=== PATIENT | male | born 1960 | race African-American/Black ===

== ENCOUNTER 2017-04-09 10:19 | Inpatient (IN) | payer OTHER ==
[2017-04-09 12:06] LABS: BASOPHIL 0.7 % (0-2.0); EOSINOPHIL 0.2 % (0-4.5); MCH 36.5 pg (25.7-33.7); MCHC 33.4 g/dl (32.0-35.9); MEAN CELL VOLUME 109.5 fl (80-96); MEAN PLT VOLUME 10.6 fl (7.5-11.1); NEUTROPHILS 68.2 % (42.8-82.8); RDW 15.7 % (11.9-15.9); WHITE BLOOD COUNT 2.8 K/mm3 (4.0-10.0)
[2017-04-09 12:08] LABS: PLATELET COUNT 28 K/MM3 (134-434)
--- NOTE | 2017-04-09 12:27 | PDOC ---
History of Present Illness - General History Source: Patient Exam Limitations: No Limitations - History of Present Illness Initial Comments: 04/09/17 12:30 The patient is a 56 year old male with a significant PMH of HTN, Hepatitis C, HIV, and cirrhosis of liver who presents to the emergency department with abdominal distension and swelling below the waist beginning approximately 4 days ago. 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 He reports swelling bilaterally in lower extremities (left worse than right), and in the scrotum and penis, giving him difficulty urinating. He also reports difficulty eating due to his distended abdomen. Patient was prescribed medication by his ID doctor about 6 months ago but has reported noncompliance from then until now. The patient denies chest pain, shortness of breath, headache and dizziness. Denies fever, chills, nausea, vomit, diarrhea and constipation. Denies dysuria, urgency and hematuria. Allergies: NKA Past surgical history: Appendectomy. Social history: Moderate alcohol use. No reported cigarette or drug use. <Charles Hartley - Last Filed: 04/09/17 15:47> - General History Source: Patient Exam Limitations: No Limitations <Shelley Calderon - Last Filed: 04/09/17 16:05> - General Chief Complaint: Edema Stated Complaint: BITE/ SWOLLEN LT FOOT Time Seen by Provider: 04/09/17 10:40 Past History <Charles Hartley - Last Filed: 04/09/17 15:47> - Past Medical History HTN: Yes Other medical history: HEP C - Surgical History Appendectomy: Yes - Suicide/Smoking/Psychosocial Hx Smoking History: Never smoked Hx Alcohol Use: No Drug/Substance Use Hx: No <Shelley Calderon - Last Filed: 04/09/17 16:05> - Past Medical History Allergies/Adverse Reactions: Allergies Allergy/AdvReac Type Severity Reaction Status Date / Time No Known Allergies Allergy Verified 04/09/17 10:27 Review of Systems - Review of Systems Able to Perform ROS?: Yes Comments:: 04/09/17 12:31 GENERAL/CONSTITUTIONAL: No fever or chills. No weakness. HEAD, EYES, EARS, NOSE AND THROAT: No change in vision. No ear pain or discharge. No sore throat. CARDIOVASCULAR: No chest pain or shortness of breath. RESPIRATORY: No cough, wheezing, or hemoptysis. GASTROINTESTINAL: (+) Abdominal swelling. No nausea, vomiting, diarrhea or constipation. GENITOURINARY: (+) Difficulty urinating. No dysuria, frequency. MUSCULOSKELETAL: (+) Bilateral LE swelling. (+) Scrotum & penis swelling. No joint pain. No neck or back pain. SKIN: No rash NEUROLOGIC: No headache, vertigo, loss of consciousness, or change in strength/ sensation. ENDOCRINE: No increased thirst. No abnormal weight change. HEMATOLOGIC/LYMPHATIC: No anemia, easy bleeding, or history of blood clots. ALLERGIC/IMMUNOLOGIC: No hives or skin allergy. <Charles Hartley - Last Filed: 04/09/17 15:47> *Physical Exam - Vital Signs Last Vital Signs Temp Pulse Resp BP Pulse Ox 98.3 F 110 H 20 134/80 100 04/09/17 10:24 04/09/17 10:24 04/09/17 10:24 04/09/17 10:24 04/09/17 10:24 - Physical Exam Comments: 04/09/17 12:32 GENERAL: Awake, alert, and fully oriented, in no acute distress HEAD: No signs of trauma EYES: PERRLA, EOMI, sclera anicteric, conjunctiva clear ENT: Auricles normal inspection, hearing grossly normal, nares patent, oropharynx clear without exudates. Moist mucosa NECK: Normal ROM, supple, no lymphadenopathy, JVD, or masses LUNGS: Breath sounds equal, clear to auscultation bilaterally. No wheezes, and no crackles HEART: Regular rate and rhythm, normal S1 and S2, no murmurs, rubs or gallops ABDOMEN: (+) Distended diffusely. (+) Ascites. Soft, normoactive bowel sounds. No guarding, no rebound. No masses EXTREMITIES:(+) Bilateral LE edema (left worse than right). Normal range of motion. No clubbing or cyanosis. No cords, erythema, or tenderness. DP/PT pulses 2+ and symmetric. NEUROLOGICAL: Cranial nerves II through XII grossly intact. Normal speech. SKIN: Warm, Dry, normal turgor, no rashes or lesions noted. <Charles Hartley - Last Filed: 04/09/17 15:47> - Vital Signs Last Vital Signs Temp Pulse Resp BP Pulse Ox 98.3 F 110 H 20 134/80 100 04/09/17 10:24 04/09/17 10:24 04/09/17 10:24 04/09/17 10:24 04/09/17 10:24 <Shelley Calderon - Last Filed: 04/09/17 16:05> Procedures - Bedside Ultrasound Bedside Ultrasound: Focused Assessment w/Sonography for Trauma Other: LARGE ASCITES SEE MDM <Shelley Calderon - Last Filed: 04/09/17 16:05> Heart Score/ECG Review #1 General ECG Interpretation: Sinus Rhythm, Normal Rate (81), Normal Intervals, No acute ischemic changes (TWI I, AVL, V4 - V5) Compared to previous ECG there are: Previous ECG unavail <Shelley Calderon - Last Filed: 04/09/17 16:05> ED Treatment Course - LABORATORY CBC & Chemistry Diagram: 04/09/17 11:55 04/09/17 12:02 - ADDITIONAL ORDERS Additional order review: 04/09/17 11:55 RBC 2.81 L MCV 109.5 H MCHC 33.4 RDW 15.7 MPV 10.6 Neutrophils % 68.2 Lymphocytes % 21.0 Monocytes % 9.9 Eosinophils % 0.2 Basophils % 0.7 <Charles Hartley - Last Filed: 04/09/17 15:47> - LABORATORY CBC & Chemistry Diagram: 04/09/17 11:55 04/09/17 12:02 - ADDITIONAL ORDERS Additional order review: 04/09/17 11:55 RBC 2.81 L MCV 109.5 H MCHC 33.4 RDW 15.7 MPV 10.6 Neutrophils % 68.2 Lymphocytes % 21.0 Monocytes % 9.9 Eosinophils % 0.2 Basophils % 0.7 - RADIOLOGY Radiology Studies Ordered: Category Date Time Status CHEST PA & LAT [RAD] Stat Radiology 04/09/17 11:16 Ordered <Shelley Calderon - Last Filed: 04/09/17 16:05> Medical Decision Making - Medical Decision Making 04/09/17 12:20 56 yo male h/o hiv (no currently on meds sine > 6 mo) here with c/o abd and leg swelling, edema x 4 days. believes attributed to ant bites. h/o cirrhosis. htn , . no sob no cp. plan differential: edema from worsening cirrhosis, anemia liver failure, ascities, no current signs of cellulitis, renal failure, plan labs cmp cbc ua cxr bnp ekg. reasses. 04/09/17 15:08 focused ed ultrasound FAST all four quadrants scanned, including right upper, left upper , subxiphoid and pelvic views large free fluid noted in perihepatic space, perisplenic space, and pelvix. focued ED TTE noted for left atrial enlargement, overall good contractility. no pericardial effusion. no pleural effusio noted. impression: positive FAST for ascites, TTE good contractility, no pericardial effusion. PT WITH PANCYTOPENIA, PLATELET 26 NO ACTIVE BLEEDING. ENCOURAGE PT TO STAY IN HOSPITAL FOR EVALUATION LIVER FAILURE, UNTREATED HIV AND DIFFUSE ANASARCA. PT REFUSING. GIVEN NUMBER FOR [facility] [phone]. aware of risk and benefit including worsening edema. lower platelets, spontaneous bleeding. 04/09/17 15:13 04/09/17 15:14 <Shelley Calderon - Last Filed: 04/09/17 16:05> *DC/Admit/Observation/Transfer - Attestations Scribe Attestion: 04/09/17 12:32 Documentation prepared by Charles Hartley, acting as center medical director for Shelley Calderon MD. <Charles Hartley - Last Filed: 04/09/17 15:47> - Discharge Dispostion Admit: Yes <Shelley Calderon - Last Filed: 04/09/17 16:05> Diagnosis at time of Disposition: Pancytopenia, Thrombocytopenia, Ascites, Edema - Discharge Dispostion Disposition: AGAINST MEDICAL ADVICE Condition at time of disposition: Fair - Patient Instructions Printed Discharge Instructions: Cirrhosis, Ascites, Platelet Count Additional Instructions: your platelet count is very low at 26. you should return for any spontaneous bleeding, or any concerns. you need to follow up wtih the [facility], HIV clinic. call to schedule to be seen in the next week. [phone]. you also need to follow up wtih a manager radio, you can see Dr. Faulkner see referral information. understand you are leaving Against medical advice, i encourage you to return should you change your mind.
[2017-04-09 12:33] LABS: ALBUMIN 1.4 g/dl (3.4-5.0); ANION GAP 7 (8-16); BILIRUBIN,TOTAL 1.4 mg/dL (0.2-1.0); CO2 24 mmol/L (21-32); CREATININE 0.7 mg/dL (0.7-1.3); GLUCOSE,RANDOM 82 mg/dL (74-106); SGOT/AST 146 U/L (15-37); SGPT/ALT 63 U/L (12-78); TOT PROT 7.4 g/dl (6.4-8.2)
[2017-04-09 12:47] LABS: ALK PHOS 84 U/L (45-117)
--- NOTE | 2017-04-09 12:53 | EKG ---
Test Reason : Blood Pressure : / mmHG Vent. Rate : 081 BPM Atrial Rate : 081 BPM P-R Int : 138 ms QRS Dur : 086 ms QT Int : 402 ms P-R-T Axes : 012 038 121 degrees QTc Int : 466 ms SINUS RHYTHM WITH PREMATURE ATRIAL COMPLEXES POOR R WAVE PROGRESSION ABNORMAL ECG NO PREVIOUS ECGS AVAILABLE CLINICAL CORRELATION IS RECOMMENDED Confirmed by OMID ROUSSEAU MD ([id number]) on 04/09/2017 12:53:34 PM Referred By: Confirmed By:OMID ROUSSEAU MD
--- NOTE | 2017-04-09 17:51 | HP ---
CHIEF COMPLAINT: abdominal distension and swelling of legs PCP: Nasra Ward HISTORY OF PRESENT ILLNESS: 56 yo M with a PMHx of HTN, HEP C, HIV (1989), Cirrhosis, arthritis of the hips and shoulders, presented to the ED with complaints of b/l leg swelling and epigastric abdominal pain and distension that started after getting bit by ants at work 4 days ago. He describes the abdominal pain as pressure-like, 10/10 when it hurts, and gets worse when standing or moving. 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 Eating aggravates the pain. He also has noticed that food has been getting stuck in his throat around the same time the abdominal pain and swelling started. His legs also swell more when walking and standing. He took a dose of aleve for the pain but it did not help. Patient has lost 140 pounds in the past 6 months. He denies headache, diarrhea, blood in stool, nausea, rash, SOB, urinary symptoms, and chest pain. ER course was notable for: (1)focused ed ultrasound FAST- large free fluid noted in perihepatic space, perisplenic space. (2) Platelet count 26 Recent Travel: n/a PAST MEDICAL HISTORY: HIV (stopped taking medications 6 months ago), PAST SURGICAL HISTORY: appendectomy Social History: Smoking: denies Alcohol: 1 bottle this week. used to be heavy drinker. stopped in june Drugs: marijuana He has 3 cats which he says are vaccinated. Family History: Allergies No Known Allergies Allergy (Verified 04/09/17 10:27) HOME MEDICATIONS: atenolol 50mg REVIEW OF SYSTEMS as per HPI PHYSICAL EXAMINATION GENERAL: NC/AT A/O x3 EYES: anicteric, deformed pupils EARS, THROAT: scattered oral thrush NECK:supple LUNGS: diffuse b/l crackles HEART: RRR, 2/6 Murmur LUSB ABDOMEN: soft, tender to palpation in all quadrants. no rebound or guarding. Unable to palpate liver, but percussed 3-4cm bbelow coastal margin. + shifting dullness. MUSCULOSKELETAL: Normal range of motion at all joints UPPER EXTREMITIES: 2+ pulses, warm, No cyanosis. No peripheral edema. LOWER EXTREMITIES: 2+ pulses, + calf tenderness. 2+ pitting edema b/L. dry, scaly, right foot NEUROLOGICAL: Normal speech. Normal facial sensation. strength 5/5 throughout b/L, normal sensation to light touch throughout. 2+ knee jerk PSYCHIATRIC: Cooperative. Good eye contact. Appropriate mood and affect. SKIN: Warm, dry, normal turgor, no rashes or lesions noted, normal capillary refill. Nl facial sensation . ASSESSMENT/PLAN: 56 yo M with a PMHx of HTN, HEP C, HIV (1989), Cirrhosis, arthritis of the hips and shoulders, presented to the ED with complaints of b/l leg swelling and epigastric abdominal pain and distension. #LE ascites and edema - likely from advanced liver disease vs CHF vs hypoalbuninemia vs Nephrotic syndome -abnormal LFTs, history of Hep C, possible ascites -Elevated BNP 1863 -albumin 1.4 -history of 2 liver biopsies. patient has no results -start lasix 40 BID -Start spironolactone 25mg PO daily -FU INR -FU Liver US -Dr. Sylvester (GI) consulted -if no improvements of breathing from Lasix, possible therapeutic paracentesis for SOB -FU hepatitis panel -FU DOMINIC, AMA, anti-smooth muscle -FU UA, spot protein to creatinine -FU PT/INR -FU echo #Dysphagia -oral thrush -start oral Fluconazole 100mg Daily #Hx of HIV -noncompliant, last use 6 months ago -follow up outpatient #Thrombocytopenia -likely due to advanced liver disease -not actively bleeding -68101 platelet count -will monitor -avoid heparin #Pancytopenia - likely due to liver disease -FU iron studies -FU b12, folate #Hyperkalemia -3.2 -repleted -will follow up with AM labs #ETOH abuse -monitor for withdrawal symptoms. -Thiamine daily -Folate daily # Left Tineea pedis -nystatin ointment #FEN -not on any fluids -Potassium repleted - Sodium controlled diet #PPX -No dvt ppx PT Visit type - Emergency Visit Emergency Visit: Yes ED Registration Date: 04/09/17 Care time: The patient presented to the Emergency Department on the above date and was hospitalized for further evaluation of their emergent condition. - New Patient This patient is new to me today: Yes Date on this admission: 04/09/17 - Critical Care Critical Care patient: No
--- NOTE | 2017-04-09 17:52 | HP ---
CHIEF COMPLAINT: LE rash with swelling and abdominal distention PCP: none, used to follow at [facility] for HIV and primary care stopped going 6 months ago, has moved to [place] and is looking for new PCP. HISTORY OF PRESENT ILLNESS: 56 yr old man with Hx of HIV off HAART for 6months, HTN and Hep C (possible cirrhosis), presents with b/l worsening rash and edema of legs and progressively worsening abdominal distention. 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 a/w diffuse nonradiating abdominal pain worse with food. has been having difficulty swallowing for the past few days. denies fevers, chest pain, sob. 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 HEAD: Normal with no signs of trauma. EYES: Pupils equal, round and reactive to light, extraocular movements intact, sclera anicteric, conjunctiva clear. No lid lag. EARS, NOSE, THROAT: +thrush in upper palate and in oropharynx with surrounding erythema. poor dentition NECK: +JVD on right LUNGS: basilar crackles, Left>Right HEART: Regular rate and rhythm, normal S1 and S2 without murmur, rub or gallop. ABDOMEN: Soft, + distended, +diffuse tenderness, engorged abdominal veins, + shifting dullness MUSCULOSKELETAL: Normal range of motion at all joints. No bony deformities or tenderness. No CVA tenderness. NEUROLOGICAL: Cranial nerves II-XII intact. Normal speech. facial symmetry PSYCHIATRIC: Cooperative. Good eye contact. Appropriate mood and affect. SKIN: wide lace like erythema with punctate flat erythematous nonblanching diffuse lesions extending from ankles to thighs and posterior scrotum. no lesions on penis on buttocks or around anus. does not extend to upper body, feet or palms. nontender. b/l feet with hyperpigmented skin upto ankles. ASSESSMENT/PLAN: 56 yr old man with medication noncompliance for HAART and HTN presents with worsening abdominal distention. #Abdominal distention w/shifting dullness, ascitis noted in FAST u/s in ED - concern for multiple etiologies including hepatic cause from infection/ autoimmune, hypoalbumenia from poor hepatic fxn/poor nutrition. , CHF - u/s for liver evaluation and ascitis measurement - Hepatitis panel A,b,c, AMA, DOMINIC, Anti-sm, INR, repeat labs in the AM - consider tap due to abdominal tenderness to r/o malignancy, eval fluid composition - duiresis with spironolactone 25mg po daily and lasix 40mg po daily #Thrush - fluconazole 200mg po once for loading and 100mg po for 2wks #Pancytopenia in setting of noncompliance with HAART therapy/hepatic dysfunction - [facility] and Dr. Moyer for PCP #hypokalemia - replete Po tablets DVT: scd's due to thrombocytopenia Visit type - Emergency Visit Emergency Visit: Yes ED Registration Date: 04/09/17 Care time: The patient presented to the Emergency Department on the above date and was hospitalized for further evaluation of their emergent condition. - New Patient This patient is new to me today: Yes Date on this admission: 04/09/17 - Critical Care Critical Care patient: No
--- NOTE | 2017-04-09 18:39 | PN ---
Teaching Attending Note Name of Resident: Brenda Kennedy ATTENDING PHYSICIAN STATEMENT I saw and evaluated the patient. I reviewed the resident's note and discussed the case with the resident. I agree with the resident's findings and plan as documented. SUBJECTIVE: CC: LE edema HPI: 56 y/o man with h/o HTN, HIV, Hep C, alcohol use, and drug use who presented with LE edema x 3 days . He reports being bitten by ants in his hands and feet 2 days later his feet started swelling. HE also reports abd distention but no abd pain x 4 days. He reports no fever or chills. Has no diarrhea or dysuria ,. Denies any GI bleed. HE was diagnosed with Hep C in the . He denies any diagnosis of cirrhosis in past, and he does not see a GI doctor . 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 Unfortunately, he continues to drink alcohol ( 1- beers intermittently ). he smokes marijuana . LAst drink yesterday ( 1/2 beer) OBJECTIVE: NAD, AAOx3, cachectic. HEENT: NO LAP in neck , minimal JVD in on R . thrush on palate and tongue CV: RRR, NO MRG Lungs: R lung crackles half way down , and L base crackles Abd: soft, TTP in all quadrants, no rebound tenderness or guarding, Liver is not palpated but percussed 3 cm below costal margin to the right of the mid clavicular line. shifting dullness +. NO splenomegaly . EXT: 2+ edema and hyperpigmented skin tinea pedis on L Neuro : no facial droop, EOMI, deformed L pupil, sixed R pupil. tongue and uvula at mid line . Nl facial sensation . strength 55/ in upper and lower extremities, proximally and distally. sensation to light touch NL. reflexes 2+ knee jerk and biceps b/l ASSESSMENT AND PLAN: 56 y/o man with h/o HTN, HIV, Hep C, alcohol use, and drug use who presented with LE edema x 3 days. 1- LE edema and ascitis , likely form advanced liver disease ( h/o HEp c, hypoalbuminemia, LFTS abn, ascitis ) , Vs CHF ( elevated BNP, JVD) he was not previously diagnosed with Cirrhosis , had 2 LIver Bx in past but no available results - start lasix 40 BID orally - start spironolactone 25 daily - Echo - check INR - Liver US . - GI consult . - will require a therapeutic paracentesis due to difficulty breathing, if diuresis is not adequate - check Hep B , C serology as well as Hep A - DOMINIC , AMA , anti smooth muscles 2- H/o HIV: has not been on HIV meds for long time. follow up as out pt 3- thrombocytopenia :likely due to advanced liver disease. NO bleeding . - No indication of transfusion unless , [id number] - avoid heparin products . 4- replete hypokalemia SCDs Inp
[2017-04-09 18:49] VITALS: BMI 24.1
[2017-04-09] MEDS ORDERED: FLUCONAZOLE 100 MG TABLET (UD) PO ONE (19:37)
[2017-04-09] MEDS ORDERED: SPIRONOLACTONE 25 MG TABLET (FP) PO ONE (19:43)
[2017-04-09] MEDS ORDERED: POTASSIUM CHLORIDE TABS 20 MEQ TABLET.ER (FP) PO ONE (19:44)
[2017-04-09] MEDS: ATENOLOL 50 MG TABLET (FP) PO SCH (20:08)
[2017-04-10] MEDS: FUROSEMIDE 40 MG TABLET (FP) PO SCH ×2 (05:41→13:41)
[2017-04-10 08:45] LABS: MCH 37.1 pg (25.7-33.7); MCHC 33.8 g/dl (32.0-35.9); MEAN CELL VOLUME 109.7 fl (80-96); MEAN PLT VOLUME 10.7 fl (7.5-11.1); WHITE BLOOD COUNT 3.3 K/mm3 (4.0-10.0)
[2017-04-10 08:46] LABS: URINE APPEARANCE CLEAR; URINE BLOOD 1+ (NEGATIVE); URINE COLOR AMBER; URINE GLUCOSE (UA) NEGATIVE (NEGATIVE); URINE KETONE NEGATIVE (NEGATIVE); URINE NITRITE POSITIVE (NEGATIVE); URINE PROTEIN NEGATIVE (NEGATIVE); URINE UROBILINOGEN 4.0 E.U/dl mg/dL (0.2-1.0)
[2017-04-10 08:53] LABS: PLATELET COUNT 30 K/MM3 (134-434)
[2017-04-10 09:19] LABS: ANION GAP 8 (8-16); CALCIUM 7.1 mg/dL (8.5-10.1); CO2 23 mmol/L (21-32); CREATININE 0.6 mg/dL (0.7-1.3); GLUCOSE,RANDOM 118 mg/dL (74-106); MAGNESIUM 1.6 mg/dL (1.8-2.4); PHOSPHOROUS 2.7 mg/dL (2.5-4.9)
[2017-04-10 09:21] LABS: INR 1.68 (0.82-1.09)
[2017-04-10 09:46] LABS: URINE BACTERIA FEW /hpf (NONE SEEN); URINE MUCUS RARE; URINE RBC 10 /hpf (0-3); URINE WBC 6 /hpf (3-5)
[2017-04-10] MEDS ORDERED: SPIRONOLACTONE 25 MG TABLET (FP) PO SCH (10:00)
[2017-04-10 10:17] LABS: FERRITIN 409.262 ng/ml (16.4-293.9)
[2017-04-10] MEDS: THIAMINE HCL 100 MG TABLET (FP) PO SCH (10:17)
[2017-04-10] MEDS: ATENOLOL 50 MG TABLET (FP) PO SCH (10:17)
[2017-04-10] MEDS: FLUCONAZOLE 100 MG TABLET (UD) PO SCH (10:18)
[2017-04-10] MEDS: FOLIC ACID 1 MG TABLET (FP) PO SCH (10:18)
--- NOTE | 2017-04-10 13:10 | PN ---
Progress Note (short form) - Note Progress Note: Subjective: No fever or chills, has no abd pain. no N/V . Objective: Vital Signs: Last Vital Signs Temp Pulse Resp BP Pulse Ox 981 F H 84 20 142/85 99 04/10/17 10:00 04/10/17 10:00 04/10/17 10:00 04/10/17 10:00 04/09/17 21:00 Laboratory Results - last 24 hr 04/09/17 04/10/17 04/10/17 16:28 06:05 06:05 WBC RBC Hgb Hct MCV MCH MCHC RDW Plt Count MPV PT with INR INR PTT (Actin FS) Sodium Potassium Chloride Carbon Dioxide Anion Gap BUN Creatinine Random Glucose Calcium Phosphorus Magnesium Ferritin Vitamin B12 Serum Folate Urine Color Paige Urine Appearance Clear Urine pH 6.0 Urine Protein Negative Urine Glucose (UA) Negative Urine Ketones Negative Urine Blood 1+ H Urine Nitrite Positive Urine Bilirubin 2.0 Urine Urobilinogen 4.0 e.u/dl Urine RBC 10 Urine WBC 6 Ur Epithelial Cells Rare Urine Bacteria Few Urine Mucus Rare U Random Total Protein 37 H Urine Creatinine 259.0 Protein/Creatinin Ratio 0.142 Blood Type O POSITIVE Antibody Screen Negative 04/10/17 04/10/17 04/10/17 08:35 08:35 08:35 WBC 3.3 L RBC 2.77 L Hgb 10.3 L Hct 30.3 L MCV 109.7 H MCH 37.1 H MCHC 33.8 RDW 16.0 H Plt Count 30 L* MPV 10.7 PT with INR INR PTT (Actin FS) 34.6 H Sodium 142 Potassium 3.8 Chloride 111 H Carbon Dioxide 23 Anion Gap 8 BUN 11 D Creatinine 0.6 L Random Glucose 118 H D Calcium 7.1 L Phosphorus 2.7 Magnesium 1.6 L Ferritin Vitamin B12 Serum Folate 16 Urine Color Urine Appearance Urine pH Urine Protein Urine Glucose (UA) Urine Ketones Urine Blood Urine Nitrite Urine Bilirubin Urine Urobilinogen Urine RBC Urine WBC Ur Epithelial Cells Urine Bacteria Urine Mucus U Random Total Protein Urine Creatinine Protein/Creatinin Ratio Blood Type Antibody Screen 04/10/17 04/10/17 08:35 08:39 WBC RBC Hgb Hct MCV MCH MCHC RDW Plt Count MPV PT with INR 19.00 H INR 1.68 H PTT (Actin FS) Sodium Potassium Chloride Carbon Dioxide Anion Gap BUN Creatinine Random Glucose Calcium Phosphorus Magnesium Ferritin 409.262 H Vitamin B12 1414 H Serum Folate Urine Color Urine Appearance Urine pH Urine Protein Urine Glucose (UA) Urine Ketones Urine Blood Urine Nitrite Urine Bilirubin Urine Urobilinogen Urine RBC Urine WBC Ur Epithelial Cells Urine Bacteria Urine Mucus U Random Total Protein Urine Creatinine Protein/Creatinin Ratio Blood Type Antibody Screen Physical Exam: NAD, AAOx3, cachectic. HEENT: thrush on palate and R lower edge of tongue CV: RRR, NO MRG Lungs: bibasilar crackles Abd: soft, TTP in all quadrants, no rebound tenderness or guarding, Liver is not palpated but percussed 3 cm below costal margin to the right of the mid clavicular line. shifting dullness +. NO splenomegaly . EXT: 2+ edema and hyperpigmented skin tinea pedis on L ASSESSMENT AND PLAN: 56 y/o man with h/o HTN, HIV, Hep C, alcohol use, and drug use who presented with LE edema x 3 days. 1- LE edema and ascitis, likely form advanced liver disease . Other causes like CHF and nephrotic syndrome should be considered He was not previously diagnosed with Cirrhosis - lasix 40 BID orally, and spironolactone 25 daily. - will need to arrange for therapeutic diagnostic paracentesis - Possible need for EGD - Echo pending - protein to Cr ration noted . - GI consult . - Hep serology pending - DOMINIC , AMA , anti smooth muscles pending 2- H/o HIV: has not been on HIV meds for long time. follow up as out pt . 3- Oral thrush, likely has esophageal thrush as well given his immunocompromised state. - cont fluconazole . EGD will confirm 4- pancytopenia : likely due to BM suppression from alcohol use, HIV and liver disease - iron studies pensing . B12 elevated and folate NL. - no need for plt transfusion , as he has no bleeding 5- ALcohol dependence . No signs of withdrawal . - can use ativan for withdrawal if needed - folate and thiamine daily . 6- Tinea Pedis : nystatin topically SCDs Visit type - Emergency Visit Emergency Visit: Yes ED Registration Date: 04/09/17 Care time: The patient presented to the Emergency Department on the above date and was hospitalized for further evaluation of their emergent condition. - New Patient This patient is new to me today: No - Critical Care Critical Care patient: No
[2017-04-10] MEDS ORDERED: MAGNESIUM SULF 50% (8.12 MEQ/2 ML-1 GM VIAL) IVPB ONE (13:45)
--- NOTE | 2017-04-10 14:31 | CON.GI ---
Consult Consult Specialty:: GI Referred by:: service Reason for Consultation:: acute oncet abdominal distension - History of Present Illness History of Present Illness: Chart, ED records, H&P reviewed. A 56 yom admitted via ED with c/o acute onset abdominal distension, early satiety. Deneis SOB. Has Dx of Liver cirrhosis, ? untreated HCV, and stopped medications for HIV 6 month ago. Continues to drink alcohol. Denies fever, chills, hematemesis, melena, hematochezia. Deneis changes in diet, medications, lifestyle. Reports significant weight loss in the last 2-3 months. - History Source History Provided By: Patient, Medical Record Limitations to Obtaining History: No Limitations - Past Medical History Cardio/Vascular: Yes: HTN Hepatobiliary: Yes: Cirrhosis, Hepatitis C Infectious Disease: Yes: HIV Musculoskeletal: Yes: Osteoarthritis - Alcohol/Substance Use Hx Alcohol Use: Yes - Smoking History Smoking history: Current some day smoker Have you smoked in the past 12 months: Yes Aproximately how many cigarettes per day: 3 Home Medications - Allergies Allergies/Adverse Reactions: Allergies Allergy/AdvReac Type Severity Reaction Status Date / Time No Known Allergies Allergy Verified 04/09/17 10:27 - Home Medications Home Medications: Ambulatory Orders NK [No Known Home Medication] 04/10/17 Family Disease History - Family Disease History Family History: Unremarkable Review of Systems - Review of Systems Constitutional: reports: Unintentional Wgt. Loss Neck: reports: No Symptoms Cardiovascular: reports: No Symptoms Respiratory: reports: No Symptoms Gastrointestinal: reports: Abdominal Pain, Bloating, Dysphagia. denies: Melena , Nausea, Rectal Bleeding, Vomiting Neurological: reports: No Symptoms Endocrine: reports: No Symptoms Hematology/Lymphatic: denies: Easily Bruised, Excessive Bleeding Physical Exam-GI Vital Signs: Vital Signs Temperature 98.0 F 04/10/17 14:00 Pulse Rate 79 04/10/17 14:00 Respiratory Rate 21 04/10/17 14:00 Blood Pressure 149/90 04/10/17 14:00 O2 Sat by Pulse Oximetry (%) 98 04/10/17 09:00 Constitutional: Yes: Cachectic Eyes: Yes: Conjunctiva Clear HENT: Yes: Atraumatic Neck: Yes: Supple Cardiovascular: Yes: Regular Rate and Rhythm Respiratory: Yes: Regular Gastrointestinal Inspection: Yes: Ascites, Distention ...Auscultate: Yes: Normoactive Bowel Sounds ...Palpate: No: Guarding, Mass, Pulsatile Mass, Tenderness ...Percussion: Yes: Fluid Wave Edema: Yes Edema: LLE: 1+, RLE: 1+ Integumentary: No: Jaundice Neurological: Yes: Alert, Oriented Labs: CBC, BMP 04/10/17 08:35 04/10/17 08:35 INR, PTT INR 1.68 (0.82-1.09) H 04/10/17 08:39 Laboratory Tests 04/09/17 04/09/17 04/09/17 11:55 12:02 16:28 WBC 2.8 L RBC 2.81 L Hgb 10.3 L Hct 30.8 L MCV 109.5 H MCH 36.5 H MCHC 33.4 RDW 15.7 Plt Count 28 L* MPV 10.6 Neutrophils % 68.2 Lymphocytes % 21.0 Monocytes % 9.9 Eosinophils % 0.2 Basophils % 0.7 PT with INR INR PTT (Actin FS) Sodium 141 Potassium 3.2 L Chloride 110 H Carbon Dioxide 24 Anion Gap 7 L BUN 9 Creatinine 0.7 Creat Clearance w eGFR > 60 Random Glucose 82 Calcium 7.0 L Phosphorus Magnesium Ferritin Total Bilirubin 1.4 H AST 146 H ALT 63 Alkaline Phosphatase 84 B-Natriuretic Peptide 1863.12 H Total Protein 7.4 Albumin 1.4 L Vitamin B12 Serum Folate Urine Color Urine Appearance Urine pH Urine Protein Urine Glucose (UA) Urine Ketones Urine Blood Urine Nitrite Urine Bilirubin Urine Urobilinogen Urine RBC Urine WBC Ur Epithelial Cells Urine Bacteria Urine Mucus U Random Total Protein Urine Creatinine Protein/Creatinin Ratio Blood Type O POSITIVE Antibody Screen Negative 04/10/17 04/10/17 04/10/17 06:05 06:05 08:35 WBC 3.3 L RBC 2.77 L Hgb 10.3 L Hct 30.3 L MCV 109.7 H MCH 37.1 H MCHC 33.8 RDW 16.0 H Plt Count 30 L* MPV 10.7 Neutrophils % Lymphocytes % Monocytes % Eosinophils % Basophils % PT with INR INR PTT (Actin FS) Sodium Potassium Chloride Carbon Dioxide Anion Gap BUN Creatinine Creat Clearance w eGFR Random Glucose Calcium Phosphorus Magnesium Ferritin Total Bilirubin AST ALT Alkaline Phosphatase B-Natriuretic Peptide Total Protein Albumin Vitamin B12 Serum Folate Urine Color Paige Urine Appearance Clear Urine pH 6.0 Urine Protein Negative Urine Glucose (UA) Negative Urine Ketones Negative Urine Blood 1+ H Urine Nitrite Positive Urine Bilirubin 2.0 Urine Urobilinogen 4.0 e.u/dl Urine RBC 10 Urine WBC 6 Ur Epithelial Cells Rare Urine Bacteria Few Urine Mucus Rare U Random Total Protein 37 H Urine Creatinine 259.0 Protein/Creatinin Ratio 0.142 Blood Type Antibody Screen 04/10/17 04/10/17 04/10/17 08:35 08:35 08:35 WBC RBC Hgb Hct MCV MCH MCHC RDW Plt Count MPV Neutrophils % Lymphocytes % Monocytes % Eosinophils % Basophils % PT with INR INR PTT (Actin FS) 34.6 H Sodium 142 Potassium 3.8 Chloride 111 H Carbon Dioxide 23 Anion Gap 8 BUN 11 D Creatinine 0.6 L Creat Clearance w eGFR Random Glucose 118 H D Calcium 7.1 L Phosphorus 2.7 Magnesium 1.6 L Ferritin 409.262 H Total Bilirubin AST ALT Alkaline Phosphatase B-Natriuretic Peptide Total Protein Albumin Vitamin B12 1414 H Serum Folate 16 Urine Color Urine Appearance Urine pH Urine Protein Urine Glucose (UA) Urine Ketones Urine Blood Urine Nitrite Urine Bilirubin Urine Urobilinogen Urine RBC Urine WBC Ur Epithelial Cells Urine Bacteria Urine Mucus U Random Total Protein Urine Creatinine Protein/Creatinin Ratio Blood Type Antibody Screen 04/10/17 08:39 WBC RBC Hgb Hct MCV MCH MCHC RDW Plt Count MPV Neutrophils % Lymphocytes % Monocytes % Eosinophils % Basophils % PT with INR 19.00 H INR 1.68 H PTT (Actin FS) Sodium Potassium Chloride Carbon Dioxide Anion Gap BUN Creatinine Creat Clearance w eGFR Random Glucose Calcium Phosphorus Magnesium Ferritin Total Bilirubin AST ALT Alkaline Phosphatase B-Natriuretic Peptide Total Protein Albumin Vitamin B12 Serum Folate Urine Color Urine Appearance Urine pH Urine Protein Urine Glucose (UA) Urine Ketones Urine Blood Urine Nitrite Urine Bilirubin Urine Urobilinogen Urine RBC Urine WBC Ur Epithelial Cells Urine Bacteria Urine Mucus U Random Total Protein Urine Creatinine Protein/Creatinin Ratio Blood Type Antibody Screen Imaging - Results Ultrasound: Report Reviewed (Ascites) Problem List - Problems (1) Ascites Code(s): R18.8 - OTHER ASCITES Qualifiers: Ascites type: due to alcoholic cirrhosis Qualified Code(s): K70.31 - Alcoholic cirrhosis of liver with ascites; K70.31 - Alcoholic cirrhosis of liver with ascites; K70.31 - Alcoholic cirrhosis of liver with ascites (2) Decompensated HCV cirrhosis Code(s): B19.20 - UNSPECIFIED VIRAL HEPATITIS C WITHOUT HEPATIC COMA K74.69 - OTHER CIRRHOSIS OF LIVER (3) Weight loss, abnormal Code(s): R63.4 - ABNORMAL WEIGHT LOSS Assessment/Plan Acute, symptomatic/tense ascites in a HCV/ETOH cirrhosis, HIV patient. No melena , hematochezia, hematemessis. r/o hepatic lesion, thrombosis. MRI liver w/w/o 2gm salt diet Spirolactone 50 mg po BID Lasix 20 mg po bid Therapeutic paracentesis, please send for cell count/differential, total protein and albumin. Obtain serum albumin at the same time to calculate SAAG Plan EGD for varieseal surveillance Discussed with the patient and covering hospitalist Active Orders - 24 Hr 04/09/17 14:51 PLATELETS- SINGLE DONOR IRR Stat 04/09/17 16:05 Decision to Admit to Hospital Routine 04/09/17 18:39 Admission Certification Once Admit for Inpatient Services ONCE Activity, OOB As tolerated Vital Signs BID VTE Risk Level/Orders Routine 04/09/17 18:40 Early ambulation QS 04/09/17 19:37 ECHO W/DOPPLER,M MODE & COLOR* [CARD] Routine Physician Consultation Physician 1 04/09/17 19:45 Atenolol [Tenormin -] 50 mg PO DAILY 04/09/17 19:47 Physical Therapy Request Routine 04/09/17 23:00 Strict Intake/Output QSHIFT 04/09/17 Dinner Low Na [Sodium Controlled Diet] [DT] 04/10/17 06:00 Furosemide [Lasix -] 40 mg PO BID@0600,1400 04/10/17 08:35 AFP,TUMOR MARKER Routine DOMIINC [ANTINUCLEAR AB W/RFX] Routine ANTIMICROSOMAL ANTIBODY Routine ANTIMYOCARDIAL ANTIBODIES,QN Routine Anti-Smooth Muscle Antibody [SMOOTH MUSCLE AB] Routine FE & TIBC Routine HCV ANTBDY Routine HEPATITIS A & B PANEL Routine TRANSFERRIN Routine 04/10/17 10:00 Fluconazole [Diflucan -] 100 mg PO DAILY Folic Acid - 1 mg PO DAILY Spironolactone [Aldactone -] 25 mg PO DAILY Thiamine HCl [Vitamin B1 -] 100 mg PO DAILY 04/10/17 13:17 PARACENTESIS ABD W/GUIDE [RADS] Routine 04/11/17 06:00 BASIC METABOLIC PANEL Routine CBC WITH DIFFERENTIAL Routine Liver Profile [HEPATIC FUNCTION PANEL] Routine MAGNESIUM Routine PHOSPHOROUS Routine
[2017-04-10 14:38] LABS: URINE LEUK ESTERASE Negative (NEGATIVE)
[2017-04-10] MEDS: SPIRONOLACTONE 25 MG TABLET (FP) PO SCH (21:07)
[2017-04-11] MEDS: FUROSEMIDE 20 MG TABLET (FP) PO SCH ×2 (05:55→13:38)
[2017-04-11 06:06] LABS: SERUM IRON 75 ug/dL (38-169); TOTAL IRON BINDING CAPACITY 150 ug/dL (250-450); UIBC 75 ug/dL (111-343)
[2017-04-11 08:15] LABS: BASOPHIL 0.3 % (0-2.0); EOSINOPHIL 0.3 % (0-4.5); MCH 37.2 pg (25.7-33.7); MCHC 33.9 g/dl (32.0-35.9); MEAN CELL VOLUME 109.7 fl (80-96); MEAN PLT VOLUME 10.8 fl (7.5-11.1); NEUTROPHILS 57.5 % (42.8-82.8); RDW 15.9 % (11.9-15.9)
[2017-04-11 08:19] LABS: PLATELET COUNT 28 K/MM3 (134-434)
[2017-04-11 08:44] LABS: ALBUMIN 1.2 g/dl (3.4-5.0); ALK PHOS 78 U/L (45-117); ANION GAP 6 (8-16); BILIRUBIN,DIRECT 0.7 mg/dL (0.0-0.2); BILIRUBIN,TOTAL 1.2 mg/dL (0.2-1.0); CO2 25 mmol/L (21-32); CREATININE 0.6 mg/dL (0.7-1.3); GLUCOSE,RANDOM 90 mg/dL (74-106); MAGNESIUM 1.7 mg/dL (1.8-2.4); PHOSPHOROUS 2.9 mg/dL (2.5-4.9); SGOT/AST 121 U/L (15-37); SGPT/ALT 54 U/L (12-78); TOT PROT 6.4 g/dl (6.4-8.2)
[2017-04-11] MEDS: THIAMINE HCL 100 MG TABLET (FP) PO SCH (10:28)
[2017-04-11] MEDS: SPIRONOLACTONE 25 MG TABLET (FP) PO SCH ×2 (10:28→22:19)
[2017-04-11] MEDS: ATENOLOL 50 MG TABLET (FP) PO SCH (10:28)
[2017-04-11] MEDS: FLUCONAZOLE 100 MG TABLET (UD) PO SCH (10:28)
[2017-04-11] MEDS: FOLIC ACID 1 MG TABLET (FP) PO SCH (10:28)
[2017-04-11 10:35] LABS: INR 1.81 (0.82-1.09); PROTHROMBIN TIME (PATIENT) 20.4 SEC (9.98-11.88)
--- NOTE | 2017-04-11 11:31 | PN ---
Progress Note, Physician History of Present Illness: No events. Grade III hemorrhoids, refused sitz bath. No bleeding. C/o abdominal distension - Current Medication List Current Medications: Active Medications Atenolol (Tenormin -) 50 mg PO DAILY [facility] Last Admin: 04/11/17 10:28 Dose: 50 mg Fluconazole (Diflucan -) 100 mg PO DAILY [facility] Last Admin: 04/11/17 10:28 Dose: 100 mg Folic Acid (Folic Acid -) 1 mg PO DAILY [facility] Last Admin: 04/11/17 10:28 Dose: 1 mg Furosemide (Lasix -) 20 mg PO BID@0600,1400 [facility] Last Admin: 04/11/17 05:55 Dose: 20 mg Spironolactone (Aldactone -) 50 mg PO BID [facility] Last Admin: 04/11/17 10:28 Dose: 50 mg Thiamine HCl (Vitamin B1 -) 100 mg PO DAILY [facility] Last Admin: 04/11/17 10:28 Dose: 100 mg - Objective Vital Signs: Vital Signs Temperature 98.4 F 04/11/17 08:00 Pulse Rate 82 04/11/17 08:00 Respiratory Rate 18 04/11/17 08:00 Blood Pressure 134/83 04/11/17 08:00 O2 Sat by Pulse Oximetry (%) 98 04/10/17 20:42 Constitutional: Yes: No Distress, Calm Eyes: Yes: Conjunctiva Clear HENT: Yes: Atraumatic Neck: Yes: Supple Cardiovascular: Yes: Regular Rate and Rhythm Respiratory: Yes: Regular Gastrointestinal: Yes: Normal Bowel Sounds, Ascites, Distention. No: Melena, Palpable Mass, Pulsatile Mass, Rectal Bleeding, Tenderness, Vomiting ...Rectal Exam: Yes: Other (prolapsed, grade III internal hemorrhoids) Edema: Yes Edema: LLE: 2+, RLE: 2+ Integumentary: No: Jaundice Neurological: Yes: Alert, Oriented Labs: CBC, BMP 04/11/17 07:55 04/11/17 07:55 INR, PTT INR 1.81 (0.82-1.09) H 04/11/17 09:30 CBCD WBC 3.0 K/mm3 (4.0-10.0) L 04/11/17 07:55 RBC 2.45 M/mm3 (4.00-5.60) L 04/11/17 07:55 Hgb 9.1 GM/dL (11.7-16.9) L D 04/11/17 07:55 Hct 26.8 % (35.4-49) L 04/11/17 07:55 MCV 109.7 fl (80-96) H 04/11/17 07:55 MCHC 33.9 g/dl (32.0-35.9) 04/11/17 07:55 RDW 15.9 % (11.9-15.9) 04/11/17 07:55 Plt Count 28 K/MM3 (134-434) L* 04/11/17 07:55 MPV 10.8 fl (7.5-11.1) 04/11/17 07:55 CMP Sodium 140 mmol/L (136-145) 04/11/17 07:55 Potassium 3.6 mmol/L (3.5-5.1) 04/11/17 07:55 Chloride 109 mmol/L (98-107) H 04/11/17 07:55 Carbon Dioxide 25 mmol/L (21-32) 04/11/17 07:55 Anion Gap 6 (8-16) L 04/11/17 07:55 BUN 11 mg/dL (7-18) 04/11/17 07:55 Creatinine 0.6 mg/dL (0.7-1.3) L 04/11/17 07:55 Creat Clearance w eGFR > 60 (>60) 04/09/17 12:02 Calcium 7.0 mg/dL (8.5-10.1) L 04/11/17 07:55 Total Bilirubin 1.2 mg/dL (0.2-1.0) H 04/11/17 07:55 AST 121 U/L (15-37) H 04/11/17 07:55 ALT 54 U/L (12-78) 04/11/17 07:55 Alkaline Phosphatase 78 U/L (45-117) 04/11/17 07:55 Total Protein 6.4 g/dl (6.4-8.2) 04/11/17 07:55 Albumin 1.2 g/dl (3.4-5.0) L 04/11/17 07:55 - ....Imaging Ultrasound: Report Reviewed MRI: Pending Problem List - Problems (1) Ascites Code(s): R18.8 - OTHER ASCITES Qualifiers: Ascites type: due to alcoholic cirrhosis Qualified Code(s): K70.31 - Alcoholic cirrhosis of liver with ascites; K70.31 - Alcoholic cirrhosis of liver with ascites; K70.31 - Alcoholic cirrhosis of liver with ascites (2) Decompensated HCV cirrhosis Code(s): B19.20 - UNSPECIFIED VIRAL HEPATITIS C WITHOUT HEPATIC COMA K74.69 - OTHER CIRRHOSIS OF LIVER (3) Weight loss, abnormal Code(s): R63.4 - ABNORMAL WEIGHT LOSS Assessment/Plan Acute, symptomatic/tense ascites in a HCV/ETOH cirrhosis, HIV patient. No melena , hematochezia, hematemessis. r/o hepatic lesion, thrombosis. MRI liver w/w/o pending 2gm salt diet Spirolactone 50 mg po BID Lasix 20 mg po bid Therapeutic paracentesis, please send for cell count/differential, total protein and albumin. Obtain serum albumin at the same time to calculate SAAG Plan EGD for varieseal surveillance after FFP, Platelets Discussed with the patient and covering hospitalist Active Orders - 24 Hr
[2017-04-11] MEDS ORDERED: PHYTONADIONE 5 MG TABLET PO ONE ×2 (12:30→18:06)
[2017-04-11 14:13] LABS: TRANSFERRIN 117 mg/dL (200-370)
[2017-04-11 16:25] LABS: ANTIMICROSOMAL ANTIBODY 21 IU/mL (0-34)
[2017-04-11] MEDS ORDERED: MAGNESIUM SULF 50% (8.12 MEQ/2 ML-1 GM VIAL) IVPB ONE ×2 (17:58→22:15)
--- NOTE | 2017-04-11 18:23 | PN ---
Progress Note (short form) - Note Progress Note: Subjective: No fever or chills, has no abd pain. no N/V. Objective: Vital Signs: Last Vital Signs Temp Pulse Resp BP Pulse Ox 98.7 F 86 18 125/79 98 04/11/17 14:11 04/11/17 14:11 04/11/17 14:11 04/11/17 14:11 04/11/17 09:00 Intake & Output 04/08/17 04/09/17 04/10/17 04/11/17 23:59 23:59 23:59 23:59 Intake Total 400 1600 Balance 400 1600 Weight 154 lb 6.4 oz Laboratory Results - last 24 hr 04/10/17 04/10/17 04/11/17 08:35 08:35 07:55 WBC 3.0 L RBC 2.45 L Hgb 9.1 L D Hct 26.8 L MCV 109.7 H MCH 37.2 H MCHC 33.9 RDW 15.9 Plt Count 28 L* MPV 10.8 Neutrophils % 57.5 Lymphocytes % 31.7 D Monocytes % 10.2 Eosinophils % 0.3 Basophils % 0.3 PT with INR INR Sodium Potassium Chloride Carbon Dioxide Anion Gap BUN Creatinine Random Glucose Calcium Phosphorus Magnesium Iron 75 TIBC 150 L Iron Saturation 50 Transferrin 117 L Total Bilirubin Direct Bilirubin AST ALT Alkaline Phosphatase Total Protein Albumin Hepatitis C Antibody 9.9 H 04/11/17 04/11/17 07:55 09:30 WBC RBC Hgb Hct MCV MCH MCHC RDW Plt Count MPV Neutrophils % Lymphocytes % Monocytes % Eosinophils % Basophils % PT with INR 20.40 H INR 1.81 H Sodium 140 Potassium 3.6 Chloride 109 H Carbon Dioxide 25 Anion Gap 6 L BUN 11 Creatinine 0.6 L Random Glucose 90 D Calcium 7.0 L Phosphorus 2.9 Magnesium 1.7 L Iron TIBC Iron Saturation Transferrin Total Bilirubin 1.2 H Direct Bilirubin 0.7 H AST 121 H ALT 54 Alkaline Phosphatase 78 Total Protein 6.4 Albumin 1.2 L Hepatitis C Antibody Physical Exam: NAD, AAOx3, cachectic. HEENT: thrush on palate and R lower edge of tongue CV: RRR, NO MRG Lungs: bibasilar crackles Abd: soft, no TTP , Liver is not palpated but percussed 3 cm below costal margin to the right of the mid clavicular line. shifting dullness +. NO splenomegaly . EXT: 2+ edema and hyperpigmented skin tinea pedis on L ASSESSMENT AND PLAN: 56 y/o man with h/o HTN, HIV, Hep C, alcohol use, and drug use who presented with LE edema x 3 days. 1- LE edema and ascitis, likely form advanced liver disease. Might have contributing CHF echo with regional wall motion abn, and mildly reduced EF. - appreciate Dr. Witt help. lasix 20 BID and spironolactone 50 BID - d/w Dr. Read. paracentesis tomorrow . - give plt tomorrow at 5 am, then CBC at 6. - will give Vit K today and then FFP in am at 8 am if INR > 1.5 - EGD on . plt on am, possibly FFP - DOMINIC , AMA , anti smooth muscles pending - liver Bx is risky with coagulopathy 2- H/o HIV: has not been on HIV meds for long time. follow up as out pt . 3- Oral thrush, likely has esophageal thrush as well given his immunocompromised state. - cont fluconazole . EGD will confirm 4- Pancytopenia : likely due to BM suppression from alcohol use, HIV and liver disease - iron studies show anemia of chronic dz. B12 elevated and folate NL. 5- ALcohol dependence. No signs of withdrawal . - Can use ativan for withdrawal if needed - folate and thiamine daily 6- Tinea Pedis : nystatin topically SCDs Visit type - Emergency Visit Emergency Visit: Yes ED Registration Date: 04/09/17 Care time: The patient presented to the Emergency Department on the above date and was hospitalized for further evaluation of their emergent condition. - New Patient This patient is new to me today: No - Critical Care Critical Care patient: No
[2017-04-11] MEDS ORDERED: MAGNESIUM SULF 50% (8.12 MEQ/2 ML-1 GM VIAL) ONE (22:24)
[2017-04-12 00:09] LABS: SMOOTH MUSCLE AB 49 Units (0-19)
[2017-04-12] MEDS: FUROSEMIDE 20 MG TABLET (FP) PO SCH ×2 (06:16→14:41)
[2017-04-12 06:42] LABS: BASOPHIL 0.2 % (0-2.0); EOSINOPHIL 0.9 % (0-4.5); MCH 36.7 pg (25.7-33.7); MEAN CELL VOLUME 108.1 fl (80-96); NEUTROPHILS 60.3 % (42.8-82.8); PLATELET COUNT 58 K/MM3 (134-434); RDW 15.7 % (11.9-15.9)
[2017-04-12 07:06] LABS: INR 1.63 (0.82-1.09); PROTHROMBIN TIME (PATIENT) 18.4 SEC (9.98-11.88)
[2017-04-12 07:07] LABS: ALBUMIN 1.3 g/dl (3.4-5.0); ANION GAP 9 (8-16); CO2 23 mmol/L (21-32); GLUCOSE,RANDOM 90 mg/dL (74-106)
[2017-04-12 07:10] LABS: ALK PHOS 78 U/L (45-117); BILIRUBIN,TOTAL 1.2 mg/dL (0.2-1.0); CREATININE 0.6 mg/dL (0.7-1.3); SGOT/AST 117 U/L (15-37); SGPT/ALT 52 U/L (12-78); TOT PROT 6.6 g/dl (6.4-8.2)
[2017-04-12 07:56] LABS: CALCIUM 6.9 mg/dL (8.5-10.1)
[2017-04-12 09:00] LABS: MACROCYTOSIS 2+
[2017-04-12 09:01] LABS: TARGET CELLS 1+
[2017-04-12] MEDS: SPIRONOLACTONE 25 MG TABLET (FP) PO SCH ×2 (09:17→22:08)
[2017-04-12] MEDS: ATENOLOL 50 MG TABLET (FP) PO SCH (09:18)
--- NOTE | 2017-04-12 09:34 | PN ---
Progress Note, Physician History of Present Illness: No events. No bleeding. C/o abdominal distension - Current Medication List Current Medications: Active Medications Atenolol (Tenormin -) 50 mg PO DAILY [facility] Last Admin: 04/12/17 09:18 Dose: 50 mg Fluconazole (Diflucan -) 100 mg PO DAILY [facility] Last Admin: 04/11/17 10:28 Dose: 100 mg Folic Acid (Folic Acid -) 1 mg PO DAILY [facility] Last Admin: 04/11/17 10:28 Dose: 1 mg Furosemide (Lasix -) 20 mg PO BID@0600,1400 [facility] Last Admin: 04/12/17 06:16 Dose: 20 mg Spironolactone (Aldactone -) 50 mg PO BID [facility] Last Admin: 04/12/17 09:17 Dose: 50 mg Thiamine HCl (Vitamin B1 -) 100 mg PO DAILY [facility] Last Admin: 04/11/17 10:28 Dose: 100 mg - Objective Vital Signs: Vital Signs Temperature 98.6 F 04/12/17 06:00 Pulse Rate 87 04/12/17 06:00 Respiratory Rate 18 04/12/17 06:00 Blood Pressure 127/77 04/12/17 06:00 O2 Sat by Pulse Oximetry (%) 98 04/11/17 21:00 Constitutional: Yes: No Distress, Calm Eyes: Yes: Conjunctiva Clear Respiratory: Yes: Regular Gastrointestinal: Yes: Normal Bowel Sounds, Soft, Ascites, Distention. No: Tenderness Neurological: Yes: Alert, Oriented Labs: CBC, BMP 04/12/17 06:25 04/12/17 06:25 INR, PTT INR 1.63 (0.82-1.09) H 04/12/17 06:25 CBCD WBC 3.0 K/mm3 (4.0-10.0) L 04/12/17 06:25 RBC 2.38 M/mm3 (4.00-5.60) L 04/12/17 06:25 Hgb 8.8 GM/dL (11.7-16.9) L 04/12/17 06:25 Hct 25.8 % (35.4-49) L 04/12/17 06:25 MCV 108.1 fl (80-96) H 04/12/17 06:25 MCHC 34.0 g/dl (32.0-35.9) 04/12/17 06:25 RDW 15.7 % (11.9-15.9) 04/12/17 06:25 Plt Count 58 K/MM3 (134-434) L D 04/12/17 06:25 MPV 10.0 fl (7.5-11.1) 04/12/17 06:25 CMP Sodium 141 mmol/L (136-145) 04/12/17 06:25 Potassium 3.8 mmol/L (3.5-5.1) 04/12/17 06:25 Chloride 109 mmol/L (98-107) H 04/12/17 06:25 Carbon Dioxide 23 mmol/L (21-32) 04/12/17 06:25 Anion Gap 9 (8-16) 04/12/17 06:25 BUN 11 mg/dL (7-18) 04/12/17 06:25 Creatinine 0.6 mg/dL (0.7-1.3) L 04/12/17 06:25 Creat Clearance w eGFR > 60 (>60) 04/12/17 06:25 Calcium 6.9 mg/dL (8.5-10.1) L* 04/12/17 06:25 Total Bilirubin 1.2 mg/dL (0.2-1.0) H 04/12/17 06:25 AST 117 U/L (15-37) H 04/12/17 06:25 ALT 52 U/L (12-78) 04/12/17 06:25 Alkaline Phosphatase 78 U/L (45-117) 04/12/17 06:25 Total Protein 6.6 g/dl (6.4-8.2) 04/12/17 06:25 Albumin 1.3 g/dl (3.4-5.0) L 04/12/17 06:25 Problem List - Problems (1) Ascites Code(s): R18.8 - OTHER ASCITES Qualifiers: Ascites type: due to alcoholic cirrhosis Qualified Code(s): K70.31 - Alcoholic cirrhosis of liver with ascites; K70.31 - Alcoholic cirrhosis of liver with ascites; K70.31 - Alcoholic cirrhosis of liver with ascites (2) Decompensated HCV cirrhosis Code(s): B19.20 - UNSPECIFIED VIRAL HEPATITIS C WITHOUT HEPATIC COMA K74.69 - OTHER CIRRHOSIS OF LIVER (3) Weight loss, abnormal Code(s): R63.4 - ABNORMAL WEIGHT LOSS Assessment/Plan Acute, symptomatic/tense ascites in a HCV/ETOH cirrhosis, HIV patient. No melena , hematochezia, hematemessis. r/o hepatic lesion, thrombosis. MRI liver w/w/o report pending 2gm salt diet Spirolactone 50 mg po BID Lasix 20 mg po bid Therapeutic paracentesis, please send for cell count/differential, total protein and albumin. Obtain serum albumin at the same time to calculate SAAG Plan EGD for varieseal surveillance after FFP, Platelets Discussed with the patient and covering hospitalist Active Orders - 24 Hr
[2017-04-12] MEDS: FLUCONAZOLE 100 MG TABLET (UD) PO SCH (11:42)
[2017-04-12] MEDS: FOLIC ACID 1 MG TABLET (FP) PO SCH (11:43)
[2017-04-12] MEDS: THIAMINE HCL 100 MG TABLET (FP) PO SCH (11:43)
[2017-04-12] MEDS ORDERED: ALBUMIN HUMAN 5% 250 ML IV SOLUTION IVPB ONE ×2 (15:00→21:16)
[2017-04-12 15:37] LABS: PERITONEAL FLUID LYMPHOCYTE 12 %; PERITONEAL FLUID MACROPHAGE 88 %
--- NOTE | 2017-04-12 18:51 | PN ---
Teaching Attending Note Name of Resident: Emily Hoang ATTENDING PHYSICIAN STATEMENT I saw and evaluated the patient. I reviewed the resident's note and discussed the case with the resident. I agree with the resident's findings and plan as documented. SUBJECTIVE: no abd pain, no fever or chills. has no RUBIO OBJECTIVE: NAD, AAOx3, cachectic. HEENT: thrush CV: RRR, NO MRG Lungs: bibasilar crackles Abd: soft, no TTP , Liver is palpated and percussed 3 cm below costal margin . Abd is less distended after paracentesis , but still shifting dullness +. NO splenomegaly . EXT: 2+ edema and hyperpigmented skin Tinea pedis on L ASSESSMENT AND PLAN: 56 y/o man with h/o HTN, HIV, Hep C, alcohol use, and drug use who presented with LE edema x 3 days. 1- LE edema and ascitis, likely form advanced liver disease. Might have contributing chronic systolic CHF echo with regional wall motion abn, and mildly reduced EF. - cont lasix and spironolactone -s/p paracentesis . 5.6 L of ascitic fluid removed - give 40 g of albumin - EGD on . plt transfusion on am ( goal > 50 ) . possibly FFP if INR > 1.5 ( received Vit K x 2 ) - DOMINIC , AMA , anti smooth muscles pending - liver Bx is risky with coagulopathy 2- H/o HIV: has not been on HIV meds for long time. follow up as out pt . 3- Oral thrush, likely has esophageal thrush as well given his immunocompromised state. - cont fluconazole . EGD will confirm 4- Pancytopenia : likely due to BM suppression from alcohol use, HIV and liver disease - iron studies show anemia of chronic dz. B12 elevated and folate NL. 5- ALcohol dependence. No signs of withdrawal . - Can use ativan for withdrawal if needed - folate and thiamine daily 6- Tinea Pedis : nystatin topically SCDs Probably dc after EGD
--- NOTE | 2017-04-12 19:54 | PN ---
Physical Exam: SUBJECTIVE: Patient seen and examined. Pt's ascites causing him discomfort, he is looking forward to paracentesis today. Pt has no complaints. No events overnight. OBJECTIVE: Vital Signs - 24 hr 04/11/17 04/11/17 04/12/17 21:00 22:00 06:00 Temperature 99.0 F 98.6 F Pulse Rate 86 87 Respiratory 19 18 Rate Blood Pressure 127/84 127/77 O2 Sat by Pulse 98 Oximetry (%) 04/12/17 04/12/17 04/12/17 08:00 09:00 15:33 Temperature 98.8 F 98.7 F Pulse Rate 89 82 Respiratory 18 18 Rate Blood Pressure 128/77 137/90 O2 Sat by Pulse 97 Oximetry (%) GENERAL: The patient is awake, alert, and fully oriented, in no acute distress. HEAD: Normal with no signs of trauma. EYES: Extraocular movements intact, sclera anicteric, conjunctiva clear. No ptosis. ENT: Moist mucous membranes. Thrush noted to Right lateral tongue. NECK: Trachea midline, supple. LUNGS: Bibasilar crackles appreciated. No accessory muscle use. HEART: Regular rate and rhythm, S1, S2 without murmur, rub or gallop. ABDOMEN: distended, nontender to palpation. EXTREMITIES: 2+ pitting edema sasha. Warm, well-perfused. PSYCH: Normal mood, normal affect. SKIN: Warm, dry, normal turgor, no rashes or lesions noted Laboratory Last Values WBC 3.0 K/mm3 (4.0-10.0) L 04/12/17 06:25 RBC 2.38 M/mm3 (4.00-5.60) L 04/12/17 06:25 Hgb 8.8 GM/dL (11.7-16.9) L 04/12/17 06:25 Hct 25.8 % (35.4-49) L 04/12/17 06:25 MCV 108.1 fl (80-96) H 04/12/17 06:25 MCH 36.7 pg (25.7-33.7) H 04/12/17 06:25 MCHC 34.0 g/dl (32.0-35.9) 04/12/17 06:25 RDW 15.7 % (11.9-15.9) 04/12/17 06:25 Plt Count 58 K/MM3 (134-434) L D 04/12/17 06:25 MPV 10.0 fl (7.5-11.1) 04/12/17 06:25 Neutrophils % 60.3 % (42.8-82.8) 04/12/17 06:25 Lymphocytes % 28.2 % (8-40) 04/12/17 06:25 Monocytes % 10.4 % (3.8-10.2) H 04/12/17 06:25 Eosinophils % 0.9 % (0-4.5) D 04/12/17 06:25 Basophils % 0.2 % (0-2.0) 04/12/17 06:25 Macrocytosis 2+ 04/12/17 06:25 Target Cells 1+ 04/12/17 06:25 PT with INR 18.40 SEC (9.98-11.88) H 04/12/17 06:25 INR 1.63 (0.82-1.09) H 04/12/17 06:25 PTT (Actin FS) 34.6 SECONDS (26.9-34.4) H 04/10/17 08:35 Sodium 141 mmol/L (136-145) 04/12/17 06:25 Potassium 3.8 mmol/L (3.5-5.1) 04/12/17 06:25 Chloride 109 mmol/L (98-107) H 04/12/17 06:25 Carbon Dioxide 23 mmol/L (21-32) 04/12/17 06:25 Anion Gap 9 (8-16) 04/12/17 06:25 BUN 11 mg/dL (7-18) 04/12/17 06:25 Creatinine 0.6 mg/dL (0.7-1.3) L 04/12/17 06:25 Creat Clearance w eGFR > 60 (>60) 04/12/17 06:25 Random Glucose 90 mg/dL (74-106) 04/12/17 06:25 Calcium 6.9 mg/dL (8.5-10.1) L* 04/12/17 06:25 Phosphorus 2.9 mg/dL (2.5-4.9) 04/11/17 07:55 Magnesium 1.7 mg/dL (1.8-2.4) L 04/11/17 07:55 Iron 75 ug/dL (38-169) 04/10/17 08:35 TIBC 150 ug/dL (250-450) L 04/10/17 08:35 Iron Saturation 50 % (15-55) 04/10/17 08:35 Transferrin 117 mg/dL (200-370) L 04/10/17 08:35 Ferritin 409.262 ng/ml (16.4-293.9) H 04/10/17 08:35 Total Bilirubin 1.2 mg/dL (0.2-1.0) H 04/12/17 06:25 Direct Bilirubin 0.7 mg/dL (0.0-0.2) H 04/11/17 07:55 AST 117 U/L (15-37) H 04/12/17 06:25 ALT 52 U/L (12-78) 04/12/17 06:25 Alkaline Phosphatase 78 U/L (45-117) 04/12/17 06:25 B-Natriuretic Peptide 1863.12 pg/ml (5-125) H 04/09/17 12:02 Total Protein 6.6 g/dl (6.4-8.2) 04/12/17 06:25 Albumin 1.3 g/dl (3.4-5.0) L 04/12/17 06:25 Tumor Marker AFP 10.4 ng/ml (0.0-8.3) H 04/10/17 08:35 Vitamin B12 1414 pg/ml (180-914) H 04/10/17 08:35 Serum Folate 16 ng/ml (3.1-17.5) 04/10/17 08:35 Urine Color Paige 04/10/17 06:05 Urine Appearance Clear 04/10/17 06:05 Urine pH 6.0 (5.0-8.0) 04/10/17 06:05 Ur Specific [place] 1.020 (1.005-1.025) 04/10/17 06:05 Urine Protein Negative (NEGATIVE) 04/10/17 06:05 Urine Glucose (UA) Negative (NEGATIVE) 04/10/17 06:05 Urine Ketones Negative (NEGATIVE) 04/10/17 06:05 Urine Blood 1+ (NEGATIVE) H 04/10/17 06:05 Urine Nitrite Positive (NEGATIVE) 04/10/17 06:05 Urine Bilirubin 2.0 (NEGATIVE) 04/10/17 06:05 Urine Urobilinogen 4.0 e.u/dl mg/dL (0.2-1.0) 04/10/17 06:05 Ur Leukocyte Esterase Negative (NEGATIVE) 04/10/17 06:05 Urine RBC 10 /hpf (0-3) 04/10/17 06:05 Urine WBC 6 /hpf (3-5) 04/10/17 06:05 Ur Epithelial Cells Rare /hpf (FEW) 04/10/17 06:05 Urine Bacteria Few /hpf (NONE SEEN) 04/10/17 06:05 Urine Mucus Rare 04/10/17 06:05 U Random Total Protein 37 mg/dl (5-11.9) H 04/10/17 06:05 Urine Creatinine 259.0 mg/dL (20-370) 04/10/17 06:05 Protein/Creatinin Ratio 0.142 MG/DL 04/10/17 06:05 Peritoneal WBC 176 /mm3 04/12/17 10:15 Peritoneal RBC 484 /mm3 04/12/17 10:15 Periton Neutrophils Y 04/12/17 10:15 Periton Lymphocytes 12 % 04/12/17 10:15 Periton Macrophages 88 % 04/12/17 10:15 Peritoneal Tot Protein 1 gm/dL 04/12/17 10:15 Peritoneal Albumin 0 g/dL 04/12/17 10:15 Peritoneal LDH 61 IU/L 04/12/17 10:15 Peritoneal Glucose 97 mg/dL 04/12/17 10:15 Peritoneal Amylase 42 U/L 04/12/17 10:15 Peritoneal Cholesterol < 50 mg/dL 04/12/17 10:15 DOMINIC Screen Negative (.) 04/10/17 08:35 Smooth Musc [employer] Intrp 49 Units (0-19) H 04/10/17 08:35 Hepatitis C Antibody 9.9 s/co ratio (0.0-0.9) H 04/10/17 08:35 Blood Type O POSITIVE 04/12/17 07:46 Antibody Screen Negative 04/12/17 07:46 Active Medications Generic Name Dose Route Start Last Admin Trade Name Freq PRN Reason Stop Dose Admin Atenolol 50 mg 04/09/17 19:45 04/12/17 09:18 Tenormin - PO 50 mg DAILY RAMYA Administration Fluconazole 100 mg 04/10/17 10:00 04/12/17 11:42 Diflucan - PO 100 mg DAILY RAMYA Administration Folic Acid 1 mg 04/10/17 10:00 04/12/17 11:43 Folic Acid - PO 1 mg DAILY RAMYA Administration Furosemide 20 mg 04/11/17 06:00 04/12/17 14:41 Lasix - PO 20 mg BID@0600,1400 RAMYA Administration Spironolactone 50 mg 04/10/17 22:00 04/12/17 09:17 Aldactone - PO 50 mg BID RAMYA Administration Thiamine HCl 100 mg 04/10/17 10:00 04/12/17 11:43 Vitamin B1 - PO 100 mg DAILY RAMYA Administration IMAGIN04/11/17 MRI Ab w&w/o contrast -> Cirrhotic liver features with no enhancing hepatic masses. Apparent narrowing of intrahepatic portion of IVC, (but no other imaging features suggestive of Budd Chiari), could be 2/2 increased intra- abdominal pressure from massive ascites. No evidence of portovenous thrombosis (per d/w between Dr. Ceballos and Dr. Read). Small Right pleural effusion wtih significant bilateral lower lobe atelactatic changes. 04/11/17 Echo -> moderate to severe tricuspid regurgitation, EF 54%. ASSESSMENT/PLAN: 56yo M with PMH of HIV (stopped taking meds 6mo ago), hep C, htn, etoh/drug use , presented with sasha LE edema x 3 days. 1) sasha LE edema and ascites - likely 2/2 advanced liver disease vs heart failure - s/p paracentesis today -> 5.6 L of fluid and 40g albumin given - Smooth Muscle [employer] elevated suggestive of autoimmune hepatitis - DOMINIC (-) - continue Lasix and Sprinololactone - EGD scheduled for (check for varices?) 2) HIV - has not been taking meds for 6mo - f/u as outpatient 3) oral thrush - continue Fluconazole - EGD scheduled for (assess extent of thrush) 4) pancytopenia - likely 2/2 bone marrow suppression from etoh use, liver disease and HIV - platelets improved to 58 5) htn - continue Atenolol 6) etoh - no s/s of withdrawal - continue folate and thiamine daily 7) tinea pedis - continue nystatin topically 8) hypomagnesemia - repleted yesterday - recheck with am labs 9) FEN - Fluids: encourage po - Electrolytes: wnl, continue to monitor - Nutrition: low sodium diet 10) DVT prophylaxis - sasha SCDs and encourage early ambulation Visit type - Emergency Visit Emergency Visit: Yes ED Registration Date: 04/09/17 Care time: The patient presented to the Emergency Department on the above date and was hospitalized for further evaluation of their emergent condition. - New Patient This patient is new to me today: Yes Date on this admission: 04/12/17 - Critical Care Critical Care patient: No
[2017-04-12] MEDS: ALBUMIN HUMAN 5% 250 ML IV SOLUTION IVPB SCH ×2 (20:45→21:45)
[2017-04-13] MEDS: FUROSEMIDE 20 MG TABLET (FP) PO SCH ×2 (06:41→15:13)
[2017-04-13 08:05] LABS: BASOPHIL 1.3 % (0-2.0); EOSINOPHIL 0.7 % (0-4.5); MCH 37.2 pg (25.7-33.7); MCHC 33.5 g/dl (32.0-35.9); MEAN PLT VOLUME 11.2 fl (7.5-11.1); NEUTROPHILS 67.6 % (42.8-82.8); PLATELET COUNT 46 K/MM3 (134-434); RDW 16.3 % (11.9-15.9); WHITE BLOOD COUNT 3.1 K/mm3 (4.0-10.0)
[2017-04-13 08:14] LABS: ALBUMIN 1.8 g/dl (3.4-5.0); ANION GAP 5 (8-16); CO2 24 mmol/L (21-32); GLUCOSE,RANDOM 93 mg/dL (74-106); MAGNESIUM 1.7 mg/dL (1.8-2.4); PHOSPHOROUS 2.8 mg/dL (2.5-4.9); SGOT/AST 102 U/L (15-37); SGPT/ALT 47 U/L (12-78)
[2017-04-13 08:17] LABS: ALK PHOS 74 U/L (45-117); BILIRUBIN,TOTAL 1.1 mg/dL (0.2-1.0); CREATININE 0.6 mg/dL (0.7-1.3); TOT PROT 6.4 g/dl (6.4-8.2)
[2017-04-13 08:24] LABS: INR 1.73 (0.82-1.09); PROTHROMBIN TIME (PATIENT) 19.6 SEC (9.98-11.88)
[2017-04-13 09:28] LABS: CALCIUM 6.9 mg/dL (8.5-10.1)
--- NOTE | 2017-04-13 10:01 | PN ---
Progress Note, Physician History of Present Illness: s/p 5.7L therapeutic/diagnostic paracentesis. No events. No bleeding. - Current Medication List Current Medications: Active Medications Atenolol (Tenormin -) 50 mg PO DAILY [facility] Last Admin: 04/12/17 09:18 Dose: 50 mg Fluconazole (Diflucan -) 100 mg PO DAILY [facility] Last Admin: 04/12/17 11:42 Dose: 100 mg Folic Acid (Folic Acid -) 1 mg PO DAILY [facility] Last Admin: 04/12/17 11:43 Dose: 1 mg Furosemide (Lasix -) 20 mg PO BID@0600,1400 [facility] Last Admin: 04/13/17 06:41 Dose: 20 mg Spironolactone (Aldactone -) 50 mg PO BID [facility] Last Admin: 04/12/17 22:08 Dose: 50 mg Thiamine HCl (Vitamin B1 -) 100 mg PO DAILY [facility] Last Admin: 04/12/17 11:43 Dose: 100 mg - Objective Vital Signs: Vital Signs Temperature 98.7 F 04/13/17 06:00 Pulse Rate 86 04/13/17 06:00 Respiratory Rate 18 04/13/17 06:00 Blood Pressure 118/69 04/13/17 06:00 O2 Sat by Pulse Oximetry (%) 97 04/12/17 21:00 Constitutional: Yes: No Distress, Calm Eyes: Yes: Conjunctiva Clear HENT: Yes: Other (temporal wasting) Cardiovascular: Yes: Regular Rate and Rhythm Respiratory: Yes: Regular Gastrointestinal: Yes: Normal Bowel Sounds, Soft, Ascites, Distention Labs: CBC, BMP 04/13/17 07:05 04/13/17 07:05 INR, PTT INR 1.73 (0.82-1.09) H 04/13/17 07:05 SAA.3 - PHTN TP: 1 CBCD WBC 3.1 K/mm3 (4.0-10.0) L 04/13/17 07:05 RBC 2.55 M/mm3 (4.00-5.60) L 04/13/17 07:05 Hgb 9.5 GM/dL (11.7-16.9) L 04/13/17 07:05 Hct 28.4 % (35.4-49) L 04/13/17 07:05 MCV 111.0 fl (80-96) H 04/13/17 07:05 MCHC 33.5 g/dl (32.0-35.9) 04/13/17 07:05 RDW 16.3 % (11.9-15.9) H 04/13/17 07:05 Plt Count 46 K/MM3 (134-434) L D 04/13/17 07:05 MPV 11.2 fl (7.5-11.1) H D 04/13/17 07:05 CMP Sodium 141 mmol/L (136-145) 04/13/17 07:05 Potassium 3.7 mmol/L (3.5-5.1) 04/13/17 07:05 Chloride 112 mmol/L (98-107) H 04/13/17 07:05 Carbon Dioxide 24 mmol/L (21-32) 04/13/17 07:05 Anion Gap 5 (8-16) L 04/13/17 07:05 BUN 10 mg/dL (7-18) 04/13/17 07:05 Creatinine 0.6 mg/dL (0.7-1.3) L 04/13/17 07:05 Creat Clearance w eGFR > 60 (>60) 04/13/17 07:05 Calcium 6.9 mg/dL (8.5-10.1) L* 04/13/17 07:05 Total Bilirubin 1.1 mg/dL (0.2-1.0) H 04/13/17 07:05 AST 102 U/L (15-37) H 04/13/17 07:05 ALT 47 U/L (12-78) 04/13/17 07:05 Alkaline Phosphatase 74 U/L (45-117) 04/13/17 07:05 Total Protein 6.4 g/dl (6.4-8.2) 04/13/17 07:05 Albumin 1.8 g/dl (3.4-5.0) L D 04/13/17 07:05 - ....Imaging MRI: Report Reviewed Problem List - Problems (1) Ascites Code(s): R18.8 - OTHER ASCITES Qualifiers: Ascites type: due to alcoholic cirrhosis Qualified Code(s): K70.31 - Alcoholic cirrhosis of liver with ascites; K70.31 - Alcoholic cirrhosis of liver with ascites; K70.31 - Alcoholic cirrhosis of liver with ascites (2) Decompensated HCV cirrhosis Code(s): B19.20 - UNSPECIFIED VIRAL HEPATITIS C WITHOUT HEPATIC COMA K74.69 - OTHER CIRRHOSIS OF LIVER (3) Weight loss, abnormal Code(s): R63.4 - ABNORMAL WEIGHT LOSS Assessment/Plan Feels better after paracentesis. No melena, hematochezia, hematemessis. NPO after midnight Ascitic fluid for cytology 2gm salt diet Spirolactone 50 mg po BID Lasix 20 mg po bid Plan EGD for varices surveillance after FFP, Platelets Discussed with the patient and covering hospitalist Active Orders - 24 Hr
[2017-04-13] MEDS ORDERED: MAGNESIUM SULF 50% (8.12 MEQ/2 ML-1 GM VIAL) IVPB ONE (11:09)
[2017-04-13] MEDS: THIAMINE HCL 100 MG TABLET (FP) PO SCH (11:40)
[2017-04-13] MEDS: ATENOLOL 50 MG TABLET (FP) PO SCH (11:41)
[2017-04-13] MEDS: FOLIC ACID 1 MG TABLET (FP) PO SCH (11:41)
[2017-04-13] MEDS: SPIRONOLACTONE 25 MG TABLET (FP) PO SCH ×2 (11:41→21:22)
[2017-04-13] MEDS: FLUCONAZOLE 100 MG TABLET (UD) PO SCH (11:41)
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
[2017-04-13 14:16] LABS: ANTI-INTERMYOFIBRILLAR Negative (Neg:<1:20); ANTI-SARCOLEMMA Negative (Neg:<1:20)
--- NOTE | 2017-04-13 21:47 | PN ---
Physical Exam: SUBJECTIVE: Patient seen and examined. Pt reports diarrhea x 1 day which pt attributes to IVPB medications (albumin and Mg sulfate). Pt reports his abdominal discomfort is improved after paracentesis yesterday. Pt reports being compliant with his HIV medication since 1989, up until 1 yr ago. Pt denies chest pain, palpitations, sob, abdominal pain. No events overnight. OBJECTIVE: Vital Signs - 24 hr 04/13/17 04/13/17 04/13/17 02:00 06:00 09:00 Temperature 98.3 F 98.7 F Pulse Rate 76 86 Respiratory 18 18 Rate Blood Pressure 122/69 118/69 O2 Sat by Pulse 98 Oximetry (%) 04/13/17 04/13/17 10:00 15:59 Temperature 97.7 F 98.2 F Pulse Rate 77 88 Respiratory 18 18 Rate Blood Pressure 121/81 113/75 O2 Sat by Pulse Oximetry (%) GENERAL: The patient is awake, alert, and fully oriented, in no acute distress. Cachectic as evidenced by sasha temporal wasting, loss of fat from cheek bones, and prominent clavicles. HEAD: Normal with no signs of trauma. EYES: Extraocular movements intact, sclera anicteric, conjunctiva clear. No ptosis. ENT: Thrush on tongue and soft palate again observed. Moist mucous membranes. NECK: Trachea midline, supple. LUNGS: Breath sounds equal, clear to auscultation bilaterally, no wheezes, no crackles, no accessory muscle use. HEART: Regular rate and rhythm, S1, S2 without murmur, rub or gallop. ABDOMEN: Soft, nontender, no guarding, no rebound. EXTREMITIES: Warm, well-perfused. PSYCH: Normal mood, normal affect. SKIN: Warm, dry, normal turgor, no rashes or lesions noted CBCD WBC 3.1 K/mm3 (4.0-10.0) L 04/13/17 07:05 RBC 2.55 M/mm3 (4.00-5.60) L 04/13/17 07:05 Hgb 9.5 GM/dL (11.7-16.9) L 04/13/17 07:05 Hct 28.4 % (35.4-49) L 04/13/17 07:05 MCV 111.0 fl (80-96) H 04/13/17 07:05 MCHC 33.5 g/dl (32.0-35.9) 04/13/17 07:05 RDW 16.3 % (11.9-15.9) H 04/13/17 07:05 Plt Count 46 K/MM3 (134-434) L D 04/13/17 07:05 MPV 11.2 fl (7.5-11.1) H D 04/13/17 07:05 CMP Sodium 141 mmol/L (136-145) 04/13/17 07:05 Potassium 3.7 mmol/L (3.5-5.1) 04/13/17 07:05 Chloride 112 mmol/L (98-107) H 04/13/17 07:05 Carbon Dioxide 24 mmol/L (21-32) 04/13/17 07:05 Anion Gap 5 (8-16) L 04/13/17 07:05 BUN 10 mg/dL (7-18) 04/13/17 07:05 Creatinine 0.6 mg/dL (0.7-1.3) L 04/13/17 07:05 Creat Clearance w eGFR > 60 (>60) 04/13/17 07:05 Calcium 6.9 mg/dL (8.5-10.1) L* 04/13/17 07:05 Total Bilirubin 1.1 mg/dL (0.2-1.0) H 04/13/17 07:05 AST 102 U/L (15-37) H 04/13/17 07:05 ALT 47 U/L (12-78) 04/13/17 07:05 Alkaline Phosphatase 74 U/L (45-117) 04/13/17 07:05 Total Protein 6.4 g/dl (6.4-8.2) 04/13/17 07:05 Albumin 1.8 g/dl (3.4-5.0) L D 04/13/17 07:05 Active Medications Generic Name Dose Route Start Last Admin Trade Name Freq PRN Reason Stop Dose Admin Atenolol 50 mg 04/09/17 19:45 04/13/17 11:41 Tenormin - PO 50 mg DAILY RAMYA Administration Fluconazole 100 mg 04/10/17 10:00 04/13/17 11:41 Diflucan - PO 100 mg DAILY RAMYA Administration Folic Acid 1 mg 04/10/17 10:00 04/13/17 11:41 Folic Acid - PO 1 mg DAILY RAMYA Administration Furosemide 20 mg 04/11/17 06:00 04/13/17 15:13 Lasix - PO 20 mg BID@0600,1400 RAMYA Administration Multivitamins/Minerals/Vitamin C 1 tab 04/14/17 10:00 Tab-A-Vit - PO DAILY RAMYA Spironolactone 50 mg 04/10/17 22:00 04/13/17 11:41 Aldactone - PO 50 mg BID RAMYA Administration Thiamine HCl 100 mg 04/10/17 10:00 04/13/17 11:40 Vitamin B1 - PO 100 mg DAILY RAMYA Administration ASSESSMENT/PLAN: 56yo M with PMH of HIV (stopped taking meds 6mo ago), hep C, htn, etoh/drug use , presented with sasha LE edema x 3 days. 1) new onset ascites - likely 2/2 cirrhosis, possibly 2/2 hep C - continue Lasix and Sprinololactone - EGD scheduled for tomorrow - npo after midnight - FFP to be given at 6am tomorrow and platelets single dose to be given at 8am tomorrow 2) severe protein malnutrition - as evidenced by cachexia/body habitus - Ensure 2 cans TID added 3) diarrhea - likely 2/2 cdiff vs medication induced (Fluconazole) vs HIV vs infectious - f/u cdiff sample - continue to monitor, upon reassessment this evening pt reports no more diarrhea since this am. 4) oral thrush - ontinue Fluconazole - EGD scheduled for (assess extent of thrush) 5) pancytopenia - likely 2/2 liver disease - iron studies suggestive of anemia of chronic disease - H/H stable - platelets stable, s/p 1U platelets. Will need an additional unit of platelets prior to EGD. 6) htn - continue Atenolol 7) etoh - no s/s of withdrawal - continue folate, thiamine, and mvi daily 8) hypomagnesemia - repleted today - recheck with am labs 9) HIV - has not been taking meds for 1yr - f/u as outpatient 10) FEN - Fluids: encourage po - Electrolytes: wnl, continue to monitor - Nutrition: low sodium diet 11) Prophylaxis - DVT ppx - sasha SCDs and encourage early ambulation - deconditioning ppx - encourage participation in PT Visit type - Emergency Visit Emergency Visit: Yes ED Registration Date: 04/09/17 Care time: The patient presented to the Emergency Department on the above date and was hospitalized for further evaluation of their emergent condition. - New Patient This patient is new to me today: No - Critical Care Critical Care patient: No
[2017-04-14] MEDS: FUROSEMIDE 20 MG TABLET (FP) PO SCH ×3 (06:52→21:31)
[2017-04-14 07:55] LABS: BASOPHIL 0.7 % (0-2.0); EOSINOPHIL 0.7 % (0-4.5); MCH 38.6 pg (25.7-33.7); MCHC 34.2 g/dl (32.0-35.9); MEAN CELL VOLUME 112.8 fl (80-96); MEAN PLT VOLUME 10.6 fl (7.5-11.1); NEUTROPHILS 67.8 % (42.8-82.8); RDW 15.6 % (11.9-15.9); WHITE BLOOD COUNT 2.9 K/mm3 (4.0-10.0)
[2017-04-14 08:10] LABS: PLATELET COUNT 33 K/MM3 (134-434)
[2017-04-14 08:38] LABS: ANION GAP 10 (8-16); CO2 21 mmol/L (21-32); GLUCOSE,RANDOM 84 mg/dL (74-106); MAGNESIUM 1.7 mg/dL (1.8-2.4); PHOSPHOROUS 2.9 mg/dL (2.5-4.9); SGOT/AST 106 U/L (15-37)
[2017-04-14 08:43] LABS: ALK PHOS 73 U/L (45-117); CALCIUM 7.2 mg/dL (8.5-10.1); CREATININE 0.5 mg/dL (0.7-1.3); INR 1.44 (0.82-1.09); PROTHROMBIN TIME (PATIENT) 16.3 SEC (9.98-11.88); SGPT/ALT 51 U/L (12-78); TOT PROT 6.6 g/dl (6.4-8.2)
--- NOTE | 2017-04-14 10:10 | PATH ---
Cytology Non-Gynecological Report Patient Name: JOSE ELIAS EVANS [facility]. Rec. #: [id number] /Age/Gender: 1960 (Age: 56) / M Account: [id number] Location: [address] [place] [address] Taken: 04/12/2017 Received: 04/12/2017 Reported: 04/14/2017 Physicians: Julio Rubalcava M.D. Specimen(s) Received A: PERITONEAL FLUID RECEIVED IN 50% ALCOHOL B: PERITONEAL FLUID RECEIVED FRESH Clinical History Hypertension, HIV, hepatitis C, decompensated cirrhosis Final Diagnosis A. ABDOMINAL FLUID, PARACENTESIS: SATISFACTORY FOR EVALUATION NO MALIGNANT CELLS IDENTIFIED. MESOTHELIAL CELLS AND FEW LYMPHOCYTES PRESENT. B. ABDOMINAL FLUID, PARACENTESIS: SATISFACTORY FOR EVALUATION NO MALIGNANT CELLS IDENTIFIED. MESOTHELIAL CELLS AND FEW LYMPHOCYTES PRESENT. Electronically Signed Bruna Mcarthur M.D. Gross Description A. Approximately 50 cc of yellow fluid received fixed in 50% alcohol. Two cytofunnels and one cellblock prepared. B. Approximately 1200 cc of yellow fluid received fresh. Two cytofunnels and one cellblock prepared.
[2017-04-14] MEDS ORDERED: MAGNESIUM SULF 50% (8.12 MEQ/2 ML-1 GM VIAL) IVPB ONE (10:30)
[2017-04-14] MEDS: ATENOLOL 50 MG TABLET (FP) PO SCH (10:44)
[2017-04-14] MEDS: SPIRONOLACTONE 25 MG TABLET (FP) PO SCH ×2 (10:45→21:31)
[2017-04-14] MEDS ORDERED: PROPOFOL 20 ML ONE (14:29)
--- NOTE | 2017-04-14 15:15 | PROC ---
Endoscopy Procedure Endoscopy procedure completed. Please see scanned procedure report.
--- NOTE | 2017-04-14 15:23 | PN ---
Progress Note (short form) - Note Progress Note: increase aldactone, lasix. Labs in AM and and daily Problem List - Problems (1) Ascites Code(s): R18.8 - OTHER ASCITES Qualifiers: Ascites type: due to alcoholic cirrhosis Qualified Code(s): K70.31 - Alcoholic cirrhosis of liver with ascites; K70.31 - Alcoholic cirrhosis of liver with ascites; K70.31 - Alcoholic cirrhosis of liver with ascites (2) Decompensated HCV cirrhosis Code(s): B19.20 - UNSPECIFIED VIRAL HEPATITIS C WITHOUT HEPATIC COMA K74.69 - OTHER CIRRHOSIS OF LIVER (3) Weight loss, abnormal Code(s): R63.4 - ABNORMAL WEIGHT LOSS
[2017-04-14] MEDS: FLUCONAZOLE 100 MG TABLET (UD) PO SCH (17:14)
[2017-04-14] MEDS: FOLIC ACID 1 MG TABLET (FP) PO SCH (17:14)
[2017-04-14] MEDS: THIAMINE HCL 100 MG TABLET (FP) PO SCH (17:14)
[2017-04-14] MEDS: MULTIVITAMINS (DAILY MVI) TABLET (FP) PO SCH (17:14)
--- NOTE | 2017-04-14 19:18 | PN ---
Teaching Attending Note Name of Resident: Emily Hoang ATTENDING PHYSICIAN STATEMENT I saw and evaluated the patient. I reviewed the resident's note and discussed the case with the resident. I agree with the resident's findings and plan as documented. SUBJECTIVE: s/p egd this am OBJECTIVE: Last Vital Signs Temp Pulse Resp BP Pulse Ox 98 F 78 18 133/70 99 04/14/17 15:04 04/14/17 15:35 04/14/17 15:35 04/14/17 15:35 04/14/17 15:35 General NAD, B/L temporal wasting, loss of fat from cheekbones, prominent clavicles CV S1 S1 RRR no murmur/rub/gallop Lungs CTA B/L no wheezing/rlaes/rhonch Abdomen +distended non tender, no masses appreciated Extremities no pedal edema ASSESSMENT AND PLAN: 56 yo M with PMH HTN, HIV, Hep C, alcohol use, and drug use who presented with LE edema x 3 days, s/p LP which r/o SBP. EGD today with small varices, no need for intervention. #new onset ascites-due to decompensated cirrhosis, possible due to HCV. s/p paracentesis 04/12 with 5.7 L removal. albumin given post-procedure. SAAG suggestive of portal HTN. EGD showed small varices- no intervention required. -low salt diet. -lasix - spiroloactone dose increased -GI f/u # Severe protein malnutrition- evident by body habitus -continue ensure #Pancytopenia- due to liver disease. Hgb stable. platelet count stable. No current evidence of bleeding. #oral thrush-on fluconazole day 5 #Continuous ETOH dependnece- no signs of withdrawal. counseled on need for abstinence. -on thiamine/folate/mvi #HIV- not on HARRT due to social issues. desire to re-start medications. encouraged to follow up as outpatient for evaluation and intiaition of medications #DVT ppx- would hold pharmacologic ppx due to advanced liver disease. SCD
--- NOTE | 2017-04-14 22:15 | PN ---
Physical Exam: SUBJECTIVE: Patient seen and examined. Pt feels well, wants to go home. Pt denies fever, chills, diarrhea, chest pain, sob. No events overnight. OBJECTIVE: Vital Signs Period Temp Pulse Resp BP Sys/Skelton Pulse Ox Last 24 Hr 97.7 F-98.4 F 76-84 18-20 104-145/62-92 99-100 GENERAL: The patient is awake, alert, and fully oriented, in no acute distress. HEAD: Normal with no signs of trauma. EYES: Extraocular movements intact, sclera anicteric, conjunctiva clear. No ptosis. ENT: Thrush on tongue and soft palate again observed. Moist mucous membranes. NECK: Trachea midline, supple. LUNGS: Breath sounds equal, clear to auscultation bilaterally, no wheezes, no crackles, no accessory muscle use. HEART: Regular rate and rhythm, S1, S2 without murmur, rub or gallop. ABDOMEN: Soft, nontender, nondistended. EXTREMITIES: Warm, well-perfused, no edema. PSYCH: Normal mood, normal affect. SKIN: Warm, dry, normal turgor, no rashes or lesions noted Laboratory Results - last 24 hr 04/12/17 04/14/17 04/14/17 07:46 00:40 06:20 WBC 2.9 L RBC 2.15 L Hgb 8.3 L D Hct 24.3 L MCV 112.8 H MCH 38.6 H MCHC 34.2 RDW 15.6 Plt Count 33 L* D MPV 10.6 Neutrophils % 67.8 Lymphocytes % 22.8 Monocytes % 8.0 Eosinophils % 0.7 Basophils % 0.7 PT with INR INR Sodium Potassium Chloride Carbon Dioxide Anion Gap BUN Creatinine Creat Clearance w eGFR Random Glucose Calcium Phosphorus Magnesium Total Bilirubin AST ALT Alkaline Phosphatase Total Protein Albumin Blood Type O POSITIVE O POSITIVE Antibody Screen Negative Negative 04/14/17 04/14/17 06:20 06:20 WBC RBC Hgb Hct MCV MCH MCHC RDW Plt Count MPV Neutrophils % Lymphocytes % Monocytes % Eosinophils % Basophils % PT with INR 16.30 H INR 1.44 H Sodium 141 Potassium 3.9 Chloride 110 H Carbon Dioxide 21 Anion Gap 10 BUN 9 Creatinine 0.5 L Creat Clearance w eGFR > 60 Random Glucose 84 Calcium 7.2 L Phosphorus 2.9 Magnesium 1.7 L Total Bilirubin 1.0 AST 106 H ALT 51 Alkaline Phosphatase 73 Total Protein 6.6 Albumin 2.0 L Blood Type Antibody Screen Active Medications Generic Name Dose Route Start Last Admin Trade Name Mohamud PRN Reason Stop Dose Admin Atenolol 50 mg 04/09/17 19:45 04/14/17 10:44 Tenormin - PO 50 mg DAILY RAMYA Administration Fluconazole 100 mg 04/10/17 10:00 04/14/17 17:14 Diflucan - PO 100 mg DAILY RAMYA Administration Folic Acid 1 mg 04/10/17 10:00 04/14/17 17:14 Folic Acid - PO 1 mg DAILY RAMYA Administration Furosemide 20 mg 04/14/17 22:00 04/14/17 21:31 Lasix - PO 20 mg TID RAMYA Administration Multivitamins/Minerals/Vitamin C 1 tab 04/14/17 10:00 04/14/17 17:14 Tab-A-Vit - PO 1 tab DAILY RAMYA Administration Spironolactone 50 mg 04/14/17 22:00 04/14/17 21:31 Aldactone - PO 50 mg TID RAMYA Administration Thiamine HCl 100 mg 04/10/17 10:00 04/14/17 17:14 Vitamin B1 - PO 100 mg DAILY RAMYA Administration ASSESSMENT/PLAN: 56yo M with PMH of HIV (stopped taking meds 6mo ago), hep C, htn, etoh/drug use , presented with sasha LE edema x 3 days. S/p LP which r/o SBP, s/p paracentesis 04/12/17. 1) new onset ascites - likely 2/2 decompensated cirrhosis, possibly 2/2 hep C - EGD today -> small varices in the distal esophagus noted, with no intervention required at this time. - GI (Dr. Witt) recs appreciated: - avoid NSAIDS - Protonix 40mg po daily - Lasix and Sprinololactone increased to TID 2) severe protein malnutrition - as evidenced by cachexia/body habitus - Ensure 2 cans TID added 3) oral thrush - on Fluconazole day 5 4) pancytopenia - likely 2/2 liver disease - iron studies suggestive of anemia of chronic disease - H/H stable, no evidence of bleeding 5) htn - continue Atenolol 6) etoh - no s/s of withdrawal - continue folate, thiamine, and mvi daily 7) hypomagnesemia - repleted today - recheck with am labs 8) HIV - has not been taking meds for 1yr - pt does not recall HAART medications/doses he was taking before. pt does not recall pharmacy for a medication reconciliation. - f/u cd4, viral load 9) FEN - Fluids: encourage po - Electrolytes: wnl, continue to monitor - Nutrition: low sodium diet 10) Prophylaxis - DVT ppx - sasha SCDs and encourage early ambulation - hold pharmacologic ppx 2/2 advanced liver disease - deconditioning ppx - encourage participation in PT Visit type - Emergency Visit Emergency Visit: Yes ED Registration Date: 04/09/17 Care time: The patient presented to the Emergency Department on the above date and was hospitalized for further evaluation of their emergent condition. - New Patient This patient is new to me today: No - Critical Care Critical Care patient: No
[2017-04-15] MEDS: FUROSEMIDE 20 MG TABLET (FP) PO SCH (05:38)
[2017-04-15] MEDS: SPIRONOLACTONE 25 MG TABLET (FP) PO SCH (05:39)
--- NOTE | 2017-04-15 07:01 | PN ---
Physical Exam: SUBJECTIVE: Patient seen and examined. Pt reports pain from an old rib injury. Now, after paracentesis he feels this old injury more. Overall, pt is feeling well and wants to go home. No events overnight. OBJECTIVE: Vital Signs Period Temp Pulse Resp BP Sys/Skelton Pulse Ox Last 24 Hr 97.7 F-98.4 F 76-85 18-20 104-145/62-92 99-100 GENERAL: The patient is awake, alert, and fully oriented, in no acute distress. HEAD: Normal with no signs of trauma. EYES: Extraocular movements intact, sclera anicteric, conjunctiva clear. No ptosis. LUNGS: Breath sounds equal, clear to auscultation bilaterally, no wheezes, no crackles, no accessory muscle use. HEART: Regular rate and rhythm, S1, S2 without murmur, rub or gallop. ABDOMEN: Soft, nontender, nondistended. EXTREMITIES: Warm, well-perfused, no edema. PSYCH: Normal mood, normal affect. SKIN: Warm, dry, normal turgor, no rashes or lesions noted Laboratory Results - last 24 hr 04/09/17 04/12/17 04/14/17 16:28 07:46 06:20 WBC 2.9 L RBC 2.15 L Hgb 8.3 L D Hct 24.3 L MCV 112.8 H MCH 38.6 H MCHC 34.2 RDW 15.6 Plt Count 33 L* D MPV 10.6 Neutrophils % 67.8 Lymphocytes % 22.8 Monocytes % 8.0 Eosinophils % 0.7 Basophils % 0.7 PT with INR INR Sodium Potassium Chloride Carbon Dioxide Anion Gap BUN Creatinine Creat Clearance w eGFR Random Glucose Calcium Phosphorus Magnesium Total Bilirubin AST ALT Alkaline Phosphatase Total Protein Albumin Blood Type O POSITIVE O POSITIVE Antibody Screen Negative Negative 04/14/17 04/14/17 06:20 06:20 WBC RBC Hgb Hct MCV MCH MCHC RDW Plt Count MPV Neutrophils % Lymphocytes % Monocytes % Eosinophils % Basophils % PT with INR 16.30 H INR 1.44 H Sodium 141 Potassium 3.9 Chloride 110 H Carbon Dioxide 21 Anion Gap 10 BUN 9 Creatinine 0.5 L Creat Clearance w eGFR > 60 Random Glucose 84 Calcium 7.2 L Phosphorus 2.9 Magnesium 1.7 L Total Bilirubin 1.0 AST 106 H ALT 51 Alkaline Phosphatase 73 Total Protein 6.6 Albumin 2.0 L Blood Type Antibody Screen Active Medications Generic Name Dose Route Start Last Admin Trade Name Mohamud PRN Reason Stop Dose Admin Atenolol 50 mg 04/09/17 19:45 04/14/17 10:44 Tenormin - PO 50 mg DAILY RAMYA Administration Fluconazole 100 mg 04/10/17 10:00 04/14/17 17:14 Diflucan - PO 100 mg DAILY RAMYA Administration Folic Acid 1 mg 04/10/17 10:00 04/14/17 17:14 Folic Acid - PO 1 mg DAILY RAMYA Administration Furosemide 20 mg 04/14/17 22:00 04/15/17 05:38 Lasix - PO 20 mg TID RAMYA Administration Multivitamins/Minerals/Vitamin C 1 tab 04/14/17 10:00 04/14/17 17:14 Tab-A-Vit - PO 1 tab DAILY RAMYA Administration Pantoprazole Sodium 40 mg 04/15/17 10:00 Protonix - PO DAILY RAMYA Spironolactone 50 mg 04/14/17 22:00 04/15/17 05:39 Aldactone - PO 50 mg TID RAMYA Administration Thiamine HCl 100 mg 04/10/17 10:00 04/14/17 17:14 Vitamin B1 - PO 100 mg DAILY RAMYA Administration ASSESSMENT/PLAN: Visit type - Emergency Visit Emergency Visit: Yes ED Registration Date: 04/09/17 Care time: The patient presented to the Emergency Department on the above date and was hospitalized for further evaluation of their emergent condition. - New Patient This patient is new to me today: No - Critical Care Critical Care patient: No
[2017-04-15 07:41] LABS: INR 1.55 (0.82-1.09); PROTHROMBIN TIME (PATIENT) 17.5 SEC (9.98-11.88)
[2017-04-15 07:52] LABS: BASOPHIL 0.7 % (0-2.0); EOSINOPHIL 0.7 % (0-4.5); MCH 38.9 pg (25.7-33.7); MCHC 35.4 g/dl (32.0-35.9); MEAN CELL VOLUME 110.1 fl (80-96); MEAN PLT VOLUME 11.4 fl (7.5-11.1); PLATELET COUNT 49 K/MM3 (134-434); RDW 15.7 % (11.9-15.9); WHITE BLOOD COUNT 2.4 K/mm3 (4.0-10.0)
[2017-04-15 07:58] LABS: ALBUMIN 1.8 g/dl (3.4-5.0); ALK PHOS 77 U/L (45-117); ANION GAP 5 (8-16); BILIRUBIN,DIRECT 0.7 mg/dL (0.0-0.2); BILIRUBIN,TOTAL 1.4 mg/dL (0.2-1.0); CO2 25 mmol/L (21-32); CREATININE 0.6 mg/dL (0.7-1.3); GLUCOSE,RANDOM 90 mg/dL (74-106); MAGNESIUM 1.5 mg/dL (1.8-2.4); PHOSPHOROUS 3.2 mg/dL (2.5-4.9); SGOT/AST 110 U/L (15-37); SGPT/ALT 50 U/L (12-78); TOT PROT 6.3 g/dl (6.4-8.2)
[2017-04-15] MEDS ORDERED: PANTOPRAZOLE 40 MG TABLET (FP) PO SCH (10:00)
[2017-04-15] MEDS: FLUCONAZOLE 100 MG TABLET (UD) PO SCH (10:05)
[2017-04-15] MEDS: FOLIC ACID 1 MG TABLET (FP) PO SCH (10:06)
[2017-04-15] MEDS: MULTIVITAMINS (DAILY MVI) TABLET (FP) PO SCH (10:07)
[2017-04-15] MEDS: THIAMINE HCL 100 MG TABLET (FP) PO SCH (10:07)
[2017-04-15] MEDS: ATENOLOL 50 MG TABLET (FP) PO SCH (10:07)
--- NOTE | 2017-04-15 10:31 | PN ---
Progress Note, Physician History of Present Illness: No events. No bleeding. Comfortable. Wants to establish care with Infectious disease to address HIV - Current Medication List Current Medications: Active Medications Atenolol (Tenormin -) 50 mg PO DAILY [facility] Last Admin: 04/15/17 10:07 Dose: 50 mg Fluconazole (Diflucan -) 100 mg PO DAILY [facility] Last Admin: 04/15/17 10:05 Dose: 100 mg Folic Acid (Folic Acid -) 1 mg PO DAILY [facility] Last Admin: 04/15/17 10:06 Dose: 1 mg Furosemide (Lasix -) 20 mg PO TID [facility] Last Admin: 04/15/17 05:38 Dose: 20 mg Multivitamins/Minerals/Vitamin C (Tab-A-Vit -) 1 tab PO DAILY [facility] Last Admin: 04/15/17 10:07 Dose: 1 tab Pantoprazole Sodium (Protonix -) 40 mg PO DAILY [facility] Last Admin: 04/15/17 10:06 Dose: 40 mg Spironolactone (Aldactone -) 50 mg PO TID [facility] Last Admin: 04/15/17 05:39 Dose: 50 mg Thiamine HCl (Vitamin B1 -) 100 mg PO DAILY [facility] Last Admin: 04/15/17 10:07 Dose: 100 mg - Objective Vital Signs: Vital Signs Temperature 98.4 F 04/15/17 06:00 Pulse Rate 85 04/15/17 06:00 Respiratory Rate 20 04/15/17 06:00 Blood Pressure 131/77 04/15/17 06:00 O2 Sat by Pulse Oximetry (%) 99 04/14/17 21:00 Constitutional: Yes: No Distress, Calm Eyes: Yes: Conjunctiva Clear HENT: Yes: Atraumatic Neck: Yes: Supple Cardiovascular: Yes: Regular Rate and Rhythm Respiratory: Yes: Regular Gastrointestinal: Yes: Normal Bowel Sounds, Soft, Ascites, Distention, Tenderness. No: Melena, Pulsatile Mass, Rectal Bleeding, Vomiting Neurological: Yes: Alert, Oriented Labs: CBC, BMP 04/15/17 06:00 04/15/17 06:00 INR, PTT INR 1.55 (0.82-1.09) H 04/15/17 06:00 CBCD WBC 2.4 K/mm3 (4.0-10.0) L 04/15/17 06:00 RBC 2.23 M/mm3 (4.00-5.60) L 04/15/17 06:00 Hgb 8.7 GM/dL (11.7-16.9) L 04/15/17 06:00 Hct 24.6 % (35.4-49) L 04/15/17 06:00 MCV 110.1 fl (80-96) H 04/15/17 06:00 MCHC 35.4 g/dl (32.0-35.9) 04/15/17 06:00 RDW 15.7 % (11.9-15.9) 04/15/17 06:00 Plt Count 49 K/MM3 (134-434) L D 04/15/17 06:00 MPV 11.4 fl (7.5-11.1) H 04/15/17 06:00 CMP Sodium 140 mmol/L (136-145) 04/15/17 06:00 Potassium 3.7 mmol/L (3.5-5.1) 04/15/17 06:00 Chloride 110 mmol/L (98-107) H 04/15/17 06:00 Carbon Dioxide 25 mmol/L (21-32) 04/15/17 06:00 Anion Gap 5 (8-16) L 04/15/17 06:00 BUN 11 mg/dL (7-18) D 04/15/17 06:00 Creatinine 0.6 mg/dL (0.7-1.3) L 04/15/17 06:00 Creat Clearance w eGFR > 60 (>60) 04/15/17 06:00 Calcium 7.0 mg/dL (8.5-10.1) L 04/15/17 06:00 Total Bilirubin 1.4 mg/dL (0.2-1.0) H D 04/15/17 06:00 AST 110 U/L (15-37) H 04/15/17 06:00 ALT 50 U/L (12-78) 04/15/17 06:00 Alkaline Phosphatase 77 U/L (45-117) 04/15/17 06:00 Total Protein 6.3 g/dl (6.4-8.2) L 04/15/17 06:00 Albumin 1.8 g/dl (3.4-5.0) L 04/15/17 06:00 Problem List - Problems (1) Ascites Code(s): R18.8 - OTHER ASCITES Qualifiers: Ascites type: due to alcoholic cirrhosis Qualified Code(s): K70.31 - Alcoholic cirrhosis of liver with ascites; K70.31 - Alcoholic cirrhosis of liver with ascites; K70.31 - Alcoholic cirrhosis of liver with ascites (2) Decompensated HCV cirrhosis Code(s): B19.20 - UNSPECIFIED VIRAL HEPATITIS C WITHOUT HEPATIC COMA K74.69 - OTHER CIRRHOSIS OF LIVER (3) Weight loss, abnormal Code(s): R63.4 - ABNORMAL WEIGHT LOSS (4) Esophageal varices in alcoholic cirrhosis Assessment/Plan: grade I Code(s): K70.30 - ALCOHOLIC CIRRHOSIS OF LIVER WITHOUT ASCITES I85.10 - SECONDARY ESOPHAGEAL VARICES WITHOUT BLEEDING Assessment/Plan Grade I esophageal varices PHG on EGD On Atenolol for HTN Aldactone/Lasix increased 2 gm Na diet discussed No NSAIDs/ETOH Please connect the patient with an ID for HIV treatment/follow up as OP Follow up with GI in 2 weeks Active Orders - 24 Hr
[2017-04-15 11:34] VITALS: BP 138/84; PULSE 94; TEMP 98
[2017-04-15] MEDS ORDERED: MAGNESIUM OXIDE 400 MG TABLET (FP) PO ONE (12:45)
--- NOTE | 2017-04-15 13:52 | DS ---
Physical Exam: SUBJECTIVE: Patient seen and examined. Pt reports pain from an old rib injury. Now, after paracentesis he feels this old injury more. Overall, pt is feeling well and wants to go home. No events overnight. OBJECTIVE: Vital Signs Period Temp Pulse Resp BP Sys/Skelton Pulse Ox Last 24 Hr 97.7 F-98.4 F 76-94 18-20 104-139/62-84 99-100 PHYSICAL EXAM GENERAL: The patient is awake, alert, and fully oriented, in no acute distress. HEAD: Normal with no signs of trauma. EYES: Extraocular movements intact, sclera anicteric, conjunctiva clear. No ptosis. LUNGS: Breath sounds equal, clear to auscultation bilaterally, no wheezes, no crackles, no accessory muscle use. HEART: Regular rate and rhythm, S1, S2 without murmur, rub or gallop. ABDOMEN: Soft, nontender, nondistended. EXTREMITIES: Warm, well-perfused, no edema. PSYCH: Normal mood, normal affect. SKIN: Warm, dry, normal turgor, no rashes or lesions noted LABS Laboratory Results - last 24 hr 04/09/17 04/15/17 04/15/17 16:28 06:00 06:00 WBC 2.4 L RBC 2.23 L Hgb 8.7 L Hct 24.6 L MCV 110.1 H MCH 38.9 H MCHC 35.4 RDW 15.7 Plt Count 49 L D MPV 11.4 H Neutrophils % 66.0 Lymphocytes % 24.5 Monocytes % 8.1 Eosinophils % 0.7 Basophils % 0.7 PT with INR INR Sodium 140 Potassium 3.7 Chloride 110 H Carbon Dioxide 25 Anion Gap 5 L BUN 11 D Creatinine 0.6 L Creat Clearance w eGFR > 60 Random Glucose 90 Calcium 7.0 L Phosphorus 3.2 Magnesium 1.5 L Total Bilirubin 1.4 H D Direct Bilirubin 0.7 H AST 110 H ALT 50 Alkaline Phosphatase 77 Total Protein 6.3 L Albumin 1.8 L Blood Type O POSITIVE Antibody Screen Negative 04/15/17 06:00 WBC RBC Hgb Hct MCV MCH MCHC RDW Plt Count MPV Neutrophils % Lymphocytes % Monocytes % Eosinophils % Basophils % PT with INR 17.50 H INR 1.55 H Sodium Potassium Chloride Carbon Dioxide Anion Gap BUN Creatinine Creat Clearance w eGFR Random Glucose Calcium Phosphorus Magnesium Total Bilirubin Direct Bilirubin AST ALT Alkaline Phosphatase Total Protein Albumin Blood Type Antibody Screen HOSPITAL COURSE: Date of Admission:04/09/17 Date of Discharge: 04/15/17 56yo M with PMH of HIV (off HAART for 1 yr), Hep C, HTN, presented with sasha LE edema and abdominal distention, found to have decompensated cirrhosis . On , pt received paracentesis removing 5.6 L of peritoneal fluid. Cytology revealed no malignant cells. Spontaneous bacterial peritonitis also ruled out. Pt received EGD on 04/14/17, revealing small varices in the distal esophagus with no intervention required at this time. During adm, pt was noted to have severe protein malnutrition as evidenced by cachectic body habitus (including temporal wasting, loss of fat from cheekbones, and prominent clavicles). For his oral thrush, pt has received 5 days of Fluconazole, and should complete a course of 5 more days (10 days total). Hypomagnesemia was repleted several times. Pt is able to walk independently, not requiring Physical Therapy assistance. Pt discharged home in stable condition with instructions to follow up with GI and with the [facility]. Minutes to complete discharge: 30 Discharge Summary Reason For Visit: THROMBOCYTOPENIA Condition: Fair - Instructions Diet, Activity, Other Instructions: You need to follow up wtih the [place] [facility], HIV clinic. Information for a primary care provider, Dr. Moyer, has been provided for you if you chose to use it. Referrals: [facility] Providers [Provider Group] Uche Moyer MD [Staff Physician] - Disposition: HOME - Home Medications Comprehensive Discharge Medication List: Ambulatory Orders NK [No Known Home Medication] 04/10/17 This patient is new to me today: No Emergency Visit: No Critical Care patient: No - Discharge Referral Referred to [facility] Med P.C.: No
--- NOTE | 2017-04-15 15:51 | PN ---
Teaching Attending Note Name of Resident: Emily Hoang ATTENDING PHYSICIAN STATEMENT I saw and evaluated the patient. I reviewed the resident's note and discussed the case with the resident. I agree with the resident's findings and plan as documented. SUBJECTIVE: Patient with no new complaints today. He feels well overall. S/p Endoscopy yesterday which showed small varices. Cleared by GI. OBJECTIVE: Last Vital Signs Temp Pulse Resp BP Pulse Ox 98 F 94 H 20 138/84 100 04/15/17 10:00 04/15/17 10:00 04/15/17 10:00 04/15/17 10:04/15/17 09:00 General NAD, B/L temporal wasting, loss of fat from cheekbones, prominent clavicles CV S1, S1 RRR no murmur/rub/gallop Lungs CTA B/L no wheezing/rlaes/rhonch Abdomen +distended non tender, no masses appreciated Extremities- no pedal edema appreciated skin - no rashes appreciated Abnormal Lab Results 04/15/17 04/15/17 04/15/17 06:00 06:00 06:00 WBC 2.4 L RBC 2.23 L Hgb 8.7 L Hct 24.6 L MCV 110.1 H MCH 38.9 H Plt Count 49 L D MPV 11.4 H PT with INR 17.50 H INR 1.55 H Chloride 110 H Anion Gap 5 L Creatinine 0.6 L Calcium 7.0 L Magnesium 1.5 L Total Bilirubin 1.4 H D Direct Bilirubin 0.7 H AST 110 H Total Protein 6.3 L Albumin 1.8 L ASSESSMENT AND PLAN: 56 yo M with PMH HTN, HIV, Hep C, alcohol use, and drug use who presented with LE edema x 3 days, s/p LP found to have decompensated liver cirrhosis which now improved. SBP was ruled out. EGD which showed small varices, no need for intervention. Now overall clinically improved Patient is stable for d/c. -2g na diet. -lasix -spiroloactone -GI f/u as outpatient in 2 wks # Severe protein malnutrition- evident by body habitus -continue ensure #Pancytopenia- due to liver disease. Hgb stable. platelet count stable. No current evidence of bleeding. #oral thrush-on fluconazole day 6 - give total of 10 days fluconazole #HIV/ID -referral given for ID clinic #Continuous ETOH dependnece- no signs of withdrawal. counseled on need for abstinence. -on thiamine/folate/mvi d/c to home, patient is ambulatory
[2017-04-16 16:14] LABS: % CD 3 POS. LYMPH. 80.6 % (57.5-86.2); % CD 4 POS LYM 9.7 % (30.8-58.5); ABSO. CD 3 484 /uL (622-2402); ABSOLUTE CD 4 HELPER 58 /uL (359-1519); CD4/CD8 0.14 (0.92-3.72); NUCLEATED RED BLOOD CELL 2 % (0 - 0); WHITE BLOOD COUNT 2.4 x10E3/uL (3.4-10.8)
--- NOTE | 2017-04-18 18:04 | PATH ---
Surgical Pathology Report Patient Name: JOSE ELIAS EVANS [facility]. Rec. #: [id number] /Age/Gender: 1960 (Age: 56) / M Account: [id number] Location: [address] [place] [address]/[facility] Taken: 04/14/2017 Received: 04/15/2017 Reported: 04/18/2017 Physicians: Brad Sterling M.D. Specimen(s) Received A: BX ANTRUM B: BX ANTRUM Clinical History Liver cirrhosis Gastric ulcer, grade one esophageal varices Final Diagnosis A. STOMACH, ANTRUM, ULCER, BIOPSY: GASTRIC ANTRAL MUCOSA WITH MODERATE CHRONIC ACTIVE GASTRITIS. IMMUNOHISTOCHEMICAL STAIN FOR H. PYLORI IS POSITIVE (FEW). B. STOMACH, ANTRUM AND BODY, BIOPSY: GASTRIC OXYNTIC MUCOSA WITH MILD CHRONIC ACTIVE GASTRITIS. IMMUNOHISTOCHEMICAL STAIN FOR H. PYLORI IS NEGATIVE. Electronically Signed Bruna Mcarthur M.D. Gross Description A. Received in formalin, labeled "biopsy antrum ulcer" are 2 rawls, irregular portions of soft tissue measuring 0.2-0.3 cm. in greatest dimension. The specimens are submitted in toto in one cassette. B. Received in formalin, labeled "biopsy antrum and body" are 2 rawls, irregular portions of soft tissue measuring 0.2-0.3 cm. in greatest dimension. The specimens are submitted in toto in one cassette. [facility]/04/15/2017 [facility]/04/15/2017
[2017-04-19 10:12] LABS: HIV-RNA COPIES 56840 copies/mL (.); LOG10 HIV-1 RNA 4.755 (.)
[2017-04-19 14:17] LABS: HCV LOG 10 6.562 (.)
== END 2017-04-15 12:30 | disposition home or self-care (01) | DRG 264 ==
LOC: JER 10:19 → JERBED 16:05 → J6S 18:34
PROVIDERS: ADMIT Internal Medicine; ATTEND Internal Medicine
PROC: 0W9G3ZX Drainage of Peritoneal Cavity, Percutaneous Approach, Diagnostic (ICD-10-PCS; principal; 2017-04-12)
PROC: 0DD68ZX Extraction of Stomach, Via Natural or Artificial Opening Endoscopic, Diagnostic (ICD-10-PCS; 2017-04-14)
PROC: 30233K1 Transfusion of Nonautologous Frozen Plasma into Peripheral Vein, Percutaneous Approach (ICD-10-PCS; 2017-04-14)
PROC: 30233R1 Transfusion of Nonautologous Platelets into Peripheral Vein, Percutaneous Approach (ICD-10-PCS; 2017-04-14)
DX: K70.31 Alcoholic cirrhosis of liver with ascites (principal); E43 Unspecified severe protein-calorie malnutrition; I85.10 Secondary esophageal varices without bleeding; I10 Essential (primary) hypertension; D63.8 Anemia in other chronic diseases classified elsewhere; R64 Cachexia; B37.0 Candidal stomatitis; D61.818 Other pancytopenia; B19.20 Unspecified viral hepatitis C without hepatic coma; K76.6 Portal hypertension; B37.81 Candidal esophagitis; K64.2 Third degree hemorrhoids; F12.10 Cannabis abuse, uncomplicated; M16.10 Unilateral primary osteoarthritis, unspecified hip; M19.012 Primary osteoarthritis, left shoulder; M19.011 Primary osteoarthritis, right shoulder; R13.19 Other dysphagia; D69.6 Thrombocytopenia, unspecified; E87.6 Hypokalemia; E87.5 Hyperkalemia; F10.10 Alcohol abuse, uncomplicated; B35.3 Tinea pedis; J90 Pleural effusion, not elsewhere classified; K25.9 Gastric ulcer, unspecified as acute or chronic, without hemorrhage or perforation; E88.09 Other disorders of plasma-protein metabolism, not elsewhere classified; Z68.21 Body mass index [BMI] 21.0-21.9, adult; E83.42 Hypomagnesemia; A08.8 Other specified intestinal infections; Z21 Asymptomatic human immunodeficiency virus [HIV] infection status; Z86.19 Personal history of other infectious and parasitic diseases; Z91.19 Patient's noncompliance with other medical treatment and regimen
CPT/HCPCS: 36415; 36430; 71020-TC; 74183-TC; 76700-TC; 76942-TC; 80048; 80053; 80076; 81003; 81015; 82042; 82105; 82150; 82248; 82465; 82570; 82607; 82728; 82746; 82945; 83516; 83540; 83550; 83615; 83735; 83880; 84100; 84156; 84157; 84466; 85025; 85027; 85610; 85730; 86038; 86256; 86359; 86360; 86376; 86704; 86706; 86708; 86803; 86850; 86900; 86901; 87040; 87070; 87075; 87102; 87116; 87205; 87206; 87210; 87340; 87522; 88108; 88305-TC; 89051; 93005; 93010; 93306-TC; 97116-GP; 97161-GP; 99284-25; P9017; P9034; P9038

== ENCOUNTER 2017-06-02 11:53 | Inpatient (IN) | payer OTHER ==
--- NOTE | 2017-06-02 12:07 | PDOC ---
History of Present Illness - General Chief Complaint: Pain Stated Complaint: ASCITIS /ABD PAIN Time Seen by Provider: 06/02/17 12:07 - History of Present Illness Initial Comments: 57 year old male with PMH of 56 yo M with a PMHx of HTN, HEP C (cirrhosis), HIV (1989 non medicated), and arthritis of the hips and shoulders presenting with worsening abdominal distension and occasional SOB since last discharge in late March. He does have diarrhea daily but denies bloody bowel movements. He does have hemorrhoids that occasionally flare up when he wipes with toilet paper but no blood in the toilet. Had an endoscopy in late March which demonstrated small esophageal varices and a non bleeding peptic ulcer. Denies fevers, chills nausea, vomiting, diarrhea, or constipation 06/02/17 12:50 Past History - Past Medical History Allergies/Adverse Reactions: Allergies Allergy/AdvReac Type Severity Reaction Status Date / Time No Known Allergies Allergy Verified 06/02/17 11:53 Home Medications: Ambulatory Orders Atenolol [Tenormin -] 50 mg PO DAILY #30 tablet 05/19/17 Cane 1 each MC DAILY #1 each 05/19/17 Folic Acid - 1 mg PO DAILY #30 tablet 05/19/17 Lactose-Reduced Food [Ensure Original] 237 ml PO TID #90 liquid 05/19/17 Multivitamins [Multivit ([facility] Formul[facility])] 1 tab PO DAILY #30 tab 05/19/17 Omeprazole 40 mg PO DAILY #30 capsule. 05/19/17 Simethicone 80 mg PO QID PRN #100 tab.chew 05/19/17 Spironolactone [Aldactone -] 25 mg PO TID #90 tablet 05/19/17 Thiamine HCl [Vitamin B1 -] 100 mg PO DAILY #30 tab 05/19/17 Amoxicillin - [Amoxicillin 500mg Capsule -] 1,000 mg PO BID #50 capsule Atovaquone [Mepron Oral Solution -] 1,500 mg PO DAILY #300 ml 06/06/17 Clarithromycin [Biaxin -] 500 mg PO BID #60 tablet 06/06/17 Ferrous Sulfate 325 mg PO DAILY 30 Days #30 tablet 06/06/17 Furosemide [Lasix -] 40 mg PO BID@0600,1400 #60 tablet 06/06/17 Lactobacillus Acidophilus [Bacid -] 1 tab PO DAILY tab 06/06/17 Lactulose (Oral Use) [Cephulac -] 20 gm PO TID #1 bottle 06/06/17 Magnesium Oxide [Mag-Ox -] 400 mg PO BID #60 tablet 06/06/17 Pantoprazole Sodium [Protonix] 40 mg PO DAILY #14 tablet. 06/06/17 Spironolactone [Aldactone -] 50 mg PO BID #60 tablet 06/06/17 Anemia: Yes Asthma: No COPD: No HTN: Yes Liver Disease: Yes (HEP C) - Surgical History Appendectomy: Yes (1970s) - Suicide/Smoking/Psychosocial Hx Smoking History: Never smoked Have you smoked in the past 12 months: Yes Number of Cigarettes Smoked Daily: 3 Information on smoking cessation initiated: No 'Breaking Loose' booklet given: 04/09/17 Hx Alcohol Use: No Drug/Substance Use Hx: No Substance Use Type: Alcohol, Cocaine, Marijuana Hx Substance Use Treatment: No Review of Systems - Review of Systems Constitutional: Yes: Loss of Appetite. No: Chills, Fever HEENTM: No: Blurred Vision Respiratory: Yes: Shortness of Breath. No: Cough Cardiac (ROS): No: Chest Pain ABD/GI: Yes: Abdominal Distended, Diarrhea, Nausea. No: Vomiting : No: Burning, Dysuria Integumentary: No: Bruising, Change in Color, Lesions Neurological: No: Headache *Physical Exam - Vital Signs Last Vital Signs Temp Pulse Resp BP Pulse Ox 98.6 F 101 H 18 145/81 100 06/02/17 11:54 06/02/17 11:54 06/02/17 11:54 06/02/17 11:54 06/02/17 11:54 - Physical Exam General Appearance: Yes: Nourished, Appropriately Dressed. No: Apparent Distress HEENT: positive: EOMI, HAVEN, Normal ENT Inspection, Normal Voice Neck: positive: Trachea midline, Normal Thyroid, Supple. negative: Tender, Rigid Respiratory/Chest: positive: Rales (RLL rales). negative: Chest Tender, Lungs Clear, Normal Breath Sounds, Respiratory Distress Cardiovascular: positive: Regular Rhythm, Regular Rate Gastrointestinal/Abdominal: positive: Normal Bowel Sounds, Soft, Protuberent, Distended (Very distended with a fluid wave). negative: Tender, Flat, Mass Rectal Exam: positive: normal exam. negative: heme negative stool Musculoskeletal: positive: Normal Inspection Extremity: positive: Normal Inspection, Normal Range of Motion. negative: Tender Integumentary: positive: Normal Color, Dry, Warm Neurologic: positive: Fully Oriented, Alert. negative: Normal Mood/Affect ( Easily irritable ), Motor Strength 5/5 (bilateral leg weakness) ED Treatment Course - LABORATORY CBC & Chemistry Diagram: 06/06/17 10:56 06/06/17 10:56 Medical Decision Making - Medical Decision Making 57 year old male with history of grade one esophageal varices and ascites presenting with increasing abdominal distension over the last few weeks since his previous discharge. Also admits to persistent diarrhea despite not using lactulose and some nausea with occasional shortness of breath. He does not have any tenderness to palpation on exam or fever so SBP is not likely and this is simply worsening of his baseline ascites. Likely in the setting of subtherapeutic lasix dosage. Will admit for paracentesis and diarrhea workup. This will likely be delayed until platelets are >50. Patient was signed out to GAUTAM Bliss and she has agreed to accept her on her service. 06/08/17 17:19 *DC/Admit/Observation/Transfer Diagnosis at time of Disposition: Ascites Qualifiers: Ascites type: due to alcoholic cirrhosis Qualified Code(s): K70.31 - Alcoholic cirrhosis of liver with ascites - Discharge Dispostion Disposition: HOME Condition at time of disposition: Good - Prescriptions - Referrals - Patient Instructions - Post Discharge Activity
[2017-06-02 13:12] LABS: MCH 47.6 pg (25.7-33.7); MCHC 37.4 g/dl (32.0-35.9); MEAN CELL VOLUME 127.3 fl (80-96); MEAN PLT VOLUME 11.3 fl (7.5-11.1); PLATELET COUNT 38 K/MM3 (134-434); RDW 19.1 % (11.9-15.9); WHITE BLOOD COUNT 3.2 K/mm3 (4.0-10.0)
[2017-06-02 13:13] LABS: VENOUS PH 7.38 (7.32-7.42)
[2017-06-02 13:31] LABS: TOTAL CELLS COUNTED 100
[2017-06-02 13:33] LABS: ANISOCYTOSIS 2+; MACROCYTOSIS 3+; PLATELET ESTIMATE DECREASED; TARGET CELLS 1+
[2017-06-02 13:35] LABS: ALBUMIN 1.2 g/dl (3.4-5.0); ANION GAP 9 (8-16); BILIRUBIN,TOTAL 2.3 mg/dL (0.2-1.0); CO2 22 mmol/L (21-32); CREATININE 0.9 mg/dL (0.7-1.3); GLUCOSE,RANDOM 76 mg/dL (74-106); SGOT/AST 106 U/L (15-37); SGPT/ALT 38 U/L (12-78); TOT PROT 6.4 g/dl (6.4-8.2)
[2017-06-02 13:36] LABS: ALK PHOS 96 U/L (45-117)
[2017-06-02 13:42] LABS: CALCIUM 6.9 mg/dL (8.5-10.1)
[2017-06-02 14:00] LABS: INR 1.89 (0.82-1.09); PROTHROMBIN TIME (PATIENT) 21.4 SEC (9.98-11.88)
--- NOTE | 2017-06-02 16:07 | HP ---
Admitting History and Physical - Admission Chief Complaint: abdominal distention, increased abd pressure/discomfort History of Present Illness: This is a 56 year old male with pmhx HTN, HEP C, HIV (1989), Cirrhosis, arthritis of the hips and shoulders, recently seen at [facility] in 03/2017 for increase abdominal distention, today he presents to the ED with the same complaints. He noted the swelling increasing 1 week ago, today he is uncomfortable and can no longer lay on his side. He says he broke his ribs climbing and the fluid is pressing on them causing pain. He notes daily loose stool, non bloody, however his home meds do not reflect lactulose. In 03/2017 he underwent EGD and was found to have small grade one esophgeal varices and portal hypertensive gastropathy. Currently, he denies sob, chest pain, nausea, vomiting. History Source: Patient Limitations to Obtaining History: No Limitations - Past Medical History Cardiovascular: Yes: HTN Hepatobiliary: Yes: Cirrhosis, Hepatitis C Infectious Disease: Yes: HIV Musculoskeletal: Yes: Osteoarthritis - Smoking History Smoking history: Never smoked Have you smoked in the past 12 months: Yes Aproximately how many cigarettes per day: 3 - Alcohol/Substance Use Hx Alcohol Use: No - Social History Usual Living Arrangement: Yes: Alone ADL: Independent Home Medications - Allergies Allergies/Adverse Reactions: Allergies Allergy/AdvReac Type Severity Reaction Status Date / Time No Known Allergies Allergy Verified 06/02/17 11:53 - Home Medications Home Medications: Ambulatory Orders Atenolol [Tenormin -] 50 mg PO DAILY #30 tablet 05/19/17 Atovaquone [Mepron -] 1,500 mg PO DAILY #300 ml 05/19/17 Cane 1 each MC DAILY #1 each 05/19/17 Folic Acid - 1 mg PO DAILY #30 tablet 05/19/17 Furosemide [Lasix -] 20 mg PO TID #90 tablet 05/19/17 Lactose-Reduced Food [Ensure Original] 237 ml PO TID #90 liquid 05/19/17 Multivitamins [Multivit ([facility] Formulary)] 1 tab PO DAILY #30 tab 05/19/17 Omeprazole 40 mg PO DAILY #30 capsule. 05/19/17 Simethicone 80 mg PO QID PRN #100 tab.chew 05/19/17 Spironolactone [Aldactone -] 25 mg PO TID #90 tablet 05/19/17 Thiamine HCl [Vitamin B1 -] 100 mg PO DAILY #30 tab 05/19/17 Review of Systems - Review of Systems Constitutional: reports: No Symptoms Eyes: reports: No Symptoms HENT: reports: No Symptoms Neck: reports: No Symptoms Cardiovascular: reports: No Symptoms Respiratory: reports: SOB on Exertion Gastrointestinal: reports: Abdominal Pain, Diarrhea, Other (distention) Genitourinary: reports: No Symptoms Musculoskeletal: reports: No Symptoms Integumentary: reports: No Symptoms Neurological: reports: No Symptoms Endocrine: reports: No Symptoms Hematology/Lymphatic: reports: No Symptoms Psychiatric: reports: No Symptoms Physical Examination Vital Signs: Vital Signs Temperature 98.6 F 06/02/17 11:54 Pulse Rate 101 H 06/02/17 11:54 Respiratory Rate 18 06/02/17 11:54 Blood Pressure 145/81 06/02/17 11:54 O2 Sat by Pulse Oximetry (%) 100 06/02/17 11:54 Constitutional: Yes: No Distress Eyes: Yes: Conjunctiva Clear HENT: Yes: Atraumatic Neck: Yes: Supple Cardiovascular: Yes: Regular Rate and Rhythm, S1, S2 Respiratory: Yes: Cough, Other (basilar crackles R>L) Gastrointestinal: Yes: Soft, Ascites, Distention, Other (striae) Renal/: Yes: WNL Musculoskeletal: Yes: WNL Edema: Yes Edema: LLE: 2+, RLE: 2+ Neurological: Yes: Alert, Oriented, Cran Nerves II-XII Intact Psychiatric: Yes: Alert, Oriented Labs: CBC, BMP 06/02/17 13:03 06/02/17 13:03 Imaging - Results Chest X-ray: Report Reviewed, Image Reviewed (possible RLL infiltrate) Assessment/Plan Assessment:57 year old male with worsening abdominal distention Plan: 1. Ascities - Due to alcoholic cirrhosis - Paracentesis ordered - Continue aldactone 25mg TID - Continue lasix 20mg TID - Keep NPO 2. Esophageal varices - Grade 1, no indication for Nadolol until grade 2 - Continue atenolol 3. Anemia - Monitor hgb, no acute indication, pt asymptomatic 4. HTN - Atenolol 5. Diarrhea - Will keep NPO to evaluate if diarrhea is from osmotic shifts - If continues will send stool studies 6. DVT - Hold systemic AC 7, Hypocalcemia - Corrected ca 9.14 8. HIV - Followed at [facility] - On mepron for pcp ppx - ID consulted Visit type - Emergency Visit Emergency Visit: Yes ED Registration Date: 06/02/17 Care time: The patient presented to the Emergency Department on the above date and was hospitalized for further evaluation of their emergent condition. - New Patient This patient is new to me today: Yes Date on this admission: 06/02/17 - Critical Care Critical Care patient: No
[2017-06-02 17:58] VITALS: BMI 23.9
[2017-06-02] MEDS: FUROSEMIDE 20 MG TABLET (FP) PO SCH (21:49)
[2017-06-02] MEDS: SPIRONOLACTONE 25 MG TABLET (FP) PO SCH (21:49)
[2017-06-03] MEDS: SPIRONOLACTONE 25 MG TABLET (FP) PO SCH ×3 (06:35→21:49)
[2017-06-03] MEDS: FUROSEMIDE 20 MG TABLET (FP) PO SCH ×3 (06:35→21:49)
[2017-06-03 07:51] LABS: MCHC 36.3 g/dl (32.0-35.9); MEAN CELL VOLUME 125.9 fl (80-96); MEAN PLT VOLUME 11.9 fl (7.5-11.1); RDW 18.9 % (11.9-15.9); WHITE BLOOD COUNT 2.9 K/mm3 (4.0-10.0)
[2017-06-03 08:01] LABS: MCH 45.7 pg (25.7-33.7)
[2017-06-03 08:04] LABS: PLATELET COUNT 35 K/MM3 (134-434)
[2017-06-03 08:11] LABS: ANION GAP 9 (8-16); CO2 22 mmol/L (21-32); GLUCOSE,RANDOM 109 mg/dL (74-106); MAGNESIUM 1.3 mg/dL (1.8-2.4); PHOSPHOROUS 2.8 mg/dL (2.5-4.9)
[2017-06-03 08:28] LABS: CALCIUM 6.7 mg/dL (8.5-10.1)
--- NOTE | 2017-06-03 08:47 | PN ---
Progress Note (short form) - Note Progress Note: ID consult dictated 57 year old man HIV positive since 1989- now with AIDS-cd4 58 recent admission 04/09 to 04/15 for decompensated cirrhosis (hep c) he is s/p paracentessis 04/12 (5400 cc removed- no malignant cells noted) s/p EGD 04/14- graade 1 esophageal varices hep c untreated off hiv meds for over 6 months- was living in [place] - attended HIV clinic there with Dr Evi gilbert ETOH, cigarette or substance use was referred to the [facility] after discharge-missed multiple clinic appts despite considerable casemanagement and outreach, finally was seen 05/19 and again did not return for f/u or even return phone calls- see [facility] documentation now admitted with weakness, anemia (hct 30 in March now ) had one nose bleed when he picked his nose reports hemorrhoids +abdominal distention diarrhea has resolved no fevers unclear what meds he is taking- no SOB AIDS HEP C cirrhosis with ascites Anemia check retic count consider GI f/u for paracentesis today continue Mepron for PCP prophylaxis to f/u in clinic to start ART after discharge (resistance test pending) apparently has not started his Mepron Problem List - Problems (1) AIDS Code(s): B20 - HUMAN IMMUNODEFICIENCY VIRUS [HIV] DISEASE (2) Ascites Code(s): R18.8 - OTHER ASCITES Qualifiers: Ascites type: due to alcoholic cirrhosis Qualified Code(s): K70.31 - Alcoholic cirrhosis of liver with ascites (3) Decompensated HCV cirrhosis Code(s): B19.20 - UNSPECIFIED VIRAL HEPATITIS C WITHOUT HEPATIC COMA; K74.69 - OTHER CIRRHOSIS OF LIVER (4) Anemia Code(s): D64.9 - ANEMIA, UNSPECIFIED
[2017-06-03] MEDS ORDERED: PT OWN MED DRAWER 7, Y5N ONE ×2 (09:24→21:44)
[2017-06-03] MEDS: FOLIC ACID 1 MG TABLET (FP) PO SCH ×2 (09:29→09:45)
[2017-06-03] MEDS: ATENOLOL 50 MG TABLET (FP) PO SCH ×2 (09:29→09:45)
[2017-06-03] MEDS: THIAMINE HCL 100 MG TABLET (FP) PO SCH ×2 (09:29→09:45)
[2017-06-03] MEDS: ATOVAQUONE 750 MG/5 ML PO SCH ×2 (09:29→09:45)
[2017-06-03] MEDS: PANTOPRAZOLE 40 MG TABLET (FP) PO SCH ×2 (09:29→09:45)
[2017-06-03] MEDS: MULTIVITAMINS (DAILY MVI) TABLET (FP) PO SCH ×2 (09:29→09:45)
--- NOTE | 2017-06-03 10:57 | CON.GI ---
Consult Consult Specialty:: GI Reason for Consultation:: Ascites - History of Present Illness History of Present Illness: A 57 yom know to GI service from recent admission. Admitted with tense ascites. NO sign of infection, SBP, or bleeding. Reports compliance with diuretics, but with lactulose. No melena, hematochezia, hematemesis, dyspepsia, fever, chills, jaundice, tremors. Reports tense abdomen and early satiety. - History Source History Provided By: Patient, Medical Record Limitations to Obtaining History: No Limitations - Past Medical History Cardio/Vascular: Yes: HTN Hepatobiliary: Yes: Cirrhosis, Hepatitis C Infectious Disease: Yes: HIV Musculoskeletal: Yes: Osteoarthritis - Alcohol/Substance Use Hx Alcohol Use: No - Smoking History Smoking history: Former smoker Have you smoked in the past 12 months: Yes Aproximately how many cigarettes per day: 3 If you are a former smoker, when did you quit?: 1 year ago - Social History ADL: Independent Home Medications - Allergies Allergies/Adverse Reactions: Allergies Allergy/AdvReac Type Severity Reaction Status Date / Time No Known Allergies Allergy Verified 06/02/17 11:53 - Home Medications Home Medications: Ambulatory Orders Atenolol [Tenormin -] 50 mg PO DAILY #30 tablet 05/19/17 Atovaquone [Mepron -] 1,500 mg PO DAILY #300 ml 05/19/17 Cane 1 each MC DAILY #1 each 05/19/17 Folic Acid - 1 mg PO DAILY #30 tablet 05/19/17 Furosemide [Lasix -] 20 mg PO TID #90 tablet 05/19/17 Lactose-Reduced Food [Ensure Original] 237 ml PO TID #90 liquid 05/19/17 Multivitamins [Multivit ([facility] Formulary)] 1 tab PO DAILY #30 tab 05/19/17 Omeprazole 40 mg PO DAILY #30 capsule. 05/19/17 Simethicone 80 mg PO QID PRN #100 tab.chew 05/19/17 Spironolactone [Aldactone -] 25 mg PO TID #90 tablet 05/19/17 Thiamine HCl [Vitamin B1 -] 100 mg PO DAILY #30 tab 05/19/17 Family Disease History - Family Disease History Family History: Unremarkable (non-contributory) Review of Systems - Review of Systems Constitutional: reports: Loss of Appetite, Weakness. denies: Chills, Fever, Lethargy Eyes: reports: No Symptoms HENT: reports: No Symptoms Neck: reports: No Symptoms Cardiovascular: reports: No Symptoms Respiratory: reports: SOB Gastrointestinal: reports: Bloating, Diarrhea, Nausea. denies: Melena, Rectal Bleeding, Vomiting, Vomiting Blood Genitourinary: reports: Dysuria Neurological: reports: No Symptoms Physical Exam-GI Vital Signs: Vital Signs Temperature 98.8 F 06/03/17 09:40 Pulse Rate 96 H 06/03/17 09:40 Respiratory Rate 18 06/03/17 09:40 Blood Pressure 110/70 06/03/17 09:40 O2 Sat by Pulse Oximetry (%) 96 06/03/17 10:42 Constitutional: Yes: No Distress, Calm, Cachectic, Thin Eyes: Yes: Conjunctiva Clear HENT: Yes: Atraumatic Neck: Yes: Supple Cardiovascular: Yes: Regular Rate and Rhythm Respiratory: Yes: Regular Gastrointestinal Inspection: Yes: Ascites, Distention ...Palpate: No: Firm/Rigid, Guarding, Mass, Soft, Tenderness, Tenderness, Epigastium, Tenderness, Rebound ...Percussion: Yes: Dullness Neurological: Yes: Alert, Oriented Psychiatric: Yes: Alert Labs: CBC, BMP 06/03/17 07:15 06/03/17 07:15 INR, PTT INR 1.89 (0.82-1.09) H 06/02/17 13:03 Laboratory Results - last 24 hr 06/02/17 06/02/17 06/02/17 12:54 13:03 13:03 WBC 3.2 L RBC 1.49 L D Hgb 7.1 L Hct 19.0 L D MCV 127.3 H D MCH 47.6 H MCHC 37.4 H RDW 19.1 H Plt Count 38 L D MPV 11.3 H Total Counted 100 Neutrophils % No Result Required. Neutrophils % (Manual) 76.0 Band Neutrophils % 20.0 Lymphocytes % No Result Required. Lymphocytes % (Manual) 4.0 L Platelet Estimate Decreased Anisocytosis 2+ Macrocytosis 3+ Target Cells 1+ Fragmented RBCs Few PT with INR 21.40 H INR 1.89 H VBG pH 7.38 POC VBG pCO2 36.5 L POC VBG pO2 20.8 L Mixed VBG HCO3 21.0 Sodium Potassium Chloride Carbon Dioxide Anion Gap BUN Creatinine Creat Clearance w eGFR Random Glucose Lactic Acid Calcium Phosphorus Magnesium Total Bilirubin AST ALT Alkaline Phosphatase Ammonia Total Protein Albumin Stool Occult Blood Blood Type Antibody Screen 06/02/17 06/02/17 06/02/17 13:03 13:03 13:03 WBC RBC Hgb Hct MCV MCH MCHC RDW Plt Count MPV Total Counted Neutrophils % Neutrophils % (Manual) Band Neutrophils % Lymphocytes % Lymphocytes % (Manual) Platelet Estimate Anisocytosis Macrocytosis Target Cells Fragmented RBCs PT with INR INR VBG pH POC VBG pCO2 POC VBG pO2 Mixed VBG HCO3 Sodium 137 Potassium 3.6 Chloride 106 Carbon Dioxide 22 Anion Gap 9 BUN 11 Creatinine 0.9 Creat Clearance w eGFR > 60 Random Glucose 76 Lactic Acid 1.5 Calcium 6.9 L* Phosphorus Magnesium Total Bilirubin 2.3 H D AST 106 H D ALT 38 D Alkaline Phosphatase 96 Ammonia 16.05 Total Protein 6.4 Albumin 1.2 L Stool Occult Blood Blood Type Antibody Screen 06/02/17 06/02/17 06/03/17 13:03 13:09 07:15 WBC 2.9 L RBC 1.56 L Hgb 7.1 L Hct 19.6 L MCV 125.9 H MCH 45.7 H MCHC 36.3 H RDW 18.9 H Plt Count 35 L* MPV 11.9 H Total Counted Neutrophils % No Result Required. Neutrophils % (Manual) Band Neutrophils % Lymphocytes % No Result Required. Lymphocytes % (Manual) Platelet Estimate Anisocytosis Macrocytosis Target Cells Fragmented RBCs PT with INR INR VBG pH POC VBG pCO2 POC VBG pO2 Mixed VBG HCO3 Sodium Potassium Chloride Carbon Dioxide Anion Gap BUN Creatinine Creat Clearance w eGFR Random Glucose Lactic Acid Calcium Phosphorus Magnesium Total Bilirubin AST ALT Alkaline Phosphatase Ammonia Total Protein Albumin Stool Occult Blood Negative Blood Type O POSITIVE Antibody Screen Negative 06/03/17 07:15 WBC RBC Hgb Hct MCV MCH MCHC RDW Plt Count MPV Total Counted Neutrophils % Neutrophils % (Manual) Band Neutrophils % Lymphocytes % Lymphocytes % (Manual) Platelet Estimate Anisocytosis Macrocytosis Target Cells Fragmented RBCs PT with INR INR VBG pH POC VBG pCO2 POC VBG pO2 Mixed VBG HCO3 Sodium 137 Potassium 3.3 L Chloride 106 Carbon Dioxide 22 Anion Gap 9 BUN 12 Creatinine 1.0 Creat Clearance w eGFR Random Glucose 109 H D Lactic Acid Calcium 6.7 L* Phosphorus 2.8 Magnesium 1.3 L Total Bilirubin AST ALT Alkaline Phosphatase Ammonia Total Protein Albumin Stool Occult Blood Blood Type Antibody Screen Imaging - Results Chest X-ray: Report Reviewed Problem List - Problems (1) Anemia Code(s): D64.9 - ANEMIA, UNSPECIFIED (2) Ascites Code(s): R18.8 - OTHER ASCITES Qualifiers: Ascites type: due to alcoholic cirrhosis Qualified Code(s): K70.31 - Alcoholic cirrhosis of liver with ascites (3) Decompensated HCV cirrhosis Code(s): B19.20 - UNSPECIFIED VIRAL HEPATITIS C WITHOUT HEPATIC COMA; K74.69 - OTHER CIRRHOSIS OF LIVER (4) Esophageal varices in alcoholic cirrhosis Code(s): K70.30 - ALCOHOLIC CIRRHOSIS OF LIVER WITHOUT ASCITES; I85.10 - SECONDARY ESOPHAGEAL VARICES WITHOUT BLEEDING (5) Human immunodeficiency virus (HIV) disease Code(s): B20 - HUMAN IMMUNODEFICIENCY VIRUS [HIV] DISEASE (6) Pancytopenia Code(s): D61.818 - OTHER PANCYTOPENIA (7) Thrombocytopenia Code(s): D69.6 - THROMBOCYTOPENIA, UNSPECIFIED (8) Weakness Code(s): R53.1 - WEAKNESS Assessment/Plan A 57 yom with HCV/ETOH liver cirrhosis, PHG, ascites. Agree with therapeutic paracentesis. Give albumin if > 5L removed Increase diuretics as per BUN, Cr, electrolytes Follow wit ID re HIV With GI, or ID re HCV 2 gm salt diet lactulose+rifaximin
[2017-06-03 11:23] LABS: ANISOCYTOSIS 2+; BAND % 15.3 %; HYPOCHROMIA 0; MACROCYTOSIS 2+; METAMYELOCYTE 0 % (0-2); MICROCYTOSIS 0; MYELOCYTE 0 % (0-2); OVALOCYTE 1+; PLATELET ESTIMATE DECREASED; POIKILOCYTOSIS 1+; POLYCHROMASIA 0; REACTIVE LYMPHOCYTES 0 % (0-80)
[2017-06-03 11:46] LABS: PLATELET COMMENTS PRESENT; TOTAL CELLS COUNTED 100
[2017-06-03] MEDS: RIFAXIMIN 550 MG TABLET (UD) PO SCH ×2 (12:56→21:49)
[2017-06-03] MEDS: AMOXICILLIN 500 MG CAPSULE (FP) PO SCH ×2 (12:56→21:49)
[2017-06-03] MEDS: CLARITHROMYCIN 500 MG TABLET (UD) PO SCH ×2 (12:57→21:49)
[2017-06-03 13:00] LABS: MCH 37.7 pg (25.7-33.7); MCHC 32.7 g/dl (32.0-35.9); MEAN CELL VOLUME 115.4 fl (80-96); MEAN PLT VOLUME 8.4 fl (7.5-11.1); PLATELET COUNT 90 K/MM3 (134-434); RDW 19.3 % (11.9-15.9); WHITE BLOOD COUNT 2.6 K/mm3 (4.0-10.0)
--- NOTE | 2017-06-03 13:12 | PN ---
Physical Exam: SUBJECTIVE: Patient seen and examined. He complaints of his teeth hurting for 1 week making it difficult to eat. He has no had any loose stool. Abd still uncomfortable OBJECTIVE: Vital Signs Period Temp Pulse Resp BP Sys/Sk[place] Pulse Ox Last 24 Hr 98.0 F-98.8 F 92-98 18-20 102-146/61-80 96-100 PE Neuro: alert,awake, cn 2-12intact HEENT: poor dentition, lower teeth tenderness Pulm: bi basilar crackles CV: s1 s2 rrr no mrg Abd: ++distention, RUQ pressure and tenderness to ribs, +bc Ext: + 1 b/l pitting edema Laboratory Results - last 24 hr 06/02/17 06/02/17 06/03/17 13:03 13:09 07:15 WBC 2.9 L RBC 1.56 L Hgb 7.1 L Hct 19.6 L MCV 125.9 H MCH 45.7 H MCHC 36.3 H RDW 18.9 H Plt Count 35 L* MPV 11.9 H Total Counted 100 Neutrophils % No Result Required. Neutrophils % (Manual) 66.3 Band Neutrophils % 15.3 Lymphocytes % No Result Required. Lymphocytes % (Manual) 11.2 D Monocytes % (Manual) 7 Eosinophils % (Manual) 0.0 Basophils % (Manual) 0.0 Myelocytes % (Man) 0 Metamyelocytes 0 Hypochromia 0 Platelet Estimate Decreased Platelet Comment Present Polychromasia 0 Poikilocytosis 1+ Anisocytosis 2+ Microcytosis 0 Macrocytosis 2+ Target Cells Ovalocytes 1+ Fragmented RBCs PT with INR INR VBG pH POC VBG pCO2 POC VBG pO2 Mixed VBG HCO3 Sodium Potassium Chloride Carbon Dioxide Anion Gap BUN Creatinine Creat Clearance w eGFR Random Glucose Lactic Acid Calcium Phosphorus Magnesium Total Bilirubin AST ALT Alkaline Phosphatase Ammonia Total Protein Albumin Stool Occult Blood Negative Blood Type O POSITIVE Antibody Screen Negative 06/03/17 07:15 WBC RBC Hgb Hct MCV MCH MCHC RDW Plt Count MPV Total Counted Neutrophils % Neutrophils % (Manual) Band Neutrophils % Lymphocytes % Lymphocytes % (Manual) Monocytes % (Manual) Eosinophils % (Manual) Basophils % (Manual) Myelocytes % (Man) Metamyelocytes Hypochromia Platelet Estimate Platelet Comment Polychromasia Poikilocytosis Anisocytosis Microcytosis Macrocytosis Target Cells Ovalocytes Fragmented RBCs PT with INR INR VBG pH POC VBG pCO2 POC VBG pO2 Mixed VBG HCO3 Sodium 137 Potassium 3.3 L Chloride 106 Carbon Dioxide 22 Anion Gap 9 BUN 12 Creatinine 1.0 Creat Clearance w eGFR Random Glucose 109 H D Lactic Acid Calcium 6.7 L* Phosphorus 2.8 Magnesium 1.3 L Total Bilirubin AST ALT Alkaline Phosphatase Ammonia Total Protein Albumin Stool Occult Blood Blood Type Antibody Screen Active Medications Generic Name Dose Route Start Last Admin Trade Name Freq PRN Reason Stop Dose Admin Amoxicillin 1,000 mg 06/03/17 11:30 06/03/17 12:56 Amoxicillin - PO 1,000 mg BID RAMYA Administration Atenolol 50 mg 06/03/17 10:00 06/03/17 09:45 Tenormin - PO 50 mg DAILY RAMYA Administration Atovaquone 1,500 mg 06/03/17 10:00 06/03/17 09:45 Mepron - PO 1,500 mg DAILY RAMYA Administration Clarithromycin 500 mg 06/03/17 11:30 06/03/17 12:57 Biaxin - PO 500 mg BID RAMYA Administration Folic Acid 1 mg 06/03/17 10:00 06/03/17 09:45 Folic Acid - PO 1 mg DAILY RAMYA Administration Furosemide 20 mg 06/02/17 22:00 06/03/17 06:35 Lasix - PO 20 mg TID RAMYA Administration Multivitamins/Minerals/Vitamin C 1 tab 06/03/17 10:00 06/03/17 09:45 Tab-A-Vit - PO 1 tab DAILY RAMYA Administration Pantoprazole Sodium 40 mg 06/03/17 10:00 06/03/17 09:45 Protonix - PO 40 mg DAILY RAMYA Administration Rifaximin 550 mg 06/03/17 11:15 06/03/17 12:56 Xifaxan - PO 550 mg BID RAMYA Administration Spironolactone 25 mg 06/02/17 22:00 06/03/17 06:35 Aldactone - PO 25 mg TID RAMYA Administration Thiamine HCl 100 mg 06/03/17 10:00 06/03/17 09:45 Vitamin B1 - PO 100 mg DAILY RAMYA Administration Assessment:57 year old male with worsening abdominal distention Plan: 1. Ascities - Due to alcoholic cirrhosis - Paracentesis today - Continue aldactone 25mg TID - Continue lasix 20mg TID 2. Thrombocytopenia - Transfuse 2 units platelets w/post transfusion cbc for paracentesis today, goal plts >55 3. Coagulopathy - Will give unit of FFP en route to procedure 4. Esophageal varices - Grade 1, no indication for Nadolol until grade 2 - Continue atenolol 5. Hy pylori - Triple therapy started by GI - Amoxicillin 1000mg BID - Clarithromycin 500mg BID - Protonix 40mg daily - GI seeing 6. Acute blood loss anemia - Unclear etiology - Transfuse 1uprbc when return from paracentesis - Check iron studies - Stool occult blood ordered 7. HTN - Atenolol 5. Diarrhea - Stop ensure, could be cause of diarrhea, RD to suggest alternatives - If continues will send stool studies 8. DVT - Hold systemic AC 9. Hypocalcemia - Corrected ca ~9.14 10. HIV - Off HIV meds for over 6 months, previously seen with Dr. Steve in [facility] for pcp ppx - ID seeing 11. Hep C - Un treated Visit type - Emergency Visit Emergency Visit: Yes ED Registration Date: 06/02/17 Care time: The patient presented to the Emergency Department on the above date and was hospitalized for further evaluation of their emergent condition. - New Patient This patient is new to me today: No - Critical Care Critical Care patient: No
[2017-06-03] MEDS ORDERED: POTASSIUM CHLORIDE ORAL LIQUID 20 MEQ/15 ML PO ONE (14:28)
[2017-06-03 19:20] LABS: PERITONEAL FLUID LYMPHOCYTE 26 %; PERITONEAL FLUID MACROPHAGE 55 %; PERITONEAL FLUID MESOTHELIAL 14 %; PERITONEAL FLUID MONOCYTE 4 %; PERITONEAL FLUID NEUTROPHIL 1 %
[2017-06-03] MEDS ORDERED: MAGNESIUM SULF 50% (8.12 MEQ/2 ML-1 GM VIAL) IVPB ONE (19:34)
[2017-06-03] MEDS: LACTOSE REDUCED FOOD PO SCH (20:07)
[2017-06-03 21:46] LABS: URINE APPEARANCE CLEAR; URINE BILIRUBIN NEGATIVE (NEGATIVE); URINE BLOOD NEGATIVE (NEGATIVE); URINE COLOR AMBER; URINE GLUCOSE (UA) NEGATIVE (NEGATIVE); URINE KETONE NEGATIVE (NEGATIVE); URINE LEUK ESTERASE NEGATIVE (NEGATIVE); URINE NITRITE NEGATIVE (NEGATIVE); URINE PROTEIN NEGATIVE (NEGATIVE); URINE UROBILINOGEN 4.0 E.U/dl mg/dL (0.2-1.0)
[2017-06-04] MEDS: SPIRONOLACTONE 25 MG TABLET (FP) PO SCH ×3 (06:28→21:46)
[2017-06-04] MEDS: FUROSEMIDE 20 MG TABLET (FP) PO SCH ×3 (06:28→21:46)
[2017-06-04] MEDS ORDERED: PT OWN MED DRAWER 7, Y5N ONE ×2 (07:12→09:18)
[2017-06-04 07:47] LABS: BASO % 0.2 % (0-2.0); EOS % 0.1 % (0-4.5); MCHC 34.8 g/dl (32.0-35.9); MEAN CELL VOLUME 116.8 fl (80-96); MEAN PLT VOLUME 9.3 fl (7.5-11.1); NEUT % 71.4 % (42.8-82.8); PLATELET COUNT 53 K/MM3 (134-434); RDW 22.8 % (11.9-15.9); WHITE BLOOD COUNT 2.8 K/mm3 (4.0-10.0)
[2017-06-04] MEDS: LACTOSE REDUCED FOOD PO SCH (08:22)
[2017-06-04 08:33] LABS: ALBUMIN 1.4 g/dl (3.4-5.0); ALK PHOS 97 U/L (45-117); ANION GAP 9 (8-16); CO2 20 mmol/L (21-32); GLUCOSE,RANDOM 100 mg/dL (74-106); SGOT/AST 87 U/L (15-37); SGPT/ALT 35 U/L (12-78); TOT PROT 6.4 g/dl (6.4-8.2)
[2017-06-04 08:38] LABS: MCH 40.6 pg (25.7-33.7)
[2017-06-04 08:59] LABS: CALCIUM 6.8 mg/dL (8.5-10.1)
[2017-06-04] MEDS: THIAMINE HCL 100 MG TABLET (FP) PO SCH ×2 (09:22→10:58)
[2017-06-04] MEDS: RIFAXIMIN 550 MG TABLET (UD) PO SCH ×3 (09:22→21:46)
[2017-06-04] MEDS: MULTIVITAMINS (DAILY MVI) TABLET (FP) PO SCH ×2 (09:23→10:58)
[2017-06-04] MEDS: FOLIC ACID 1 MG TABLET (FP) PO SCH ×2 (09:23→10:58)
[2017-06-04] MEDS: PANTOPRAZOLE 40 MG TABLET (FP) PO SCH ×2 (09:23→10:58)
[2017-06-04] MEDS: ATENOLOL 50 MG TABLET (FP) PO SCH ×2 (09:23→10:58)
[2017-06-04] MEDS: ATOVAQUONE 750 MG/5 ML PO SCH ×2 (09:23→10:59)
[2017-06-04] MEDS: AMOXICILLIN 500 MG CAPSULE (FP) PO SCH ×3 (09:23→21:46)
[2017-06-04] MEDS: CLARITHROMYCIN 500 MG TABLET (UD) PO SCH ×3 (09:24→21:46)
--- NOTE | 2017-06-04 09:43 | PDOC ---
Attending Attestation - Resident Resident Name: CarloFransiscaapolinar - ED Attending Attestation I have performed the following: I have examined & evaluated the patient, The case was reviewed & discussed with the resident, I agree w/resident's findings & plan, Exceptions are as noted - HPI HPI: 17:38 57-year-old male history of hep C cirrhosis sent here today from the [facility] for concerns for anemia increasing abdominal distention and generalized fatigue. Patient states he recently had paracentesis large-volume in which they took off 5-6 L today he is feeling in his abdomen is more distended. Denies any fever or chills did have some dark stool today. Has been taking lactulose and states that overall it is giving him diarrhea and he cannot tolerate the medication and nausea no vomiting no chest pain no shortness of breath - Physicial Exam PE: 06/02/17 17:42 Patient is awake and alert no acute distress. Moist mucous membranes. Heart is regular without any murmurs rubs or gallops. Lungs are clear bilaterally. Abdomen is soft distended but nontender positive ascites extremities are warm well perfused no peripheral edema no rash neuro he is alert and oriented 3 moves all extremities gait is normal - Medical Decision Making 06/02/17 17:43 37-year-old male with a history of ascites from cirrhosis here complaining of worsening abdominal distention loose stools and dark stools. Per [facility] report patient is severely anemic. Differential includes diarrhea from lactulose as a side effect, GI bleed, worsening anemia, renal failure, increasing ascites. Will discuss with the [facility], likely admit the patient for increasing ascites as he may require therapeutic paracentesis will guaiac his stool labs: CBC CMP lipase EKG
[2017-06-04 10:10] LABS: MAGNESIUM 1.9 mg/dL (1.8-2.4)
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
[2017-06-04] MEDS: LACTOBACILLUS ACIDOPHILUS 1 EACH TAB (FP) PO SCH (10:58)
--- NOTE | 2017-06-04 11:13 | PN ---
Physical Exam: SUBJECTIVE: Patient seen and examined at the bedside. States he had 30 episodes of diarrhea overnight and is exhausted from going to the bathroom. OBJECTIVE: recheck cmp and mag @ 1400 d/t diarrhea Vital Signs Period Temp Pulse Resp BP Sys/Skelton Pulse Ox Last 24 Hr 98 F-99.6 F 85-92 18-20 106-150/59-73 98-98 GENERAL: The patient is awake, alert, and fully oriented, in no acute distress. HEAD: Normal with no signs of trauma. EYES: PERRL, extraocular movements intact, sclera anicteric, conjunctiva clear. No ptosis. ENT: Ears normal, nares patent, oropharynx clear without exudates, moist mucous membranes. NECK: Trachea midline, full range of motion, supple. LUNGS: Breath sounds equal, clear to auscultation bilaterally, no wheezes, no crackles, no accessory muscle use. HEART: Regular rate and rhythm, S1, S2 without murmur, rub or gallop. ABDOMEN: mildly distended, hyperactive bowel sounds EXTREMITIES: 2+ pulses, warm, well-perfused, trace edema bilaterally. NEUROLOGICAL: Normal speech, gait not observed. PSYCH: Normal mood, normal affect. SKIN: Warm, dry, normal turgor, no rashes or lesions noted Laboratory Results - last 24 hr 06/02/17 06/03/17 06/03/17 13:03 07:15 12:45 WBC 2.6 L RBC 1.78 L Hgb 6.7 L* Hct 20.6 L MCV 115.4 H D MCH 37.7 H D MCHC 32.7 RDW 19.3 H Plt Count 90 L D MPV 8.4 D Total Counted 100 Neutrophils % Neutrophils % (Manual) 66.3 Band Neutrophils % 15.3 Lymphocytes % Lymphocytes % (Manual) 11.2 D Monocytes % Monocytes % (Manual) 7 Eosinophils % Eosinophils % (Manual) 0.0 Basophils % Basophils % (Manual) 0.0 Myelocytes % (Man) 0 Metamyelocytes 0 Hypochromia 0 Platelet Estimate Decreased Platelet Comment Present Polychromasia 0 Poikilocytosis 1+ Anisocytosis 2+ Microcytosis 0 Macrocytosis 2+ Ovalocytes 1+ Retic Count Sodium Potassium Chloride Carbon Dioxide Anion Gap BUN Creatinine Creat Clearance w eGFR Random Glucose Calcium Magnesium Ferritin Total Bilirubin AST ALT Alkaline Phosphatase Total Protein Albumin Urine Color Urine Appearance Urine pH Ur Specific [place] Urine Protein Urine Glucose (UA) Urine Ketones Urine Blood Urine Nitrite Urine Bilirubin Urine Urobilinogen Peritoneal WBC Peritoneal RBC Periton Neutrophils Periton Lymphocytes Peritoneal Monocytes Periton Mesothelial Periton Macrophages Peritoneal Tot Protein Peritoneal Albumin Peritoneal LDH Peritoneal Glucose Peritoneal Amylase Blood Type O POSITIVE Antibody Screen Negative Crossmatch See Detail 06/03/17 06/03/17 06/04/17 14:30 20:10 07:25 WBC RBC Hgb Hct MCV MCH MCHC RDW Plt Count MPV Total Counted Neutrophils % Neutrophils % (Manual) Band Neutrophils % Lymphocytes % Lymphocytes % (Manual) Monocytes % Monocytes % (Manual) Eosinophils % Eosinophils % (Manual) Basophils % Basophils % (Manual) Myelocytes % (Man) Metamyelocytes Hypochromia Platelet Estimate Platelet Comment Polychromasia Poikilocytosis Anisocytosis Microcytosis Macrocytosis Ovalocytes Retic Count 2.55 H Sodium Potassium Chloride Carbon Dioxide Anion Gap BUN Creatinine Creat Clearance w eGFR Random Glucose Calcium Magnesium Ferritin Total Bilirubin AST ALT Alkaline Phosphatase Total Protein Albumin Urine Color Paige Urine Appearance Clear Urine pH 5.0 Ur Specific [place] 1.014 Urine Protein Negative Urine Glucose (UA) Negative Urine Ketones Negative Urine Blood Negative Urine Nitrite Negative Urine Bilirubin Negative Urine Urobilinogen 4.0 e.u/dl Peritoneal WBC 91 Peritoneal RBC 302 Periton Neutrophils 1 Periton Lymphocytes 26 Peritoneal Monocytes 4 Periton Mesothelial 14 Periton Macrophages 55 Peritoneal Tot Protein 1 Peritoneal Albumin 0 Peritoneal LDH 55 Peritoneal Glucose 112 Peritoneal Amylase 38 Blood Type Antibody Screen Crossmatch 06/04/17 06/04/17 06/04/17 07:25 07:25 07:25 WBC 2.8 L RBC 2.07 L Hgb 8.4 L D Hct 24.2 L D MCV 116.8 H MCH 40.6 H MCHC 34.8 RDW 22.8 H D Plt Count 53 L D MPV 9.3 D Total Counted Neutrophils % 71.4 Neutrophils % (Manual) Band Neutrophils % Lymphocytes % 20.2 Lymphocytes % (Manual) Monocytes % 8.1 Monocytes % (Manual) Eosinophils % 0.1 Eosinophils % (Manual) Basophils % 0.2 Basophils % (Manual) Myelocytes % (Man) Metamyelocytes Hypochromia Platelet Estimate Platelet Comment Polychromasia Poikilocytosis Anisocytosis Microcytosis Macrocytosis Ovalocytes Retic Count Sodium 139 Potassium 4.0 D Chloride 110 H Carbon Dioxide 20 L Anion Gap 9 BUN 12 Creatinine 1.0 Creat Clearance w eGFR > 60 Random Glucose 100 Calcium 6.8 L* Magnesium 1.9 D Cancelled Ferritin 407.570 H Total Bilirubin 2.0 H AST 87 H ALT 35 Alkaline Phosphatase 97 Total Protein 6.4 Albumin 1.4 L Urine Color Urine Appearance Urine pH Ur Specific [place] Urine Protein Urine Glucose (UA) Urine Ketones Urine Blood Urine Nitrite Urine Bilirubin Urine Urobilinogen Peritoneal WBC Peritoneal RBC Periton Neutrophils Periton Lymphocytes Peritoneal Monocytes Periton Mesothelial Periton Macrophages Peritoneal Tot Protein Peritoneal Albumin Peritoneal LDH Peritoneal Glucose Peritoneal Amylase Blood Type Antibody Screen Crossmatch Active Medications Generic Name Dose Route Start Last Admin Trade Name Freq PRN Reason Stop Dose Admin Amoxicillin 1,000 mg 06/03/17 11:30 06/04/17 10:58 Amoxicillin - PO 1,000 mg BID RAMYA Administration Atenolol 50 mg 06/03/17 10:00 06/04/17 10:58 Tenormin - PO 50 mg DAILY RAMYA Administration Atovaquone 1,500 mg 06/03/17 10:00 06/04/17 10:59 Mepron - PO 1,500 mg DAILY RAMYA Administration Clarithromycin 500 mg 06/03/17 11:30 06/04/17 10:58 Biaxin - PO 500 mg BID RAMYA Administration Folic Acid 1 mg 06/03/17 10:00 06/04/17 10:58 Folic Acid - PO 1 mg DAILY RAMYA Administration Furosemide 20 mg 06/02/17 22:00 06/04/17 06:28 Lasix - PO 20 mg TID RAMYA Administration Lactobacillus Acidophilus 1 tab 06/04/17 11:00 06/04/17 10:58 Bacid - PO 1 tab DAILY RAMYA Administration Multivitamins/Minerals/Vitamin C 1 tab 06/03/17 10:00 06/04/17 10:58 Tab-A-Vit - PO 1 tab DAILY RAMYA Administration Pantoprazole Sodium 40 mg 06/03/17 10:00 06/04/17 10:58 Protonix - PO 40 mg DAILY RAMYA Administration Rifaximin 550 mg 06/03/17 11:15 06/04/17 10:58 Xifaxan - PO 550 mg BID RAMYA Administration Spironolactone 25 mg 06/02/17 22:00 06/04/17 06:28 Aldactone - PO 25 mg TID RAMYA Administration Thiamine HCl 100 mg 06/03/17 10:00 06/04/17 10:58 Vitamin B1 - PO 100 mg DAILY RAMYA Administration ASSESSMENT/PLAN: Patient is a 57 year old male with a past medical history of esophageal varicies, hypertension, +HIV/AIDS and Hep C. He was admitted on06/03/2017 for worsening abdominal distention. On exam, patient reports profuse diarrhea overnight (went apx 30 times as per patient). GI: Ascities Likely secondary to alcoholic cirrhosis s/p paracentesis, awaiting final report Continue Aldactone 25mg TID, On Lasix 20mg TID Hy pylori Started on triple therapy by GI On Amox 100mg BID, Clarithromycin 500mg BID, Protonix 40mg daily GI following Esophageal varices Grade 1, no indication for Nadolol, continue atenolol Diarrhea, acute Continues to have diarrhea Monitor bun/creat, and electrolytes Encourage PO intake Stool studies ordered Hep C Untreated, GI following Hematology Thrombocytopenia, likely chronic s/p 2 units platelets w/post transfusion Platelets now 55 Coagulopathy Given FFP prior to paracentesis Acute blood loss anemia s/p 1 unit of prbc given after paracentesis Check iron studies monitor CBC Cardiology: Hypertension On Atenolol ID: HIV/AIDS Not on meds currently, has been off meds for over 6 mos ID following F.E.N. Fluids: Encourge PO intake Electrolytes: hypomag repleted, hypocalcemia @ 9.2 corrected Nutrition: monitor, encourage BRAT diet Prophylaxis DVT: hold a/c 2/2 to thrombocytopenia GI: Protonix daily
--- NOTE | 2017-06-04 11:41 | PN ---
Progress Note, Physician History of Present Illness: S/P paracentesis No c/o abdominal pain No fever/chills Breathing non-laboered - Current Medication List Current Medications: Active Medications Amoxicillin (Amoxicillin -) 1,000 mg PO BID [facility] Last Admin: 06/04/17 10:58 Dose: 1,000 mg Atenolol (Tenormin -) 50 mg PO DAILY [facility] Last Admin: 06/04/17 10:58 Dose: 50 mg Atovaquone (Mepron -) 1,500 mg PO DAILY [facility] Last Admin: 06/04/17 10:59 Dose: 1,500 mg Clarithromycin (Biaxin -) 500 mg PO BID [facility] Last Admin: 06/04/17 10:58 Dose: 500 mg Folic Acid (Folic Acid -) 1 mg PO DAILY [facility] Last Admin: 06/04/17 10:58 Dose: 1 mg Furosemide (Lasix -) 20 mg PO TID [facility] Last Admin: 06/04/17 06:28 Dose: 20 mg Lactobacillus Acidophilus (Bacid -) 1 tab PO DAILY [facility] Last Admin: 06/04/17 10:58 Dose: 1 tab Multivitamins/Minerals/Vitamin C (Tab-A-Vit -) 1 tab PO DAILY [facility] Last Admin: 06/04/17 10:58 Dose: 1 tab Pantoprazole Sodium (Protonix -) 40 mg PO DAILY [facility] Last Admin: 06/04/17 10:58 Dose: 40 mg Rifaximin (Xifaxan -) 550 mg PO BID [facility] Last Admin: 06/04/17 10:58 Dose: 550 mg Spironolactone (Aldactone -) 25 mg PO TID [facility] Last Admin: 06/04/17 06:28 Dose: 25 mg Thiamine HCl (Vitamin B1 -) 100 mg PO DAILY [facility] Last Admin: 06/04/17 10:58 Dose: 100 mg - Objective Vital Signs: Vital Signs Temperature 98.7 F 06/04/17 09:30 Pulse Rate 92 H 06/04/17 09:30 Respiratory Rate 18 06/04/17 09:30 Blood Pressure 128/66 06/04/17 09:30 O2 Sat by Pulse Oximetry (%) 98 06/04/17 09:55 Constitutional: Yes: No Distress Eyes: Yes: Conjunctiva Clear Cardiovascular: Yes: Regular Rate and Rhythm, S1, S2 Respiratory: Yes: CTA Bilaterally Gastrointestinal: Yes: Normal Bowel Sounds, Soft. No: Tenderness Labs: CBC, BMP 06/04/17 07:25 06/04/17 07:25 INR, PTT INR 1.89 (0.82-1.09) H 06/02/17 13:03 Assessment/Plan S/P paracentesis ascitic fluid analysis not c/w SBP Decompensated cirrhosis Pancytopenia HIV/ AIDS Continue PCP prophylaxis
[2017-06-04 12:04] LABS: BASO % 0.6 % (0-2.0); EOS % 0.1 % (0-4.5); MCHC 34.4 g/dl (32.0-35.9); MEAN CELL VOLUME 116.4 fl (80-96); MEAN PLT VOLUME 9.6 fl (7.5-11.1); NEUT % 67.4 % (42.8-82.8); PLATELET COUNT 55 K/MM3 (134-434); WHITE BLOOD COUNT 3.1 K/mm3 (4.0-10.0)
[2017-06-04 12:22] LABS: ALBUMIN 1.5 g/dl (3.4-5.0); ANION GAP 7 (8-16); CALCIUM 7.4 mg/dL (8.5-10.1); CO2 22 mmol/L (21-32); GLUCOSE,RANDOM 102 mg/dL (74-106); SGOT/AST 89 U/L (15-37); SGPT/ALT 37 U/L (12-78)
[2017-06-04 12:23] LABS: ALK PHOS 102 U/L (45-117); TOT PROT 6.8 g/dl (6.4-8.2)
[2017-06-04 14:47] LABS: ALBUMIN 1.3 g/dl (3.4-5.0); ALK PHOS 97 U/L (45-117); ANION GAP 6 (8-16); BILIRUBIN,TOTAL 1.8 mg/dL (0.2-1.0); CO2 22 mmol/L (21-32); GLUCOSE,RANDOM 98 mg/dL (74-106); MAGNESIUM 1.7 mg/dL (1.8-2.4); SGOT/AST 80 U/L (15-37); SGPT/ALT 33 U/L (12-78); TOT PROT 6.1 g/dl (6.4-8.2)
[2017-06-04 14:55] LABS: CALCIUM 6.8 mg/dL (8.5-10.1)
[2017-06-04] MEDS ORDERED: MAGNESIUM SULF 50% (8.12 MEQ/2 ML-1 GM VIAL) IVPB ONE (17:15)
[2017-06-04 23:22] LABS: URINE LEUK ESTERASE Negative (NEGATIVE)
[2017-06-05] MEDS: FUROSEMIDE 20 MG TABLET (FP) PO SCH ×3 (06:15→22:02)
[2017-06-05] MEDS: SPIRONOLACTONE 25 MG TABLET (FP) PO SCH ×3 (06:15→22:01)
[2017-06-05 06:40] LABS: SERUM IRON 87 ug/dL (38-169); TOTAL IRON BINDING CAPACITY 129 ug/dL (250-450); UIBC 42 ug/dL (111-343)
[2017-06-05 08:13] LABS: BASO % 0.6 % (0-2.0); EOS % 0.2 % (0-4.5); MCHC 35.1 g/dl (32.0-35.9); MEAN CELL VOLUME 114.4 fl (80-96); MEAN PLT VOLUME 11.4 fl (7.5-11.1); NEUT % 62.4 % (42.8-82.8); PLATELET COUNT 50 K/MM3 (134-434); RDW 22.2 % (11.9-15.9); WHITE BLOOD COUNT 2.7 K/mm3 (4.0-10.0)
[2017-06-05 08:20] LABS: MCH 40.1 pg (25.7-33.7)
[2017-06-05 08:32] LABS: ALBUMIN 1.5 g/dl (3.4-5.0); ANION GAP 7 (8-16); CALCIUM 7.2 mg/dL (8.5-10.1); CO2 23 mmol/L (21-32); CREATININE 0.9 mg/dL (0.7-1.3); GLUCOSE,RANDOM 87 mg/dL (74-106); MAGNESIUM 1.5 mg/dL (1.8-2.4); SGOT/AST 87 U/L (15-37); SGPT/ALT 37 U/L (12-78)
[2017-06-05 08:34] LABS: ALK PHOS 94 U/L (45-117); BILIRUBIN,TOTAL 2.1 mg/dL (0.2-1.0); TOT PROT 6.6 g/dl (6.4-8.2)
[2017-06-05] MEDS ORDERED: PT OWN MED DRAWER 7, Y5N ONE ×2 (09:03→21:57)
[2017-06-05] MEDS: AMOXICILLIN 500 MG CAPSULE (FP) PO SCH ×3 (09:05→22:01)
[2017-06-05] MEDS: THIAMINE HCL 100 MG TABLET (FP) PO SCH (09:05)
[2017-06-05] MEDS: FOLIC ACID 1 MG TABLET (FP) PO SCH (09:06)
[2017-06-05] MEDS: PANTOPRAZOLE 40 MG TABLET (FP) PO SCH (09:06)
[2017-06-05] MEDS: LACTOBACILLUS ACIDOPHILUS 1 EACH TAB (FP) PO SCH ×2 (09:06→11:00)
[2017-06-05] MEDS: MULTIVITAMINS (DAILY MVI) TABLET (FP) PO SCH (09:06)
[2017-06-05] MEDS: CLARITHROMYCIN 500 MG TABLET (UD) PO SCH ×3 (09:07→22:01)
[2017-06-05] MEDS: RIFAXIMIN 550 MG TABLET (UD) PO SCH ×3 (09:09→22:02)
[2017-06-05] MEDS: ATOVAQUONE 750 MG/5 ML PO SCH (09:09)
--- NOTE | 2017-06-05 11:28 | PN ---
Progress Note, Physician History of Present Illness: C/O loose BMs No c/o abdominal pain No fever/chills Breathing non-laboered - Current Medication List Current Medications: Active Medications Amoxicillin (Amoxicillin -) 1,000 mg PO BID [facility] Last Admin: 06/05/17 11:00 Dose: Not Given Atenolol (Tenormin -) 50 mg PO DAILY [facility] Last Admin: 06/04/17 10:58 Dose: 50 mg Atovaquone (Mepron -) 1,500 mg PO DAILY [facility] Last Admin: 06/05/17 09:09 Dose: 1,500 mg Clarithromycin (Biaxin -) 500 mg PO BID [facility] Last Admin: 06/05/17 11:00 Dose: Not Given Folic Acid (Folic Acid -) 1 mg PO DAILY [facility] Last Admin: 06/05/17 09:06 Dose: 1 mg Furosemide (Lasix -) 20 mg PO TID [facility] Last Admin: 06/05/17 06:15 Dose: 20 mg Lactobacillus Acidophilus (Bacid -) 1 tab PO DAILY [facility] Last Admin: 06/05/17 11:00 Dose: Not Given Multivitamins/Minerals/Vitamin C (Tab-A-Vit -) 1 tab PO DAILY [facility] Last Admin: 06/05/17 09:06 Dose: 1 tab Pantoprazole Sodium (Protonix -) 40 mg PO DAILY [facility] Last Admin: 06/05/17 09:06 Dose: 40 mg Rifaximin (Xifaxan -) 550 mg PO BID [facility] Last Admin: 06/05/17 11:00 Dose: Not Given Spironolactone (Aldactone -) 25 mg PO TID [facility] Last Admin: 06/05/17 06:15 Dose: 25 mg Thiamine HCl (Vitamin B1 -) 100 mg PO DAILY [facility] Last Admin: 06/05/17 09:05 Dose: 100 mg - Objective Vital Signs: Vital Signs Temperature 98.0 F 06/05/17 09:00 Pulse Rate 80 06/05/17 09:00 Respiratory Rate 20 06/05/17 09:00 Blood Pressure 100/60 06/05/17 09:00 O2 Sat by Pulse Oximetry (%) 99 06/05/17 09:00 Constitutional: Yes: No Distress Cardiovascular: Yes: Regular Rate and Rhythm, S1, S2 Respiratory: Yes: CTA Bilaterally Gastrointestinal: Yes: Normal Bowel Sounds, Soft, Other (distended). No: Tenderness Labs: CBC, BMP 06/05/17 07:45 06/05/17 07:45 INR, PTT INR 1.89 (0.82-1.09) H 06/02/17 13:03 Assessment/Plan S/P paracentesis ascitic fluid analysis not c/w SBP Decompensated cirrhosis Pancytopenia HIV/ AIDS Continue PCP prophylaxis Stool C diff
[2017-06-05 11:52] LABS: BASO % 0.3 % (0-2.0); EOS % 0.2 % (0-4.5); MCH 35.9 pg (25.7-33.7); MCHC 33.1 g/dl (32.0-35.9); MEAN CELL VOLUME 108.4 fl (80-96); MEAN PLT VOLUME 9.4 fl (7.5-11.1); NEUT % 63.5 % (42.8-82.8); PLATELET COUNT 46 K/MM3 (134-434); RDW 21.7 % (11.9-15.9)
[2017-06-05 12:49] LABS: ALBUMIN 1.4 g/dl (3.4-5.0); ANION GAP 5 (8-16); CO2 22 mmol/L (21-32); GLUCOSE,RANDOM 98 mg/dL (74-106); SGOT/AST 77 U/L (15-37); SGPT/ALT 34 U/L (12-78)
[2017-06-05 12:52] LABS: ALK PHOS 92 U/L (45-117); BILIRUBIN,TOTAL 1.8 mg/dL (0.2-1.0); CREATININE 0.9 mg/dL (0.7-1.3); TOT PROT 6.4 g/dl (6.4-8.2)
[2017-06-05 13:36] LABS: CALCIUM 6.8 mg/dL (8.5-10.1)
[2017-06-05] MEDS: ATENOLOL 50 MG TABLET (FP) PO SCH (14:13)
[2017-06-05] MEDS ORDERED: MAGNESIUM SULF 50% (8.12 MEQ/2 ML-1 GM VIAL) IVPB ONE (14:30)
--- NOTE | 2017-06-05 15:52 | PN ---
Physical Exam: SUBJECTIVE: Patient seen and examined OBJECTIVE: Continues to have diarrhea, cdiff studies ordered by ID Refusing PO antibiotics d/t diarrhea, bacid ordered Vital Signs Period Temp Pulse Resp BP Sys/Skelton Pulse Ox Last 24 Hr 97.6 F-98.3 F 80-91 18-20 100-124/58-78 98-99 GENERAL: The patient is awake, alert, and fully oriented, in no acute distress. HEAD: Normal with no signs of trauma. EYES: PERRL, extraocular movements intact, sclera anicteric, conjunctiva clear. No ptosis. ENT: Ears normal, nares patent, oropharynx clear without exudates, moist mucous membranes. NECK: Trachea midline, full range of motion, supple. LUNGS: Breath sounds equal, clear to auscultation bilaterally, mild crackles on right lung base HEART: Regular rate and rhythm, S1, S2 without murmur, rub or gallop. ABDOMEN: mildly distended, hyperactive bowel sounds EXTREMITIES: 2+ pulses, warm, well-perfused, trace edema bilaterally. NEUROLOGICAL: Normal speech, gait not observed. PSYCH: Normal mood, normal affect. SKIN: Warm, dry, normal turgor, no rashes or lesions noted Laboratory Results - last 24 hr 06/03/17 06/04/17 06/04/17 20:10 07:25 17:53 WBC RBC Hgb Hct MCV MCH MCHC RDW Plt Count MPV Neutrophils % Lymphocytes % Monocytes % Eosinophils % Basophils % Sodium Potassium Chloride Carbon Dioxide Anion Gap BUN Creatinine Creat Clearance w eGFR Random Glucose Calcium Magnesium Iron 87 TIBC 129 L Iron Saturation 67 H Total Bilirubin AST ALT Alkaline Phosphatase Total Protein Albumin Ur Leukocyte Esterase Negative Stool Occult Blood Positive 06/05/17 06/05/17 06/05/17 07:45 07:45 11:30 WBC 2.7 L 3.0 L RBC 2.20 L 2.30 L Hgb 8.8 L 8.2 L Hct 25.1 L 24.9 L MCV 114.4 H 108.4 H MCH 40.1 H 35.9 H D MCHC 35.1 33.1 RDW 22.2 H 21.7 H Plt Count 50 L 46 L MPV 11.4 H D 9.4 D Neutrophils % 62.4 63.5 Lymphocytes % 26.7 D 22.3 Monocytes % 10.1 13.7 H Eosinophils % 0.2 D 0.2 Basophils % 0.6 0.3 Sodium 140 Potassium 4.1 Chloride 110 H Carbon Dioxide 23 Anion Gap 7 L BUN 12 Creatinine 0.9 Creat Clearance w eGFR > 60 Random Glucose 87 Calcium 7.2 L Magnesium 1.5 L Iron TIBC Iron Saturation Total Bilirubin 2.1 H AST 87 H ALT 37 Alkaline Phosphatase 94 Total Protein 6.6 Albumin 1.5 L Ur Leukocyte Esterase Stool Occult Blood 06/05/17 06/05/17 11:30 13:45 WBC RBC Hgb Hct MCV MCH MCHC RDW Plt Count MPV Neutrophils % Lymphocytes % Monocytes % Eosinophils % Basophils % Sodium 138 Potassium 3.8 Chloride 111 H Carbon Dioxide 22 Anion Gap 5 L BUN 12 Creatinine 0.9 Creat Clearance w eGFR > 60 Random Glucose 98 Calcium 6.8 L* Magnesium Iron TIBC Iron Saturation Total Bilirubin 1.8 H AST 77 H ALT 34 Alkaline Phosphatase 92 Total Protein 6.4 Albumin 1.4 L Ur Leukocyte Esterase Stool Occult Blood Negative Active Medications Generic Name Dose Route Start Last Admin Trade Name Freq PRN Reason Stop Dose Admin Amoxicillin 1,000 mg 06/03/17 11:30 06/05/17 11:00 Amoxicillin - PO Not Given BID [facility] Atenolol 50 mg 06/03/17 10:00 06/05/17 14:13 Tenormin - PO Not Given DAILY RAMYA Atovaquone 1,500 mg 06/03/17 10:00 06/05/17 09:09 Mepron - PO 1,500 mg DAILY RAMYA Administration Clarithromycin 500 mg 06/03/17 11:30 06/05/17 11:00 Biaxin - PO Not Given BID RAMYA Folic Acid 1 mg 06/03/17 10:00 06/05/17 09:06 Folic Acid - PO 1 mg DAILY RAMYA Administration Furosemide 20 mg 06/02/17 22:00 06/05/17 14:38 Lasix - PO 20 mg TID RAMYA Administration Lactobacillus Acidophilus 1 tab 06/04/17 11:00 06/05/17 11:00 Bacid - PO Not Given DAILY RAMYA Multivitamins/Minerals/Vitamin C 1 tab 06/03/17 10:00 06/05/17 09:06 Tab-A-Vit - PO 1 tab DAILY RAMYA Administration Pantoprazole Sodium 40 mg 06/03/17 10:00 06/05/17 09:06 Protonix - PO 40 mg DAILY RAMYA Administration Rifaximin 550 mg 06/03/17 11:15 06/05/17 11:00 Xifaxan - PO Not Given BID RAMYA Spironolactone 25 mg 06/02/17 22:00 06/05/17 14:38 Aldactone - PO 25 mg TID RAMYA Administration Thiamine HCl 100 mg 06/03/17 10:00 06/05/17 09:05 Vitamin B1 - PO 100 mg DAILY RAMYA Administration ASSESSMENT/PLAN: Patient is a 57 year old male with a past medical history of esophageal varicies, hypertension, +HIV/AIDS and Hep C. He was admitted on06/03/2017 for worsening abdominal distention. On exam, patient reports diarrhea again overnight. GI: Ascites, Likely secondary to alcoholic cirrhosis s/p paracentesis 06/03/2017 awaiting final report Continue Aldactone 25mg TID, On Lasix 20mg TID Hy pylori Started on triple therapy by GI On Amox 100mg BID, Clarithromycin 500mg BID, Protonix 40mg daily GI following Esophageal varices Grade 1, no indication for Nadolol, continue atenolol Diarrhea, acute Continues to have diarrhea Monitor bun/creat, and electrolytes Encourage PO intake Stool studies ordered, c diff pending Hep C Untreated, GI following Hematology Thrombocytopenia, likely chronic s/p 2 units platelets w/post transfusion Platelets 50 now, monitor Coagulopathy Given FFP prior to paracentesis Acute blood loss anemia s/p 1 unit of prbc given after paracentesis Check iron studies monitor CBC Cardiology: Hypertension On Atenolol ID: HIV/AIDS Not on meds currently, has been off meds for over 6 mos ID following F.E.N. Fluids: Encourage PO intake Electrolytes: hypomag repleted, hypocalcemia @ 9.2 corrected Nutrition: monitor, encourage BRAT diet Prophylaxis DVT: hold a/c 2/2 to thrombocytopenia GI: Protonix daily Visit type - Emergency Visit Emergency Visit: Yes ED Registration Date: 06/03/17 Care time: The patient presented to the Emergency Department on the above date and was hospitalized for further evaluation of their emergent condition. - New Patient This patient is new to me today: No - Critical Care Critical Care patient: No - Discharge Referral Referred to [facility] Med P.C.: No
[2017-06-06] MEDS ORDERED: ACETAMINOPHEN 325 MG TABLET (FP) PO ONE (04:00)
[2017-06-06] MEDS: FUROSEMIDE 20 MG TABLET (FP) PO SCH (06:13)
[2017-06-06] MEDS: SPIRONOLACTONE 25 MG TABLET (FP) PO SCH (06:13)
[2017-06-06 07:41] LABS: BASO % 0.5 % (0-2.0); EOS % 0.1 % (0-4.5); MCHC 35.6 g/dl (32.0-35.9); MEAN CELL VOLUME 115.3 fl (80-96); NEUT % 66.5 % (42.8-82.8); PLATELET COUNT 36 K/MM3 (134-434); RDW 21.2 % (11.9-15.9); WHITE BLOOD COUNT 2.8 K/mm3 (4.0-10.0)
[2017-06-06 08:06] LABS: ALBUMIN 1.3 g/dl (3.4-5.0); ALK PHOS 89 U/L (45-117); ANION GAP 9 (8-16); BILIRUBIN,TOTAL 1.6 mg/dL (0.2-1.0); CO2 22 mmol/L (21-32); CREATININE 0.8 mg/dL (0.7-1.3); GLUCOSE,RANDOM 88 mg/dL (74-106); MAGNESIUM 1.4 mg/dL (1.8-2.4); SGOT/AST 73 U/L (15-37); SGPT/ALT 32 U/L (12-78); TOT PROT 6.1 g/dl (6.4-8.2)
[2017-06-06] MEDS ORDERED: MAGNESIUM SULF 50% (8.12 MEQ/2 ML-1 GM VIAL) IVPB ONE ×2 (09:00→12:15)
[2017-06-06] MEDS: ATENOLOL 50 MG TABLET (FP) PO SCH (09:45)
[2017-06-06] MEDS: LACTOBACILLUS ACIDOPHILUS 1 EACH TAB (FP) PO SCH (09:45)
[2017-06-06] MEDS: PANTOPRAZOLE 40 MG TABLET (FP) PO SCH (09:45)
[2017-06-06] MEDS: FOLIC ACID 1 MG TABLET (FP) PO SCH (09:45)
[2017-06-06] MEDS: MULTIVITAMINS (DAILY MVI) TABLET (FP) PO SCH (09:45)
[2017-06-06] MEDS: THIAMINE HCL 100 MG TABLET (FP) PO SCH (09:45)
[2017-06-06] MEDS: AMOXICILLIN 500 MG CAPSULE (FP) PO SCH (09:48)
[2017-06-06] MEDS: CLARITHROMYCIN 500 MG TABLET (UD) PO SCH (09:48)
[2017-06-06] MEDS: RIFAXIMIN 550 MG TABLET (UD) PO SCH (09:49)
[2017-06-06] MEDS ORDERED: ATOVAQUONE 750 MG/5 ML PO SCH (10:20)
[2017-06-06 11:11] LABS: BASO % 0.3 % (0-2.0); EOS % 0.1 % (0-4.5); MCH 38.1 pg (25.7-33.7); MCHC 33.5 g/dl (32.0-35.9); MEAN CELL VOLUME 113.6 fl (80-96); MEAN PLT VOLUME 10.5 fl (7.5-11.1); NEUT % 67.6 % (42.8-82.8); PLATELET COUNT 43 K/MM3 (134-434); RDW 21.9 % (11.9-15.9); WHITE BLOOD COUNT 3.1 K/mm3 (4.0-10.0)
[2017-06-06] MEDS ORDERED: DIPHENOXYLATE 2.5/ATROPINE.025 1 COMBO TABLET PO PRN (11:30)
[2017-06-06 11:36] LABS: ALBUMIN 1.4 g/dl (3.4-5.0); ANION GAP 7 (8-16); CO2 22 mmol/L (21-32); GLUCOSE,RANDOM 87 mg/dL (74-106)
[2017-06-06 11:41] LABS: ALK PHOS 98 U/L (45-117); BILIRUBIN,TOTAL 1.7 mg/dL (0.2-1.0); CALCIUM 7.1 mg/dL (8.5-10.1); CREATININE 0.9 mg/dL (0.7-1.3); SGOT/AST 79 U/L (15-37); SGPT/ALT 33 U/L (12-78); TOT PROT 6.7 g/dl (6.4-8.2)
[2017-06-06 11:56] VITALS: TEMP 97.8
--- NOTE | 2017-06-06 12:18 | PN ---
Progress Note, Physician History of Present Illness: No events. Wants to go home - Current Medication List Current Medications: Active Medications Amoxicillin (Amoxicillin -) 1,000 mg PO BID [facility] Last Admin: 06/06/17 09:48 Dose: 1,000 mg Atenolol (Tenormin -) 50 mg PO DAILY [facility] Last Admin: 06/06/17 09:45 Dose: 50 mg Atovaquone (Mepron -) 1,500 mg PO DAILY [facility] Clarithromycin (Biaxin -) 500 mg PO BID [facility] Last Admin: 06/06/17 09:48 Dose: 500 mg Diphenoxylate HCl/Atropine (Lomotil -) 1 combo PO Q8H PRN PRN Reason: DIARRHEA Folic Acid (Folic Acid -) 1 mg PO DAILY [facility] Last Admin: 06/06/17 09:45 Dose: 1 mg Furosemide (Lasix -) 20 mg PO TID [facility] Last Admin: 06/06/17 06:13 Dose: 20 mg Lactobacillus Acidophilus (Bacid -) 1 tab PO DAILY [facility] Last Admin: 06/06/17 09:45 Dose: 1 tab Magnesium Oxide (Mag-Ox -) 400 mg PO BID [facility] Magnesium Sulfate (Magnesium Sulfate) 2 gm IVPB ONCE ONE Stop: 06/06/17 12:16 Multivitamins/Minerals/Vitamin C (Tab-A-Vit -) 1 tab PO DAILY [facility] Last Admin: 06/06/17 09:45 Dose: 1 tab Pantoprazole Sodium (Protonix -) 40 mg PO DAILY [facility] Last Admin: 06/06/17 09:45 Dose: 40 mg Rifaximin (Xifaxan -) 550 mg PO BID [facility] Last Admin: 06/06/17 09:49 Dose: 550 mg Spironolactone (Aldactone -) 25 mg PO TID [facility] Last Admin: 06/06/17 06:13 Dose: 25 mg Thiamine HCl (Vitamin B1 -) 100 mg PO DAILY [facility] Last Admin: 06/06/17 09:45 Dose: 100 mg - Objective Vital Signs: Vital Signs Temperature 97.8 F 06/06/17 10:00 Pulse Rate 98 H 06/06/17 10:00 Respiratory Rate 18 06/06/17 10:00 Blood Pressure 109/70 06/06/17 10:00 O2 Sat by Pulse Oximetry (%) 99 06/05/17 09:00 Constitutional: Yes: No Distress Eyes: Yes: Conjunctiva Clear HENT: Yes: Atraumatic Cardiovascular: Yes: Regular Rate and Rhythm Respiratory: Yes: Regular Gastrointestinal: Yes: Soft, Ascites, Distention. No: Melena, Rectal Bleeding, Tenderness, Vomiting Neurological: Yes: Alert, Oriented Labs: CBC, BMP 06/06/17 10:56 06/06/17 10:56 INR, PTT INR 1.89 (0.82-1.09) H 06/02/17 13:03 Laboratory Results - last 24 hr 06/05/17 06/05/17 06/06/17 11:30 13:45 07:15 WBC 2.8 L RBC 1.92 L Hgb 7.9 L Hct 22.1 L MCV 115.3 H D MCH 41.0 H D MCHC 35.6 RDW 21.2 H Plt Count 36 L* D MPV 10.0 Neutrophils % 66.5 Lymphocytes % 19.7 Monocytes % 13.2 H Eosinophils % 0.1 Basophils % 0.5 Sodium 138 Potassium 3.8 Chloride 111 H Carbon Dioxide 22 Anion Gap 5 L BUN 12 Creatinine 0.9 Creat Clearance w eGFR > 60 Random Glucose 98 Calcium 6.8 L* Magnesium Total Bilirubin 1.8 H AST 77 H ALT 34 Alkaline Phosphatase 92 Total Protein 6.4 Albumin 1.4 L Stool Occult Blood Negative 06/06/17 06/06/17 06/06/17 07:15 10:56 10:56 WBC 3.1 L RBC 2.13 L Hgb 8.1 L Hct 24.2 L MCV 113.6 H MCH 38.1 H MCHC 33.5 RDW 21.9 H Plt Count 43 L MPV 10.5 Neutrophils % 67.6 Lymphocytes % 21.2 Monocytes % 10.8 H Eosinophils % 0.1 Basophils % 0.3 Sodium 140 139 Potassium 4.1 4.0 Chloride 109 H 110 H Carbon Dioxide 22 22 Anion Gap 9 7 L BUN 13 14 Creatinine 0.8 0.9 Creat Clearance w eGFR > 60 > 60 Random Glucose 88 87 Calcium 7.0 L 7.1 L Magnesium 1.4 L Total Bilirubin 1.6 H 1.7 H AST 73 H 79 H ALT 32 33 Alkaline Phosphatase 89 98 Total Protein 6.1 L 6.7 Albumin 1.3 L 1.4 L Stool Occult Blood Problem List - Problems (1) Anemia Code(s): D64.9 - ANEMIA, UNSPECIFIED (2) Ascites Code(s): R18.8 - OTHER ASCITES Qualifiers: Ascites type: due to alcoholic cirrhosis Qualified Code(s): K70.31 - Alcoholic cirrhosis of liver with ascites (3) Decompensated HCV cirrhosis Code(s): B19.20 - UNSPECIFIED VIRAL HEPATITIS C WITHOUT HEPATIC COMA; K74.69 - OTHER CIRRHOSIS OF LIVER (4) Esophageal varices in alcoholic cirrhosis Code(s): K70.30 - ALCOHOLIC CIRRHOSIS OF LIVER WITHOUT ASCITES; I85.10 - SECONDARY ESOPHAGEAL VARICES WITHOUT BLEEDING (5) Human immunodeficiency virus (HIV) disease Code(s): B20 - HUMAN IMMUNODEFICIENCY VIRUS [HIV] DISEASE (6) Pancytopenia Code(s): D61.818 - OTHER PANCYTOPENIA (7) Thrombocytopenia Code(s): D69.6 - THROMBOCYTOPENIA, UNSPECIFIED (8) Weakness Code(s): R53.1 - WEAKNESS Assessment/Plan Will increase diuretics monitor BUN, Cr, K Follow wit ID re HIV With GI, or ID re HCV 2 gm salt diet lactulose+rifaximin
[2017-06-06] MEDS: ATOVAQUONE 750 MG/5 ML PO SCH (12:43)
--- NOTE | 2017-06-06 13:24 | DS ---
Physical Exam: SUBJECTIVE: Patient seen and examined. OBJECTIVE: Patient agrees to follow up at the [facility] on d/c for HIV treatment Vital Signs Period Temp Pulse Resp BP Sys/Skelton Pulse Ox Last 24 Hr 97.7 F-98.6 F 90-100 17-20 97-138/58-85 PHYSICAL EXAM GENERAL: The patient is awake, alert, and fully oriented, in no acute distress. HEAD: Normal with no signs of trauma. EYES: PERRL, extraocular movements intact, sclera anicteric, conjunctiva clear. No ptosis. ENT: Ears normal, nares patent, oropharynx clear without exudates, moist mucous membranes. NECK: Trachea midline, full range of motion, supple. LUNGS: Breath sounds equal, clear to auscultation bilaterally, mild crackles on right lung base HEART: Regular rate and rhythm, S1, S2 without murmur, rub or gallop. ABDOMEN: mildly distended, hyperactive bowel sounds EXTREMITIES: 2+ pulses, warm, well-perfused, trace edema bilaterally. NEUROLOGICAL: Normal speech, gait not observed. PSYCH: Normal mood, normal affect. SKIN: Warm, dry, normal turgor, no rashes or lesions noted Laboratory Results - last 24 hr 06/05/17 06/05/17 06/06/17 11:30 13:45 07:15 WBC 2.8 L RBC 1.92 L Hgb 7.9 L Hct 22.1 L MCV 115.3 H D MCH 41.0 H D MCHC 35.6 RDW 21.2 H Plt Count 36 L* D MPV 10.0 Neutrophils % 66.5 Lymphocytes % 19.7 Monocytes % 13.2 H Eosinophils % 0.1 Basophils % 0.5 Sodium Potassium Chloride Carbon Dioxide Anion Gap BUN Creatinine Creat Clearance w eGFR Random Glucose Calcium 6.8 L* Magnesium Total Bilirubin AST ALT Alkaline Phosphatase Total Protein Albumin Stool Occult Blood Negative 06/06/17 06/06/17 06/06/17 07:15 10:56 10:56 WBC 3.1 L RBC 2.13 L Hgb 8.1 L Hct 24.2 L MCV 113.6 H MCH 38.1 H MCHC 33.5 RDW 21.9 H Plt Count 43 L MPV 10.5 Neutrophils % 67.6 Lymphocytes % 21.2 Monocytes % 10.8 H Eosinophils % 0.1 Basophils % 0.3 Sodium 140 139 Potassium 4.1 4.0 Chloride 109 H 110 H Carbon Dioxide 22 22 Anion Gap 9 7 L BUN 13 14 Creatinine 0.8 0.9 Creat Clearance w eGFR > 60 > 60 Random Glucose 88 87 Calcium 7.0 L 7.1 L Magnesium 1.4 L Total Bilirubin 1.6 H 1.7 H AST 73 H 79 H ALT 32 33 Alkaline Phosphatase 89 98 Total Protein 6.1 L 6.7 Albumin 1.3 L 1.4 L Stool Occult Blood HOSPITAL COURSE: Date of Admission:06/03/17 Date of Discharge: 06/06/17 ASSESSMENT/PLAN: Patient is a 57 year old male with a past medical history of esophageal varicies, hypertension, +HIV/AIDS and Hep C. He was admitted on06/03/2017 for worsening abdominal distention. On exam, patient reports diarrhea again overnight. GI: Ascites, Likely secondary to alcoholic cirrhosis, resolved s/p paracentesis 06/03/2017 Continue Aldactone 25mg TID, On Lasix 20mg TID Hy pylori, under treatment Started on triple therapy by GI On Amox 100mg BID, Clarithromycin 500mg BID, Protonix 40mg daily through Esophageal varices, chronic Grade 1, no indication for Nadolol, continue atenolol Diarrhea, resolved 1 episode of diarrhea overnight as per patient Encourage PO intake c diff negative Hep C Untreated, GI following outpatient followup with Dr. Witt Hematology Thrombocytopenia, likely chronic Platelets 36, given 1 unit of platelets today Acute blood loss anemia s/p 1 unit of prbc given after paracentesis Started on Ferrous sulfate daily Cardiology: Hypertension On Atenolol ID: HIV/AIDS, Not on meds currently, has been off meds for over 6 mos Patient agrees to attend the [facility] after d/c for HAART meds Minutes to complete discharge: 60 Discharge Summary Reason For Visit: SOB,ANEMIA,ASCITES,PANCYTOPENIA Current Active Problems AIDS (Acute) Anemia (Acute) Condition: Improved - Instructions Diet, Activity, Other Instructions: Mr. Clemens: You are being treated for H Pylori and need to continue the triple therapy until 06/17/2017 as follows: Amoxiciliin 1000mg twice daily at 8am and 8pm until 06/17/2017 Clarithromycin 500mg twice daily at 8am and 8pm until 06/17/2017 Protonix 40mg daily twice daily at 8am and 8pm until 06/17/2017 Your magnesium levels were also low during your hospitalization, please take the magnesium supplements as ordered. It is important that you have repeat lab work done with the primary care doctor assigned to you once you are discharged. You may take over the counter medications to decrease the frequency of your diarrhea. Please go to the [facility] and/or call Dr. Kumar so that you can be started on your HIV medications. Please continue all the medications as ordered in your discharge plan. Referrals: Buddy Kumar MD [Staff Physician] - Luis Waters MD [Staff Physician] - Disposition: HOME - Home Medications Comprehensive Discharge Medication List: Ambulatory Orders Atenolol [Tenormin -] 50 mg PO DAILY #30 tablet 05/19/17 Cane 1 each MC DAILY #1 each 05/19/17 Folic Acid - 1 mg PO DAILY #30 tablet 05/19/17 Lactose-Reduced Food [Ensure Original] 237 ml PO TID #90 liquid 05/19/17 Multivitamins [Multivit ([facility] Formulary)] 1 tab PO DAILY #30 tab 05/19/17 Omeprazole 40 mg PO DAILY #30 capsule. 05/19/17 Simethicone 80 mg PO QID PRN #100 tab.chew 05/19/17 Spironolactone [Aldactone -] 25 mg PO TID #90 tablet 05/19/17 Thiamine HCl [Vitamin B1 -] 100 mg PO DAILY #30 tab 05/19/17 Amoxicillin - [Amoxicillin 500mg Capsule -] 1,000 mg PO BID #20 capsule Atovaquone [Mepron Oral Solution -] 1,500 mg PO DAILY #300 ml 06/06/17 Clarithromycin [Biaxin -] 500 mg PO BID #60 tablet 06/06/17 Ferrous Sulfate 325 mg PO DAILY 30 Days #30 tablet 06/06/17 Furosemide [Lasix -] 40 mg PO BID@0600,1400 #60 tablet 06/06/17 Lactobacillus Acidophilus [Bacid -] 1 tab PO DAILY tab 06/06/17 Magnesium Oxide [Mag-Ox -] 400 mg PO BID #60 tablet 06/06/17 Pantoprazole Sodium [Protonix] 40 mg PO DAILY #14 tablet. 06/06/17 Rifaximin [Xifaxan -] 550 mg PO BID #60 tablet 06/06/17 Spironolactone [Aldactone -] 50 mg PO BID #60 tablet 06/06/17 This patient is new to me today: No Emergency Visit: Yes ED Registration Date: 06/03/17 Care time: The patient presented to the Emergency Department on the above date and was hospitalized for further evaluation of their emergent condition. Critical Care patient: No - Discharge Referral Referred to [facility] Yes Physician Referral: Luis Merrill MD ([facility])
--- NOTE | 2017-06-06 13:37 | PN ---
Progress Note, Physician History of Present Illness: Diarrhea improved No c/o abdominal pain No fever/chills Breathing non-labored - Current Medication List Current Medications: Active Medications Amoxicillin (Amoxicillin -) 1,000 mg PO BID [facility] Last Admin: 06/06/17 09:48 Dose: 1,000 mg Atenolol (Tenormin -) 50 mg PO DAILY [facility] Last Admin: 06/06/17 09:45 Dose: 50 mg Atovaquone (Mepron -) 1,500 mg PO DAILY [facility] Clarithromycin (Biaxin -) 500 mg PO BID [facility] Last Admin: 06/06/17 09:48 Dose: 500 mg Diphenoxylate HCl/Atropine (Lomotil -) 1 combo PO Q8H PRN PRN Reason: DIARRHEA Folic Acid (Folic Acid -) 1 mg PO DAILY [facility] Last Admin: 06/06/17 09:45 Dose: 1 mg Furosemide (Lasix -) 40 mg PO BID@0600,1400 [facility] Lactobacillus Acidophilus (Bacid -) 1 tab PO DAILY [facility] Last Admin: 06/06/17 09:45 Dose: 1 tab Magnesium Oxide (Mag-Ox -) 400 mg PO BID [facility] Multivitamins/Minerals/Vitamin C (Tab-A-Vit -) 1 tab PO DAILY [facility] Last Admin: 06/06/17 09:45 Dose: 1 tab Pantoprazole Sodium (Protonix -) 40 mg PO DAILY [facility] Last Admin: 06/06/17 09:45 Dose: 40 mg Rifaximin (Xifaxan -) 550 mg PO BID [facility] Last Admin: 06/06/17 09:49 Dose: 550 mg Spironolactone (Aldactone -) 50 mg PO BID [facility] Thiamine HCl (Vitamin B1 -) 100 mg PO DAILY [facility] Last Admin: 06/06/17 09:45 Dose: 100 mg - Objective Vital Signs: Vital Signs Temperature 97.8 F 06/06/17 10:00 Pulse Rate 98 H 06/06/17 10:00 Respiratory Rate 18 06/06/17 10:00 Blood Pressure 109/70 06/06/17 10:00 O2 Sat by Pulse Oximetry (%) 99 06/05/17 09:00 Constitutional: Yes: No Distress Eyes: Yes: Conjunctiva Clear Cardiovascular: Yes: Regular Rate and Rhythm, S1, S2 Respiratory: Yes: CTA Bilaterally Gastrointestinal: Yes: Normal Bowel Sounds, Soft. No: Tenderness Edema: Yes Labs: CBC, BMP 06/06/17 10:56 06/06/17 10:56 INR, PTT INR 1.89 (0.82-1.09) H 06/02/17 13:03 Assessment/Plan S/P paracentesis ascitic fluid analysis not c/w SBP Decompensated cirrhosis Pancytopenia HIV/ AIDS OK for discharge Continue PCP prophylaxis Hold ART until pt follows up in [facility]
[2017-06-06 13:50] VITALS: BP 117/53; PULSE 89
[2017-06-06] MEDS ORDERED: FUROSEMIDE 40 MG TABLET (FP) PO SCH (14:00)
[2017-06-06] MEDS ORDERED: SPIRONOLACTONE 25 MG TABLET (FP) PO SCH (22:00)
[2017-06-06] MEDS ORDERED: MAGNESIUM OXIDE 400 MG TABLET (FP) PO SCH (22:00)
--- NOTE | 2017-06-07 17:28 | PATH ---
Cytology Non-Gynecological Report Patient Name: JOSE ELIAS EVANS [facility]. Rec. #: [id number] /Age/Gender: 1960 (Age: 57) / M Account: [id number] Location: [address] [place] [address]/[facility] Taken: 06/03/2017 Received: 06/06/2017 Reported: 06/07/2017 Physicians: KYLE Parrish Specimen(s) Received A: PERITONEAL FLUID B: PERITONEAL FLUID Clinical History Ascites Final Diagnosis A & B. ABDOMINAL FLUID, PARACENTESIS: SATISFACTORY FOR EVALUATION. NO MALIGNANT CELLS IDENTIFIED. MESOTHELIAL CELLS AND LYMPHOCYTES PRESENT. Electronically Signed Bruna Mcarthur M.D. Gross Description A. Approximately 50 cc of yellow fluid received fixed in 50% alcohol. Two cytofunnels and one cellblock prepared. B. Approximately 1700cc of yellow fluid received fresh. Two cytofunnels and one cellblock prepared.
== END 2017-06-06 16:13 | disposition home or self-care (01) | DRG 264 ==
LOC: JER 11:53 → JERBED 15:39 → J5S 16:57 → OBSVTOIN 06-03 16:14
PROVIDERS: ADMIT Internal Medicine; ATTEND Nurse Practitioner Family
PROC: 0W9G3ZX Drainage of Peritoneal Cavity, Percutaneous Approach, Diagnostic (ICD-10-PCS; principal; 2017-06-03)
PROC: 30233R1 Transfusion of Nonautologous Platelets into Peripheral Vein, Percutaneous Approach (ICD-10-PCS; 2017-06-03)
PROC: 30233N1 Transfusion of Nonautologous Red Blood Cells into Peripheral Vein, Percutaneous Approach (ICD-10-PCS; 2017-06-03)
DX: K70.31 Alcoholic cirrhosis of liver with ascites (principal); I10 Essential (primary) hypertension; R19.7 Diarrhea, unspecified; E83.51 Hypocalcemia; D61.818 Other pancytopenia; B20 Human immunodeficiency virus [HIV] disease; D69.6 Thrombocytopenia, unspecified; D62 Acute posthemorrhagic anemia; B96.81 Helicobacter pylori [H. pylori] as the cause of diseases classified elsewhere; R53.1 Weakness; I85.00 Esophageal varices without bleeding; D68.9 Coagulation defect, unspecified; E83.42 Hypomagnesemia; R64 Cachexia; Z68.23 Body mass index [BMI] 23.0-23.9, adult
CPT/HCPCS: 36415; 36430; 36511; 71010-TC; 76942-TC; 80048; 80053; 81003; 82042; 82140; 82150; 82272; 82728; 82803; 82945; 83540; 83550; 83605; 83615; 83735; 84100; 84157; 85025; 85027; 85044; 85610; 86850; 86900; 86901; 86922; 87040; 87045; 87046; 87070; 87075; 87086; 87102; 87116; 87205; 87206; 87210; 87324; 87449; 88108; 88305-TC; 89051; 97116-GP; 97161-GP; 99284-25; G0378; P9017; P9034; P9038; P9058

== ENCOUNTER 2017-07-09 13:02 | Inpatient (IN) | payer OTHER ==
--- NOTE | 2017-07-09 13:21 | PDOC ---
History of Present Illness - General Chief Complaint: Chest Pain Stated Complaint: CHEST PAIN Time Seen by Provider: 07/09/17 13:19 Past History - Past Medical History Allergies/Adverse Reactions: Allergies Allergy/AdvReac Type Severity Reaction Status Date / Time No Known Allergies Allergy Verified 06/02/17 11:53 Home Medications: Ambulatory Orders Atenolol [Tenormin -] 50 mg PO DAILY #30 tablet 05/19/17 Cane 1 each MC DAILY #1 each 05/19/17 Folic Acid - 1 mg PO DAILY #30 tablet 05/19/17 Lactose-Reduced Food [Ensure Original] 237 ml PO TID #90 liquid 05/19/17 Multivitamins [Multivit ([facility] Formulary)] 1 tab PO DAILY #30 tab 05/19/17 Omeprazole 40 mg PO DAILY #30 capsule.dr 05/19/17 Simethicone 80 mg PO QID PRN #100 tab.chew 05/19/17 Spironolactone [Aldactone -] 25 mg PO TID #90 tablet 05/19/17 Thiamine HCl [Vitamin B1 -] 100 mg PO DAILY #30 tab 05/19/17 Atovaquone [Mepron Oral Solution -] 1,500 mg PO DAILY #300 ml 06/06/17 Ferrous Sulfate 325 mg PO DAILY 30 Days #30 tablet 06/06/17 Furosemide [Lasix -] 40 mg PO BID@0600,1400 #60 tablet 06/06/17 Lactobacillus Acidophilus [Bacid -] 1 tab PO DAILY tab 06/06/17 Lactulose (Oral Use) [Cephulac -] 20 gm PO TID #1 bottle 06/06/17 Magnesium Oxide [Mag-Ox -] 400 mg PO BID #60 tablet 06/06/17 Spironolactone [Aldactone -] 50 mg PO BID #60 tablet 06/06/17 Nystatin Oral Suspension - [Nystatin Oral Susp 452262 Units/5 ML -] 500,000 units PO Q6H #1 cup 06/30/17 Cefuroxime Axetil [Ceftin -] 500 mg PO Q12H #20 tablet 07/07/17 Oseltamivir Phosphate [Tamiflu -] 75 mg PO BID #10 capsule 07/07/17 Anemia: Yes Asthma: No COPD: No Diabetes: No HTN: Yes Liver Disease: Yes (HEP C) - Surgical History Appendectomy: Yes (1970s) - Suicide/Smoking/Psychosocial Hx Smoking History: Never smoked Have you smoked in the past 12 months: No Number of Cigarettes Smoked Daily: 3 If you are a former smoker, when did you quit?: 1 year ago Information on smoking cessation initiated: No 'Breaking Loose' booklet given: 04/09/17 Hx Alcohol Use: No Drug/Substance Use Hx: No Substance Use Type: None Hx Substance Use Treatment: No *Physical Exam - Vital Signs Last Vital Signs Temp Pulse Resp BP Pulse Ox 98.8 F 82 18 128/88 100 07/09/17 13:02 07/09/17 13:02 07/09/17 13:02 07/09/17 13:02 07/09/17 13:02
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
[2017-07-09 14:40] LABS: HEMATOCRIT 23.2 % (35.4-49); HEMOGLOBIN 8.1 GM/dL (11.7-16.9); MCH 39.7 pg (25.7-33.7); MCHC 34.7 g/dl (32.0-35.9); MEAN CELL VOLUME 114.5 fl (80-96); MEAN PLT VOLUME 11.9 fl (7.5-11.1); RBC 2.03 M/mm3 (4.00-5.60); RDW 17.6 % (11.9-15.9)
--- NOTE | 2017-07-09 14:53 | PDOC ---
Attending Attestation - Resident Resident Name: Rolando Swanson - HPI HPI: 07/09/17 14:47 Pt presents to the ED complaining of a several day history of generalized malaise, fevers, shortness of breath and productive cough. Seen at the [facility] yesterday and told to present to the ED for admission. - Physicial Exam PE: 07/09/17 14:53 Agree with resident exam. + scattered wheezes on my lung exam. Abdomen is non tender and non distended 07/09/17 14:54 - Medical Decision Making 07/09/17 14:54 Pt presents to the ED complaining of subjective fevers, productive cough and shortness of breath. Found to be febrile yesterday at home clinic and sent in for admission. Will check labs and CXR, rectal temp, reassess. GIven his very low CD4 count and history of fever, will likely admit
[2017-07-09 14:54] LABS: INR 1.68 (0.82-1.09)
[2017-07-09 14:56] LABS: ADD RBC MORPHOLOGY YES
[2017-07-09 14:57] LABS: PLATELET COUNT 28 K/MM3 (134-434)
[2017-07-09 15:05] LABS: ALBUMIN 1.3 g/dl (3.4-5.0); ANION GAP 7 (8-16); BILIRUBIN,TOTAL 1.8 mg/dL (0.2-1.0); BLOOD UREA NITROGEN 13 mg/dL (7-18); CHLORIDE 107 mmol/L (98-107); CO2 26 mmol/L (21-32); CREATININE 0.9 mg/dL (0.7-1.3); GLUCOSE,RANDOM 70 mg/dL (74-106); POTASSIUM 3.3 mmol/L (3.5-5.1); SGOT/AST 91 U/L (15-37); SGPT/ALT 33 U/L (12-78); SODIUM 140 mmol/L (136-145)
[2017-07-09 15:09] LABS: ALK PHOS 98 U/L (45-117); TOT PROT 7.1 g/dl (6.4-8.2)
--- NOTE | 2017-07-09 15:14 | EKG ---
Test Reason : Blood Pressure : / mmHG Vent. Rate : 083 BPM Atrial Rate : 083 BPM P-R Int : 132 ms QRS Dur : 084 ms QT Int : 398 ms P-R-T Axes : 036 065 161 degrees QTc Int : 467 ms NORMAL SINUS RHYTHM LOW VOLTAGE QRS POSSIBLE ANTEROLATERAL INFARCT (CITED ON OR BEFORE 30-JUN-2017) ABNORMAL ECG WHEN COMPARED WITH ECG OF 30-JUN-2017 12:09, ABERRANT CONDUCTION IS NO LONGER PRESENT Confirmed by Marshall Ramos ([id number]) on 07/09/2017 3:14:06 PM Referred By: Confirmed By:Marshall Ramos
[2017-07-09 15:44] LABS: CALCIUM 6.6 mg/dL (8.5-10.1); LIPASE 320 U/L (73-393)
[2017-07-09 16:01] LABS: ANISOCYTOSIS 1+; MACROCYTOSIS 2+; PLATELET ESTIMATE DECREASED
[2017-07-09] MEDS ORDERED: SIMETHICONE 80 MG TAB.CHEW (FP) PO PRN (19:01)
--- NOTE | 2017-07-09 19:18 | PN ---
Teaching Attending Note Name of Resident: Brenda Kennedy ATTENDING PHYSICIAN STATEMENT Time of evaluation: 5:45 PM I saw and evaluated the patient. I reviewed the resident's note and discussed the case with the resident. I agree with the resident's findings and plan as documented. SUBJECTIVE: 57 yom with pMHx of AIDS (last CD4 20s, not on HAART currently), HCV cirrhosis, HTN, esophageal varices, seen at the [facility] on 07/07 for URI like illness, found there febrile 101.7, s/p CXR, sent home on cefuroxime/tamiflu, comes back with generalized chest pain, constant with some worsening with movements, fevers at home, cough with yellowish sputum. Also has chronic diarrhea and intermittent abdominal pain with no recent worsening. 12 point ROS done, neg except above. OBJECTIVE: Vital Signs Period Temp Pulse Resp BP Sys/Skelton Pulse Ox Last 24 Hr 98.8 F 82 18 128/88 100 Intake & Output 07/06/17 07/07/17 07/08/17 07/09/17 23:59 23:59 23:59 23:59 Weight 140 lb GENERAL: Awake, alert, and fully oriented, in no acute distress. HEAD: Normal with no signs of trauma. EYES: Pupils equal, round and reactive to light, extraocular movements intact, sclera anicteric, conjunctiva clear. No lid lag. EARS, NOSE, THROAT: Ears normal, nares patent, oropharynx clear without exudates. Moist mucous membranes. NECK: Normal range of motion, supple, no JVD LUNGS: Breath sounds equal, clear to auscultation bilaterally. No wheezes, and no crackles. No accessory muscle use. HEART: Regular rate and rhythm, normal S1 and S2 ABDOMEN: Soft, distended, striae, vague tenderness in isauro-umbilical region and RMQ, no voluntary or involuntary guarding or rigidity, positive bowel sounds. MUSCULOSKELETAL: Normal range of motion at all joints. No bony deformities or tenderness. No CVA tenderness. UPPER EXTREMITIES: 2+ pulses, warm, well-perfused. No cyanosis. No clubbing. No peripheral edema. LOWER EXTREMITIES: 2+ pulses, warm, well-perfused. No calf tenderness. No peripheral edema. NEUROLOGICAL: Cranial nerves II-XII intact. Normal speech. PSYCHIATRIC: Cooperative. Good eye contact. Appropriate mood and affect. SKIN: Warm, dry, normal turgor, no rashes or lesions noted, normal capillary refill. Active Medications Generic Name Dose Route Start Last Admin Trade Name Freq PRN Reason Stop Dose Admin Atenolol 50 mg 07/10/17 10:00 Tenormin - PO DAILY [facility] Atovaquone 750 mg 07/10/17 08:00 Mepron - PO BIDWM RAMYA Ferrous Sulfate 325 mg 07/10/17 10:00 Feosol - PO DAILY RAMYA Folic Acid 1 mg 07/10/17 10:00 Folic Acid - PO DAILY RAMYA Furosemide 40 mg 07/10/17 06:00 Lasix - PO BID@0600,1400 RAMYA CEFTRIAXONE IN IS-OSM DEXTROSE 2 gm in 50 mls @ 100 mls/hr 07/09/17 19:15 Ceftriaxone 2 Gm-D5w Bag IVPB 07/09/17 19:44 DAILY ONE Lactobacillus Acidophilus 1 tab 07/10/17 10:00 Bacid - PO DAILY [facility] Lactulose 20 gm 07/09/17 22:00 Cephulac (Oral Use) PO TID [facility] Magnesium Oxide 400 mg 07/09/17 22:00 Mag-Ox - PO BID [facility] Multivitamins/Minerals/Vitamin C 1 tab 07/10/17 10:00 Tab-A-Vit - PO DAILY [facility] Non-Formulary Medication 237 ml 07/09/17 22:00 Lactose-Reduced Food [Ensure Original] PO TID [facility] Nystatin 500,000 units 07/09/17 19:15 Nystatin Oral Suspension - PO Q6HPO [facility] Pantoprazole Sodium 40 mg 07/10/17 10:00 Protonix - PO DAILY [facility] Simethicone 80 mg 07/09/17 19:01 Mylicon - PO QID PRN GAS Spironolactone 25 mg 07/09/17 22:00 Aldactone - PO BID [facility] Thiamine HCl 100 mg 07/10/17 10:00 Vitamin B1 - PO DAILY [facility] Laboratory Results - last 24 hr 07/09/17 07/09/17 07/09/17 14:20 14:22 14:22 WBC 3.0 L RBC 2.03 L Hgb 8.1 L D Hct 23.2 L D MCV 114.5 H MCH 39.7 H MCHC 34.7 RDW 17.6 H Plt Count 28 L* MPV 11.9 H Total Counted 100 Neutrophils % No Result Required. Neutrophils % (Manual) 79.0 Band Neutrophils % 2.0 Lymphocytes % No Result Required. Lymphocytes % (Manual) 12.0 D Monocytes % (Manual) 7 Platelet Estimate Decreased Anisocytosis 1+ Macrocytosis 2+ PT with INR INR Sodium Potassium Chloride Carbon Dioxide Anion Gap BUN Creatinine Creat Clearance w eGFR Random Glucose Calcium Total Bilirubin AST ALT Alkaline Phosphatase LD Total 347 H Creatine Kinase Cancelled Troponin I Cancelled Total Protein Albumin Lipase 07/09/17 07/09/17 14:22 14:22 WBC RBC Hgb Hct MCV MCH MCHC RDW Plt Count MPV Total Counted Neutrophils % Neutrophils % (Manual) Band Neutrophils % Lymphocytes % Lymphocytes % (Manual) Monocytes % (Manual) Platelet Estimate Anisocytosis Macrocytosis PT with INR 19.00 H INR 1.68 H Sodium 140 Potassium 3.3 L Chloride 107 Carbon Dioxide 26 Anion Gap 7 L BUN 13 Creatinine 0.9 Creat Clearance w eGFR > 60 Random Glucose 70 L Calcium 6.6 L* Total Bilirubin 1.8 H D AST 91 H ALT 33 Alkaline Phosphatase 98 LD Total Creatine Kinase 105 Troponin I 0.04 Total Protein 7.1 Albumin 1.3 L Lipase 320 Microbiology 07/09/17 14:30 Nasopharyngeal Swab Influenza Types A,B Antigen (BEAU) - Final 07/09/17 14:30 Nasopharyngeal Swab - Final CXR (personally reviewed) No clear infiltrate visible, follow up official read EKG- NSR, T wave inversion in V5-V6 which are new from prior ASSESSMENT AND PLAN: 57 yom with PMHx of HIV/AIDS not on HAART, HCV cirrhosis, recurrently ascitis, esophageal varices, HTN admitted with chest pain, respiratory symptoms -chest pain, atypical, ?from URI like illness vs PNA (patient with poor immune status) -URI like illness vs PNA (cannot r/o given immunocompromised status) -?Ascitis -Chronic abdominal pain and diarrhea, exam with low suspicion for SBP -HCV cirrhosis -Chronic thrombocytopenia -hepatic coagulopathy -HTN plan: ID consulted with Dr. Awan, case discussed, will place on ceftriaxone and atovaquone. Will follow up for starting HAART treatment. Monitor vitals closely. Flu swab neg. Check abdominal ultrasound, paracentesis as indicated. Continue lasix/aldactone/ lactulose Continue atenolol. DVTPPx with SCDs Dispo pendign clinical improvement. PLan discussed with patient and Dr. Awan and all questions answered. total admit time 60 min.
[2017-07-09] MEDS ORDERED: CEFTRIAXONE 2 GM/100 ML BAG IVPB ONE (19:26)
[2017-07-09] MEDS: CEFTRIAXONE IN IS-OSM DEXTROSE 2 GM/50 ML BAG IVPB ONE ×2 (19:28→20:30)
[2017-07-09] MEDS: NYSTATIN 500,000 UNITS/5 ML SUSPENSION PO SCH (19:38)
[2017-07-09] MEDS ORDERED: LACTOSE REDUCED FOOD PO SCH (22:00)
[2017-07-09] MEDS ORDERED: LACTULOSE 20 GM/30 ML UDC (FOR ORAL USE ONLY) ONE (22:26)
[2017-07-09] MEDS ORDERED: SPIRONOLACTONE 25 MG TABLET (FP) ONE (22:27)
[2017-07-09] MEDS ORDERED: MAGNESIUM OXIDE 400 MG TABLET (FP) ONE (22:27)
[2017-07-09] MEDS: SPIRONOLACTONE 25 MG TABLET (FP) PO SCH (22:30)
[2017-07-09] MEDS: MAGNESIUM OXIDE 400 MG TABLET (FP) PO SCH (22:31)
[2017-07-09] MEDS: LACTULOSE 20 GM/30 ML UDC (FOR ORAL USE ONLY) PO SCH (22:31)
[2017-07-10] MEDS: NYSTATIN 500,000 UNITS/5 ML SUSPENSION PO SCH ×4 (00:20→17:02)
[2017-07-10 03:33] VITALS: BMI 22.2
--- NOTE | 2017-07-10 04:38 | HP ---
CHIEF COMPLAINT: Chest pain HISTORY OF PRESENT ILLNESS: Patient is a noncompliant, 57 yo M with PMHx of AIDS (last CD4 20s, not on HAART currently), HCV cirrhosis, HTN, esophageal varices, presented to the ED because of 8/10, "gassy" chest pain that gets worse with movement. He also reports having fevers of 102, coughing yellow sputum, and congestion. Patient states he went to the [place] [facility] on 07/07 and was treated for a URI like illness , with fever of 101.7. He said he was sent home on Cefuroxime and Tamiflu. Patient also states he has chronic diarrhea which he associates with the medications he takes. He is not compliant with his HAART and most medications because of the side effects. He says he only takes his medications when he stays home and does not leave the house. ER course was notable for: (1) Flu negative (2) CXR unremarkable for acute pathology (3) EKG: Low voltage complexes with TWI in leads V5-V6. Absent POLY/STD. Normal interval durations Recent Travel: n/a PAST MEDICAL HISTORY: AIDS (last CD4 20s, not on HAART currently), HCV cirrhosis , HTN, esophageal varices PAST SURGICAL HISTORY: Social History: Smoking: denies Alcohol: Says he quit but also said he had a drink this week. Drugs: denies (quit drugs in highschool) Family History: Allergies No Known Allergies Allergy (Verified 07/09/17 13:57) HOME MEDICATIONS: Home Medications Medication Instructions Recorded Atenolol [Tenormin -] 50 mg PO DAILY #30 tablet 05/19/17 Folic Acid - 1 mg PO DAILY #30 tablet 05/19/17 Lactose-Reduced Food [Ensure 237 ml PO TID #90 liquid 05/19/17 Original] Multivitamins [Multivit ([facility] 1 tab PO DAILY #30 tab 05/19/17 Formulary)] Omeprazole 40 mg PO DAILY #30 capsule. 05/19/17 Simethicone 80 mg PO QID PRN #100 tab.chew 05/19/17 Thiamine HCl [Vitamin B1 -] 100 mg PO DAILY #30 tab 05/19/17 Atovaquone [Mepron Oral Solution -] 1,500 mg PO DAILY #300 ml 06/06/17 Ferrous Sulfate 325 mg PO DAILY 30 Days #30 tablet 12/18/17 Furosemide [Lasix -] 40 mg PO BID@0600,1400 #60 tablet 06/06/17 Lactobacillus Acidophilus [Bacid -] 1 tab PO DAILY tab 06/06/17 Lactulose (Oral Use) [Cephulac -] 20 gm PO TID #1 bottle 06/06/17 Magnesium Oxide [Mag-Ox -] 400 mg PO BID #60 tablet 06/06/17 Spironolactone [Aldactone -] 50 mg PO BID #60 tablet 06/06/17 Nystatin Oral Suspension - 500,000 units PO Q6H #1 cup 06/30/17 [Nystatin Oral Susp 171259 Units/5 ML -] Cefuroxime Axetil [Ceftin -] 500 mg PO Q12H #20 tablet 07/07/17 Oseltamivir Phosphate [Tamiflu -] 75 mg PO BID #10 capsule 07/07/17 REVIEW OF SYSTEMS CONSTITUTIONAL: fevers, chills, weakness Absent: diaphoresis, malaise, loss of appetite, weight change HEENT: nasal congestion, Absent: rhinorrhea, throat pain, throat swelling, difficulty swallowing, mouth swelling, ear pain, eye pain, visual changes CARDIOVASCULAR: chest pain, lightheadedness, edema Absent: syncope, palpitations, irregular heart rate, RESPIRATORY: cough, sob, Absent: dyspnea with exertion, orthopnea, wheezing, stridor, hemoptysis GASTROINTESTINAL: abdominal pain, distension, diarrhea Absent: vomiting, constipation, melena, hematochezia GENITOURINARY: Absent: dysuria, frequency, urgency, hesitancy, hematuria, flank pain, genital pain MUSCULOSKELETAL: Absent: myalgia, arthralgia, joint swelling, back pain, neck pain SKIN: Absent: rash, itching, pallor HEMATOLOGIC/IMMUNOLOGIC: Absent: easy bleeding, easy bruising, lymphadenopathy, frequent infections ENDOCRINE: Absent: unexplained weight gain, unexplained weight loss, heat intolerance, cold intolerance NEUROLOGIC: Absent: headache, focal weakness or paresthesias, dizziness, unsteady gait, seizure, mental status changes, bladder or bowel incontinence PSYCHIATRIC: Absent: anxiety, depression, suicidal or homicidal ideation, hallucinations. PHYSICAL EXAMINATION Vital Signs - 24 hr 07/09/17 07/09/17 07/10/17 13:02 19:39 03:20 Temperature 98.8 F 98.4 F 98.8 F Pulse Rate 82 92 H Pulse Rate [ 102 H Apical] Respiratory 18 20 20 Rate Blood Pressure 128/88 132/74 Blood Pressure 110/78 [Left Arm] O2 Sat by Pulse 100 97 97 Oximetry (%) GENERAL: Uncooperative, Awake, alert, and fully oriented, in no acute distress. HEAD: Normal with no signs of trauma. EYES: Pupils equal, round and reactive to light, sclera anicteric EARS, NOSE, THROAT: Moist mucous membranes. NECK: supple LUNGS: Breath sounds equal, clear to auscultation bilaterally. No wheezes, and no crackles. HEART: Regular rate and rhythm, normal S1 and S2 without murmur, rub or gallop. ABDOMEN: Soft, distended, Tenderness to deep palpation in periumbilical region. No rebound or guarding. No hepatomegaly UPPER EXTREMITIES: 2+ pulses, No peripheral edema. LOWER EXTREMITIES: 2+ pulses, warm, well-perfused. No calf tenderness. 2+ pitting edema. Laboratory Results - last 24 hr 07/09/17 07/09/17 07/09/17 14:20 14:22 14:22 WBC 3.0 L RBC 2.03 L Hgb 8.1 L D Hct 23.2 L D MCV 114.5 H MCH 39.7 H MCHC 34.7 RDW 17.6 H Plt Count 28 L* MPV 11.9 H Total Counted 100 Neutrophils % No Result Required. Neutrophils % (Manual) 79.0 Band Neutrophils % 2.0 Lymphocytes % No Result Required. Lymphocytes % (Manual) 12.0 D Monocytes % (Manual) 7 Platelet Estimate Decreased Anisocytosis 1+ Macrocytosis 2+ PT with INR INR Sodium Potassium Chloride Carbon Dioxide Anion Gap BUN Creatinine Creat Clearance w eGFR Random Glucose Calcium Total Bilirubin AST ALT Alkaline Phosphatase LD Total 347 H Creatine Kinase Cancelled Troponin I Cancelled Total Protein Albumin Lipase 07/09/17 07/09/17 07/09/17 14:22 14:22 20:50 WBC RBC Hgb Hct MCV MCH MCHC RDW Plt Count MPV Total Counted Neutrophils % Neutrophils % (Manual) Band Neutrophils % Lymphocytes % Lymphocytes % (Manual) Monocytes % (Manual) Platelet Estimate Anisocytosis Macrocytosis PT with INR 19.00 H INR 1.68 H Sodium 140 Potassium 3.3 L Chloride 107 Carbon Dioxide 26 Anion Gap 7 L BUN 13 Creatinine 0.9 Creat Clearance w eGFR > 60 Random Glucose 70 L Calcium 6.6 L* Total Bilirubin 1.8 H D AST 91 H ALT 33 Alkaline Phosphatase 98 LD Total Creatine Kinase 105 Troponin I 0.04 0.04 Total Protein 7.1 Albumin 1.3 L Lipase 320 ASSESSMENT/PLAN: 57 yo non-compliant male with PMHx of HIV/AIDS not on HAART, HCV cirrhosis, recurrent ascitis, esophageal varices, HTN admitted with chest pain, respiratory symptoms. #Atypical Chest Pain -likely secondary to URI vs PNA (immunocompromised) -Last CD4 in 20's, not currently on HAART -CXR unremarkable for acute pathology -ID consulted: Dr. 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 Home meds: Lasix 40mg BID Lactulose 20mg TID Continue aldactone 25mg BID #Thrombocytopenia -likely due to advanced liver disease -not actively bleeding -05457 platelet count -will monitor -avoid heparin #Pancytopenia -likely due to liver disease #Oral Thrush -cont home meds: Nystatin oral suspension #HTN -Cont. Atenolol 50mg Daily #FEN: No FLuids WNL Regular diet #DVT: SCDS #GI PPX: Protonix 40mg Daily Dispo: Dispo pending clinical improvement Visit type - Emergency Visit Emergency Visit: Yes ED Registration Date: 07/09/17 Care time: The patient presented to the Emergency Department on the above date and was hospitalized for further evaluation of their emergent condition. - New Patient This patient is new to me today: Yes Date on this admission: 07/10/17 - Critical Care Critical Care patient: No
[2017-07-10] MEDS: LACTULOSE 20 GM/30 ML UDC (FOR ORAL USE ONLY) PO SCH ×3 (06:16→21:41)
[2017-07-10] MEDS: FUROSEMIDE 40 MG TABLET (FP) PO SCH ×2 (06:17→13:51)
[2017-07-10 08:42] LABS: INR 1.89 (0.82-1.09); PROTHROMBIN TIME (PATIENT) 21.4 SEC (9.98-11.88)
[2017-07-10 08:44] LABS: ACTIVATED PTT 46.4 SECONDS (26.9-34.4)
[2017-07-10 08:46] LABS: HEMATOCRIT 21.2 % (35.4-49); HEMOGLOBIN 7.3 GM/dL (11.7-16.9); MCH 39.2 pg (25.7-33.7); MCHC 34.5 g/dl (32.0-35.9); MEAN CELL VOLUME 113.8 fl (80-96); MEAN PLT VOLUME 11.7 fl (7.5-11.1); RBC 1.87 M/mm3 (4.00-5.60); RDW 17.5 % (11.9-15.9); WHITE BLOOD COUNT 2.6 K/mm3 (4.0-10.0)
[2017-07-10 08:49] LABS: PLATELET COUNT 25 K/MM3 (134-434)
[2017-07-10 08:59] LABS: ALBUMIN 1.2 g/dl (3.4-5.0); ANION GAP 7 (8-16); BLOOD UREA NITROGEN 12 mg/dL (7-18); CHLORIDE 110 mmol/L (98-107); CO2 26 mmol/L (21-32); GLUCOSE,RANDOM 99 mg/dL (74-106); MAGNESIUM 1.6 mg/dL (1.8-2.4); PHOSPHOROUS 3.2 mg/dL (2.5-4.9); POTASSIUM 3.3 mmol/L (3.5-5.1); SGOT/AST 86 U/L (15-37); SODIUM 143 mmol/L (136-145)
[2017-07-10 09:01] LABS: ALK PHOS 89 U/L (45-117); BILIRUBIN,TOTAL 1.5 mg/dL (0.2-1.0); CREATININE 0.9 mg/dL (0.7-1.3); SGPT/ALT 31 U/L (12-78); TOT PROT 6.5 g/dl (6.4-8.2)
[2017-07-10] MEDS: LACTOBACILLUS ACIDOPHILUS 1 EACH TAB (FP) PO SCH (10:01)
[2017-07-10] MEDS: ATOVAQUONE 750 MG/5 ML (UNIT-DOSE PACKAGING) PO SCH ×2 (10:01→17:03)
[2017-07-10] MEDS: MULTIVITAMINS (DAILY MVI) TABLET (FP) PO SCH (10:02)
[2017-07-10] MEDS: FOLIC ACID 1 MG TABLET (FP) PO SCH (10:02)
[2017-07-10] MEDS: PANTOPRAZOLE 40 MG TABLET (FP) PO SCH (10:02)
[2017-07-10] MEDS: THIAMINE HCL 100 MG TABLET (FP) PO SCH (10:02)
[2017-07-10] MEDS: FERROUS SO4 325 MG TABLET (FP) PO SCH (10:02)
[2017-07-10] MEDS: SPIRONOLACTONE 25 MG TABLET (FP) PO SCH (10:02)
[2017-07-10] MEDS: ATENOLOL 50 MG TABLET (FP) PO SCH (10:02)
[2017-07-10] MEDS: MAGNESIUM OXIDE 400 MG TABLET (FP) PO SCH ×2 (10:02→21:41)
[2017-07-10 10:52] LABS: ANISOCYTOSIS 2+; MACROCYTOSIS 1+; OVALOCYTE 1+; PLATELET ESTIMATE DECREASED; TEAR DROP CELLS 1+
--- NOTE | 2017-07-10 12:27 | CON.ID ---
Consult Consult Specialty:: infectious disease Referred by:: hospitalist Reason for Consultation:: aids - History of Present Illness Chief Complaint: chest pain, coughing History of Present Illness: 57 year old man with AIDS and hep c liver cirrhosis with ascites he has been admitted twice before to [facility] for cirrhosis related problems does not seem to know his meds- is not sure what he takes I have seen him once in the [facility] -I asked him to return the next day with all his meds which he did not do he returned the next week with fever and cough- refused hospital evaluation and was treated for influenza and bronchitis the [facility] has been trying to contact him daily but they have not been successful in reaching him he now comes with chest pain and cough w/u as outpt includes crypt antigen negative blood afb pending blood cultures negative influenza screen negative cd4 39 reports diarrhea reports thrush is improved living in a room in [place] with help from a friend, has refused snf in the past reports intermittent fevers at home, afebrile here - History Source History Provided By: Patient, Medical Record Limitations to Obtaining History: Poor Historian - Past Medical History Cardio/Vascular: Yes: HTN Hepatobiliary: Yes: Cirrhosis, Hepatitis C Infectious Disease: Yes: AIDS Musculoskeletal: Yes: Osteoarthritis - Alcohol/Substance Use Hx Alcohol Use: No - Smoking History Smoking history: Never smoked Have you smoked in the past 12 months: No Aproximately how many cigarettes per day: 3 If you are a former smoker, when did you quit?: 1 year ago - Social History Usual Living Arrangement: Alone ADL: Independent Place of : [facility] History of Recent Travel: No Home Medications - Allergies Allergies/Adverse Reactions: Allergies Allergy/AdvReac Type Severity Reaction Status Date / Time No Known Allergies Allergy Verified 07/09/17 13:57 - Home Medications Home Medications: Ambulatory Orders Atenolol [Tenormin -] 50 mg PO DAILY #30 tablet 05/19/17 Folic Acid - 1 mg PO DAILY #30 tablet 05/19/17 Lactose-Reduced Food [Ensure Original] 237 ml PO TID #90 liquid 05/19/17 Multivitamins [Multivit ([facility] Formulary)] 1 tab PO DAILY #30 tab 05/19/17 Omeprazole 40 mg PO DAILY #30 prabhakar. 05/19/17 Simethicone 80 mg PO QID PRN #100 tab.chew 05/19/17 Thiamine HCl [Vitamin B1 -] 100 mg PO DAILY #30 tab 05/19/17 Atovaquone [Mepron Oral Solution -] 1,500 mg PO DAILY #300 ml 06/06/17 Ferrous Sulfate 325 mg PO DAILY 30 Days #30 tablet 06/06/17 Furosemide [Lasix -] 40 mg PO BID@0600,1400 #60 tablet 06/06/17 Lactobacillus Acidophilus [Bacid -] 1 tab PO DAILY tab 06/06/17 Lactulose (Oral Use) [Cephulac -] 20 gm PO TID #1 bottle 06/06/17 Magnesium Oxide [Mag-Ox -] 400 mg PO BID #60 tablet 06/06/17 Spironolactone [Aldactone -] 50 mg PO BID #60 tablet 06/06/17 Nystatin Oral Suspension - [Nystatin Oral Susp 898783 Units/5 ML -] 500,000 units PO Q6H #1 cup 06/30/17 Cefuroxime Axetil [Ceftin -] 500 mg PO Q12H #20 tablet 07/07/17 Oseltamivir Phosphate [Tamiflu -] 75 mg PO BID #10 capsule 07/07/17 Family Disease History - Family Disease History Family History: Unremarkable Review of Systems - Review of Systems Constitutional: reports: Malaise Eyes: reports: No Symptoms HENT: reports: No Symptoms, Other (swallowing improved) Neck: reports: No Symptoms Cardiovascular: reports: Chest Pain Respiratory: reports: Cough Gastrointestinal: reports: Indigestion, Rectal Bleeding, Other (ascites) Musculoskeletal: reports: Other (edema) Physical Exam Vital Signs: Vital Signs Temperature 98.3 F 07/10/17 08:15 Pulse Rate 105 H 07/10/17 08:15 Respiratory Rate 18 07/10/17 08:15 Blood Pressure 116/74 07/10/17 08:15 O2 Sat by Pulse Oximetry (%) 97 07/10/17 03:20 Constitutional: Yes: Calm, Cachectic Eyes: Yes: Conjunctiva Clear, EOM Intact HENT: Yes: Atraumatic, Normocephalic. No: Thrush Neck: Yes: Supple, Trachea Midline Cardiovascular: Yes: Regular Rate and Rhythm Respiratory: Yes: Regular, Rhonchi Gastrointestinal: Yes: Ascites, Other (mild discomfort to palpation) Edema: Yes Psychiatric: Yes: Alert, Oriented Labs: CBC, BMP 07/10/17 07:30 07/10/17 07:30 Imaging - Results Chest X-ray: Report Reviewed, Image Reviewed Problem List - Problems (1) AIDS Code(s): B20 - HUMAN IMMUNODEFICIENCY VIRUS [HIV] DISEASE (2) Decompensated HCV cirrhosis Code(s): B19.20 - UNSPECIFIED VIRAL HEPATITIS C WITHOUT HEPATIC COMA; K74.69 - OTHER CIRRHOSIS OF LIVER (3) Bronchitis Code(s): J40 - BRONCHITIS, NOT SPECIFIED ACUTE OR CHRONIC (4) Pancytopenia Code(s): D61.818 - OTHER PANCYTOPENIA (5) Thrush Code(s): B37.0 - CANDIDAL STOMATITIS Assessment/Plan Rectal bleeding in the setting of decompensated HCV cirrhosis and AIDS and pancytopenia ?bronchitis- oxygenation is good he is eager to start ART would have GI see him blood transfusion as needed continue meds for liver cirrhosis continue mepron for PCP prophylaxis continue ceftriaxone for possible bronchitis will start truvada/tivicay add zithromax 1200 mg weekly for MAC prophylaxis he would benefit from SNF placement overall prognosis is poor
--- NOTE | 2017-07-10 13:09 | PN ---
Teaching Attending Note Name of Resident: . ATTENDING PHYSICIAN STATEMENT time of evaluation: 9:15 AM SUBJECTIVE: Patient seen and examined, no chest pain. cough better, no fevers. Chronic diarrhea, reports might have some haemorrhoidal bleed later which is chronic and happens because of his diarrhea. NO abdominal pain today. OBJECTIVE: Vital Signs Period Temp Pulse Resp BP Sys/Skelton Pulse Ox Last 24 Hr 98.3 F-98.9 F 92-105 18-20 110-132/74-78 97-97 Intake & Output 07/07/17 07/08/17 07/09/17 07/10/17 23:59 23:59 23:59 23:59 Weight 140 lb 142 lb 2 oz general: sitting at edge of bed in no acute distress CVS:S1S2 regular Chest: good air entry, no rales or wheezing abdomen: soft, distended, non tender, no voluntary or involuntary guarding or rigidity Extremities: bilateral pitting edema Active Medications Generic Name Dose Route Start Last Admin Trade Name Freq PRN Reason Stop Dose Admin Atenolol 50 mg 07/10/17 10:00 07/10/17 10:02 Tenormin - PO 50 mg DAILY RAMYA Administration Atovaquone 750 mg 07/10/17 08:00 07/10/17 10:01 Mepron - PO 750 mg BIDWM RAMYA Administration Emtricitabine/Tenofovir 1 tab 07/11/17 10:00 Truvada PO DAILY RAMYA Ferrous Sulfate 325 mg 07/10/17 10:00 07/10/17 10:02 Feosol - PO 325 mg DAILY RAMYA Administration Folic Acid 1 mg 07/10/17 10:00 07/10/17 10:02 Folic Acid - PO 1 mg DAILY RAMYA Administration Furosemide 40 mg 07/10/17 06:00 07/10/17 06:17 Lasix - PO 40 mg BID@0600,1400 RAMYA Administration Lactobacillus Acidophilus 1 tab 07/10/17 10:00 07/10/17 10:01 Bacid - PO 1 tab DAILY RAMYA Administration Lactulose 20 gm 07/09/17 22:00 07/10/17 06:16 Cephulac (Oral Use) PO 20 gm TID RAMYA Administration Magnesium Oxide 400 mg 07/09/17 22:00 07/10/17 10:02 Mag-Ox - PO 400 mg BID RAMYA Administration Multivitamins/Minerals/Vitamin C 1 tab 07/10/17 10:00 07/10/17 10:02 Tab-A-Vit - PO 1 tab DAILY RAMYA Administration Nystatin 500,000 units 07/09/17 19:15 07/10/17 11:15 Nystatin Oral Suspension - PO 500,000 units Q6HPO RAMYA Administration Pantoprazole Sodium 40 mg 07/10/17 10:00 07/10/17 10:02 Protonix - PO 40 mg DAILY RAMYA Administration Simethicone 80 mg 07/09/17 19:01 Mylicon - PO QID PRN GAS Spironolactone 50 mg 07/10/17 13:05 Aldactone - PO BID RAMYA Thiamine HCl 100 mg 07/10/17 10:00 07/10/17 10:02 Vitamin B1 - PO 100 mg DAILY RAMYA Administration Laboratory Results - last 24 hr 07/09/17 07/09/17 07/09/17 14:20 14:22 14:22 WBC 3.0 L RBC 2.03 L Hgb 8.1 L D Hct 23.2 L D MCV 114.5 H MCH 39.7 H MCHC 34.7 RDW 17.6 H Plt Count 28 L* MPV 11.9 H Total Counted 100 Neutrophils % No Result Required. Neutrophils % (Manual) 79.0 Band Neutrophils % 2.0 Lymphocytes % No Result Required. Lymphocytes % (Manual) 12.0 D Monocytes % (Manual) 7 Eosinophils % (Manual) Basophils % (Manual) Myelocytes % (Man) Metamyelocytes Hypochromia Platelet Estimate Decreased Polychromasia Poikilocytosis Anisocytosis 1+ Microcytosis Macrocytosis 2+ Tear Drop Cells Ovalocytes PT with INR INR PTT (Actin FS) Sodium Potassium Chloride Carbon Dioxide Anion Gap BUN Creatinine Creat Clearance w eGFR Random Glucose Calcium Phosphorus Magnesium Total Bilirubin AST ALT Alkaline Phosphatase LD Total 347 H Creatine Kinase Cancelled Troponin I Cancelled Total Protein Albumin Lipase 07/09/17 07/09/17 07/09/17 14:22 14:22 20:50 WBC RBC Hgb Hct MCV MCH MCHC RDW Plt Count MPV Total Counted Neutrophils % Neutrophils % (Manual) Band Neutrophils % Lymphocytes % Lymphocytes % (Manual) Monocytes % (Manual) Eosinophils % (Manual) Basophils % (Manual) Myelocytes % (Man) Metamyelocytes Hypochromia Platelet Estimate Polychromasia Poikilocytosis Anisocytosis Microcytosis Macrocytosis Tear Drop Cells Ovalocytes PT with INR 19.00 H INR 1.68 H PTT (Actin FS) Sodium 140 Potassium 3.3 L Chloride 107 Carbon Dioxide 26 Anion Gap 7 L BUN 13 Creatinine 0.9 Creat Clearance w eGFR > 60 Random Glucose 70 L Calcium 6.6 L* Phosphorus Magnesium Total Bilirubin 1.8 H D AST 91 H ALT 33 Alkaline Phosphatase 98 LD Total Creatine Kinase 105 Troponin I 0.04 0.04 Total Protein 7.1 Albumin 1.3 L Lipase 320 07/10/17 07/10/17 07/10/17 07:15 07:30 07:30 WBC 2.6 L RBC 1.87 L Hgb 7.3 L Hct 21.2 L MCV 113.8 H MCH 39.2 H MCHC 34.5 RDW 17.5 H Plt Count 25 L* MPV 11.7 H Total Counted Neutrophils % No Result Required. Neutrophils % (Manual) 75.0 Band Neutrophils % 11.5 Lymphocytes % No Result Required. Lymphocytes % (Manual) 5.2 L D Monocytes % (Manual) 6 Eosinophils % (Manual) 0.0 Basophils % (Manual) 0.0 Myelocytes % (Man) 0 Metamyelocytes 2 D Hypochromia 1+ Platelet Estimate Decreased Polychromasia 0 Poikilocytosis 1+ Anisocytosis 2+ Microcytosis 0 Macrocytosis 1+ Tear Drop Cells 1+ Ovalocytes 1+ PT with INR INR PTT (Actin FS) Sodium 143 Potassium 3.3 L Chloride 110 H Carbon Dioxide 26 Anion Gap 7 L BUN 12 Creatinine 0.9 Creat Clearance w eGFR > 60 Random Glucose 99 D Calcium 7.0 L Phosphorus 3.2 Magnesium 1.6 L Total Bilirubin 1.5 H AST 86 H ALT 31 Alkaline Phosphatase 89 LD Total Creatine Kinase Troponin I Cancelled 0.03 Total Protein 6.5 Albumin 1.2 L Lipase 07/10/17 07:30 WBC RBC Hgb Hct MCV MCH MCHC RDW Plt Count MPV Total Counted Neutrophils % Neutrophils % (Manual) Band Neutrophils % Lymphocytes % Lymphocytes % (Manual) Monocytes % (Manual) Eosinophils % (Manual) Basophils % (Manual) Myelocytes % (Man) Metamyelocytes Hypochromia Platelet Estimate Polychromasia Poikilocytosis Anisocytosis Microcytosis Macrocytosis Tear Drop Cells Ovalocytes PT with INR 21.40 H INR 1.89 H PTT (Actin FS) 46.4 H D Sodium Potassium Chloride Carbon Dioxide Anion Gap BUN Creatinine Creat Clearance w eGFR Random Glucose Calcium Phosphorus Magnesium Total Bilirubin AST ALT Alkaline Phosphatase LD Total Creatine Kinase Troponin I Total Protein Albumin Lipase Microbiology 07/09/17 14:30 Nasopharyngeal Swab Influenza Types A,B Antigen (BEAU) - Final 07/09/17 14:30 Nasopharyngeal Swab - Final ASSESSMENT AND PLAN: 57 yom with PMHx of HIV/AIDS not on HAART, HCV cirrhosis with esophageal varices /ascitis/thrombocytopenia/coagulopathy, HTN, PUD/h pylori gastritis admitted Acute bronchitis, atypical chest pain, found with large ascitis, also with intermittent haemorrhoidal bleed. -Acute bronchitis, influenza swab neg. -Atypical chest pain, ACS ruled out. -Large ascitis -Chronic diarrhea with intermittent haemorrhoidal bleed (spotting on tissue noted today) -HCV cirrhosis with recurrent ascitis/esophageal varices/thrombocytopenia/ coagulopathy -HTN -HIV/AIDS, not on HAART yet, last CD4 39 -PUD/H Pylori gastritis, did not finish H pylori regimen. Plan: ID input appreciated. Ceftriaxone day 2, continue atovaquone. Oral nystatin. Started on HAART therapy. Will monitor. Chronic diarrhea with intermittent haemorrhoidal bleed, blood noted on tissues today. Will given 1 unit of platelets and 1 unit FFP. Vitamin K x 3 days Abdominal ultrasound with large ascitis. Discussed with IR Dr. Read. Needs platelets > 50 for paracentesis. Will repeat CBC later today, transfuse additional platelets if < 50. GI consult with Dr Witt as may have varices from portal hypertension, also with ongoing diarrhea. Continue lasix 40 BID, increase spironolactone to 50 mg BID (as prior admit dose ). Continue atenolol. Continue PPI. hold off on resuming H pylori regimen till more info available. DVTPPx with SCDs Dispo pending clinical improvement. PLan discussed with patient in detail, all questions answered.
[2017-07-10] MEDS ORDERED: ACETAMINOPHEN 325 MG TABLET (FP) PO PRN (14:04)
[2017-07-10] MEDS ORDERED: PHYTONADIONE 5 MG TABLET PO SCH (15:15)
[2017-07-10] MEDS ORDERED: PT OWN MED DRAWER 7, Y5N ONE ×2 (16:02→21:38)
[2017-07-10 22:08] LABS: MCH 36.7 pg (25.7-33.7); MCHC 33.5 g/dl (32.0-35.9); MEAN CELL VOLUME 109.4 fl (80-96); MEAN PLT VOLUME 11.5 fl (7.5-11.1); RDW 17.2 % (11.9-15.9)
[2017-07-10 22:19] LABS: HEMOGLOBIN 6.6 GM/dL (11.7-16.9)
[2017-07-10 22:20] LABS: HEMATOCRIT 19.7 % (35.4-49); PLATELET COUNT 26 K/MM3 (134-434); WHITE BLOOD COUNT 1.8 K/mm3 (4.0-10.0)
--- NOTE | 2017-07-10 22:26 | PN ---
Progress Note (short form) - Note Progress Note: Called lab, CBC results: Hb 6.6, platelets: 26k. Put order in for stat 1 unit PRBCs, 1 unit platelet transfusion. Confirmed with nurse Will f/u repeat CBC after Thank you Ricarda Mohamud MD PGY-1 Night team
[2017-07-10 23:48] LABS: MACROCYTOSIS 2+; OVALOCYTE 1+
[2017-07-10 23:50] LABS: ANISOCYTOSIS 2+
[2017-07-11] MEDS: PHYTONADIONE 5 MG TABLET PO SCH (04:44)
[2017-07-11] MEDS: LACTULOSE 20 GM/30 ML UDC (FOR ORAL USE ONLY) PO SCH ×3 (05:11→21:57)
[2017-07-11] MEDS: NYSTATIN 500,000 UNITS/5 ML SUSPENSION PO SCH ×5 (05:11→23:20)
[2017-07-11] MEDS: FUROSEMIDE 40 MG TABLET (FP) PO SCH ×2 (05:11→14:05)
[2017-07-11 08:16] LABS: INR 1.67 (0.82-1.09); PROTHROMBIN TIME (PATIENT) 18.9 SEC (9.98-11.88)
[2017-07-11] MEDS ORDERED: PT OWN MED DRAWER 7, Y5N ONE ×3 (08:16→17:27)
[2017-07-11] MEDS: ATOVAQUONE 750 MG/5 ML (UNIT-DOSE PACKAGING) PO SCH ×2 (08:20→17:31)
[2017-07-11 08:25] LABS: ALBUMIN 1.4 g/dl (3.4-5.0); ANION GAP 8 (8-16); BLOOD UREA NITROGEN 11 mg/dL (7-18); CHLORIDE 109 mmol/L (98-107); CO2 27 mmol/L (21-32); GLUCOSE,RANDOM 79 mg/dL (74-106); SGOT/AST 74 U/L (15-37); SGPT/ALT 29 U/L (12-78); SODIUM 144 mmol/L (136-145)
[2017-07-11 08:29] LABS: BASO % 0.4 % (0-2.0); EOS % 0.6 % (0-4.5); HEMATOCRIT 22.6 % (35.4-49); HEMOGLOBIN 7.7 GM/dL (11.7-16.9); LYMPH % 19.6 % (8-40); MCH 37.8 pg (25.7-33.7); MCHC 34.1 g/dl (32.0-35.9); MEAN CELL VOLUME 110.9 fl (80-96); MEAN PLT VOLUME 10.6 fl (7.5-11.1); MONO % 12.3 % (3.8-10.2); NEUT % 67.1 % (42.8-82.8); PLATELET COUNT 56 K/MM3 (134-434); RBC 2.04 M/mm3 (4.00-5.60); RDW 17.5 % (11.9-15.9)
[2017-07-11 08:31] LABS: ALK PHOS 84 U/L (45-117); BILIRUBIN,TOTAL 1.7 mg/dL (0.2-1.0); CREATININE 0.9 mg/dL (0.7-1.3); TOT PROT 6.1 g/dl (6.4-8.2)
--- NOTE | 2017-07-11 08:36 | PN ---
Teaching Attending Note Name of Resident: Brenda Kennedy ATTENDING PHYSICIAN STATEMENT Time of evaluation: 12:20 PM I saw and evaluated the patient. I reviewed the resident's note and discussed the case with the resident. I agree with the resident's findings and plan as documented. SUBJECTIVE: Patient seen and examined. Just returned from paracentesis. Denies any abdominal pain, cough or dyspnea currently. Overall feels. Scant BRBPR in the toilet overnight, last episode this AM. no chest pain, palpitations, dyspnea or dizziness noted OBJECTIVE: Vital Signs Period Temp Pulse Resp BP Sys/Skelton Pulse Ox Last 24 Hr 98.3 F-99.5 F 87-98 -18 120-130/70-85 98-98 Intake & Output 07/08/17 07/09/17 07/10/17 07/11/17 23:59 23:59 23:59 23:59 Intake Total 1200 829 Balance 1200 829 Weight 140 lb 142 lb 2 oz general: sitting in bed in no acute distress chest: decreased breath sounds at bases Abdomen: soft, improved distension, non tender throughout, no guarding or rigidity extremities: 2+ pedal pitting edema Active Medications Generic Name Dose Route Start Last Admin Trade Name Freq PRN Reason Stop Dose Admin Acetaminophen 325 mg 07/10/17 14:04 07/10/17 14:28 Tylenol - PO 325 mg Q6H PRN Administration FEVER Atenolol 50 mg 07/10/17 10:00 07/11/17 12:25 Tenormin - PO 50 mg DAILY RAMYA Administration Atovaquone 750 mg 07/10/17 08:00 07/11/17 08:20 Mepron - PO 750 mg BIDWM RAMYA Administration Emtricitabine/Tenofovir 1 tab 07/11/17 10:00 07/11/17 12:27 Truvada PO 1 tab DAILY RAMYA Administration Ferrous Sulfate 325 mg 07/10/17 10:00 07/11/17 12:44 Feosol - PO 325 mg DAILY RAMYA Administration Folic Acid 1 mg 07/10/17 10:00 07/11/17 12:25 Folic Acid - PO 1 mg DAILY RAMYA Administration Furosemide 40 mg 07/10/17 06:00 07/11/17 14:05 Lasix - PO 40 mg BID@0600,1400 RAMYA Administration CEFTRIAXONE IN IS-OSM DEXTROSE 2 gm in 50 mls @ 100 mls/hr 07/11/17 16:45 Ceftriaxone 2 Gm-D5w Bag IVPB DAILY RAMYA Lactobacillus Acidophilus 1 tab 07/10/17 10:00 07/11/17 12:26 Bacid - PO 1 tab DAILY RAMYA Administration Lactulose 20 gm 07/09/17 22:00 07/11/17 14:05 Cephulac (Oral Use) PO 20 gm TID RAMYA Administration Magnesium Oxide 400 mg 07/09/17 22:00 07/11/17 12:26 Mag-Ox - PO 400 mg BID RAMYA Administration Multivitamins/Minerals/Vitamin C 1 tab 07/10/17 10:00 07/11/17 12:25 Tab-A-Vit - PO 1 tab DAILY RAMYA Administration Nystatin 500,000 units 07/09/17 19:15 07/11/17 12:24 Nystatin Oral Suspension - PO 500,000 units Q6HPO RAMYA Administration Pantoprazole Sodium 40 mg 07/10/17 10:00 07/11/17 12:25 Protonix - PO 40 mg DAILY RAMYA Administration Phytonadione 10 mg 07/11/17 04:30 07/11/17 04:44 Mephyton - PO 07/13/17 10:01 10 mg DAILY RAMYA Administration Potassium Chloride 40 meq 07/11/17 10:00 07/11/17 12:24 K-Dur - PO 07/11/17 22:01 40 meq BID RAMYA Administration Simethicone 80 mg 07/09/17 19:01 Mylicon - PO QID PRN GAS Spironolactone 50 mg 07/11/17 10:00 07/11/17 12:24 Aldactone - PO 50 mg BID RAMYA Administration Thiamine HCl 100 mg 07/10/17 10:00 07/11/17 12:26 Vitamin B1 - PO 100 mg DAILY RAMYA Administration Microbiology 07/09/17 20:50 Blood - Peripheral Venous Blood Culture - Preliminary NO GROWTH OBTAINED AFTER 24 HOURS, INCUBATION TO CONTINUE FOR 4 DAYS. 07/09/17 20:50 Blood - Peripheral Venous Blood Culture - Preliminary NO GROWTH OBTAINED AFTER 24 HOURS, INCUBATION TO CONTINUE FOR 4 DAYS. 07/09/17 14:30 Nasopharyngeal Swab Influenza Types A,B Antigen (BEAU) - Final 07/09/17 14:30 Nasopharyngeal Swab - Final Abdominal ultrasound with large ascitis ASSESSMENT AND PLAN: 57 yom with PMHx of HIV/AIDS not on HAART, HCV cirrhosis with esophageal varices /ascitis/thrombocytopenia/coagulopathy, HTN, PUD/h pylori gastritis admitted Acute bronchitis, atypical chest pain, found with large ascitis, also with intermittent haemorrhoidal bleed. -Acute bronchitis, influenza swab neg. -Atypical chest pain, ACS ruled out. -Decompensated HCV cirrhosis now with large ascitis/rectal bleed/ Thrombocytopenia/coagulopathy, ?HCV viral load -HIV/AIDS, last CD4 39 -Chronic diarrhea, ?lactulose related -Acute on chronic anemia, suspect from ongoing blood loss from intermittent haemorrhoidal bleeding (spotting on tissues). -Leucopenia from AIDS/hepatic process vs infection -HTN -PUD/H Pylori gastritis, did not finish H pylori regimen. Plan: ID input appreciated. Ceftriaxone day 3, continue atovaquone. Oral nystatin. Started on HAART therapy 07/10. Will monitor. Worsening anemia, s/p 1unit pRBC overnight, monitor H/h. GI consulted with Dr. Witt, follow up recs. Monitor closely. transfuse for Hb < 7 or active bleed. s/p 2 units of platelets and 1 unit FFP since 07/10. Vitamin K day 08/20. Pancytopenia, hematology consult. suspect from underlying hepatic/infectious process and Lower GI bleed. s/p paracentesis today, ?2L. Fluid studies neg for SBP, on ceftriaxone for now. Continue lasix 40 BID,Spironolactone to 50 mg BID (as prior admit dose). Continue atenolol. Continue PPI. hold off on resuming H pylori regimen till more info available. DVTPPx with SCDs Dispo pending clinical improvement. Prognosis guarded given AIDS, now with hepatic decompensation. Discussed current findings with hepatic decompensation, AIDS and overall guarded prognosis. Patient Wants to be a full code. PLan discussed with patient in detail, all questions answered.
[2017-07-11 08:56] LABS: CALCIUM 6.9 mg/dL (8.5-10.1)
--- NOTE | 2017-07-11 11:03 | CON.GI ---
Consult Consult Specialty:: GI - History of Present Illness History of Present Illness: The ptis known to GI service from 2 prior admissions. Chart reviewed. Events noted PMHx of AIDS (last CD4 20s, not on HAART currently), HCV cirrhosis, HTN, grage I esophageal varices, presented to the ED because of 8, "gassy" chest pain that gets worse with movement. He also reports having fevers of 102, coughing yellow sputum, and congestion. Patient states he went to the [facility] clinic on and was treated for a URI like illness, with fever of 101.7. He said he was sent home on Cefuroxime and Tamiflu. Patient also states he has chronic diarrhea which he associates with the medications he takes. He is not compliant with his HAART and most medications because of the side effects. He says he only takes his medications when he stays home and does not leave the house. GI was called for diarrhea and hematochezia of 1 day duration. Painless brbpr on defecation w/o urgency tenismus, nausea, or voming. Ne hematemesis, dysphagia , odynophagia, or dyspepsia. The patient atibuts diarrhea to medications, including lactulose. A US of the abdomen, on admission, showed ascites. EGD in March showed grade I EV. - History Source History Provided By: Patient, Medical Record - Past Medical History Cardio/Vascular: Yes: HTN Hepatobiliary: Yes: Cirrhosis, Hepatitis C Infectious Disease: Yes: AIDS Musculoskeletal: Yes: Osteoarthritis - Alcohol/Substance Use Hx Alcohol Use: No - Smoking History Smoking history: Never smoked Have you smoked in the past 12 months: No Aproximately how many cigarettes per day: 3 If you are a former smoker, when did you quit?: 1 year ago - Social History Usual Living Arrangement: Alone ADL: Independent History of Recent Travel: No Home Medications - Allergies Allergies/Adverse Reactions: Allergies Allergy/AdvReac Type Severity Reaction Status Date / Time No Known Allergies Allergy Verified 07/09/17 13:57 - Home Medications Home Medications: Ambulatory Orders Atenolol [Tenormin -] 50 mg PO DAILY #30 tablet 05/19/17 Folic Acid - 1 mg PO DAILY #30 tablet 05/19/17 Lactose-Reduced Food [Ensure Original] 237 ml PO TID #90 liquid 05/19/17 Multivitamins [Multivit ([facility] Formulary)] 1 tab PO DAILY #30 tab 05/19/17 Omeprazole 40 mg PO DAILY #30 capsule. 05/19/17 Simethicone 80 mg PO QID PRN #100 tab.chew 05/19/17 Thiamine HCl [Vitamin B1 -] 100 mg PO DAILY #30 tab 05/19/17 Atovaquone [Mepron Oral Solution -] 1,500 mg PO DAILY #300 ml 06/06/17 Ferrous Sulfate 325 mg PO DAILY 30 Days #30 tablet 06/06/17 Furosemide [Lasix -] 40 mg PO BID@0600,1400 #60 tablet 06/06/17 Lactobacillus Acidophilus [Bacid -] 1 tab PO DAILY tab 06/06/17 Lactulose (Oral Use) [Cephulac -] 20 gm PO TID #1 bottle 06/06/17 Magnesium Oxide [Mag-Ox -] 400 mg PO BID #60 tablet 06/06/17 Spironolactone [Aldactone -] 50 mg PO BID #60 tablet 06/06/17 Nystatin Oral Suspension - [Nystatin Oral Susp 907936 Units/5 ML -] 500,000 units PO Q6H #1 cup 06/30/17 Cefuroxime Axetil [Ceftin -] 500 mg PO Q12H #20 tablet 07/07/17 Oseltamivir Phosphate [Tamiflu -] 75 mg PO BID #10 capsule 07/07/17 Family Disease History - Family Disease History Family History: Unremarkable Review of Systems Findings/Remarks: As per H&P, HPI Physical Exam-GI Vital Signs: Vital Signs Temperature 99.1 F 07/11/17 05:44 Pulse Rate 87 07/11/17 05:44 Respiratory Rate 18 07/11/17 05:44 Blood Pressure 123/77 07/11/17 05:44 O2 Sat by Pulse Oximetry (%) 98 07/10/17 22:00 Constitutional: Yes: Calm, Cachectic, Thin Eyes: Yes: Conjunctiva Clear HENT: Yes: Atraumatic Neck: Yes: Supple Cardiovascular: Yes: Regular Rate and Rhythm Respiratory: Yes: Regular Gastrointestinal Inspection: Yes: Ascites, Distention ...Auscultate: Yes: Normoactive Bowel Sounds ...Palpate: Yes: Firm/Rigid. No: Guarding, Tenderness, Tenderness, Epigastium, Tenderness, Rebound Edema: Yes Edema: LLE: 3+, RLE: 3+ Neurological: Yes: Alert, Oriented. No: Ataxia Labs: CBC, BMP 07/11/17 07:15 07/11/17 07:15 INR, PTT INR 1.67 (0.82-1.09) H 07/11/17 07:15 Laboratory Tests 07/09/17 07/09/17 07/09/17 14:20 14:22 14:22 WBC 3.0 L RBC 2.03 L Hgb 8.1 L D Hct 23.2 L D MCV 114.5 H MCH 39.7 H MCHC 34.7 RDW 17.6 H Plt Count 28 L* MPV 11.9 H Total Counted 100 Neutrophils % No Result Required. Neutrophils % (Manual) 79.0 Band Neutrophils % 2.0 Lymphocytes % No Result Required. Lymphocytes % (Manual) 12.0 D Monocytes % Monocytes % (Manual) 7 Eosinophils % Eosinophils % (Manual) Basophils % Basophils % (Manual) Myelocytes % (Man) Metamyelocytes Differential Comment Hypochromia Platelet Estimate Decreased Platelet Comment Polychromasia Poikilocytosis Anisocytosis 1+ Microcytosis Macrocytosis 2+ Tear Drop Cells Ovalocytes PT with INR INR PTT (Actin FS) Sodium Potassium Chloride Carbon Dioxide Anion Gap BUN Creatinine Creat Clearance w eGFR Random Glucose Calcium Phosphorus Magnesium Total Bilirubin AST ALT Alkaline Phosphatase LD Total 347 H Creatine Kinase Cancelled Troponin I Cancelled Total Protein Albumin Lipase Blood Type Antibody Screen Crossmatch 07/09/17 07/09/17 07/09/17 14:22 14:22 20:50 WBC RBC Hgb Hct MCV MCH MCHC RDW Plt Count MPV Total Counted Neutrophils % Neutrophils % (Manual) Band Neutrophils % Lymphocytes % Lymphocytes % (Manual) Monocytes % Monocytes % (Manual) Eosinophils % Eosinophils % (Manual) Basophils % Basophils % (Manual) Myelocytes % (Man) Metamyelocytes Differential Comment Hypochromia Platelet Estimate Platelet Comment Polychromasia Poikilocytosis Anisocytosis Microcytosis Macrocytosis Tear Drop Cells Ovalocytes PT with INR 19.00 H INR 1.68 H PTT (Actin FS) Sodium 140 Potassium 3.3 L Chloride 107 Carbon Dioxide 26 Anion Gap 7 L BUN 13 Creatinine 0.9 Creat Clearance w eGFR > 60 Random Glucose 70 L Calcium 6.6 L* Phosphorus Magnesium Total Bilirubin 1.8 H D AST 91 H ALT 33 Alkaline Phosphatase 98 LD Total Creatine Kinase 105 Troponin I 0.04 0.04 Total Protein 7.1 Albumin 1.3 L Lipase 320 Blood Type Antibody Screen Crossmatch 07/10/17 07/10/17 07/10/17 07:15 07:30 07:30 WBC 2.6 L RBC 1.87 L Hgb 7.3 L Hct 21.2 L MCV 113.8 H MCH 39.2 H MCHC 34.5 RDW 17.5 H Plt Count 25 L* MPV 11.7 H Total Counted Neutrophils % No Result Required. Neutrophils % (Manual) 75.0 Band Neutrophils % 11.5 Lymphocytes % No Result Required. Lymphocytes % (Manual) 5.2 L D Monocytes % Monocytes % (Manual) 6 Eosinophils % Eosinophils % (Manual) 0.0 Basophils % Basophils % (Manual) 0.0 Myelocytes % (Man) 0 Metamyelocytes 2 D Differential Comment Hypochromia 1+ Platelet Estimate Decreased Platelet Comment Polychromasia 0 Poikilocytosis 1+ Anisocytosis 2+ Microcytosis 0 Macrocytosis 1+ Tear Drop Cells 1+ Ovalocytes 1+ PT with INR INR PTT (Actin FS) Sodium 143 Potassium 3.3 L Chloride 110 H Carbon Dioxide 26 Anion Gap 7 L BUN 12 Creatinine 0.9 Creat Clearance w eGFR > 60 Random Glucose 99 D Calcium 7.0 L Phosphorus 3.2 Magnesium 1.6 L Total Bilirubin 1.5 H AST 86 H ALT 31 Alkaline Phosphatase 89 LD Total Creatine Kinase Troponin I Cancelled 0.03 Total Protein 6.5 Albumin 1.2 L Lipase Blood Type Antibody Screen Crossmatch 07/10/17 07/10/17 07/10/17 07:30 13:15 21:55 WBC 1.8 L* D RBC 1.80 L Hgb 6.6 L* Hct 19.7 L MCV 109.4 H MCH 36.7 H MCHC 33.5 RDW 17.2 H Plt Count 26 L* MPV 11.5 H Total Counted 100 Neutrophils % No Result Required. Neutrophils % (Manual) 60.0 Band Neutrophils % 8.0 Lymphocytes % No Result Required. Lymphocytes % (Manual) 18.0 D Monocytes % Monocytes % (Manual) 14 H D Eosinophils % Eosinophils % (Manual) Basophils % Basophils % (Manual) Myelocytes % (Man) Metamyelocytes Differential Comment Man diff performed Hypochromia Platelet Estimate Platelet Comment Polychromasia Poikilocytosis 1+ Anisocytosis 2+ Microcytosis Macrocytosis 2+ Tear Drop Cells Ovalocytes 1+ PT with INR 21.40 H INR 1.89 H PTT (Actin FS) 46.4 H D Sodium Potassium Chloride Carbon Dioxide Anion Gap BUN Creatinine Creat Clearance w eGFR Random Glucose Calcium Phosphorus Magnesium Total Bilirubin AST ALT Alkaline Phosphatase LD Total Creatine Kinase Troponin I Total Protein Albumin Lipase Blood Type O POSITIVE Antibody Screen Negative Crossmatch See Detail 07/11/17 07/11/17 07/11/17 07:15 07:15 07:15 WBC 2.0 L RBC 2.04 L Hgb 7.7 L D Hct 22.6 L MCV 110.9 H MCH 37.8 H MCHC 34.1 RDW 17.5 H Plt Count 56 L D MPV 10.6 Total Counted Neutrophils % 67.1 Neutrophils % (Manual) Band Neutrophils % Lymphocytes % 19.6 Lymphocytes % (Manual) Monocytes % 12.3 H D Monocytes % (Manual) Eosinophils % 0.6 D Eosinophils % (Manual) Basophils % 0.4 Basophils % (Manual) Myelocytes % (Man) Metamyelocytes Differential Comment Hypochromia Platelet Estimate Platelet Comment Polychromasia Poikilocytosis Anisocytosis Microcytosis Macrocytosis Tear Drop Cells Ovalocytes PT with INR 18.90 H INR 1.67 H PTT (Actin FS) Sodium 144 Potassium 3.0 L Chloride 109 H Carbon Dioxide 27 Anion Gap 8 BUN 11 Creatinine 0.9 Creat Clearance w eGFR > 60 Random Glucose 79 D Calcium 6.9 L* Phosphorus Magnesium Total Bilirubin 1.7 H AST 74 H ALT 29 Alkaline Phosphatase 84 LD Total Creatine Kinase Troponin I Total Protein 6.1 L Albumin 1.4 L Lipase Blood Type Antibody Screen Crossmatch Imaging - Results Ultrasound: Report Reviewed Problem List - Problems (1) Hematochezia Code(s): K92.1 - MELENA (2) Ascites Code(s): R18.8 - OTHER ASCITES Qualifiers: Ascites type: due to alcoholic cirrhosis Qualified Code(s): K70.31 - Alcoholic cirrhosis of liver with ascites (3) Esophageal varices in alcoholic cirrhosis Code(s): K70.30 - ALCOHOLIC CIRRHOSIS OF LIVER WITHOUT ASCITES; I85.10 - SECONDARY ESOPHAGEAL VARICES WITHOUT BLEEDING (4) Fever Code(s): R50.9 - FEVER, UNSPECIFIED (5) Thrombocytopenia Code(s): D69.6 - THROMBOCYTOPENIA, UNSPECIFIED (6) Coagulopathy Code(s): D68.9 - COAGULATION DEFECT, UNSPECIFIED Assessment/Plan Recent history of fever in an HIV-AIDS patient who may not be compliant with his medications. Decompensated liver cirrhosis with tens ascites on exam and normal BUN and Cr. Diarrhea Hematochezia. Unlikely upper GI bleeding Stool for c. diff, culture, OP, crypto/isospora Diagnostic paracentesis and abx coverage for presumed SBP until proven otherwise. If negative for SBP, restart aldactone and lasix Keep Hbg at, or above 7 g/dl. Will follow
[2017-07-11 11:23] LABS: URINE APPEARANCE CLEAR; URINE BILIRUBIN NEGATIVE (NEGATIVE); URINE BLOOD NEGATIVE (NEGATIVE); URINE COLOR YELLOW; URINE GLUCOSE (UA) NEGATIVE (NEGATIVE); URINE KETONE NEGATIVE (NEGATIVE); URINE LEUK ESTERASE NEGATIVE (NEGATIVE); URINE NITRITE NEGATIVE (NEGATIVE); URINE PROTEIN NEGATIVE (NEGATIVE)
[2017-07-11] MEDS: SPIRONOLACTONE 25 MG TABLET (FP) PO SCH ×2 (12:24→21:57)
[2017-07-11] MEDS: POTASSIUM CHLORIDE TABS 20 MEQ TABLET.ER (FP) PO SCH ×2 (12:24→21:56)
[2017-07-11] MEDS: PANTOPRAZOLE 40 MG TABLET (FP) PO SCH (12:25)
[2017-07-11] MEDS: FOLIC ACID 1 MG TABLET (FP) PO SCH (12:25)
[2017-07-11] MEDS: ATENOLOL 50 MG TABLET (FP) PO SCH (12:25)
[2017-07-11] MEDS: MULTIVITAMINS (DAILY MVI) TABLET (FP) PO SCH (12:25)
[2017-07-11] MEDS: THIAMINE HCL 100 MG TABLET (FP) PO SCH (12:26)
[2017-07-11] MEDS: DOLUTEGRAVIR SODIUM 50 MG TABLET PO SCH (12:26)
[2017-07-11] MEDS: FERROUS SO4 325 MG TABLET (FP) PO SCH ×2 (12:26→12:44)
[2017-07-11] MEDS: MAGNESIUM OXIDE 400 MG TABLET (FP) PO SCH ×2 (12:26→21:57)
[2017-07-11] MEDS: LACTOBACILLUS ACIDOPHILUS 1 EACH TAB (FP) PO SCH (12:26)
[2017-07-11] MEDS: EMTRICITABINE 200MG/TENOFOVIR 300MG PO SCH (12:27)
[2017-07-11 13:37] LABS: TOTAL PROTEIN,PERITONEAL FLUID 1 gm/dL
--- NOTE | 2017-07-11 13:49 | PN ---
Progress Note (short form) - Note Progress Note: sleeping wants to be left alone refuses to talk refuses exam blood in stools s/p paracentesis Vital Signs Period Temp Pulse Resp BP Sys/Skelton Pulse Ox Last 24 Hr 97.8 F-99.5 F 87-96 18-18 123-139/77-85 97-98 CBC, BMP 07/11/17 07:15 07/11/17 07:15 d/w Hospitalist decompensated cirrhosis- hep c untreated aids pancytopenia poor medication adherence as outpt started on art-truvada/tivicay will add weekly zithromax for MAC prophylaxis continue Mepron he would benefit from SNF when ready for discharge- but is refusing at this time Problem List - Problems (1) AIDS Code(s): B20 - HUMAN IMMUNODEFICIENCY VIRUS [HIV] DISEASE (2) Decompensated HCV cirrhosis Code(s): B19.20 - UNSPECIFIED VIRAL HEPATITIS C WITHOUT HEPATIC COMA; K74.69 - OTHER CIRRHOSIS OF LIVER (3) Bronchitis Code(s): J40 - BRONCHITIS, NOT SPECIFIED ACUTE OR CHRONIC (4) Pancytopenia Code(s): D61.818 - OTHER PANCYTOPENIA (5) Thrush Code(s): B37.0 - CANDIDAL STOMATITIS
[2017-07-11 14:14] LABS: PERITONEAL RBC 406 /mm3
[2017-07-11 15:07] LABS: PERITONEAL FLUID LYMPHOCYTE 46 %; PERITONEAL FLUID MESOTHELIAL 23 %; PERITONEAL FLUID MONOCYTE 31 %; PERITONEAL FLUID NEUTROPHIL 0 %
[2017-07-11] MEDS: CEFTRIAXONE IN IS-OSM DEXTROSE 2 GM/50 ML BAG IVPB SCH (17:31)
--- NOTE | 2017-07-11 19:12 | PN ---
Physical Exam: SUBJECTIVE: Patient seen and examined. Overnight Events: -1 Unit of PRBC, 1 UNIT of platelets -3 BM, loose nonbloody OBJECTIVE: Vital Signs Period Temp Pulse Resp BP Sys/Skelton Pulse Ox Last 24 Hr 97.8 F-99.9 F 87-96 18-20 119-139/77-81 97-98 GENERAL: A/O x3, in no acute distress. HEAD: Normal with no signs of trauma. EYES: Pupils equal, round and reactive to light, sclera anicteric EARS, NOSE, THROAT: Moist mucous membrane, oral thrush NECK: supple LUNGS: Breath sounds equal, clear to auscultation bilaterally. No wheezes, and no crackles. HEART: Regular rate and rhythm, normal S1 and S2 without murmur, rub or gallop. ABDOMEN: hyperactive bowel sounds, distended, tender to palpation in all quadrants, no rebound UPPER EXTREMITIES: 2+ pulses, No peripheral edema. LOWER EXTREMITIES: 2+ pulses, 2+ pitting edema. Laboratory Results - last 24 hr 07/10/17 07/10/17 07/11/17 13:15 21:55 07:15 WBC 1.8 L* D 2.0 L RBC 1.80 L 2.04 L Hgb 6.6 L* 7.7 L D Hct 19.7 L 22.6 L MCV 109.4 H 110.9 H MCH 36.7 H 37.8 H MCHC 33.5 34.1 RDW 17.2 H 17.5 H Plt Count 26 L* 56 L D MPV 11.5 H 10.6 Total Counted 100 Neutrophils % No Result Required. 67.1 Neutrophils % (Manual) 60.0 Band Neutrophils % 8.0 Lymphocytes % No Result Required. 19.6 Lymphocytes % (Manual) 18.0 D Monocytes % 12.3 H D Monocytes % (Manual) 14 H D Eosinophils % 0.6 D Basophils % 0.4 Differential Comment Man diff performed Platelet Estimate Platelet Comment Poikilocytosis 1+ Anisocytosis 2+ Macrocytosis 2+ Ovalocytes 1+ PT with INR INR Sodium Potassium Chloride Carbon Dioxide Anion Gap BUN Creatinine Creat Clearance w eGFR Random Glucose Calcium Total Bilirubin AST ALT Alkaline Phosphatase Total Protein Albumin Urine Color Urine Appearance Urine pH Ur Specific [place] Urine Protein Urine Glucose (UA) Urine Ketones Urine Blood Urine Nitrite Urine Bilirubin Urine Urobilinogen Ur Leukocyte Esterase Peritoneal WBC Peritoneal RBC Periton Neutrophils Periton Lymphocytes Peritoneal Monocytes Periton Mesothelial Peritoneal Tot Protein Peritoneal Albumin Peritoneal LDH Peritoneal Glucose Peritoneal Amylase Peritoneal Triglycerid Blood Type O POSITIVE Antibody Screen Negative Crossmatch See Detail 07/11/17 07/11/17 07/11/17 07:15 07:15 08:40 WBC RBC Hgb Hct MCV MCH MCHC RDW Plt Count MPV Total Counted Neutrophils % Neutrophils % (Manual) Band Neutrophils % Lymphocytes % Lymphocytes % (Manual) Monocytes % Monocytes % (Manual) Eosinophils % Basophils % Differential Comment Platelet Estimate Platelet Comment Poikilocytosis Anisocytosis Macrocytosis Ovalocytes PT with INR 18.90 H INR 1.67 H Sodium 144 Potassium 3.0 L Chloride 109 H Carbon Dioxide 27 Anion Gap 8 BUN 11 Creatinine 0.9 Creat Clearance w eGFR > 60 Random Glucose 79 D Calcium 6.9 L* Total Bilirubin 1.7 H AST 74 H ALT 29 Alkaline Phosphatase 84 Total Protein 6.1 L Albumin 1.4 L Urine Color Yellow Urine Appearance Clear Urine pH 5.0 Ur Specific [place] 1.008 Urine Protein Negative Urine Glucose (UA) Negative Urine Ketones Negative Urine Blood Negative Urine Nitrite Negative Urine Bilirubin Negative Urine Urobilinogen 2.0 Ur Leukocyte Esterase Negative Peritoneal WBC Peritoneal RBC Periton Neutrophils Periton Lymphocytes Peritoneal Monocytes Periton Mesothelial Peritoneal Tot Protein Peritoneal Albumin Peritoneal LDH Peritoneal Glucose Peritoneal Amylase Peritoneal Triglycerid Blood Type Antibody Screen Crossmatch 07/11/17 11:00 WBC RBC Hgb Hct MCV MCH MCHC RDW Plt Count MPV Total Counted Neutrophils % Neutrophils % (Manual) Band Neutrophils % Lymphocytes % Lymphocytes % (Manual) Monocytes % Monocytes % (Manual) Eosinophils % Basophils % Differential Comment Platelet Estimate Platelet Comment Poikilocytosis Anisocytosis Macrocytosis Ovalocytes PT with INR INR Sodium Potassium Chloride Carbon Dioxide Anion Gap BUN Creatinine Creat Clearance w eGFR Random Glucose Calcium Total Bilirubin AST ALT Alkaline Phosphatase Total Protein Albumin Urine Color Urine Appearance Urine pH Ur Specific [place] Urine Protein Urine Glucose (UA) Urine Ketones Urine Blood Urine Nitrite Urine Bilirubin Urine Urobilinogen Ur Leukocyte Esterase Peritoneal WBC 88 Peritoneal RBC 406 Periton Neutrophils 0 Periton Lymphocytes 46 Peritoneal Monocytes 31 Periton Mesothelial 23 Peritoneal Tot Protein 1 Peritoneal Albumin 0 Peritoneal LDH 79 Peritoneal Glucose 107 Peritoneal Amylase 56 Peritoneal Triglycerid 16 Blood Type Antibody Screen Crossmatch Active Medications Generic Name Dose Route Start Last Admin Trade Name Freq PRN Reason Stop Dose Admin Acetaminophen 325 mg 07/10/17 14:04 07/10/17 14:28 Tylenol - PO 325 mg Q6H PRN Administration FEVER Atenolol 50 mg 07/10/17 10:00 07/11/17 12:25 Tenormin - PO 50 mg DAILY RAMYA Administration Atovaquone 750 mg 07/10/17 08:00 07/11/17 17:31 Mepron - PO 750 mg BIDWM RAMYA Administration Emtricitabine/Tenofovir 1 tab 07/11/17 10:00 07/11/17 12:27 Truvada PO 1 tab DAILY RAMYA Administration Ferrous Sulfate 325 mg 07/10/17 10:00 07/11/17 12:44 Feosol - PO 325 mg DAILY RAMYA Administration Folic Acid 1 mg 07/10/17 10:00 07/11/17 12:25 Folic Acid - PO 1 mg DAILY RAMYA Administration Furosemide 40 mg 07/10/17 06:00 07/11/17 14:05 Lasix - PO 40 mg BID@0600,1400 RAMYA Administration CEFTRIAXONE IN IS-OSM DEXTROSE 2 gm in 50 mls @ 100 mls/hr 07/11/17 16:45 17:31 Ceftriaxone 2 Gm-D5w Bag IVPB 100 mls/hr DAILY RAMYA Administration Lactobacillus Acidophilus 1 tab 07/10/17 10:00 07/11/17 12:26 Bacid - PO 1 tab DAILY RAMYA Administration Lactulose 20 gm 07/09/17 22:00 07/11/17 14:05 Cephulac (Oral Use) PO 20 gm TID RAMYA Administration Magnesium Oxide 400 mg 07/09/17 22:00 07/11/17 12:26 Mag-Ox - PO 400 mg BID RAMYA Administration Multivitamins/Minerals/Vitamin C 1 tab 07/10/17 10:00 07/11/17 12:25 Tab-A-Vit - PO 1 tab DAILY RAMYA Administration Nystatin 500,000 units 07/09/17 19:15 07/11/17 17:31 Nystatin Oral Suspension - PO 500,000 units Q6HPO RAMYA Administration Pantoprazole Sodium 40 mg 07/10/17 10:00 07/11/17 12:25 Protonix - PO 40 mg DAILY RAMYA Administration Phytonadione 10 mg 07/11/17 04:30 07/11/17 04:44 Mephyton - PO 07/13/17 10:01 10 mg DAILY RAMYA Administration Potassium Chloride 40 meq 07/11/17 10:00 07/11/17 12:24 K-Dur - PO 07/11/17 22:01 40 meq BID RAMYA Administration Simethicone 80 mg 07/09/17 19:01 Mylicon - PO QID PRN GAS Spironolactone 50 mg 07/11/17 10:00 07/11/17 12:24 Aldactone - PO 50 mg BID RAMYA Administration Thiamine HCl 100 mg 07/10/17 10:00 07/11/17 12:26 Vitamin B1 - PO 100 mg DAILY RAMYA Administration ASSESSMENT/PLAN: 57 yo non-compliant male with PMHx of HIV/AIDS not on HAART, HCV cirrhosis, recurrent ascitis, esophageal varices, HTN admitted with chest pain, respiratory symptoms and was fwith large ascitis, also with intermittent hemorrhoidal bleed. #Atypical Chest Pain -likely secondary to URI vs PNA (immunocompromised). ACS ruled out. -Last CD4 in 39 (immunocompromised) -CXR unremarkable for acute pathology -ID consulted: Dr. Awan -Flu negative -BCx, UCx with no growth. 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 Home meds: -Lasix 40mg BID -Lactulose 20mg TID -Continue aldactone 50mg BID #Worsening Anemia/Pancytopenia/Thrombocytopenia -likely due to liver disease, infectious process and Lower GI bleed. -s/p 2 units of platelets and 1 unit FFP 07/10. -Vitamin K day 08/20. -Transfuse for Hb < 7 or active bleed. -avoid Heparin -Heme/onc consulted -Gi consulted -will monitor CBC #Chronic Diarrhea -Likely from Lactulose -Stool for c. diff, culture, OP, crypto/isospora #HIV/AIDS -Last CD4 in s -Started on HAART- Truvada -Atovoquone for PCP PPX per ID #Oral Thrush -cont home meds: Nystatin oral suspension #HTN -Cont. Atenolol 50mg Daily #FEN: No Fluids K+ repleted Regular diet #DVT: SCDS #GI PPX: Protonix 40mg Daily Visit type - Emergency Visit Emergency Visit: Yes ED Registration Date: 07/09/17 Care time: The patient presented to the Emergency Department on the above date and was hospitalized for further evaluation of their emergent condition. - New Patient This patient is new to me today: No - Critical Care Critical Care patient: No
--- NOTE | 2017-07-11 20:16 | CONSULT ---
Consult - text type - Consultation Consultation Note: 57 yo M with h/o AIDS and HCV cirrhosis who presented with chest pain of 1 week duration. Chronic diarrhea at baseline attributed to multi drug HAART therapy, but reports increased GI upset, "bloating," flatulence, and heartburn. Denies BPR. Also endorses subjective fevers and chills. Records from [facility] document [id number], VL [id number]. c/o diarrhea. Denies abdominal pain/nausea/vomiting/urinary symptoms/pain else where Past History - Past Medical History Allergies/Adverse Reactions: Allergies Allergy/AdvReac Type Severity Reaction Status Date / Time No Known Allergies Allergy Verified 07/09/17 13:57 Home Medications: Ambulatory Orders Atenolol [Tenormin -] 50 mg PO DAILY #30 tablet 05/19/17 Folic Acid - 1 mg PO DAILY #30 tablet 05/19/17 Lactose-Reduced Food [Ensure Original] 237 ml PO TID #90 liquid 05/19/17 Multivitamins [Multivit ([facility] Formulary)] 1 tab PO DAILY #30 tab 05/19/17 Omeprazole 40 mg PO DAILY #30 capsule.dr 05/19/17 Simethicone 80 mg PO QID PRN #100 tab.chew 05/19/17 Thiamine HCl [Vitamin B1 -] 100 mg PO DAILY #30 tab 05/19/17 Atovaquone [Mepron Oral Solution -] 1,500 mg PO DAILY #300 ml 06/06/17 Ferrous Sulfate 325 mg PO DAILY 30 Days #30 tablet 06/06/17 Furosemide [Lasix -] 40 mg PO BID@0600,1400 #60 tablet 06/06/17 Lactobacillus Acidophilus [Bacid -] 1 tab PO DAILY tab 06/06/17 Lactulose (Oral Use) [Cephulac -] 20 gm PO TID #1 bottle 06/06/17 Magnesium Oxide [Mag-Ox -] 400 mg PO BID #60 tablet 06/06/17 Spironolactone [Aldactone -] 50 mg PO BID #60 tablet 06/06/17 Nystatin Oral Suspension - [Nystatin Oral Susp 673665 Units/5 ML -] 500,000 units PO Q6H #1 cup 06/30/17 Cefuroxime Axetil [Ceftin -] 500 mg PO Q12H #20 tablet 07/07/17 Oseltamivir Phosphate [Tamiflu -] 75 mg PO BID #10 capsule 07/07/17 PMH Anemia: Yes HTN: Yes Liver Disease: Yes (HEP C) - Surgical History Appendectomy: Yes (1970s) - Suicide/Smoking/Psychosocial Hx Smoking History: Never smoked - Vital Signs Last Vital Signs Temp Pulse Resp BP Pulse Ox 99.5 F 91 H 20 119/81 97 07/11/17 18:44 07/11/17 18:44 07/11/17 18:44 07/11/17 18:44 07/11/17 09:00 Cor: RSR, No murmurs, No gallops Lungs: Clear to P&A Abd: Soft, Normal bowel sounds, No organomegaly Ext:No significant edema Abnormal Lab Results 07/10/17 07/10/17 07/11/17 13:15 21:55 07:15 WBC 1.8 L* D 2.0 L RBC 1.80 L 2.04 L Hgb 6.6 L* 7.7 L D Hct 19.7 L 22.6 L MCV 109.4 H 110.9 H MCH 36.7 H 37.8 H RDW 17.2 H 17.5 H Plt Count 26 L* 56 L D MPV 11.5 H Monocytes % 12.3 H D Monocytes % (Manual) 14 H D PT with INR INR Potassium Chloride Calcium Total Bilirubin AST Total Protein Albumin Crossmatch See Detail 07/11/17 07/11/17 07:15 07:15 WBC RBC Hgb Hct MCV MCH RDW Plt Count MPV Monocytes % Monocytes % (Manual) PT with INR 18.90 H INR 1.67 H Potassium 3.0 L Chloride 109 H Calcium 6.9 L* Total Bilirubin 1.7 H AST 74 H Total Protein 6.1 L Albumin 1.4 L Crossmatch Active Medications Generic Name Dose Route Start Last Admin Trade Name Freq PRN Reason Stop Dose Admin Acetaminophen 325 mg 07/10/17 14:04 07/10/17 14:28 Tylenol - PO 325 mg Q6H PRN Administration FEVER Atenolol 50 mg 07/10/17 10:00 07/11/17 12:25 Tenormin - PO 50 mg DAILY RAMYA Administration Atovaquone 750 mg 07/10/17 08:00 07/11/17 17:31 Mepron - PO 750 mg BIDWM RAMYA Administration Emtricitabine/Tenofovir 1 tab 07/11/17 10:00 07/11/17 12:27 Truvada PO 1 tab DAILY RAMYA Administration Ferrous Sulfate 325 mg 07/10/17 10:00 07/11/17 12:44 Feosol - PO 325 mg DAILY RAMYA Administration Folic Acid 1 mg 07/10/17 10:00 07/11/17 12:25 Folic Acid - PO 1 mg DAILY RAMYA Administration Furosemide 40 mg 07/10/17 06:00 07/11/17 14:05 Lasix - PO 40 mg BID@0600,1400 RAMYA Administration CEFTRIAXONE IN IS-OSM DEXTROSE 2 gm in 50 mls @ 100 mls/hr 07/11/17 16:45 17:31 Ceftriaxone 2 Gm-D5w Bag IVPB 100 mls/hr DAILY RAMYA Administration Lactobacillus Acidophilus 1 tab 07/10/17 10:00 07/11/17 12:26 Bacid - PO 1 tab DAILY RAMYA Administration Lactulose 20 gm 07/09/17 22:00 07/11/17 14:05 Cephulac (Oral Use) PO 20 gm TID RAMYA Administration Magnesium Oxide 400 mg 07/09/17 22:00 07/11/17 12:26 Mag-Ox - PO 400 mg BID RAMYA Administration Multivitamins/Minerals/Vitamin C 1 tab 07/10/17 10:00 07/11/17 12:25 Tab-A-Vit - PO 1 tab DAILY RAMYA Administration Nystatin 500,000 units 07/09/17 19:15 07/11/17 17:31 Nystatin Oral Suspension - PO 500,000 units Q6HPO RAMYA Administration Pantoprazole Sodium 40 mg 07/10/17 10:00 07/11/17 12:25 Protonix - PO 40 mg DAILY RAMYA Administration Phytonadione 10 mg 07/11/17 04:30 07/11/17 04:44 Mephyton - PO 07/13/17 10:01 10 mg DAILY RAMYA Administration Potassium Chloride 40 meq 07/11/17 10:00 07/11/17 12:24 K-Dur - PO 07/11/17 22:01 40 meq BID RAMYA Administration Simethicone 80 mg 07/09/17 19:01 Mylicon - PO QID PRN GAS Spironolactone 50 mg 07/11/17 10:00 07/11/17 12:24 Aldactone - PO 50 mg BID RAMYA Administration Thiamine HCl 100 mg 07/10/17 10:00 07/11/17 12:26 Vitamin B1 - PO 100 mg DAILY RAMYA Administration A/P 57 yo M with h/o AIDS and HCV cirrhosis who presents with failure to thrive, dull, aching, retrosternal chest pain, wheezing, Álvarez, and clear productive cough w/out hemoptysis for the past 1 week. At [facility] CD4-39, VL [id number]. decompensated cirrhosis- hep c untreated aids pancytopenia/coagulopathy due to liver disease check B12/folate/iron studies trial of Vit.K for coagulopathy
[2017-07-12] MEDS ORDERED: PT OWN MED DRAWER 7, Y5N ONE ×5 (01:26→18:12)
[2017-07-12] MEDS: FUROSEMIDE 40 MG TABLET (FP) PO SCH ×2 (05:54→13:29)
[2017-07-12] MEDS: LACTULOSE 20 GM/30 ML UDC (FOR ORAL USE ONLY) PO SCH ×4 (05:54→21:52)
[2017-07-12] MEDS: NYSTATIN 500,000 UNITS/5 ML SUSPENSION PO SCH ×3 (05:54→17:18)
[2017-07-12] MEDS: ATOVAQUONE 750 MG/5 ML (UNIT-DOSE PACKAGING) PO SCH ×2 (08:34→17:17)
--- NOTE | 2017-07-12 09:30 | PN ---
Progress Note, Physician History of Present Illness: Comfortable, no events. tolerating regular breakfast. Pt reports "explosive" night, however the nursing night team reports the pt had no bms all night. The pt denies bleeding. Abd fluid negative for SBP. Diuretics were started appropriately. - Current Medication List Current Medications: Active Medications Acetaminophen (Tylenol -) 325 mg PO Q6H PRN PRN Reason: FEVER Last Admin: 07/10/17 14:28 Dose: 325 mg Atenolol (Tenormin -) 50 mg PO DAILY [facility] Last Admin: 07/11/17 12:25 Dose: 50 mg Atovaquone (Mepron -) 750 mg PO BIDWM [facility] Last Admin: 07/12/17 08:34 Dose: 750 mg Emtricitabine/Tenofovir (Truvada) 1 tab PO DAILY [facility] Last Admin: 07/11/17 12:27 Dose: 1 tab Ferrous Sulfate (Feosol -) 325 mg PO DAILY [facility] Last Admin: 07/11/17 12:44 Dose: 325 mg Folic Acid (Folic Acid -) 1 mg PO DAILY [facility] Last Admin: 07/11/17 12:25 Dose: 1 mg Furosemide (Lasix -) 40 mg PO BID@0600,1400 [facility] Last Admin: 07/12/17 05:54 Dose: 40 mg CEFTRIAXONE IN IS-OSM DEXTROSE (Ceftriaxone 2 Gm-D5w Bag) 2 gm in 50 mls @ 100 mls/hr IVPB DAILY [facility] Last Admin: 07/11/17 17:31 Dose: 100 mls/hr Lactobacillus Acidophilus (Bacid -) 1 tab PO DAILY [facility] Last Admin: 07/11/17 12:26 Dose: 1 tab Lactulose (Cephulac (Oral Use)) 20 gm PO TID [facility] Last Admin: 07/12/17 05:54 Dose: 20 gm Magnesium Oxide (Mag-Ox -) 400 mg PO BID [facility] Last Admin: 07/11/17 21:57 Dose: 400 mg Multivitamins/Minerals/Vitamin C (Tab-A-Vit -) 1 tab PO DAILY [facility] Last Admin: 07/11/17 12:25 Dose: 1 tab Nystatin (Nystatin Oral Suspension -) 500,000 units PO Q6HPO [facility] Last Admin: 07/12/17 05:54 Dose: 500,000 units Pantoprazole Sodium (Protonix -) 40 mg PO DAILY [facility] Last Admin: 07/11/17 12:25 Dose: 40 mg Phytonadione (Mephyton -) 10 mg PO DAILY RAMYA Stop: 07/13/17 10:01 Last Admin: 07/11/17 04:44 Dose: 10 mg Simethicone (Mylicon -) 80 mg PO QID PRN PRN Reason: GAS Spironolactone (Aldactone -) 50 mg PO BID RAMYA Last Admin: 07/11/17 21:57 Dose: 50 mg Thiamine HCl (Vitamin B1 -) 100 mg PO DAILY RAMYA Last Admin: 07/11/17 12:26 Dose: 100 mg - Objective Vital Signs: Vital Signs Temperature 98.8 F 07/12/17 06:00 Pulse Rate 96 H 07/12/17 06:00 Respiratory Rate 20 07/12/17 06:00 Blood Pressure 111/71 07/12/17 06:00 O2 Sat by Pulse Oximetry (%) 97 07/11/17 20:50 Constitutional: Yes: No Distress, Calm, Cachectic, Thin Neurological: Yes: Alert, Oriented Labs: INR, PTT INR 1.67 (0.82-1.09) H 07/11/17 07:15 CBCD WBC 2.0 K/mm3 (4.0-10.0) L 07/11/17 07:15 RBC 2.04 M/mm3 (4.00-5.60) L 07/11/17 07:15 Hgb 7.7 GM/dL (11.7-16.9) L D 07/11/17 07:15 Hct 22.6 % (35.4-49) L 07/11/17 07:15 MCV 110.9 fl (80-96) H 07/11/17 07:15 MCHC 34.1 g/dl (32.0-35.9) 07/11/17 07:15 RDW 17.5 % (11.9-15.9) H 07/11/17 07:15 Plt Count 56 K/MM3 (134-434) L D 07/11/17 07:15 MPV 10.6 fl (7.5-11.1) 07/11/17 07:15 CMP Sodium 144 mmol/L (136-145) 07/11/17 07:15 Potassium 3.0 mmol/L (3.5-5.1) L 07/11/17 07:15 Chloride 109 mmol/L (98-107) H 07/11/17 07:15 Carbon Dioxide 27 mmol/L (21-32) 07/11/17 07:15 Anion Gap 8 (8-16) 07/11/17 07:15 BUN 11 mg/dL (7-18) 07/11/17 07:15 Creatinine 0.9 mg/dL (0.7-1.3) 07/11/17 07:15 Creat Clearance w eGFR > 60 (>60) 07/11/17 07:15 Calcium 6.9 mg/dL (8.5-10.1) L* 07/11/17 07:15 Total Bilirubin 1.7 mg/dL (0.2-1.0) H 07/11/17 07:15 AST 74 U/L (15-37) H 07/11/17 07:15 ALT 29 U/L (12-78) 07/11/17 07:15 Alkaline Phosphatase 84 U/L (45-117) 07/11/17 07:15 Total Protein 6.1 g/dl (6.4-8.2) L 07/11/17 07:15 Albumin 1.4 g/dl (3.4-5.0) L 07/11/17 07:15 Problem List - Problems (1) Hematochezia Code(s): K92.1 - MELENA (2) Ascites Code(s): R18.8 - OTHER ASCITES Qualifiers: Ascites type: due to alcoholic cirrhosis Qualified Code(s): K70.31 - Alcoholic cirrhosis of liver with ascites (3) Esophageal varices in alcoholic cirrhosis Code(s): K70.30 - ALCOHOLIC CIRRHOSIS OF LIVER WITHOUT ASCITES; I85.10 - SECONDARY ESOPHAGEAL VARICES WITHOUT BLEEDING (4) Fever Code(s): R50.9 - FEVER, UNSPECIFIED (5) Thrombocytopenia Code(s): D69.6 - THROMBOCYTOPENIA, UNSPECIFIED (6) Coagulopathy Code(s): D68.9 - COAGULATION DEFECT, UNSPECIFIED Assessment/Plan Recent history of fever in an HIV-AIDS patient who may not be compliant with his medications. Decompensated liver cirrhosis with tens ascites on exam and normal BUN and Cr. ? Diarrhea Hematochezia. Unlikely upper GI bleeding Stool for c. diff, culture, OP, crypto/isospora, if diarrhea agree with aldactone and lasix Keep Hbg at, or above 7 g/dl. Will follow
[2017-07-12 09:45] LABS: HEMATOCRIT 25.1 % (35.4-49); HEMOGLOBIN 8.5 GM/dL (11.7-16.9); MCH 38.1 pg (25.7-33.7); MEAN CELL VOLUME 112.2 fl (80-96); MEAN PLT VOLUME 11.3 fl (7.5-11.1); PLATELET COUNT 50 K/MM3 (134-434); RBC 2.24 M/mm3 (4.00-5.60); RDW 17.8 % (11.9-15.9); WHITE BLOOD COUNT 2.7 K/mm3 (4.0-10.0)
[2017-07-12] MEDS: MAGNESIUM OXIDE 400 MG TABLET (FP) PO SCH ×2 (09:50→21:32)
[2017-07-12] MEDS: FOLIC ACID 1 MG TABLET (FP) PO SCH (09:50)
[2017-07-12] MEDS: FERROUS SO4 325 MG TABLET (FP) PO SCH (09:50)
[2017-07-12] MEDS: ATENOLOL 50 MG TABLET (FP) PO SCH (09:50)
[2017-07-12] MEDS: SPIRONOLACTONE 25 MG TABLET (FP) PO SCH ×2 (09:50→21:32)
[2017-07-12] MEDS: MULTIVITAMINS (DAILY MVI) TABLET (FP) PO SCH (09:50)
[2017-07-12] MEDS: LACTOBACILLUS ACIDOPHILUS 1 EACH TAB (FP) PO SCH (09:50)
[2017-07-12] MEDS: PANTOPRAZOLE 40 MG TABLET (FP) PO SCH (09:50)
[2017-07-12] MEDS: THIAMINE HCL 100 MG TABLET (FP) PO SCH (09:50)
[2017-07-12] MEDS: DOLUTEGRAVIR SODIUM 50 MG TABLET PO SCH (09:51)
[2017-07-12] MEDS: PHYTONADIONE 5 MG TABLET PO SCH (09:51)
[2017-07-12] MEDS: EMTRICITABINE 200MG/TENOFOVIR 300MG PO SCH (09:51)
[2017-07-12] MEDS: CEFTRIAXONE IN IS-OSM DEXTROSE 2 GM/50 ML BAG IVPB SCH (09:51)
[2017-07-12] MEDS ORDERED: PHYTONADIONE 5 MG TABLET PO SCH (10:00)
[2017-07-12 12:47] LABS: CHLORIDE 134 mmol/L (98-107); POTASSIUM 4.6 mmol/L (3.5-5.1)
[2017-07-12 13:04] LABS: ALBUMIN 1.3 g/dl (3.4-5.0); ALK PHOS 87 U/L (45-117); ANION GAP 8 (8-16); BILIRUBIN,TOTAL 1.6 mg/dL (0.2-1.0); BLOOD UREA NITROGEN 9 mg/dL (7-18); CO2 26 mmol/L (21-32); CREATININE 0.9 mg/dL (0.7-1.3); GLUCOSE,RANDOM 77 mg/dL (74-106); SGOT/AST 75 U/L (15-37); SGPT/ALT 30 U/L (12-78); TOT PROT 6.5 g/dl (6.4-8.2)
[2017-07-12 13:11] LABS: CALCIUM 6.9 mg/dL (8.5-10.1); SODIUM 168 mmol/L (136-145)
[2017-07-12] MEDS: DEXTROSE 5%-WATER - 1,000 ML IV SCH (13:29)
--- NOTE | 2017-07-12 14:32 | PN ---
Progress Note (short form) - Note Progress Note: no bleeding today no fevers feels well ate breakfast Vital Signs Period Temp Pulse Resp BP Sys/Skelton Pulse Ox Last 24 Hr 98.8 F-99.9 F 91-100 18-20 110-138/64-81 97-97 cor-rrr lungs decreased bs at bases abd firm, nt ext +edema CBC, BMP 07/12/17 09:22 07/12/17 07:00 Microbiology 07/11/17 11:00 Peritoneal Fluid CHAYO Preparation - Preliminary 07/11/17 11:00 Peritoneal Fluid Fungal Culture - Preliminary 07/11/17 11:00 Peritoneal Fluid Gram Stain - Final 07/11/17 11:00 Peritoneal Fluid Body Fluid Culture - Preliminary NO AEROBIC GROWTH, 24 HRS 07/11/17 11:00 Peritoneal Fluid AFB Smear Concentration - Preliminary 07/11/17 11:00 Peritoneal Fluid Mycobacterial Culture - Preliminary 07/09/17 20:50 Blood - Peripheral Venous Blood Culture - Preliminary NO GROWTH OBTAINED AFTER 48 HOURS, INCUBATION TO CONTINUE FOR 3 DAYS. 07/09/17 20:50 Blood - Peripheral Venous Blood Culture - Preliminary NO GROWTH OBTAINED AFTER 48 HOURS, INCUBATION TO CONTINUE FOR 3 DAYS. 07/11/17 08:40 Urine For Antigen Detection Legionella Antigen - Final 07/11/17 08:40 Urine For Antigen Detection Streptococcus pneumoniae Antigen (M - Final 07/09/17 14:30 Nasopharyngeal Swab Influenza Types A,B Antigen (BEAU) - Final 07/09/17 14:30 Nasopharyngeal Swab - Final a/p acute change in electrolytes- repeat if cultures are negative in am can d/c rocephin no cough no diarrhea today decompensated cirrhosis- hep c untreated aids pancytopenia poor medication adherence as outpt started on art-truvada/tivicay add weekly zithromax for MAC prophylaxis continue Mepron he would benefit from SNF when ready for discharge- but is refusing at this time discussed again benefits of short term rehab- he refuses Problem List - Problems (1) AIDS Code(s): B20 - HUMAN IMMUNODEFICIENCY VIRUS [HIV] DISEASE (2) Decompensated HCV cirrhosis Code(s): B19.20 - UNSPECIFIED VIRAL HEPATITIS C WITHOUT HEPATIC COMA; K74.69 - OTHER CIRRHOSIS OF LIVER (3) Bronchitis Code(s): J40 - BRONCHITIS, NOT SPECIFIED ACUTE OR CHRONIC (4) Pancytopenia Code(s): D61.818 - OTHER PANCYTOPENIA (5) Thrush Code(s): B37.0 - CANDIDAL STOMATITIS
[2017-07-12] MEDS ORDERED: AZITHROMYCIN 600 MG TABLET PO ONE (15:48)
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
--- NOTE | 2017-07-12 17:42 | CON.PSY ---
Psychiatry Consult Chief Complaint: 57 YEAR OLD mALE WITH hiv AND EXTENSIVE OTHER medical conditions, including Cirrhosis of Liver. Patient saeen for psych eval. PATIENT is not happy that Inwas called into see him. They are depressed, I am not. Symptoms: reports: Irritability - Previous Psychiatric Treatment Outpatient: None Inpatient: None - Previous Substance Abuse Treatment Outpatient: None Inpatient: None - Current Medications Current Medications: Active Medications Acetaminophen (Tylenol -) 325 mg PO Q6H PRN PRN Reason: FEVER Last Admin: 07/10/17 14:28 Dose: 325 mg Atenolol (Tenormin -) 50 mg PO DAILY [facility] Last Admin: 07/12/17 09:50 Dose: 50 mg Atovaquone (Mepron -) 750 mg PO BIDWM [facility] Last Admin: 07/12/17 17:17 Dose: 750 mg Emtricitabine/Tenofovir (Truvada) 1 tab PO DAILY [facility] Last Admin: 07/12/17 09:51 Dose: 1 tab Ferrous Sulfate (Feosol -) 325 mg PO DAILY [facility] Last Admin: 07/12/17 09:50 Dose: 325 mg Folic Acid (Folic Acid -) 1 mg PO DAILY [facility] Last Admin: 07/12/17 09:50 Dose: 1 mg Furosemide (Lasix -) 40 mg PO BID@0600,1400 [facility] Last Admin: 07/12/17 13:29 Dose: 40 mg Dextrose (D5w -) 1,000 mls @ 100 mls/hr IV ASDIR [facility] Last Admin: 07/12/17 13:29 Dose: 100 mls/hr Lactobacillus Acidophilus (Bacid -) 1 tab PO DAILY [facility] Last Admin: 07/12/17 09:50 Dose: 1 tab Lactulose (Cephulac (Oral Use)) 20 gm PO TID [facility] Last Admin: 07/12/17 13:29 Dose: 20 gm Magnesium Oxide (Mag-Ox -) 400 mg PO BID [facility] Last Admin: 07/12/17 09:50 Dose: 400 mg Mirtazapine (Remeron -) 15 mg PO DAILY [facility] Multivitamins/Minerals/Vitamin C (Tab-A-Vit -) 1 tab PO DAILY [facility] Last Admin: 07/12/17 09:50 Dose: 1 tab Nystatin (Nystatin Oral Suspension -) 500,000 units PO Q6HPO [facility] Last Admin: 07/12/17 17:18 Dose: 500,000 units Phytonadione (Mephyton -) 10 mg PO DAILY [facility] Stop: 07/13/17 10:01 Last Admin: 07/12/17 09:51 Dose: 10 mg Simethicone (Mylicon -) 80 mg PO QID PRN PRN Reason: GAS Spironolactone (Aldactone -) 50 mg PO BID [facility] Last Admin: 07/12/17 09:50 Dose: 50 mg Thiamine HCl (Vitamin B1 -) 100 mg PO DAILY [facility] Last Admin: 07/12/17 09:50 Dose: 100 mg - Allergies Allergies: Allergies Allergy/AdvReac Type Severity Reaction Status Date / Time No Known Allergies Allergy Verified 07/09/17 13:57 - Current Living Status Usual Living Arrangement: Alone - Current Mental Status Evaluation Appearance: Disheveled Attitude: Guarded - Affect Affect: Constrictive Appropriateness: Appropriate to Content - Mood Mood: Irritable - Speech/Language Expressive: Coherent - Psychomotor Activity Psychomotor Activity: Slowed - Thought Process Thought Process: Intact - Thought Content Hallucinations: Absent Delusions: Absent - Self Perception Self Perception: No Impairment - Cognition Attention: Alert Orientation: Time Memory, Immediate Recall: Intact Memory, Short Term: 2/3 Memory, Remote with Promptin/3 - Concentration Serial Sevens Intact: No Simple Calculations Intact: No - Abstraction Proverb Interpretation: Intact Judgement: Minimally Impaired - Insight Insight: Intact - Impulse Control Impulse Control: Minimally Impaired - Suicidal Ideation Suicidal Ideation: No - Homicidal Ideation Homicidal Ideation: No Assessment/Plan 1) will try REmeron 15mg po hs to stimulate appetite.
--- NOTE | 2017-07-12 19:28 | PN ---
Physical Exam: SUBJECTIVE: Patient seen and examined. No acute events overnight. Patient offers no new complaints. Says his abdominal pain is better today but still complains of diarrhea. Denies chest pain, sob, dizziness, nausea and vomiting. OBJECTIVE: Vital Signs Period Temp Pulse Resp BP Sys/Skelton Pulse Ox Last 24 Hr 98.5 F-98.9 F 96-104 18-20 108-111/64-74 97-97 GENERAL: A/O x3, in no acute distress. HEAD: Normal with no signs of trauma. EYES: Pupils equal, round and reactive to light, sclera anicteric EARS, NOSE, THROAT: Moist mucous membrane, oral thrush NECK: supple LUNGS: Breath sounds equal, clear to auscultation bilaterally. No wheezes, and no crackles. HEART: Regular rate and rhythm, normal S1 and S2 without murmur, rub or gallop. ABDOMEN: hyperactive bowel sounds, distended (improved s/p paracentesis), nontender, no rebound UPPER EXTREMITIES: 2+ pulses, No peripheral edema. LOWER EXTREMITIES: 2+ pulses, 2+ pitting edema. Laboratory Results - last 24 hr 07/12/17 07/12/17 07/12/17 07:00 07:00 09:22 WBC 2.7 L D RBC 2.24 L Hgb 8.5 L D Hct 25.1 L MCV 112.2 H MCH 38.1 H MCHC 34.0 RDW 17.8 H Plt Count 50 L MPV 11.3 H Sodium 168 H* D Cancelled Potassium 4.6 D Cancelled Chloride 134 H D Cancelled Carbon Dioxide 26 Cancelled Anion Gap 8 Cancelled BUN 9 Cancelled Creatinine 0.9 Cancelled Creat Clearance w eGFR > 60 Cancelled Random Glucose 77 Cancelled Calcium 6.9 L* Cancelled Ferritin 555.767 H Total Bilirubin 1.6 H Cancelled AST 75 H Cancelled ALT 30 Cancelled Alkaline Phosphatase 87 Cancelled Total Protein 6.5 Cancelled Albumin 1.3 L Cancelled Vitamin B12 1221 H D TSH 1.45 D Free T4 1.34 H Active Medications Generic Name Dose Route Start Last Admin Trade Name Freq PRN Reason Stop Dose Admin Acetaminophen 325 mg 07/10/17 14:04 07/10/17 14:28 Tylenol - PO 325 mg Q6H PRN Administration FEVER Atenolol 50 mg 07/10/17 10:00 07/12/17 09:50 Tenormin - PO 50 mg DAILY RAMYA Administration Atovaquone 750 mg 07/10/17 08:00 07/12/17 17:17 Mepron - PO 750 mg BIDWM RAMYA Administration Emtricitabine/Tenofovir 1 tab 07/11/17 10:00 07/12/17 09:51 Truvada PO 1 tab DAILY RAMYA Administration Ferrous Sulfate 325 mg 07/10/17 10:00 07/12/17 09:50 Feosol - PO 325 mg DAILY RAMYA Administration Folic Acid 1 mg 07/10/17 10:00 07/12/17 09:50 Folic Acid - PO 1 mg DAILY RAMYA Administration Furosemide 40 mg 07/10/17 06:00 07/12/17 13:29 Lasix - PO 40 mg BID@0600,1400 RAMYA Administration Dextrose 1,000 mls @ 100 mls/hr 07/12/17 13:30 07/12/17 13:29 D5w - IV 100 mls/hr ASDIR RAMYA Administration Lactobacillus Acidophilus 1 tab 07/10/17 10:00 07/12/17 09:50 Bacid - PO 1 tab DAILY RAMYA Administration Lactulose 20 gm 07/09/17 22:00 07/12/17 13:29 Cephulac (Oral Use) PO 20 gm TID RAMYA Administration Magnesium Oxide 400 mg 07/09/17 22:00 07/12/17 09:50 Mag-Ox - PO 400 mg BID RAMYA Administration Mirtazapine 15 mg 07/13/17 10:00 Remeron - PO DAILY RAMYA Multivitamins/Minerals/Vitamin C 1 tab 07/10/17 10:00 07/12/17 09:50 Tab-A-Vit - PO 1 tab DAILY RAMYA Administration Nystatin 500,000 units 07/09/17 19:15 07/12/17 17:18 Nystatin Oral Suspension - PO 500,000 units Q6HPO RAMYA Administration Phytonadione 10 mg 07/11/17 04:30 07/12/17 09:51 Mephyton - PO 07/13/17 10:01 10 mg DAILY RAMYA Administration Simethicone 80 mg 07/09/17 19:01 Mylicon - PO QID PRN GAS Spironolactone 50 mg 07/11/17 10:00 01/23/18 09:50 Aldactone - PO 50 mg BID RAMYA Administration Thiamine HCl 100 mg 07/10/17 10:00 07/12/17 09:50 Vitamin B1 - PO 100 mg DAILY RAMYA Administration ASSESSMENT/PLAN: 57 yo non-compliant male with PMHx of HIV/AIDS not on HAART, HCV cirrhosis, recurrent ascitis, esophageal varices, HTN admitted with chest pain, respiratory symptoms and was with large ascitis, also with intermittent hemorrhoidal bleed. #Atypical Chest Pain -resolved, appears to be more gas-like pains. -likely secondary to URI vs PNA (immunocompromised). ACS ruled out. -Last CD4 in 39 (immunocompromised) -CXR unremarkable for acute pathology -ID consulted: Dr. Awan -Flu negative -BCx, UCx with no growth. 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 -cont. Home meds: -Lasix 40mg BID -Lactulose 20mg TID, will need to titrate lactulose to 2-3 BM daily -Continue aldactone 50mg BID #Worsening Anemia/Pancytopenia/Thrombocytopenia -likely due to liver disease, infectious process and Lower GI bleed. -s/p 2 units PRBC, 2 FFP and 4 unit platelets this admission -s/p vitamin K -Transfuse for Hb < 7 or active bleed. -avoid Heparin -Heme/onc consulted -Gi consulted -will monitor CBC #Hypernatremia -Na 168 -Likely due to lab error -start D5w in the meantime #Chronic Diarrhea -Likely from Lactulose -Stool for c. diff, culture, OP, crypto/isospora #HIV/AIDS -Last CD4 in 's -Started on HAART- Truvada -Atovoquone for PCP PPX per ID -Azithromycin 1200mg PO weekly for MAC ppx. #Depression -Psych consulted- Dr. Berry -no homicidal/suicidal thoughts or plans #severe malnutrition- -Weight loss -Dietary consult -FU reccs #Oral Thrush -cont home meds: Nystatin oral suspension #HTN -Cont. Atenolol 50mg Daily #FEN: D5W @ 100ml/hour Replete as needed Regular diet #DVT: SCDS #GI PPX: DC Protonix due to low platelets PT for deconditioning Visit type - Emergency Visit Emergency Visit: No - New Patient This patient is new to me today: No - Critical Care Critical Care patient: No
[2017-07-12 20:08] LABS: ANION GAP 7 (8-16); BLOOD UREA NITROGEN 10 mg/dL (7-18); CALCIUM 7.1 mg/dL (8.5-10.1); CHLORIDE 108 mmol/L (98-107); CO2 27 mmol/L (21-32); CREATININE 0.9 mg/dL (0.7-1.3); GLUCOSE,RANDOM 81 mg/dL (74-106); POTASSIUM 3.8 mmol/L (3.5-5.1); SODIUM 142 mmol/L (136-145)
[2017-07-13] MEDS: NYSTATIN 500,000 UNITS/5 ML SUSPENSION PO SCH ×3 (00:15→12:45)
[2017-07-13] MEDS: DEXTROSE 5%-WATER - 1,000 ML IV SCH (00:30)
[2017-07-13] MEDS: FUROSEMIDE 40 MG TABLET (FP) PO SCH ×2 (05:54→14:45)
[2017-07-13] MEDS: LACTULOSE 20 GM/30 ML UDC (FOR ORAL USE ONLY) PO SCH (05:54)
[2017-07-13 06:10] LABS: SERUM IRON SATURATION > 88 % (15-55); TOTAL IRON BINDING CAPACITY < 139 ug/dL (250-450); UIBC < 17 ug/dL (111-343)
--- NOTE | 2017-07-13 07:26 | MSN ---
Progress Note (short form) - Note Progress Note: CC: decompensated liver cirrhosis HPI: Pt is a 57 y/o M with medication noncompliance, PMHx AIDS (last CD4s 20s, not on home med HAART, started HAART this admission), HCV cirrhosis, pancytopenia, hemorrhoids, HTN, esophageal varices, gastric ulcers/PUD who was admitted for atypical chest pain that is being treated for decompensated HCV cirrhosis. Pt seen and examined today. No overnight events. He reports swelling in both legs, and reports feeling gassy. He states he had 4 BM this AM since he woke up at 4 AM; he states it was "all water" . He reports no blood in stool this AM and wipes with wet tissues. He reports 6-7 BM yesterday, watery, brown, copious amount; nurse documents 2. He reports having used a tampon to stop anal bleeding approximately 2 days ago. Appetite unhanged. He denies paresthesias, numbness, tremors, nausea, vomiting, chills, hot sweats , SOB, dysphagia, headache. He states he feels cold but denies shaking. He reports being able to ambulate fine with a cane, "I can walk, no problem". He states he prefers rehab instead of a longterm and would be willing to go to a rehab facility as long as someone explains to him what it is like and he knows what to expect. OBJECTIVE Last Vital Signs Temp Pulse Resp BP Pulse Ox 97.9 F 72 18 100/66 98 07/13/17 06:00 07/13/17 06:00 07/13/17 06:00 07/13/17 06:00 07/12/17 22:00 General: Pt is sitting up comfortably on edge of bed, reading menu and eating breakfast, smiling in no acute distress. Appears malnourished. Head: Bitemporal wasting, prominent forehead, atraumatic. 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 R eye appears miotic at 1mm. EOMI. Ears: Hearing grossly intact to voice. Throat: Moist mucus membranes. White plaque noted on bottom of tongue. No thrush noted on dorsal tongue. Dentition intact. Neck: No cervical lymphadenopathy. No tenderness to palpation. Heart: Regular rate. Regular rhythm. S1/S2. No murmurs noted. Lungs: Clear to auscultation all throughout. Symmetric breath sounds. No wheezing or rhonchi noted. Abdomen: Distended, nontender to light or deep palpation. No superficial varices noted. Stretch batres noted on lower abdomen. Normoactive bowel sounds in all four quadrants. Negative fluid shift. Extremities: 3+ pitting edema up to b/l knees. Worse on b/l dorsum of feet. No lesions noted b/l. No erythema or warmth b/l. DP pulses nonpalpable due to edema. Radial pulses 2+. Neurological: CN II-XII intact. gag reflex not tested. 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 Symmetrical sensation, intact to light touch all throughout UE and LE. CBC, BMP 07/13/17 06:30 07/13/17 06:30 Laboratory Results - last 24 hr 07/12/17 07/12/17 07/12/17 07:00 07:00 17:00 WBC RBC Hgb Hct MCV MCH MCHC RDW Plt Count MPV Sodium 168 H* D 142 D Potassium 4.6 D 3.8 Chloride 134 H D 108 H D Carbon Dioxide 26 27 Anion Gap 8 7 L BUN 9 10 Creatinine 0.9 0.9 Creat Clearance w eGFR > 60 Random Glucose 77 81 Calcium 6.9 L* 7.1 L Iron 122 TIBC < 139 L Iron Saturation > 88 H Ferritin 555.767 H Total Bilirubin 1.6 H AST 75 H ALT 30 Alkaline Phosphatase 87 Total Protein 6.5 Albumin 1.3 L TSH 1.45 D Free T4 1.34 H 07/13/17 07/13/17 06:30 06:30 WBC 3.0 L RBC 2.19 L Hgb 8.6 L Hct 24.8 L MCV 112.9 H MCH 39.0 H MCHC 34.6 RDW 18.2 H Plt Count 45 L MPV 11.0 Sodium 139 Potassium 3.6 Chloride 104 Carbon Dioxide 27 Anion Gap 8 BUN 9 Creatinine 0.8 Creat Clearance w eGFR > 60 Random Glucose 86 Calcium 7.0 L Iron TIBC Iron Saturation Ferritin Total Bilirubin 1.4 H AST 77 H ALT 32 Alkaline Phosphatase 91 Total Protein 7.0 Albumin 1.4 L TSH Free T4 Hepatic Panel Total Bilirubin 1.6 mg/dL (0.2-1.0) H 07/12/17 07:00 AST 75 U/L (15-37) H 07/12/17 07:00 ALT 30 U/L (12-78) 07/12/17 07:00 Alkaline Phosphatase 87 U/L (45-117) 07/12/17 07:00 Albumin 1.3 g/dl (3.4-5.0) L 07/12/17 07:00 INR, PTT INR 1.67 (0.82-1.09) H 07/11/17 07:15 Camp Advisor: 07/12/17 15:56 Diet: Reg w/ Ensure Enlive TID (1050 kcal, 60 gm pro). Ht 5'7" wt 142 l (22.3 kg ) DBW 149-168# appetite decreased, finishing 75-100% meals. 2250-2600kcal (35-40 kcal/kg) 96- 109 gm pro (1.5-7.7 gm/kg) RECOMMENDATIONS: -Suggest continue Ensure enlive tid -Recommend add magic cup daily (290 kcal, 9gm pro) GOALS: - po intake 75% of meals -prevent wt loss -sodium within acceptable range -monitor need for fluid restriction NEXT F/U NOTE ON 07/16. 2nd f/u CL1 high risk Active Medications Generic Name Dose Route Start Last Admin Trade Name Mohamud PRN Reason Stop Dose Admin Acetaminophen 325 mg 07/10/17 14:04 07/10/17 14:28 Tylenol - PO 325 mg Q6H PRN Administration FEVER Atenolol 50 mg 07/10/17 10:00 07/13/17 09:50 Tenormin - PO 50 mg DAILY RAMYA Administration Atovaquone 750 mg 07/10/17 08:00 07/13/17 08:39 Mepron - PO 750 mg BIDWM RAMYA Administration Emtricitabine/Tenofovir 1 tab 07/11/17 10:00 07/13/17 09:51 Truvada PO 1 tab DAILY RAMYA Administration Ferrous Sulfate 325 mg 07/10/17 10:00 07/13/17 09:50 Feosol - PO 325 mg DAILY RAMYA Administration Folic Acid 1 mg 07/10/17 10:00 07/13/17 09:50 Folic Acid - PO 1 mg DAILY RAMYA Administration Furosemide 40 mg 07/10/17 06:00 07/13/17 05:54 Lasix - PO 40 mg BID@0600,1400 RAMYA Administration Lactobacillus Acidophilus 1 tab 07/10/17 10:00 07/13/17 09:50 Bacid - PO 1 tab DAILY RAMYA Administration Lactulose 20 gm 07/14/17 10:00 Cephulac (Oral Use) PO DAILY RAMYA Magnesium Oxide 400 mg 07/09/17 22:00 07/13/17 09:50 Mag-Ox - PO 400 mg BID RAMYA Administration Multivitamins/Minerals/Vitamin C 1 tab 07/10/17 10:00 07/13/17 09:50 Tab-A-Vit - PO 1 tab DAILY RAMYA Administration Nystatin 500,000 units 07/09/17 19:15 07/13/17 12:45 Nystatin Oral Suspension - PO 500,000 units Q6HPO RAMYA Administration Rifaximin 550 mg 07/13/17 10:15 07/13/17 11:02 Xifaxan - PO 550 mg BID RAMYA Administration Simethicone 80 mg 07/09/17 19:01 Mylicon - PO QID PRN GAS Spironolactone 50 mg 07/11/17 10:00 07/13/17 09:50 Aldactone - PO 50 mg BID RAMYA Administration Thiamine HCl 100 mg 07/10/17 10:00 07/13/17 09:50 Vitamin B1 - PO 100 mg DAILY RAMYA Administration Home Medications Medication Instructions Recorded Atenolol [Tenormin -] 50 mg PO DAILY #30 tablet 05/19/17 Folic Acid - 1 mg PO DAILY #30 tablet 05/19/17 Lactose-Reduced Food [Ensure 237 ml PO TID #90 liquid 05/19/17 Original] Multivitamins [Multivit ([facility] 1 tab PO DAILY #30 tab 05/19/17 Formulary)] Omeprazole 40 mg PO DAILY #30 capsule.dr 05/19/17 Simethicone 80 mg PO QID PRN #100 tab.chew 05/19/17 Thiamine HCl [Vitamin B1 -] 100 mg PO DAILY #30 tab 05/19/17 Atovaquone [Mepron Oral Solution -] 1,500 mg PO DAILY #300 ml 06/06/17 Ferrous Sulfate 325 mg PO DAILY 30 Days #30 tablet 06/06/17 Furosemide [Lasix -] 40 mg PO BID@0600,1400 #60 tablet 06/06/17 Lactobacillus Acidophilus [Bacid -] 1 tab PO DAILY tab 06/06/17 Lactulose (Oral Use) [Cephulac -] 20 gm PO TID #1 bottle 06/06/17 Magnesium Oxide [Mag-Ox -] 400 mg PO BID #60 tablet 06/06/17 Spironolactone [Aldactone -] 50 mg PO BID #60 tablet 06/06/17 Nystatin Oral Suspension - 500,000 units PO Q6H #1 cup 06/30/17 [Nystatin Oral Susp 394235 Units/5 ML -] Cefuroxime Axetil [Ceftin -] 500 mg PO Q12H #20 tablet 07/07/17 Oseltamivir Phosphate [Tamiflu -] 75 mg PO BID #10 capsule 07/07/17 Intake & Output 07/10/17 07/11/17 07/12/17 07/13/17 23:59 23:59 23:59 23:59 Intake Total 1200 1429 1900 1200 Balance 1200 1429 1900 1200 Weight 142 lb 2 oz 137 lb 3 oz Microbiology 07/09/17 20:50 Blood - Peripheral Venous Blood Culture - Preliminary NO GROWTH OBTAINED AFTER 72 HOURS, INCUBATION TO CONTINUE FOR 2 DAYS. 07/09/17 20:50 Blood - Peripheral Venous Blood Culture - Preliminary NO GROWTH OBTAINED AFTER 72 HOURS, INCUBATION TO CONTINUE FOR 2 DAYS. 07/11/17 11:00 Peritoneal Fluid CHAYO Preparation - Preliminary 07/11/17 11:00 Peritoneal Fluid Fungal Culture - Preliminary 07/11/17 11:00 Peritoneal Fluid Gram Stain - Final 07/11/17 11:00 Peritoneal Fluid Body Fluid Culture - Preliminary NO AEROBIC GROWTH, 24 HRS 07/11/17 11:00 Peritoneal Fluid AFB Smear Concentration - Preliminary 07/11/17 11:00 Peritoneal Fluid Mycobacterial Culture - Preliminary 07/11/17 08:40 Urine For Antigen Detection Legionella Antigen - Final 07/11/17 08:40 Urine For Antigen Detection Streptococcus pneumoniae Antigen (M - Final 07/09/17 14:30 Nasopharyngeal Swab Influenza Types A,B Antigen (BEAU) - Final 07/09/17 14:30 Nasopharyngeal Swab - Final Urine Test Results Urine Color Yellow 07/11/17 08:40 Urine Appearance Clear 07/11/17 08:40 Urine pH 5.0 (5.0-8.0) 07/11/17 08:40 Ur Specific [place] 1.008 (1.001-1.035) 07/11/17 08:40 Urine Protein Negative (NEGATIVE) 07/11/17 08:40 Urine Glucose (UA) Negative (NEGATIVE) 07/11/17 08:40 Urine Ketones Negative (NEGATIVE) 07/11/17 08:40 Urine Blood Negative (NEGATIVE) 07/11/17 08:40 Urine Nitrite Negative (NEGATIVE) 07/11/17 08:40 Urine Bilirubin Negative (NEGATIVE) 07/11/17 08:40 Ur Leukocyte Esterase Negative (NEGATIVE) 07/11/17 08:40 ASSESSMENT Pt is a 57 y/o M with medication noncompliance, PMHx AIDS (last CD4s 20s, not on home med HAART, started HAART this admission), HCV cirrhosis, pancytopenia, hemorrhoids, HTN, esophageal varices, gastric ulcers/PUD who was admitted for atypical chest pain that is being treated for decompensated HCV cirrhosis. PLAN 1. Atypical chest pain on admission * cardiac workup negative * resolved; has Mylicon 80 mg PO QID PRN but has needed today. 2. Decompensated HCV cirrhosis * complicated by large ascites, rectal bleed from hemorrhoids, pancytopenia, coagulopathy, unknown HCV viral load * s/p paracentesis (removed 2L fluid). Ascites negative for SBP * MELD score (2016): 14 pts; estimated 6.0% 3 mo mortality; pt not candidate for liver transplant at this time. * Pt reports multiple loose BM and refused lactulose this AM; however, RN reports less BMs. Pt gives conflicting information at different times of day. Rifaxamin 550mg PO BID; Pt dislikes lactulose and refuses. Aldactone 50mg PO BID. Thiamine 100mg PO daily. Mephyton (Vit K) 10mg PO daily. 3. HIV/AIDS * last CD4 39; restarted on HAART this admission - Truvada 1 tab PO daily. * Given PPX for MAC; one dose Azithromycin 07/12. PPX for PCP; currently on Mepron 750 mg PO BID 4. Pancytopenia * likely 2/2 history of HCV cirrhosis. * Pt given 2 U PRBC, 2 FFP, 4 units platelets this admission' * H/H currently stable at this time. * Bleeding from anus likely 2/2 hemorrhoids has resolved, as per pt hx. * Pt is on Feosol 325 mg PO daily, folic acid 1 mg PO daily for chronic anemia. * Pt will require clear instructions to monitor for increased bleeding and close f/u as outpt. 5. Chronic diarrhea * pt has watery BMs whenever lactulose is administered. mentioned above. Pt was started on rifaxamin due to lactulose intolerance and inability to titrate t 2- 3 loose BMs daily. Pt reports are inconsistent and BMs are unwitnessed. * Bacid 1 tab PO daily. Will D/C stool orders. 6. Depression * Psych consult - inability to obtain clear hx as per psych note. Pt states he is not depressed even though he exhibited signs of depression during rounds. Pt mood seem to fluctuate throughout the day. Was started on Remeron 15 mg PO daily to increase appetite; however, will be D/C as per ID due to pt mental status and medication interactions. 7. Chronic malnutrition * Pt is cachetic due to decreased PO intake, likely 2/2 HIV/AIDs and HCV cirrhosis. * pt states he is consuming 75-100% of meals; dietary consult was ordered. Recs as detailed above. Will need clear instructions in discharge summary. 8. pseudohypocalcemia * secondary to decreased albumin from HCV cirrhosis * corrected Ca for albumin is 9.1, wnl. 9. Oral thrush * improved, nearly resolved. Currently on Nystatin Oral Suspension, 500,000 units PO Q6HPO. 10. Edema of B/L LE * Lasix 40 mg PO BID * likely secondary to HCV cirrhosis and decreased albumin * mild improvement; pt will also be advised to elevate legs at rest. 11. HTN * Tenormin 50 mg PO daily, continue home med. Well controlled. 12. PUD/gastric ulcers * Protonix was D/C due to thrombocytopenia * Pt was on Omeprazole home med; however, also ass. thrombocytopenia * H2 blockers also have adverse effect of pancytopenia; frequency undefined, as per Up To Date. Will require close GI follow up due to gastric ulcers in past and no GI PPX. 13. FEN * Fluids: No need for IVF * Electrolytes: Wnl * Nutrition: Regular diet + magic cup + Ensure 14. Dispo * Will D/C home; pt refuses rehab at this time due to upcoming move to [place].
[2017-07-13 08:09] LABS: HEMATOCRIT 24.8 % (35.4-49); HEMOGLOBIN 8.6 GM/dL (11.7-16.9); MCHC 34.6 g/dl (32.0-35.9); MEAN CELL VOLUME 112.9 fl (80-96); PLATELET COUNT 45 K/MM3 (134-434); RBC 2.19 M/mm3 (4.00-5.60); RDW 18.2 % (11.9-15.9)
[2017-07-13] MEDS ORDERED: PT OWN MED DRAWER 7, Y5N ONE (08:38)
[2017-07-13] MEDS: ATOVAQUONE 750 MG/5 ML (UNIT-DOSE PACKAGING) PO SCH (08:39)
[2017-07-13 08:49] LABS: CHLORIDE 104 mmol/L (98-107); POTASSIUM 3.6 mmol/L (3.5-5.1); SODIUM 139 mmol/L (136-145)
[2017-07-13 09:40] LABS: ALBUMIN 1.4 g/dl (3.4-5.0); ALK PHOS 91 U/L (45-117); ANION GAP 8 (8-16); BILIRUBIN,TOTAL 1.4 mg/dL (0.2-1.0); BLOOD UREA NITROGEN 9 mg/dL (7-18); CO2 27 mmol/L (21-32); CREATININE 0.8 mg/dL (0.7-1.3); GLUCOSE,RANDOM 86 mg/dL (74-106); SGOT/AST 77 U/L (15-37); SGPT/ALT 32 U/L (12-78)
[2017-07-13] MEDS: LACTOBACILLUS ACIDOPHILUS 1 EACH TAB (FP) PO SCH (09:50)
[2017-07-13] MEDS: MAGNESIUM OXIDE 400 MG TABLET (FP) PO SCH (09:50)
[2017-07-13] MEDS: FERROUS SO4 325 MG TABLET (FP) PO SCH (09:50)
[2017-07-13] MEDS: MULTIVITAMINS (DAILY MVI) TABLET (FP) PO SCH (09:50)
[2017-07-13] MEDS: ATENOLOL 50 MG TABLET (FP) PO SCH (09:50)
[2017-07-13] MEDS: FOLIC ACID 1 MG TABLET (FP) PO SCH (09:50)
[2017-07-13] MEDS: THIAMINE HCL 100 MG TABLET (FP) PO SCH (09:50)
[2017-07-13] MEDS: SPIRONOLACTONE 25 MG TABLET (FP) PO SCH (09:50)
[2017-07-13] MEDS: PHYTONADIONE 5 MG TABLET PO SCH (09:51)
[2017-07-13] MEDS: DOLUTEGRAVIR SODIUM 50 MG TABLET PO SCH (09:51)
[2017-07-13] MEDS: EMTRICITABINE 200MG/TENOFOVIR 300MG PO SCH (09:51)
[2017-07-13] MEDS ORDERED: MIRTAZAPINE 15 MG TABLET (FP) PO SCH (10:00)
--- NOTE | 2017-07-13 10:12 | PN ---
Progress Note, Physician History of Present Illness: Comfortable, no events. tolerating regular breakfast. - Current Medication List Current Medications: Active Medications Acetaminophen (Tylenol -) 325 mg PO Q6H PRN PRN Reason: FEVER Last Admin: 07/10/17 14:28 Dose: 325 mg Atenolol (Tenormin -) 50 mg PO DAILY [facility] Last Admin: 07/13/17 09:50 Dose: 50 mg Atovaquone (Mepron -) 750 mg PO BIDWM [facility] Last Admin: 07/13/17 08:39 Dose: 750 mg Emtricitabine/Tenofovir (Truvada) 1 tab PO DAILY [facility] Last Admin: 07/13/17 09:51 Dose: 1 tab Ferrous Sulfate (Feosol -) 325 mg PO DAILY [facility] Last Admin: 07/13/17 09:50 Dose: 325 mg Folic Acid (Folic Acid -) 1 mg PO DAILY [facility] Last Admin: 07/13/17 09:50 Dose: 1 mg Furosemide (Lasix -) 40 mg PO BID@0600,1400 [facility] Last Admin: 07/13/17 05:54 Dose: 40 mg Lactobacillus Acidophilus (Bacid -) 1 tab PO DAILY [facility] Last Admin: 07/13/17 09:50 Dose: 1 tab Lactulose (Cephulac (Oral Use)) 20 gm PO TID [facility] Last Admin: 07/13/17 05:54 Dose: 20 gm Magnesium Oxide (Mag-Ox -) 400 mg PO BID [facility] Last Admin: 07/13/17 09:50 Dose: 400 mg Multivitamins/Minerals/Vitamin C (Tab-A-Vit -) 1 tab PO DAILY [facility] Last Admin: 07/13/17 09:50 Dose: 1 tab Nystatin (Nystatin Oral Suspension -) 500,000 units PO Q6HPO [facility] Last Admin: 07/13/17 05:54 Dose: 500,000 units Simethicone (Mylicon -) 80 mg PO QID PRN PRN Reason: GAS Spironolactone (Aldactone -) 50 mg PO BID [facility] Last Admin: 07/13/17 09:50 Dose: 50 mg Thiamine HCl (Vitamin B1 -) 100 mg PO DAILY [facility] Last Admin: 07/13/17 09:50 Dose: 100 mg - Objective Vital Signs: Vital Signs Temperature 98.3 F 07/13/17 10:00 Pulse Rate 83 07/13/17 10:00 Respiratory Rate 18 07/13/17 10:00 Blood Pressure 113/70 07/13/17 10:00 O2 Sat by Pulse Oximetry (%) 98 07/12/17 22:00 Constitutional: Yes: No Distress, Calm Cardiovascular: Yes: Regular Rate and Rhythm Respiratory: Yes: Regular Gastrointestinal: Yes: Normal Bowel Sounds. No: Melena, Rectal Bleeding, Tenderness, Vomiting Neurological: Yes: Alert, Oriented Labs: CBC, BMP 07/13/17 06:30 07/13/17 06:30 INR, PTT INR 1.67 (0.82-1.09) H 07/11/17 07:15 Abnormal Lab Results 07/12/17 07/12/17 07/12/17 07:00 07:00 17:00 WBC RBC Hgb Hct MCV MCH RDW Plt Count Sodium 168 H* D Chloride 134 H D 108 H D Anion Gap 7 L Calcium 6.9 L* 7.1 L TIBC < 139 L Iron Saturation > 88 H Ferritin 555.767 H Total Bilirubin 1.6 H AST 75 H Albumin 1.3 L Vitamin B12 1221 H D Free T4 1.34 H 07/13/17 07/13/17 06:30 06:30 WBC 3.0 L RBC 2.19 L Hgb 8.6 L Hct 24.8 L MCV 112.9 H MCH 39.0 H RDW 18.2 H Plt Count 45 L Sodium Chloride Anion Gap Calcium 7.0 L TIBC Iron Saturation Ferritin Total Bilirubin 1.4 H AST 77 H Albumin 1.4 L Vitamin B12 Free T4 Problem List - Problems (1) Hematochezia Code(s): K92.1 - MELENA (2) Ascites Code(s): R18.8 - OTHER ASCITES Qualifiers: Ascites type: due to alcoholic cirrhosis Qualified Code(s): K70.31 - Alcoholic cirrhosis of liver with ascites (3) Esophageal varices in alcoholic cirrhosis Code(s): K70.30 - ALCOHOLIC CIRRHOSIS OF LIVER WITHOUT ASCITES; I85.10 - SECONDARY ESOPHAGEAL VARICES WITHOUT BLEEDING (4) Fever Code(s): R50.9 - FEVER, UNSPECIFIED (5) Thrombocytopenia Code(s): D69.6 - THROMBOCYTOPENIA, UNSPECIFIED (6) Coagulopathy Code(s): D68.9 - COAGULATION DEFECT, UNSPECIFIED Assessment/Plan Continue aldactone, Lasix, low salt diet Add rifaximin, decrease lactulose (not tolerating well)
[2017-07-13] MEDS ORDERED: RIFAXIMIN 550 MG TABLET (UD) PO SCH (10:15)
[2017-07-13 14:39] VITALS: BP 107/65; PULSE 84; TEMP 98.9
--- NOTE | 2017-07-13 14:53 | PN ---
Teaching Attending Note Name of Resident: Brenda Kennedy ATTENDING PHYSICIAN STATEMENT I saw and evaluated the patient. I reviewed the resident's note and discussed the case with the resident. I agree with the resident's findings and plan as documented. SUBJECTIVE:states when he takes lactulose he has uncontrolled BM. had several last night and none today but has refused to take lactulose. denies CP, SOB, fever, chills, N/V/C, abdominal pain. OBJECTIVE: Last Vital Signs Temp Pulse Resp BP Pulse Ox 98.9 F 84 18 107/65 98 07/13/17 14:38 07/13/17 14:38 07/13/17 14:38 07/13/17 14:38 07/13/17 09:00 General Bitemporal wasting, prominent clavicles CV S1 S2 RRR Lungs CTA B/L no wheezing/rales/rhonchi abdomen soft + Fluid shift, no caput medusa Extremities 1+ pitting edema ASSESSMENT AND PLAN: 57 yo M with PMHx of HIV/AIDS not on HAART, HCV cirrhosis with esophageal varices/ascitis/thrombocytopenia/coagulopathy, HTN, PUD/h pylori gastritis admitted Acute bronchitis, atypical chest pain, found with large ascitis, also with intermittent haemorrhoidal bleed. 1. Atypical CP- resolved. cardiac enzymes neg x3. appears to be more gas-like pains. now mostly resolved 2. Decompensated HCV cirrhosis now with large ascitis/rectal bleed/ Thrombocytopenia/coagulopathy, ?HCV viral load- due to not taking medications for the past year. s/p paracentesits with 2L fluid removal. negative for SBP. not tolerating lactulose. will start rifaxamin and cont lactulose prn. stressed importance of medication compliance and follow up. cont lactulose, lasix and aldactone. 3. HIV/AIDS, last CD4 39- re-started on HARRT therapy. on mepron/azithro for ppx. 4. Chronic diarrhea, ?lactulose related- has been unable to obtain samples because pt not showing to RN. seems related to lactulose. will start rifaxmin. 5. Pancytopenia- likely due to cirrhosis. s/p 2 units PRBC, 2 FFP and 4 unit platelets this admission. will d/c protonix for low platelets. appeared to have hemorrhoidal bleeding which has since resolved. Hgb stable. on iron supplement, folic acid. 6. coagulopathic- due to cirrhosis. s/p Vitamin K 7. Hypernatremia- likely lab error. repeat resolved. 8. Depression- psych consulted. pt denied feeling depressed. recommended zyprexa for appetite stimulant but this can interfere with mental state and will hold. 9. severe malnutrition- evident by body habitus and weight loss. dietary consult. encourage po intake, ensure enlive, magic cup 10. pseudohypocalcemia- Corrected Ca 9 11. Oral cadidasis- on nystatin. EGD in March was negative for esophageal candidasis 12. DVT ppx- SCD 13. discussed options of short term rehab. pt states he does not want to go. want to go home and get his affairs in order and then will be moving to [place] to live with his daughter. stressed importance of medication compliance and PMD follow up. verbalized understanding and agreement with plan
--- NOTE | 2017-07-13 15:48 | PN ---
Progress Note (short form) - Note Progress Note: feels well today hates the lactulose- gives him fecal incontinence and he is having accidents Vital Signs Period Temp Pulse Resp BP Sys/[place] Pulse Ox Last 24 Hr 97.9 F-98.9 F 72-104 18-19 100-130/64-74 98 cor-rrr lungs decreased bs at bases abd firm NT ext +edema CBC, BMP 07/13/17 06:30 07/13/17 06:30 Microbiology 07/09/17 20:50 Blood - Peripheral Venous Blood Culture - Preliminary NO GROWTH OBTAINED AFTER 72 HOURS, INCUBATION TO CONTINUE FOR 2 DAYS. 07/09/17 20:50 Blood - Peripheral Venous Blood Culture - Preliminary NO GROWTH OBTAINED AFTER 72 HOURS, INCUBATION TO CONTINUE FOR 2 DAYS. 07/11/17 11:00 Peritoneal Fluid CHAYO Preparation - Preliminary 07/11/17 11:00 Peritoneal Fluid Fungal Culture - Preliminary 07/11/17 11:00 Peritoneal Fluid Gram Stain - Final 07/11/17 11:00 Peritoneal Fluid Body Fluid Culture - Preliminary NO AEROBIC GROWTH, 24 HRS 07/11/17 11:00 Peritoneal Fluid AFB Smear Concentration - Preliminary 07/11/17 11:00 Peritoneal Fluid Mycobacterial Culture - Preliminary 07/11/17 08:40 Urine For Antigen Detection Legionella Antigen - Final 07/11/17 08:40 Urine For Antigen Detection Streptococcus pneumoniae Antigen (M - Final 07/09/17 14:30 Nasopharyngeal Swab Influenza Types A,B Antigen (BEAU) - Final 07/09/17 14:30 Nasopharyngeal Swab - Final a/p acute change in electrolytes- repeat if cultures are negative in am can d/c rocephin no cough no diarrhea today decompensated cirrhosis- hep c untreated aids pancytopenia poor medication adherence as outpt started on art-truvada/tivicay add weekly zithromax for MAC prophylaxis given yesterday- should continue every tuesday continue Mepron for PCP prophylaxis would not give remeron at this time- drug interactions and mental status are a concern - will d/c is there an alternative to lactulose for him- he is refusing it he would benefit from SNF for short term- he is willing to consider it he will need GI followup with Dr Witt as well as f[facility]u at [facility] he has brought all his outpt meds with him- please review with him prior to discharge- he is confused as to what meds to take on an outpt basis Problem List - Problems (1) AIDS Code(s): B20 - HUMAN IMMUNODEFICIENCY VIRUS [HIV] DISEASE (2) Decompensated HCV cirrhosis Code(s): B19.20 - UNSPECIFIED VIRAL HEPATITIS C WITHOUT HEPATIC COMA; K74.69 - OTHER CIRRHOSIS OF LIVER (3) Bronchitis Code(s): J40 - BRONCHITIS, NOT SPECIFIED ACUTE OR CHRONIC (4) Pancytopenia Code(s): D61.818 - OTHER PANCYTOPENIA (5) Thrush Code(s): B37.0 - CANDIDAL STOMATITIS
--- NOTE | 2017-07-13 16:14 | PATH ---
Cytology Non-Gynecological Report Patient Name: JOSE ELIAS EVANS [facility]. Rec. #: [id number] /Age/Gender: 1960 (Age: 57) / M Account: [id number] Location: [address] [place] [address] Taken: 07/11/2017 Received: 07/11/2017 Reported: 07/13/2017 Physicians: Brad Edgar M.D. Specimen(s) Received A: PERITONEAL FLUID B: PERITONEAL FLUID Clinical History Ascites Final Diagnosis A & B. ABDOMINAL FLUID, PARACENTESIS: SATISFACTORY FOR EVALUATION. NO MALIGNANT CELLS IDENTIFIED. MESOTHELIAL CELLS AND LYMPHOCYTES PRESENT. Electronically Signed Bruna Mcarthur M.D. Gross Description A. Approximately 50 cc of yellow fluid received fixed in 50% alcohol. Two cytofunnels and one cellblock prepared. B. Approximately 4000 cc of yellow fluid received fresh. Two cytofunnels and one cellblock prepared.
--- NOTE | 2017-07-13 16:18 | DS ---
Physical Exam: SUBJECTIVE: Patient seen and examined. Says he had 4-5 non bloody watery bowel movements overnight. He says he feels better today. Denies abdominal pain, chest pain, dizziness, SOB, nausea and vomiting. OBJECTIVE: Vital Signs Period Temp Pulse Resp BP Sys/Skelton Pulse Ox Last 24 Hr 97.9 F-98.9 F 72-99 18-19 100-130/65-73 98-98 PHYSICAL EXAM GENERAL: A/O x3, in no acute distress. HEAD: Normal with no signs of trauma. EYES: Pupils equal, round and reactive to light, sclera anicteric EARS, NOSE, THROAT: Moist mucous membrane, oral thrush NECK: supple LUNGS: Breath sounds equal, clear to auscultation bilaterally. No wheezes, and no crackles. HEART: Regular rate and rhythm, normal S1 and S2 without murmur, rub or gallop. ABDOMEN: hyperactive bowel sounds, distended, nontender, no rebound UPPER EXTREMITIES: 2+ pulses, No peripheral edema. LOWER EXTREMITIES: 2+ pulses, 2+ pitting edema b/l LABS Laboratory Results - last 24 hr 07/12/17 07/12/17 07/13/17 07:00 17:00 06:30 WBC 3.0 L RBC 2.19 L Hgb 8.6 L Hct 24.8 L MCV 112.9 H MCH 39.0 H MCHC 34.6 RDW 18.2 H Plt Count 45 L MPV 11.0 Sodium 142 D Potassium 3.8 Chloride 108 H D Carbon Dioxide 27 Anion Gap 7 L BUN 10 Creatinine 0.9 Creat Clearance w eGFR Random Glucose 81 Calcium 7.1 L Iron 122 TIBC < 139 L Iron Saturation > 88 H Total Bilirubin AST ALT Alkaline Phosphatase Total Protein Albumin 07/13/17 06:30 WBC RBC Hgb Hct MCV MCH MCHC RDW Plt Count MPV Sodium 139 Potassium 3.6 Chloride 104 Carbon Dioxide 27 Anion Gap 8 BUN 9 Creatinine 0.8 Creat Clearance w eGFR > 60 Random Glucose 86 Calcium 7.0 L Iron TIBC Iron Saturation Total Bilirubin 1.4 H AST 77 H ALT 32 Alkaline Phosphatase 91 Total Protein 7.0 Albumin 1.4 L HOSPITAL COURSE: Date of Admission:07/09/17 57 yo non-compliant male with PMHx of HIV/AIDS not on HAART (last cd4 39), HCV cirrhosis, recurrent ascitis, esophageal varices, thrombocytopenia, coagulopathy , HTN presented with chest pain and respiratory symptoms was admitted because of chest pain and was found to have large ascites with decompensated HCV cirrhosis. He has been off his HAART medications for a few months. During the admission patient underwent paracentesis with 2L fluid removal,negative for SBP with improvement of symptoms. He was started on rifaxamin and lactulose. For his HIV/Aids, HAART was restarted, with Azithromycin and Atovaquone for PPX. Patient was not tolerating Lactulose, dosed was decreased to once a day on discharge. Patient also had pancytopenia, likely due to his cirrhosis. S/p 2 units of PRBC, 2 FFP, 4 units of platelets this admission. Patient also appeared to have hemorrhoidal bleeding which has since resolved. Hypernatremia was elevated initially (due to lab error) but next set was normal. Patient clinically improved. Discussed options for short term rehab and patient refused. He said he wanted to go home so he can pack and move to [place] with family. Had long discussion stressing importance of medication compliance and primary care follow up. New medications were sent to Pharmacy and patient was given instructions. Patient in agreement with plan. Date of Discharge: 07/13/17 Minutes to complete discharge: 35 Discharge Summary Reason For Visit: AIDS FAILURE TO THRIVE Condition: Guarded - Instructions Diet, Activity, Other Instructions: We were treating you because of complications of your liver failure. You will need to follow up with your primary care physician , oven loader (Dr. Witt), and the infection doctor (Dr. Awan). Make sure to eat as much as you can. Fluid restrict to less than 1.5L per day It is very important you take your medications as directed and not miss a dose. Missing one dose may result in worsening of your symptoms. Take Lactulose as needed, make sure you have 2 bowel movements per day. You may hold the medication if your having more than 2. If you have worsening of your symptoms please go to your nearest emergency room. Referrals: Rosa Awan MD [Staff Physician] - 1 Week Lobo Witt MD [Staff Physician] - 1 Week Disposition: HOME - Home Medications Comprehensive Discharge Medication List: Ambulatory Orders Multivitamins [Multivit ([facility] Formulary)] 1 tab PO DAILY #30 tab 11/30/17 Atenolol [Tenormin -] 50 mg PO DAILY #30 tablet 07/13/17 Atovaquone [Mepron Oral Solution -] 750 mg PO BIDWM ud 07/13/17 Azithromycin Suspension [Zithromax Suspension -] 1,200 mg PO WEEKLY #4 ml Emtricitabine/Tenofov Alafenam [Descovy 200-25 mg Tablet (Nf)] 1 each PO DAILY # 30 tablet 07/13/17 Ferrous Sulfate 325 mg PO DAILY 30 Days #30 tablet 07/13/17 Folic Acid - 1 mg PO DAILY #30 tablet 07/13/17 Furosemide [Lasix -] 40 mg PO BID@0600,1400 #60 tablet 07/13/17 Lactobacillus Acidophilus [Bacid -] 1 tab PO DAILY #30 tab 07/13/17 Lactulose 20 gm PO DAILY #1 ml 07/13/17 Magnesium Oxide [Mag-Ox -] 400 mg PO BID #60 tablet 07/13/17 Miscellaneous Drug Not In Syst [Outpatient Lab Test] 1 each ASDIR #1 misc Miscellaneous Drug Not In Syst [Outpatient Lab Test] 1 each ASDIR #1 misc Nystatin Oral Suspension - [Nystatin Oral Susp 779099 Units/5 ML -] 500,000 units PO Q6H #1 cup 07/13/17 Omeprazole 40 mg PO DAILY #30 capsule. 07/13/17 Rifaximin [Xifaxan -] 550 mg PO BID tablet 07/13/17 Simethicone 80 mg PO QID PRN #100 tab.chew 07/13/17 Spironolactone [Aldactone -] 50 mg PO BID #60 tablet 07/13/17 Thiamine HCl [Vitamin B1 -] 100 mg PO DAILY #30 tab 07/13/17 This patient is new to me today: No Emergency Visit: Yes ED Registration Date: 07/09/17 Care time: The patient presented to the Emergency Department on the above date and was hospitalized for further evaluation of their emergent condition. Critical Care patient: No - Discharge Referral Referred to [facility] No
[2017-07-14] MEDS ORDERED: LACTULOSE 20 GM/30 ML UDC (FOR ORAL USE ONLY) PO SCH (10:00)
== END 2017-07-13 14:48 | disposition home or self-care (01) | DRG 892 ==
LOC: JER 13:02 → JERBED 17:54 → J6S 07-10 00:18
PROVIDERS: ADMIT Hospitalist; ATTEND Internal Medicine
PROC: 30233R1 Transfusion of Nonautologous Platelets into Peripheral Vein, Percutaneous Approach (ICD-10-PCS; principal; 2017-07-10)
PROC: 30233L1 Transfusion of Nonautologous Fresh Plasma into Peripheral Vein, Percutaneous Approach (ICD-10-PCS; 2017-07-10)
PROC: 30233K1 Transfusion of Nonautologous Frozen Plasma into Peripheral Vein, Percutaneous Approach (ICD-10-PCS; 2017-07-10)
PROC: 30233N1 Transfusion of Nonautologous Red Blood Cells into Peripheral Vein, Percutaneous Approach (ICD-10-PCS; 2017-07-11)
PROC: 0W9G3ZX Drainage of Peritoneal Cavity, Percutaneous Approach, Diagnostic (ICD-10-PCS; 2017-07-11)
DX: B20 Human immunodeficiency virus [HIV] disease (principal); R62.7 Adult failure to thrive; K72.90 Hepatic failure, unspecified without coma; R07.89 Other chest pain; D69.6 Thrombocytopenia, unspecified; D61.818 Other pancytopenia; B37.0 Candidal stomatitis; I10 Essential (primary) hypertension; D68.8 Other specified coagulation defects; R19.7 Diarrhea, unspecified; E87.0 Hyperosmolality and hypernatremia; F32.9 Major depressive disorder, single episode, unspecified; E43 Unspecified severe protein-calorie malnutrition; Z68.22 Body mass index [BMI] 22.0-22.9, adult; E83.51 Hypocalcemia; K70.31 Alcoholic cirrhosis of liver with ascites; J20.9 Acute bronchitis, unspecified; D72.819 Decreased white blood cell count, unspecified; B19.20 Unspecified viral hepatitis C without hepatic coma; R64 Cachexia
CPT/HCPCS: 36415; 36430; 71046-TC; 76700-TC; 76942-TC; 80048; 80053; 81003; 82042; 82150; 82550; 82607; 82728; 82747; 82945; 83540; 83550; 83615; 83690; 83735; 84100; 84157; 84439; 84443; 84478; 84484; 85014; 85025; 85027; 85610; 85730; 86850; 86900; 86901; 86922; 87040; 87070; 87075; 87102; 87116; 87205; 87206; 87210; 87804; 87899; 89051; 93005; 93010; 93306-TC; 97116-GP; 97161-GP; 99282-25; P9017; P9034; P9038; P9058

== ENCOUNTER 2017-08-11 20:02 | Observation (INO) | payer OTHER ==
--- NOTE | 2017-08-11 20:48 | PDOC ---
History of Present Illness - General History Source: Patient Exam Limitations: No Limitations - History of Present Illness Initial Comments: 08/11/17 20:55 The patient is a 57 year old male, with a significant past medical history of liver cirrhosis, hepatitis C, HIV, and hypertension, who presents to the emergency department sent by PCP for possible admission due to hypokalemia. Patient reports he has noted associated diarrhea, fatigue, shortness of breath, and weakness. Patient reports his shortness of breath is exacerbated with exertion. He denies any abdominal pain or cramping, nausea, vomiting, or constipation. He denies any fever, chills, cough, headache, dizziness, lightheadedness, or muscle cramps. He denies any chest pain, shortness of breath , diaphoresis, or palpitations. Patient reports taking 40 mg of Potassium prior to presentation. He denies any recent dysuria, hematuria, frequency, or urgency. He denies any recent travel or sick contacts. Patient reports he is on Diuretics. Allergies: NKDA Past Surgical History: Appendectomy Social History: Former smoker (5-6 cigarettes a day, quit 3 months ago). 1-2 beers a week. No recreational drug use. <Zac Negron - Last Filed: 08/11/17 22:09> - General History Source: Patient <Linus Doran - Last Filed: 08/16/17 19:23> - General Chief Complaint: Revisit, Lab Variance Stated Complaint: PCP SENT Time Seen by Provider: 08/11/17 20:07 Past History <Zac Negron - Last Filed: 08/11/17 22:09> - Past Medical History Anemia: Yes Asthma: No COPD: No Diabetes: No HTN: Yes Liver Disease: Yes (HEP C) - Surgical History Appendectomy: Yes (1970s) - Suicide/Smoking/Psychosocial Hx Smoking History: Never smoked Have you smoked in the past 12 months: No Number of Cigarettes Smoked Daily: 3 If you are a former smoker, when did you quit?: 1 year ago Information on smoking cessation initiated: No 'Breaking Loose' booklet given: 04/09/17 Hx Alcohol Use: No Drug/Substance Use Hx: No Substance Use Type: None Hx Substance Use Treatment: No <Linus Doran - Last Filed: 08/16/17 19:23> - Past Medical History Allergies/Adverse Reactions: Allergies Allergy/AdvReac Type Severity Reaction Status Date / Time No Known Allergies Allergy Verified 08/11/17 20:05 Home Medications: Ambulatory Orders Spironolactone [Aldactone -] 50 mg PO BID #60 tablet 07/13/17 Thiamine HCl [Vitamin B1 -] 100 mg PO DAILY #30 tab 07/13/17 Rifaximin [Xifaxan] 550 mg PO BID #60 tablet 07/14/17 Nystatin Oral Suspension - [Nystatin Oral Susp 142512 Units/5 ML -] 500,000 units PO Q8H 30 Days #480 cup 07/22/17 Hydrocortisone 1% Cream [Hytone 1% Cream -] 1 applic TP BID #30 g 07/26/17 Atenolol [Tenormin -] 50 mg PO DAILY #30 tablet 08/04/17 Azithromycin [Zithromax 250mg Tablets -] 1,200 mg PO WEEKLY #8 tablet 08/04/17 Dolutegravir Sodium [Tivicay] 50 mg PO DAILY #30 tablet 08/04/17 Emtricitabine/Tenofov Alafenam [Descovy 200-25 mg Tablet (Nf)] 1 each PO DAILY # 30 tablet 08/04/17 Ferrous Sulfate 325 mg PO DAILY 30 Days #30 tablet 08/04/17 Folic Acid - 1 mg PO DAILY #30 tablet 08/04/17 Magnesium Oxide [Mag-Ox -] 400 mg PO BID #60 tablet 08/04/17 Omeprazole 40 mg PO DAILY #30 capsule. 08/04/17 Simethicone 80 mg PO QID PRN #100 tab.chew 08/04/17 Sodium Chloride [Saline Nasal [place]] 30 ml NS PRN #1 spray 08/11/17 Atovaquone [Mepron Oral Solution -] 750 mg PO BID 08/12/17 Furosemide [Lasix] 40 mg PO DAILY 08/12/17 Miscellaneous Drug Not In Syst [Outpatient Lab Test] 1 each ASDIR #1 misc Potassium Chloride [K-Dur -] 10 meq PO DAILY #30 tablet.er 08/12/17 Spironolactone [Aldactone] 50 mg PO DAILY 08/12/17 Review of Systems - Review of Systems Able to Perform ROS?: Yes Comments:: 08/11/17 20:56 CONSTITUTIONAL: Present: fatigue, weakness Absent: fever, no chills EYES: Absent: visual changes ENT: Absent: ear pain, no sore throat CARDIOVASCULAR: Absent: chest pain, no palpitations RESPIRATORY: Present: SOB, SOB with exertion Absent: cough GI: Present: diarrhea Absent: abdominal pain, no nausea, no vomiting, no constipation GENITOURINARY: Absent: dysuria, no frequency, no hematuria MUSCULOSKELETAL: Absent: back pain, no arthralgia, no myalgia SKIN: Absent: rash NEURO: Absent: headache <Negron,Giomilsy - Last Filed: 08/11/17 22:09> *Physical Exam - Vital Signs Last Vital Signs Temp Pulse Resp BP Pulse Ox 97.6 F 87 18 124/79 97 08/11/17 20:05 08/11/17 20:05 08/11/17 20:05 08/11/17 20:05 08/11/17 20:05 - Physical Exam Comments: 08/11/17 20:57 GENERAL: Well developed, well nourished. Awake and alert. No acute distress. HEENT: Normocephalic, atraumatic. PERRLA, EOMI. No conjunctival pallor. Sclera are non- icteric. Moist mucous membranes. Oropharynx is clear. NECK: Supple. Full ROM. No JVD. Carotid pulses 2+ and symmetric, without bruits. No thyromegaly. No lymphadenopathy. CARDIOVASCULAR: Regular rate and rhythm. No murmurs, rubs, or gallops. Distal pulses are 2+ and symmetric. PULMONARY: No evidence of respiratory distress. Lungs clear to auscultation bilaterally. No wheezing, rales or rhonchi. ABDOMINAL: Distended abdomen. Soft. Non-tender. No rebound or guarding. No organomegaly. Normoactive bowel sounds. MUSCULOSKELETAL Normal range of motion at all joints. No bony deformities or tenderness. No CVA tenderness. EXTREMITIES: No cyanosis. No clubbing. No edema. No calf tenderness. SKIN: Warm and dry. Normal capillary refill. No rashes. No jaundice. NEUROLOGICAL: Alert, awake, appropriate. Cranial nerves 2-12 intact. No deficits to light touch and temperature in face, upper extremities and lower extremities. No motor deficits in the in face, upper extremities and lower extremities. Normoreflexic in the upper and lower extremities. Normal speech. Toes are down- going bilaterally. Gait is normal without ataxia. PSYCHIATRIC: Cooperative. Good eye contact. Appropriate mood and affect. <Zac Negron - Last Filed: 08/11/17 22:09> - Vital Signs Last Vital Signs Temp Pulse Resp BP Pulse Ox 97.6 F 87 18 124/79 97 08/11/17 20:05 08/11/17 20:05 08/11/17 20:05 08/11/17 20:05 08/11/17 20:05 <Linus Doran - Last Filed: 08/16/17 19:23> Heart Score/ECG Review - ECG Intrepretation Comment:: 08/11/17 22:09 Vent Rate: 87 bpm IMPRESSION: Normal sinus rhythm. Non specific T wave abnormality. <Zac Negron - Last Filed: 08/11/17 22:09> ED Treatment Course - LABORATORY CBC & Chemistry Diagram: 08/11/17 21:39 08/11/17 21:39 <Zac Negron - Last Filed: 08/11/17 22:09> - LABORATORY CBC & Chemistry Diagram: 08/12/17 14:17 08/12/17 11:00 <Linus Doran - Last Filed: 08/16/17 19:23> Medical Decision Making - Medical Decision Making 08/16/17 19:23 Dr. Doran: The scribe's documentation has been prepared under my direction and personally reviewed by me in its entirery. I confirm that the note above accurately reflects all work, treatment, procedures, and medical decision making performed by me. <Linus Doran - Last Filed: 08/16/17 19:23> *DC/Admit/Observation/Transfer - Attestations Scribe Attestion: 08/11/17 20:59 Documentation prepared by Zac Negron, acting as medical review specialist for Linus Doran DO. <Zac Negron - Last Filed: 08/11/17 22:09> - Discharge Dispostion Admit: Yes <Linus Doran - Last Filed: 08/16/17 19:23> Diagnosis at time of Disposition: Human immunodeficiency virus (HIV) disease, Electrolyte imbalance - Discharge Dispostion Disposition: HOME Condition at time of disposition: Stable
[2017-08-11 21:46] LABS: BASO % 0.3 % (0-2.0); EOS % 1.2 % (0-4.5); HEMATOCRIT 22.1 % (35.4-49); HEMOGLOBIN 7.4 GM/dL (11.7-16.9); LYMPH % 17.5 % (8-40); MCHC 33.5 g/dl (32.0-35.9); MEAN CELL VOLUME 119.7 fl (80-96); MEAN PLT VOLUME 12.3 fl (7.5-11.1); MONO % 9.3 % (3.8-10.2); NEUT % 71.7 % (42.8-82.8); PLATELET COUNT 53 K/MM3 (134-434); RBC 1.85 M/mm3 (4.00-5.60); RDW 20.3 % (11.9-15.9); WHITE BLOOD COUNT 3.5 K/mm3 (4.0-10.0)
[2017-08-11 21:48] LABS: MCH 40.1 pg (25.7-33.7)
[2017-08-11 21:49] LABS: ADD RBC MORPHOLOGY YES
[2017-08-11 22:20] LABS: ANISOCYTOSIS 1+; MACROCYTOSIS 3+; PLATELET ESTIMATE DECREASED; TARGET CELLS 1+
[2017-08-11 23:20] LABS: ALBUMIN 1.2 g/dl (3.4-5.0); ANION GAP 11 (8-16); BLOOD UREA NITROGEN 11 mg/dL (7-18); CHLORIDE 109 mmol/L (98-107); CO2 22 mmol/L (21-32); CREATININE 0.9 mg/dL (0.7-1.3); GLUCOSE,RANDOM 80 mg/dL (74-106); SGPT/ALT 45 U/L (12-78); SODIUM 142 mmol/L (136-145); TOT PROT 6.9 g/dl (6.4-8.2)
[2017-08-11 23:22] LABS: ALK PHOS 79 U/L (45-117)
[2017-08-11 23:24] LABS: SGOT/AST 118 U/L (15-37)
[2017-08-11 23:25] LABS: ACTIVATED PTT 53.5 SECONDS (26.9-34.4)
[2017-08-11 23:25] LABS: CALCIUM 6.7 mg/dL (8.5-10.1)
[2017-08-11 23:27] LABS: INR 2.74 (0.82-1.09)
[2017-08-11] MEDS ORDERED: POTASSIUM CHLORIDE TABS 20 MEQ TABLET.ER (FP) PO ONE (23:28)
[2017-08-11] MEDS ORDERED: CALCIUM GLUCONATE 10% - 1,000 MG/10 ML VIAL IVPB ONE (23:28)
[2017-08-12] MEDS ORDERED: CALCIUM GLUCONATE 10% - 1,000 MG/10 ML VIAL ONE (00:03)
[2017-08-12] MEDS ORDERED: KCL 10 MEQ IVPB 10 MEQ/100 ML INFUS.BAG IVPB ONE (00:04)
[2017-08-12] MEDS ORDERED: POTASSIUM CHLORIDE TABS 20 MEQ TABLET.ER (FP) PO ONE (00:04)
[2017-08-12] MEDS: KCL 10 MEQ IVPB 10 MEQ/100 ML INFUS.BAG IVPB SCH ×2 (00:17→00:51)
--- NOTE | 2017-08-12 01:08 | PN ---
Teaching Attending Note Name of Resident: Darryl Rodriguez ATTENDING PHYSICIAN STATEMENT I saw and evaluated the patient. I reviewed the resident's note and discussed the case with the resident. I agree with the resident's findings and plan as documented. SUBJECTIVE: OBJECTIVE: Vital Signs Period Temp Pulse Resp BP Sys/Skelton Pulse Ox Last 24 Hr 97.6 F 87 18 124/79 97 Laboratory Tests 08/11/17 08/11/17 08/11/17 21:39 21:39 21:39 WBC 3.5 L RBC 1.85 L Hgb 7.4 L Hct 22.1 L MCV 119.7 H MCH 40.1 H MCHC 33.5 RDW 20.3 H Plt Count 53 L MPV 12.3 H Neutrophils % 71.7 Lymphocytes % 17.5 Monocytes % 9.3 Eosinophils % 1.2 Basophils % 0.3 Hypochromia 1+ Platelet Estimate Decreased Platelet Comment No clumping noted Polychromasia 1+ Anisocytosis 1+ Macrocytosis 3+ Target Cells 1+ PT with INR Cancelled INR Cancelled PTT (Actin FS) Sodium Cancelled Potassium Cancelled Chloride Cancelled Carbon Dioxide Cancelled Anion Gap Cancelled BUN Cancelled Creatinine Cancelled Creat Clearance w eGFR Cancelled Random Glucose Cancelled Calcium Cancelled Magnesium Cancelled Total Bilirubin Cancelled AST Cancelled ALT Cancelled Alkaline Phosphatase Cancelled Creatine Kinase Cancelled Creatine Kinase Index CK-MB (CK-2) Troponin I Cancelled Total Protein Cancelled Albumin Cancelled 08/11/17 08/11/17 22:02 23:00 WBC RBC Hgb Hct MCV MCH MCHC RDW Plt Count MPV Neutrophils % Lymphocytes % Monocytes % Eosinophils % Basophils % Hypochromia Platelet Estimate Platelet Comment Polychromasia Anisocytosis Macrocytosis Target Cells PT with INR 31.00 H INR 2.74 H D PTT (Actin FS) 53.5 H Sodium 142 Potassium 3.0 L Chloride 109 H Carbon Dioxide 22 Anion Gap 11 BUN 11 Creatinine 0.9 Creat Clearance w eGFR > 60 Random Glucose 80 Calcium 6.7 L* Magnesium Total Bilirubin 4.0 H AST 118 H ALT 45 Alkaline Phosphatase 79 Creatine Kinase 213 Creatine Kinase Index 1.2 CK-MB (CK-2) 2.628 Troponin I 0.04 D Total Protein 6.9 Albumin 1.2 L Home Medications Medication Instructions Recorded Furosemide [Lasix -] 40 mg PO BID@0600,1400 #60 tablet 07/13/17 Nystatin Oral Suspension - 500,000 units PO Q6H #1 cup 07/13/17 [Nystatin Oral Susp 039665 Units/5 ML -] Spironolactone [Aldactone -] 50 mg PO BID #60 tablet 07/13/17 Thiamine HCl [Vitamin B1 -] 100 mg PO DAILY #30 tab 07/13/17 Atovaquone [Mepron -] 1,500 mg PO DAILY@0800 30 Days 07/14/17 #300 ml Rifaximin [Xifaxan] 550 mg PO BID #60 tablet 07/14/17 Nystatin Oral Suspension - 500,000 units PO Q8H 30 Days #480 07/22/17 [Nystatin Oral Susp 485704 Units/5 cup ML -] Hydrocortisone 1% Cream [Hytone 1% 1 applic TP BID #30 g 07/26/17 Cream -] Hydrocortisone 0.5% Cream [Hytone 1 applic TP DAILY #1 tube 07/28/17 0.5% Cream -] Atenolol [Tenormin -] 50 mg PO DAILY #30 tablet 08/04/17 Azithromycin [Zithromax 250mg 1,200 mg PO WEEKLY #8 tablet 08/04/17 Tablets -] Dolutegravir Sodium [Tivicay] 50 mg PO DAILY #30 tablet 08/04/17 Emtricitabine/Tenofov Alafenam 1 each PO DAILY #30 tablet 08/04/17 [Descovy 200-25 mg Tablet (Nf)] Ferrous Sulfate 325 mg PO DAILY 30 Days #30 tablet 08/04/17 Folic Acid - 1 mg PO DAILY #30 tablet 08/04/17 Magnesium Oxide [Mag-Ox -] 400 mg PO BID #60 tablet 08/04/17 Omeprazole 40 mg PO DAILY #30 capsule. 08/04/17 Potassium Chloride [K-Dur -] 20 meq PO DAILY #10 tablet.er 08/04/17 Simethicone 80 mg PO QID PRN #100 tab.chew 08/04/17 Sodium Chloride [Saline Nasal 30 ml NS PRN #1 spray 08/11/17 [place]] ASSESSMENT AND PLAN:
--- NOTE | 2017-08-12 01:17 | HP ---
CHIEF COMPLAINT: Hypokalemia PCP: Dr. Karie Regan HISTORY OF PRESENT ILLNESS: The patient is a 57 yo m w/ PMH Liver cirrhosis 2/2 HCV, HIV, HTN who was sent by his pcp for evaluation of hypokalemia. Patient states that he was taking potassium supplements until last tuesday, when his PCP instructed him to stop taking them. When his blood was taken again today, he was found to have a potassium of 2.7. His PCP instructed him to take 40 meq of potassium and go to the ED for evaluation. Patient states he is asymptomatic. Patient denies CP, SOB , abdominal pain, fevers, chills. ER course was notable for: (1) potassium 3.0 (2) (3) Recent Travel: none PAST MEDICAL HISTORY: anemia HTN HCV liver cirrhosis PAST SURGICAL HISTORY: appendectomy Social History: Smoking: smoked in high school Alcohol: patient daily drinker; unsure of how many drinks Drugs: denies Family History: non-contributory Allergies No Known Allergies Allergy (Verified 08/11/17 20:05) HOME MEDICATIONS: Home Medications Medication Instructions Recorded Furosemide [Lasix -] 40 mg PO BID@0600,1400 #60 tablet 07/13/17 Nystatin Oral Suspension - 500,000 units PO Q6H #1 cup 07/13/17 [Nystatin Oral Susp 585839 Units/5 ML -] Spironolactone [Aldactone -] 50 mg PO BID #60 tablet 07/13/17 Thiamine HCl [Vitamin B1 -] 100 mg PO DAILY #30 tab 07/13/17 Atovaquone [Mepron -] 1,500 mg PO DAILY@0800 30 Days 07/14/17 #300 ml Rifaximin [Xifaxan] 550 mg PO BID #60 tablet 07/14/17 Nystatin Oral Suspension - 500,000 units PO Q8H 30 Days #480 07/22/17 [Nystatin Oral Susp 009340 Units/5 cup ML -] Hydrocortisone 1% Cream [Hytone 1% 1 applic TP BID #30 g 07/26/17 Cream -] Hydrocortisone 0.5% Cream [Hytone 1 applic TP DAILY #1 tube 07/28/17 0.5% Cream -] Atenolol [Tenormin -] 50 mg PO DAILY #30 tablet 08/04/17 Azithromycin [Zithromax 250mg 1,200 mg PO WEEKLY #8 tablet 08/04/17 Tablets -] Dolutegravir Sodium [Tivicay] 50 mg PO DAILY #30 tablet 08/04/17 Emtricitabine/Tenofov Alafenam 1 each PO DAILY #30 tablet 08/04/17 [Descovy 200-25 mg Tablet (Nf)] Ferrous Sulfate 325 mg PO DAILY 30 Days #30 tablet 08/04/17 Folic Acid - 1 mg PO DAILY #30 tablet 08/04/17 Magnesium Oxide [Mag-Ox -] 400 mg PO BID #60 tablet 08/04/17 Omeprazole 40 mg PO DAILY #30 capsule.dr 08/04/17 Potassium Chloride [K-Dur -] 20 meq PO DAILY #10 tablet.er 08/04/17 Simethicone 80 mg PO QID PRN #100 tab.chew 08/04/17 Sodium Chloride [Saline Nasal 30 ml NS PRN #1 spray 08/11/17 [place]] REVIEW OF SYSTEMS CONSTITUTIONAL: Absent: fever, chills, diaphoresis, generalized weakness, malaise, loss of appetite, weight change HEENT: Absent: rhinorrhea, nasal congestion, throat pain, throat swelling, difficulty swallowing, mouth swelling, ear pain, eye pain, visual changes CARDIOVASCULAR: Absent: chest pain, syncope, palpitations, irregular heart rate, lightheadedness , peripheral edema RESPIRATORY: Absent: cough, shortness of breath, dyspnea with exertion, orthopnea, wheezing, stridor, hemoptysis GASTROINTESTINAL: Absent: abdominal pain, abdominal distension, nausea, vomiting, diarrhea, constipation, melena, hematochezia GENITOURINARY: Absent: dysuria, frequency, urgency, hesitancy, hematuria, flank pain, genital pain MUSCULOSKELETAL: Absent: myalgia, arthralgia, joint swelling, back pain, neck pain SKIN: Absent: rash, itching, pallor HEMATOLOGIC/IMMUNOLOGIC: Absent: easy bleeding, easy bruising, lymphadenopathy, frequent infections ENDOCRINE: Absent: unexplained weight gain, unexplained weight loss, heat intolerance, cold intolerance NEUROLOGIC: Absent: headache, focal weakness or paresthesias, dizziness, unsteady gait, seizure, mental status changes, bladder or bowel incontinence PSYCHIATRIC: Absent: anxiety, depression, suicidal or homicidal ideation, hallucinations. PHYSICAL EXAMINATION Vital Signs - 24 hr 08/11/17 20:05 Temperature 97.6 F Pulse Rate 87 Respiratory 18 Rate Blood Pressure 124/79 O2 Sat by Pulse 97 Oximetry (%) GENERAL: Awake, alert, and fully oriented, in no acute distress. Temporal wasting and sunken cheeks noted. HEAD: Normal with no signs of trauma. EYES: Pupils equal, round and reactive to light, extraocular movements intact, sclera anicteric, conjunctiva clear. No lid lag. LUNGS: Breath sounds equal, clear to auscultation bilaterally. Inspiratory crackles heard in mid land lower lung antonio b/l. No accessory muscle use. HEART: Regular rate and rhythm, normal S1 and S2 without murmur, rub or gallop. ABDOMEN: Soft, nontender, normoactive bowel sounds, no guarding, no rebound, no masses. LOWER EXTREMITIES: 2+ pulses, warm, well-perfused. No calf tenderness. 2+ edema noted b/l. NEUROLOGICAL: Cranial nerves II-X intact. Normal speech. Laboratory Results - last 24 hr 08/11/17 08/11/17 08/11/17 21:39 21:39 21:39 WBC 3.5 L RBC 1.85 L Hgb 7.4 L Hct 22.1 L MCV 119.7 H MCH 40.1 H MCHC 33.5 RDW 20.3 H Plt Count 53 L MPV 12.3 H Neutrophils % 71.7 Lymphocytes % 17.5 Monocytes % 9.3 Eosinophils % 1.2 Basophils % 0.3 Hypochromia 1+ Platelet Estimate Decreased Platelet Comment No clumping noted Polychromasia 1+ Anisocytosis 1+ Macrocytosis 3+ Target Cells 1+ PT with INR Cancelled INR Cancelled PTT (Actin FS) Sodium Cancelled Potassium Cancelled Chloride Cancelled Carbon Dioxide Cancelled Anion Gap Cancelled BUN Cancelled Creatinine Cancelled Creat Clearance w eGFR Cancelled Random Glucose Cancelled Calcium Cancelled Magnesium Cancelled Total Bilirubin Cancelled AST Cancelled ALT Cancelled Alkaline Phosphatase Cancelled Creatine Kinase Cancelled Creatine Kinase Index CK-MB (CK-2) Troponin I Cancelled Total Protein Cancelled Albumin Cancelled 08/11/17 08/11/17 22:02 23:00 WBC RBC Hgb Hct MCV MCH MCHC RDW Plt Count MPV Neutrophils % Lymphocytes % Monocytes % Eosinophils % Basophils % Hypochromia Platelet Estimate Platelet Comment Polychromasia Anisocytosis Macrocytosis Target Cells PT with INR 31.00 H INR 2.74 H D PTT (Actin FS) 53.5 H Sodium 142 Potassium 3.0 L Chloride 109 H Carbon Dioxide 22 Anion Gap 11 BUN 11 Creatinine 0.9 Creat Clearance w eGFR > 60 Random Glucose 80 Calcium 6.7 L* Magnesium Total Bilirubin 4.0 H AST 118 H ALT 45 Alkaline Phosphatase 79 Creatine Kinase 213 Creatine Kinase Index 1.2 CK-MB (CK-2) 2.628 Troponin I 0.04 D Total Protein 6.9 Albumin 1.2 L ASSESSMENT/PLAN: The patient is a 57 yo m w/ PMH Liver cirrhosis, HCV, HIV and HTN who is being admitted for observation for hypokalemia. #Hypokalemia -2.7 as an outpatient, now 3.0. -s/p 40meq PO KCL in ED -s/p 10 meq KCL IV in ED -Scheduled for another 10meq IV -will place the pt on 40meq kcl po daily starting tomorrow -EKG shows no changes #HTN -c/w home meds #HIV -c/w home meds #HCV -currently untreated. should follow as outpatient for treatment. #FEN -no fluids indicated -monitor lytes -sodium controlled diet #Prophylaxis -patient low risk for dvt; no prophy indicated #Dispo -Admit for observation to med surg. Visit type - Emergency Visit Emergency Visit: Yes ED Registration Date: 08/11/17 Care time: The patient presented to the Emergency Department on the above date and was hospitalized for further evaluation of their emergent condition. - New Patient This patient is new to me today: Yes Date on this admission: 08/12/17 - Critical Care Critical Care patient: No Hospitalist Screening - Colonoscopy Questionnaire Colonoscopy Questionnaire: Colonoscopy Questionnaire - Patient: 50 - 75 years old and never had a screening colonoscopy: Unknown History of colon or rectal polyps, or CA: Unknown History of IBD, Crohn's disease or UC: Unknown History of abdominal radiation therapy as a child: Unknown - Relative: 1 with colon or rectal CA, or polyps at age 60 or younger: Unknown Colon or rectal CA diagnosed at age 45 or younger: Unknown Multiple relatives with colon or rectal CA: Unknown - Outcome: Screening Result: Negative Screen
[2017-08-12 05:13] VITALS: BMI 21.6
[2017-08-12] MEDS: FUROSEMIDE 40 MG TABLET (FP) PO SCH ×2 (05:33→14:44)
--- NOTE | 2017-08-12 05:36 | PN ---
Physical Exam: SUBJECTIVE: Patient seen and exmined at bedside. feeling cold, asking for food , denies any active symptoms. OBJECTIVE: Vital Signs Period Temp Pulse Resp BP Sys/[place] Pulse Ox Last 24 Hr 97.6 F-98.5 F 87-91 18-18 124-131/79-87 96-97 GENERAL: AAOx3 in NAD HEAD: NC/AT EYES: EOMI, Conjunctiva clear, sclera anicteric ENT: moist mucous membrane NECK: Supple, no JVD LUNGS: CTA B/L, BI basilar crackles ,no wheezing no accessory muscle use.mid sternal scar.right broken lower ribs HEART: RRR, NSR, normal s1, s2, no M/R/G ABDOMEN: Ascities, Soft, distended, NT, +BS 4 Q, , + shifting dullness, no CVA Tenderness LOWER EXTREMITIES: +2 edema, +2DP pulse, NEUROLOGICAL: No focal deficit. Normal speech. gait not observed. PSYCHIATRIC: Cooperative. Good eye contact. Appropriate mood and affect. SKIN: Warm, dry, Laboratory Results - last 24 hr 08/11/17 08/11/17 08/11/17 21:39 21:39 21:39 WBC 3.5 L RBC 1.85 L Hgb 7.4 L Hct 22.1 L MCV 119.7 H MCH 40.1 H MCHC 33.5 RDW 20.3 H Plt Count 53 L MPV 12.3 H Neutrophils % 71.7 Lymphocytes % 17.5 Monocytes % 9.3 Eosinophils % 1.2 Basophils % 0.3 Hypochromia 1+ Platelet Estimate Decreased Platelet Comment No clumping noted Polychromasia 1+ Anisocytosis 1+ Macrocytosis 3+ Target Cells 1+ PT with INR Cancelled INR Cancelled PTT (Actin FS) Sodium Cancelled Potassium Cancelled Chloride Cancelled Carbon Dioxide Cancelled Anion Gap Cancelled BUN Cancelled Creatinine Cancelled Creat Clearance w eGFR Cancelled Random Glucose Cancelled Calcium Cancelled Magnesium Cancelled Total Bilirubin Cancelled AST Cancelled ALT Cancelled Alkaline Phosphatase Cancelled Creatine Kinase Cancelled Creatine Kinase Index CK-MB (CK-2) Troponin I Cancelled Total Protein Cancelled Albumin Cancelled 08/11/17 08/11/17 22:02 23:00 WBC RBC Hgb Hct MCV MCH MCHC RDW Plt Count MPV Neutrophils % Lymphocytes % Monocytes % Eosinophils % Basophils % Hypochromia Platelet Estimate Platelet Comment Polychromasia Anisocytosis Macrocytosis Target Cells PT with INR 31.00 H INR 2.74 H D PTT (Actin FS) 53.5 H Sodium 142 Potassium 3.0 L Chloride 109 H Carbon Dioxide 22 Anion Gap 11 BUN 11 Creatinine 0.9 Creat Clearance w eGFR > 60 Random Glucose 80 Calcium 6.7 L* Magnesium Total Bilirubin 4.0 H AST 118 H ALT 45 Alkaline Phosphatase 79 Creatine Kinase 213 Creatine Kinase Index 1.2 CK-MB (CK-2) 2.628 Troponin I 0.04 D Total Protein 6.9 Albumin 1.2 L Active Medications Generic Name Dose Route Start Last Admin Trade Name Freq PRN Reason Stop Dose Admin Atenolol 50 mg 08/12/17 10:00 Tenormin - PO DAILY [facility] Atovaquone 1,500 mg 08/12/17 08:00 Mepron - PO DAILY@0800 [facility] Ferrous Sulfate 325 mg 08/12/17 10:00 Feosol - PO DAILY [facility] Folic Acid 1 mg 08/12/17 10:00 Folic Acid - PO DAILY [facility] Furosemide 40 mg 08/12/17 06:00 08/12/17 05:33 Lasix - PO 40 mg BID@0600,1400 [facility] Administration Magnesium Oxide 400 mg 08/12/17 10:00 Mag-Ox - PO BID [facility] Non-Formulary Medication 1 each 08/12/17 10:00 Emtricitabine/Tenofov Alafenam [Descovy 200-25 Mg Tablet (Nf)] PO DAILY [facility] Pantoprazole Sodium 40 mg 08/12/17 10:00 Protonix - PO DAILY [facility] Potassium Chloride 40 meq 08/12/17 10:00 K-Dur - PO DAILY [facility] Rifaximin 550 mg 08/12/17 10:00 Xifaxan - PO BID [facility] Spironolactone 50 mg 08/12/17 10:00 Aldactone - PO BID [facility] ASSESSMENT/PLAN: Hypokalemia HTN HIV Pseudo hypokalcemia Anemia Thrombocytopenia FEN Proph Dispo
[2017-08-12] MEDS ORDERED: ATOVAQUONE 750 MG/5 ML SUSPENSION PO SCH (08:00)
[2017-08-12] MEDS: RIFAXIMIN 550 MG TABLET (UD) PO SCH ×2 (09:17→21:29)
[2017-08-12] MEDS: SPIRONOLACTONE 25 MG TABLET (FP) PO SCH ×2 (09:17→21:29)
[2017-08-12] MEDS: MAGNESIUM OXIDE 400 MG TABLET (FP) PO SCH ×2 (09:18→21:30)
[2017-08-12] MEDS ORDERED: ATENOLOL 50 MG TABLET (FP) PO SCH (10:00)
[2017-08-12] MEDS ORDERED: FERROUS SO4 325 MG TABLET (FP) PO SCH (10:00)
[2017-08-12] MEDS ORDERED: PATIENT'S OWN MEDICATION (NON-FORMULARY) (Emtricitabine/Tenofov Alafenam [Descovy 200-25 M PO SCH (10:00)
[2017-08-12] MEDS ORDERED: FOLIC ACID 1 MG TABLET (FP) PO SCH (10:00)
[2017-08-12] MEDS ORDERED: DOLUTEGRAVIR SODIUM 50 MG TABLET PO SCH (10:00)
[2017-08-12] MEDS ORDERED: THIAMINE HCL 100 MG TABLET (FP) PO SCH (10:00)
[2017-08-12] MEDS ORDERED: POTASSIUM CHLORIDE TABS 20 MEQ TABLET.ER (FP) PO SCH (10:00)
[2017-08-12] MEDS ORDERED: PANTOPRAZOLE 40 MG TABLET (FP) PO SCH (10:00)
[2017-08-12 11:24] LABS: BASO % 0.2 % (0-2.0); EOS % 1.4 % (0-4.5); HEMATOCRIT 19.9 % (35.4-49); LYMPH % 18.1 % (8-40); MCHC 34.4 g/dl (32.0-35.9); MEAN CELL VOLUME 126.3 fl (80-96); MEAN PLT VOLUME 11.2 fl (7.5-11.1); MONO % 12.2 % (3.8-10.2); NEUT % 68.1 % (42.8-82.8); PLATELET COUNT 37 K/MM3 (134-434); RBC 1.58 M/mm3 (4.00-5.60); RDW 21.6 % (11.9-15.9); WHITE BLOOD COUNT 3.4 K/mm3 (4.0-10.0)
[2017-08-12 11:39] LABS: INR 2.61 (0.82-1.09); PROTHROMBIN TIME (PATIENT) 29.5 SEC (9.98-11.88)
[2017-08-12 11:40] LABS: MCH 43.4 pg (25.7-33.7)
[2017-08-12 11:41] LABS: HEMOGLOBIN 6.8 GM/dL (11.7-16.9)
[2017-08-12 11:49] LABS: ALBUMIN 1.2 g/dl (3.4-5.0); ALK PHOS 83 U/L (45-117); ANION GAP 10 (8-16); BILIRUBIN,TOTAL 3.9 mg/dL (0.2-1.0); BLOOD UREA NITROGEN 12 mg/dL (7-18); CALCIUM 7.3 mg/dL (8.5-10.1); CHLORIDE 113 mmol/L (98-107); CO2 22 mmol/L (21-32); CREATININE 0.9 mg/dL (0.7-1.3); GLUCOSE,RANDOM 72 mg/dL (74-106); MAGNESIUM 1.7 mg/dL (1.8-2.4); PHOSPHOROUS 2.7 mg/dL (2.5-4.9); POTASSIUM 3.9 mmol/L (3.5-5.1); SGOT/AST 114 U/L (15-37); SGPT/ALT 45 U/L (12-78); SODIUM 145 mmol/L (136-145); TOT PROT 7.1 g/dl (6.4-8.2)
[2017-08-12] MEDS ORDERED: PT OWN MED DRAWER 7, Y5N ONE ×2 (12:08→14:41)
--- NOTE | 2017-08-12 12:52 | CON.ID ---
Consult Consult Specialty:: infectious disease Referred by:: hospitalist service Reason for Consultation:: aids - History of Present Illness Chief Complaint: hypokalemia History of Present Illness: [age] year old man with AIDS, Hep C with cirrhosis and ascites seen in clinic yesterday sent to ED for potassium of 2.7 he has otherwise been well he has not been taking his meds appropriately at home (taking lasix I think but not the aldactone) he is taking his ART no severe diarrhea now that he is on xifaximin and off the lactulose he has been refusing VNS which I think would be very helpful in helping him take his meds properly he denies rectal bleeding no fevers or chills alert - History Source History Provided By: Patient Limitations to Obtaining History: No Limitations - Past Medical History Cardio/Vascular: Yes: HTN Hepatobiliary: Yes: Cirrhosis, Hepatitis C Infectious Disease: Yes: AIDS Musculoskeletal: Yes: Osteoarthritis - Alcohol/Substance Use Hx Alcohol Use: No - Smoking History Smoking history: Never smoked Have you smoked in the past 12 months: No Aproximately how many cigarettes per day: 3 If you are a former smoker, when did you quit?: 1 year ago - Social History Usual Living Arrangement: Alone ADL: Independent 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 History of Recent Travel: No Home Medications - Allergies Allergies/Adverse Reactions: Allergies Allergy/AdvReac Type Severity Reaction Status Date / Time No Known Allergies Allergy Verified 08/11/17 20:05 - Home Medications Home Medications: Ambulatory Orders Furosemide [Lasix -] 40 mg PO BID@0600,1400 #60 tablet 07/13/17 Nystatin Oral Suspension - [Nystatin Oral Susp 238898 Units/5 ML -] 500,000 units PO Q6H #1 cup 07/13/17 Spironolactone [Aldactone -] 50 mg PO BID #60 tablet 07/13/17 Thiamine HCl [Vitamin B1 -] 100 mg PO DAILY #30 tab 07/13/17 Atovaquone [Mepron -] 1,500 mg PO DAILY@0800 30 Days #300 ml 07/14/17 Rifaximin [Xifaxan] 550 mg PO BID #60 tablet 07/14/17 Nystatin Oral Suspension - [Nystatin Oral Susp 379380 Units/5 ML -] 500,000 units PO Q8H 30 Days #480 cup 07/22/17 Hydrocortisone 1% Cream [Hytone 1% Cream -] 1 applic TP BID #30 g 07/26/17 Hydrocortisone 0.5% Cream [Hytone 0.5% Cream -] 1 applic TP DAILY #1 tube Atenolol [Tenormin -] 50 mg PO DAILY #30 tablet 08/04/17 Azithromycin [Zithromax 250mg Tablets -] 1,200 mg PO WEEKLY #8 tablet 08/04/17 Dolutegravir Sodium [Tivicay] 50 mg PO DAILY #30 tablet 08/04/17 Emtricitabine/Tenofov Alafenam [Descovy 200-25 mg Tablet (Nf)] 1 each PO DAILY # 30 tablet 08/04/17 Ferrous Sulfate 325 mg PO DAILY 30 Days #30 tablet 08/04/17 Folic Acid - 1 mg PO DAILY #30 tablet 08/04/17 Magnesium Oxide [Mag-Ox -] 400 mg PO BID #60 tablet 08/04/17 Omeprazole 40 mg PO DAILY #30 capsule.dr 08/04/17 Potassium Chloride [K-Dur -] 20 meq PO DAILY #10 tablet.er 08/04/17 Simethicone 80 mg PO QID PRN #100 tab.chew 08/04/17 Sodium Chloride [Saline Nasal [place]] 30 ml NS PRN #1 spray 08/11/17 Family Disease History - Family Disease History Family History: Unremarkable Review of Systems - Review of Systems Constitutional: denies: Fever, Lethargy, Loss of Appetite, Night Sweats Eyes: reports: No Symptoms HENT: reports: No Symptoms. denies: Difficult Swallowing Neck: reports: No Symptoms Cardiovascular: reports: Edema. denies: Chest Pain Respiratory: denies: Cough Gastrointestinal: reports: Bloating. denies: Abdominal Pain, Rectal Bleeding, Vomiting, Vomiting Blood Genitourinary: reports: No Symptoms Musculoskeletal: reports: No Symptoms Integumentary: reports: No Symptoms Neurological: reports: No Symptoms Physical Exam Vital Signs: Vital Signs Temperature 98.3 F 08/12/17 09:23 Pulse Rate 98 H 08/12/17 09:23 Respiratory Rate 16 08/12/17 12:00 Blood Pressure 125/85 08/12/17 09:23 O2 Sat by Pulse Oximetry (%) 96 08/12/17 12:00 Constitutional: Yes: No Distress, Calm, Thin Eyes: Yes: Sclera Icterus HENT: Yes: Atraumatic, Normocephalic. No: Thrush Neck: Yes: Supple Cardiovascular: Yes: Regular Rate and Rhythm Respiratory: Yes: CTA Bilaterally, Diminished (at the bases) Gastrointestinal: Yes: Normal Bowel Sounds, Other (firm, +ascites). No: Tenderness, Tenderness, Epigastrium ...Rectal Exam: Yes: Deferred Edema: Yes Labs: CBC, BMP 08/12/17 11:00 08/12/17 11:00 Imaging - Results Chest X-ray: Report Reviewed Problem List - Problems (1) Hypokalemia Assessment/Plan: suspect because he was taking lasix and not taking aldactone Code(s): E87.6 - HYPOKALEMIA (2) Anemia Assessment/Plan: he had EGD in March 2017, prior hematochezia (last admission) transfuse, stool guaic, consider GI eval Code(s): D64.9 - ANEMIA, UNSPECIFIED (3) Decompensated HCV cirrhosis Assessment/Plan: needs improved medication adherence has not followed up with GI as outpt despite my urging him to do so Code(s): B19.20 - UNSPECIFIED VIRAL HEPATITIS C WITHOUT HEPATIC COMA; K74.69 - OTHER CIRRHOSIS OF LIVER (4) AIDS Assessment/Plan: truvada instead of descovy while in hospital, continue tivicay- he has his meds at home Code(s): B20 - HUMAN IMMUNODEFICIENCY VIRUS [HIV] DISEASE (5) Thrombocytopenia Assessment/Plan: most likely due to cirrhosis Code(s): D69.6 - THROMBOCYTOPENIA, UNSPECIFIED
[2017-08-12] MEDS ORDERED: EMTRICITABINE 200MG/TENOFOVIR 300MG PO SCH (13:00)
--- NOTE | 2017-08-12 13:20 | PN ---
Teaching Attending Note Name of Resident: Sonny Morales ATTENDING PHYSICIAN STATEMENT I saw and evaluated the patient. I reviewed the resident's note and discussed the case with the resident. I agree with the resident's findings and plan as documented. SUBJECTIVE: No fever or chills. has no abd pain . has cramps in hands at time of evaluation. was taken off his potassium few days ago, by his PCP. OBJECTIVE: NAD. MMM, no facial droop. Cv: RRR, no MRG Lungs: minimal bibasilar crackles Abd: soft, NT, distended, fluid wave, NT. nl BS , liver is palpated 2 cm below costal margin, spleen is percussed but not palpated Ext: 2+ edema A/P: 57 y/o man with h/o HIV on HAARt, HTN, HCV cirrhosis, varices, pancytopenia, hemorrhoidal bleed , PUD/HP gastritis , who was sent by his PCP for hypokalemia 1- Hypokalemia: due to holding his out pt K dur and being on lasix. - will resume his home K dur at dc 2- Macrocytic anemia: chronic. with acute drop this am with no obvious bleed. iron studies in past showed anemia of chronic disease. B12 and folate elevated. last GI w/u included EGD with small non bleeding ulcer in stomach and small non bleeding esophageal varices. - repeat Hb now, to r/o lab variation as there is no obvious bleed - if repeat Hb is at base line , might not need transfusion or GI eval as inpt . if low , will transfuse 3- Hep C cirhosis: with ascitis . Cont his diuretics, rifaximine, and lactulose at home. and GI f/u 4- HIV: cont HAARt Cont mepron and weekly azithro 5- Pancytopenia: due to liver disease 6- Hypocalcemia: corrected Ca today 9.06. Will confirm meds. pt wants to go home. will wait repeated HB to decide on transfusion .
[2017-08-12 14:52] LABS: HEMATOCRIT 19.8 % (35.4-49); HEMOGLOBIN 7.4 GM/dL (11.7-16.9); MCHC 37.3 g/dl (32.0-35.9); MEAN CELL VOLUME 129.7 fl (80-96); MEAN PLT VOLUME 12.8 fl (7.5-11.1); PLATELET COUNT 39 K/MM3 (134-434); RBC 1.53 M/mm3 (4.00-5.60); RDW 21.8 % (11.9-15.9); WHITE BLOOD COUNT 3.8 K/mm3 (4.0-10.0)
[2017-08-12 14:55] LABS: MCH 48.4 pg (25.7-33.7)
--- NOTE | 2017-08-12 19:19 | DS ---
Physical Exam: SUBJECTIVE: Patient seen and examined OBJECTIVE: Vital Signs Period Temp Pulse Resp BP Sys/Skel[place] Pulse Ox Last 24 Hr 97.6 F-98.6 F 86-98 16-18 117-131/76-87 96-97 PHYSICAL EXAM GENERAL: The patient is awake, alert, and fully oriented, in no acute distress. HEAD: Normal with no signs of trauma. EYES: PERRL, extraocular movements intact, sclera anicteric, conjunctiva clear. ENT: Ears normal, nares patent, oropharynx clear without exudates, moist mucous membranes. NECK: Trachea midline, full range of motion, supple. LUNGS: Breath sounds equal, clear to auscultation bilaterally, no wheezes, no crackles, no accessory muscle use. HEART: Regular rate and rhythm, S1, S2 without murmur, rub or gallop. ABDOMEN: Soft, nontender, nondistended, normoactive bowel sounds, no guarding, no rebound, no hepatosplenomegaly, no masses. EXTREMITIES: 2+ pulses, warm, well-perfused, no edema. NEUROLOGICAL: Cranial nerves II through XII grossly intact. Normal speech, gait not observed. PSYCH: Normal mood, normal affect. SKIN: Warm, dry, normal turgor, no rashes or lesions noted. LABS Laboratory Results - last 24 hr 08/11/17 08/11/17 08/11/17 21:39 21:39 21:39 WBC 3.5 L RBC 1.85 L Hgb 7.4 L Hct 22.1 L MCV 119.7 H MCH 40.1 H MCHC 33.5 RDW 20.3 H Plt Count 53 L MPV 12.3 H Neutrophils % 71.7 Lymphocytes % 17.5 Monocytes % 9.3 Eosinophils % 1.2 Basophils % 0.3 Hypochromia 1+ Platelet Estimate Decreased Platelet Comment No clumping noted Polychromasia 1+ Anisocytosis 1+ Macrocytosis 3+ Target Cells 1+ PT with INR Cancelled INR Cancelled PTT (Actin FS) Sodium Cancelled Potassium Cancelled Chloride Cancelled Carbon Dioxide Cancelled Anion Gap Cancelled BUN Cancelled Creatinine Cancelled Creat Clearance w eGFR Cancelled Random Glucose Cancelled Calcium Cancelled Phosphorus Magnesium Cancelled Total Bilirubin Cancelled AST Cancelled ALT Cancelled Alkaline Phosphatase Cancelled Creatine Kinase Cancelled Creatine Kinase Index CK-MB (CK-2) Troponin I Cancelled Total Protein Cancelled Albumin Cancelled Blood Type Antibody Screen Crossmatch 08/11/17 08/11/17 08/12/17 22:02 23:00 11:00 WBC 3.4 L RBC 1.58 L Hgb 6.8 L* Hct 19.9 L MCV 126.3 H MCH 43.4 H MCHC 34.4 RDW 21.6 H Plt Count 37 L D MPV 11.2 H Neutrophils % 68.1 Lymphocytes % 18.1 Monocytes % 12.2 H Eosinophils % 1.4 Basophils % 0.2 Hypochromia Platelet Estimate Platelet Comment Polychromasia Anisocytosis Macrocytosis Target Cells PT with INR 31.00 H INR 2.74 H D PTT (Actin FS) 53.5 H Sodium 142 Potassium 3.0 L Chloride 109 H Carbon Dioxide 22 Anion Gap 11 BUN 11 Creatinine 0.9 Creat Clearance w eGFR > 60 Random Glucose 80 Calcium 6.7 L* Phosphorus Magnesium Total Bilirubin 4.0 H AST 118 H ALT 45 Alkaline Phosphatase 79 Creatine Kinase 213 Creatine Kinase Index 1.2 CK-MB (CK-2) 2.628 Troponin I 0.04 D Total Protein 6.9 Albumin 1.2 L Blood Type Antibody Screen Crossmatch 08/12/17 08/12/17 08/12/17 11:00 11:00 11:00 WBC RBC Hgb Hct MCV MCH MCHC RDW Plt Count MPV Neutrophils % Lymphocytes % Monocytes % Eosinophils % Basophils % Hypochromia Platelet Estimate Platelet Comment Polychromasia Anisocytosis Macrocytosis Target Cells PT with INR 29.50 H INR 2.61 H PTT (Actin FS) Sodium 145 Potassium 3.9 D Chloride 113 H Carbon Dioxide 22 Anion Gap 10 BUN 12 Creatinine 0.9 Creat Clearance w eGFR > 60 Random Glucose 72 L Calcium 7.3 L Phosphorus 2.7 Magnesium 1.7 L D Total Bilirubin 3.9 H AST 114 H ALT 45 Alkaline Phosphatase 83 Creatine Kinase Creatine Kinase Index CK-MB (CK-2) Troponin I 0.05 Total Protein 7.1 Albumin 1.2 L Blood Type Antibody Screen Crossmatch 08/12/17 08/12/17 14:17 16:45 WBC 3.8 L RBC 1.53 L Hgb 7.4 L Hct 19.8 L MCV 129.7 H MCH 48.4 H MCHC 37.3 H RDW 21.8 H Plt Count 39 L MPV 12.8 H D Neutrophils % Lymphocytes % Monocytes % Eosinophils % Basophils % Hypochromia Platelet Estimate Platelet Comment Polychromasia Anisocytosis Macrocytosis Target Cells PT with INR INR PTT (Actin FS) Sodium Potassium Chloride Carbon Dioxide Anion Gap BUN Creatinine Creat Clearance w eGFR Random Glucose Calcium Phosphorus Magnesium Total Bilirubin AST ALT Alkaline Phosphatase Creatine Kinase Creatine Kinase Index CK-MB (CK-2) Troponin I Total Protein Albumin Blood Type O POSITIVE Antibody Screen Negative Crossmatch See Detail CBC, BMP 08/12/17 14:17 08/12/17 11:00 HOSPITAL COURSE: Date of Admission:08/11/17 Date of Discharge: 08/12/17 is a 57 y/o man with h/o HIV on HAARt, HTN, HCV cirrhosis, varices, pancytopenia, hemorrhoidal bleed , PUD/HP gastritis , who was sent by his PCP for hypokalemia due to holding his out pt K dur and being on lasix. K has been replenished in patient.will resume his home K dur , PT has Macrocytic anemia: chronic. with acute drop this am with no obvious bleed. iron studies in past showed anemia of chronic disease. B12 and folate elevated. last GI w/u included EGD with small non bleeding ulcer in stomach and small non bleeding esophageal varices. repeat Hb now to r/o lab variation as there is no obvious bleed, Hgb 7.4 , will transfuse one unit of blood and dc home. patient has Hep C cirrhosis: with ascetic . will resume his diuretics, rifaximine, and lactulose at home. 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 pt has Hypocalcemia, corrected Ca today 9.06.pt is hemodynamically stable and will be dc home . he will follow up with his PCP within one week. After discussing with his pcp pt will be using Spirnolacton 50 mg po daily and Lasix 40 mg po daily and 10 meq of K-dur. Minutes to complete discharge: 40 Discharge Summary Reason For Visit: ELECTROLYTE IMBALANCE, HYPOKALEMIA Current Active Problems Hep C w/o coma, chronic (Chronic) Human immunodeficiency virus (HIV) disease (Chronic) Condition: Stable - Instructions Diet, Activity, Other Instructions: You were admitted to the hospital due to low potassium. your potassium level on admission was 3.0 and was replenished and it is 3.9 on discharge. Please resume taking your daily potassium 10 mg daily. Please do blood work in 1 week and follow up with primary doctor to discuss results. you will be using spirnolactone 50 mg once daily , You will be using Lasix 40 mg once daily Please resume all other home meds as prescribed before admission. Please follow up with your primary care physician within one week. and repeat the blood work. If you develop fever, chills, palpitations, dizziness or any other worrisome symptoms, call 911 or return to ER. Referrals: Emma Harmon, REVENUE CYCLE ADMINISTRATOR [Primary Care Provider] - 1 Week Disposition: HOME - Home Medications Comprehensive Discharge Medication List: Ambulatory Orders Spironolactone [Aldactone -] 50 mg PO BID #60 tablet 07/13/17 Thiamine HCl [Vitamin B1 -] 100 mg PO DAILY #30 tab 07/13/17 Rifaximin [Xifaxan] 550 mg PO BID #60 tablet 07/14/17 Nystatin Oral Suspension - [Nystatin Oral Susp 171328 Units/5 ML -] 500,000 units PO Q8H 30 Days #480 cup 07/22/17 Hydrocortisone 1% Cream [Hytone 1% Cream -] 1 applic TP BID #30 g 07/26/17 Atenolol [Tenormin -] 50 mg PO DAILY #30 tablet 08/04/17 Azithromycin [Zithromax 250mg Tablets -] 1,200 mg PO WEEKLY #8 tablet 08/04/17 Dolutegravir Sodium [Tivicay] 50 mg PO DAILY #30 tablet 08/04/17 Emtricitabine/Tenofov Alafenam [Descovy 200-25 mg Tablet (Nf)] 1 each PO DAILY # 30 tablet 08/04/17 Ferrous Sulfate 325 mg PO DAILY 30 Days #30 tablet 08/04/17 Folic Acid - 1 mg PO DAILY #30 tablet 08/04/17 Magnesium Oxide [Mag-Ox -] 400 mg PO BID #60 tablet 08/04/17 Omeprazole 40 mg PO DAILY #30 capsule. 08/04/17 Simethicone 80 mg PO QID PRN #100 tab.chew 08/04/17 Sodium Chloride [Saline Nasal [place]] 30 ml NS PRN #1 spray 08/11/17 Atovaquone [Mepron Oral Solution -] 750 mg PO BID 08/12/17 Furosemide [Lasix] 40 mg PO DAILY 08/12/17 Miscellaneous Drug Not In Syst [Outpatient Lab Test] 1 each ASDIR #1 misc Potassium Chloride [K-Dur -] 10 meq PO DAILY #30 tablet.er 08/12/17 Spironolactone [Aldactone] 50 mg PO DAILY 08/12/17 This patient is new to me today: Yes Date on this admission: 08/12/17 Emergency Visit: Yes ED Registration Date: 08/11/17 Care time: The patient presented to the Emergency Department on the above date and was hospitalized for further evaluation of their emergent condition. Critical Care patient: No - Discharge Referral Referred to [facility] Med P.C.: No
[2017-08-12 23:17] VITALS: BP 137/87; PULSE 84; TEMP 98.7
--- NOTE | 2017-08-16 13:26 | EKG ---
Test Reason : Blood Pressure : / mmHG Vent. Rate : 087 BPM Atrial Rate : 087 BPM P-R Int : 140 ms QRS Dur : 086 ms QT Int : 380 ms P-R-T Axes : 026 056 100 degrees QTc Int : 457 ms NORMAL SINUS RHYTHM NONSPECIFIC T WAVE ABNORMALITY ABNORMAL ECG WHEN COMPARED WITH ECG OF 09-JUL-2017 13:18, NO SIGNIFICANT CHANGE WAS FOUND Confirmed by MD Venegas Daniel ([id number]) on 08/16/2017 1:26:38 PM Referred By: Confirmed By:Abhijeet Venegas MD
== END 2017-08-12 23:00 | disposition home or self-care (01) ==
LOC: JER 20:02 → JERBED 23:37 → J6S 08-12 04:30
PROVIDERS: ADMIT Internal Medicine; ATTEND Internal Medicine
PROC: 3E033GC Introduction of Other Therapeutic Substance into Peripheral Vein, Percutaneous Approach (ICD-10-PCS; principal; 2017-08-11)
PROC: 3E0337Z Introduction of Electrolytic and Water Balance Substance into Peripheral Vein, Percutaneous Approach (ICD-10-PCS; 2017-08-11)
DX: E87.6 Hypokalemia (principal); E87.8 Other disorders of electrolyte and fluid balance, not elsewhere classified; B20 Human immunodeficiency virus [HIV] disease; I10 Essential (primary) hypertension; K74.60 Unspecified cirrhosis of liver; D64.9 Anemia, unspecified; D52.9 Folate deficiency anemia, unspecified; M19.90 Unspecified osteoarthritis, unspecified site; B19.20 Unspecified viral hepatitis C without hepatic coma; D69.6 Thrombocytopenia, unspecified; D61.818 Other pancytopenia; E83.51 Hypocalcemia
CPT/HCPCS: 36415; 36430; 71045-TC-FY; 80053; 82550; 82553; 83735; 84100; 84484; 85025; 85027; 85610; 85730; 86850; 86900; 86901; 86922; 93005; 93010; 96374; 97116-GP; 97161-GP; 99285-25; G0378; P9038; P9058

== ENCOUNTER 2017-09-16 11:07 | Emergency (ER) | payer OTHER ==
[2017-09-16 11:16] VITALS: BMI 22.8
--- NOTE | 2017-09-16 11:50 | PDOC ---
History of Present Illness - General Chief Complaint: Weakness Stated Complaint: Nausea/Vomiting Time Seen by Provider: 09/16/17 11:19 History Source: Patient, Old Records Exam Limitations: No Limitations - History of Present Illness Initial Comments: 09/16/17 11:42 This is a 57-year-old male with past medical history of hypertension, hepatitis C, HIV, cirrhosis who presents to the emergency room with 2-3 weeks of feeling fatigued. Patient states he frequently wakes up in his house after having dreams that he has been admitted to [facility]. Patient states he is aware that he has not been admitted since July but he still has these creams including this morning. He reports having upper abdominal pain which is slightly worse than his usual chronic abdominal pain. Currently his pain is 6/10 in the epigastric region. He denies headaches, dizziness, fevers, chills, chest pain, shortness of breath, nausea, vomiting, diarrhea, dysuria, hematuria, rectal bleeding. Past History - Past Medical History Allergies/Adverse Reactions: Allergies Allergy/AdvReac Type Severity Reaction Status Date / Time No Known Allergies Allergy Verified 09/16/17 11:12 Home Medications: Ambulatory Orders Spironolactone [Aldactone -] 50 mg PO BID #60 tablet 07/13/17 Thiamine HCl [Vitamin B1 -] 100 mg PO DAILY #30 tab 07/13/17 Rifaximin [Xifaxan] 550 mg PO BID #60 tablet 07/14/17 Nystatin Oral Suspension - [Nystatin Oral Susp 962347 Units/5 ML -] 500,000 units PO Q8H 30 Days #480 cup 07/22/17 Hydrocortisone 1% Cream [Hytone 1% Cream -] 1 applic TP BID #30 g 07/26/17 Atenolol [Tenormin -] 50 mg PO DAILY #30 tablet 08/04/17 Azithromycin [Zithromax 250mg Tablets -] 1,200 mg PO WEEKLY #8 tablet 08/04/17 Dolutegravir Sodium [Tivicay] 50 mg PO DAILY #30 tablet 08/04/17 Emtricitabine/Tenofov Alafenam [Descovy 200-25 mg Tablet (Nf)] 1 each PO DAILY # 30 tablet 08/04/17 Ferrous Sulfate 325 mg PO DAILY 30 Days #30 tablet 08/04/17 Folic Acid - 1 mg PO DAILY #30 tablet 08/04/17 Magnesium Oxide [Mag-Ox -] 400 mg PO BID #60 tablet 08/04/17 Omeprazole 40 mg PO DAILY #30 capsule. 08/04/17 Simethicone 80 mg PO QID PRN #100 tab.chew 08/04/17 Sodium Chloride [Saline Nasal [place]] 30 ml NS PRN #1 spray 08/11/17 Atovaquone [Mepron Oral Solution -] 750 mg PO BID 08/12/17 Furosemide [Lasix] 40 mg PO DAILY 08/12/17 Miscellaneous Drug Not In Syst [Outpatient Lab Test] 1 each ASDIR #1 misc Potassium Chloride [K-Dur -] 10 meq PO DAILY #30 tablet.er 08/12/17 Spironolactone [Aldactone] 50 mg PO DAILY 08/12/17 Anemia: Yes Asthma: No COPD: No Diabetes: No HTN: Yes Liver Disease: Yes (HEP C, cirrohosis) - Surgical History Appendectomy: Yes (1970s) - Suicide/Smoking/Psychosocial Hx Smoking History: Current some day smoker Have you smoked in the past 12 months: No Number of Cigarettes Smoked Daily: 3 If you are a former smoker, when did you quit?: 1 year ago Information on smoking cessation initiated: No 'Breaking Loose' booklet given: 04/09/17 Hx Alcohol Use: No Drug/Substance Use Hx: No Substance Use Type: None Hx Substance Use Treatment: No Review of Systems - Review of Systems Able to Perform ROS?: Yes Is the patient limited Palauan proficient: No Constitutional: Yes: See HPI HEENTM: No: Symptoms Reported Respiratory: No: Symptoms reported Cardiac (ROS): No: Symptoms Reported ABD/GI: Yes: See HPI : No: Symptoms Reported Musculoskeletal: No: Symptoms Reported Integumentary: No: Symptoms Reported Neurological: No: Symptoms reported Endocrine: No: Symptoms Reported Hematologic/Lymphatic: No: Symptoms Reported *Physical Exam - Vital Signs Last Vital Signs Temp Pulse Resp BP Pulse Ox 97.4 F L 85 18 105/59 98 09/16/17 11:12 09/16/17 11:12 09/16/17 11:12 09/16/17 11:12 09/16/17 11:12 - Physical Exam General Appearance: Yes: Appropriately Dressed. No: Apparent Distress HEENT: positive: TMs Normal, Pharynx Normal, Scleral Icterus (R), Scleral Icterus (L) Neck: positive: Trachea midline, Supple Respiratory/Chest: positive: Lungs Clear, Normal Breath Sounds. negative: Respiratory Distress, Accessory Muscle Use Cardiovascular: positive: Regular Rhythm, Regular Rate, S1, S2, Edema (3+ pitting edema in bilateral lower extremities). negative: Murmur Gastrointestinal/Abdominal: positive: Increased Bowel Sounds, Protuberent, Hepatomegaly. negative: Pulsatile Mass, Tenderness, Spleenomegaly Musculoskeletal: positive: Normal Inspection. negative: CVA Tenderness Extremity: positive: Pedal Edema (3+ pitting) Integumentary: positive: Normal Color, Dry, Warm Neurologic: positive: group exercise instructor II-XII NML intact, Alert, Normal Mood/Affect, Normal Response, Motor Strength 5/5. negative: Fully Oriented (does not know date/year ) ED Treatment Course - LABORATORY CBC & Chemistry Diagram: 09/16/17 12:45 09/16/17 12:45 - RADIOLOGY Radiology Studies Ordered: Category Date Time Status HEAD CT WITHOUT CONTRAST [CT] Stat CT Scan 09/16/17 11:40 Ordered CHEST PA & LAT [RAD] Stat Radiology 09/16/17 11:40 Ordered Medical Decision Making - Medical Decision Making 09/16/17 11:46 CC: Fatigue for 2-3 weeks A/P: 57-year-old male with cirrhosis, HIV, hypertension, HCV with 2 weeks of fatigue and increased forgetfulness Alert and oriented to person and place. Does not know date or year. Icteric sclera bilaterally Dry oral mucosa Respirations even and unlabored. Lungs clear to auscultation bilaterally. RRR. S1 and S2 present no murmur, rub or gallop noted. Abdomen protuberant. Hyperactive bowel sounds No tenderness to palpation over abdomen. Hepatomegaly present. Skin jaundiced Differential diagnoses include elevated ammonia, CVA, metabolic abnormalities, infectious etiologies, acute kidney insufficiency Labs including direct bili and ammonia, head CT, EKG, chest x-ray 09/16/17 12:06 EKG with sinus rhythm and ventricular rate of 86. Unchanged from EKG done on . 09/16/17 15:21 Chest x-ray as read by Dr. Morgan: Right basilar consolidation and pleural effusion. Laboratory testing significant for potassium of 3.2, sodium 132, creatinine 4.7 , total bili 14.5, direct bili 10.8, platelets of 87, CBC 6.5, lipase 585 Patient's white count is slightly elevated compared to his normal of 2.0-3.8. Given evidence of new-onset renal failure, I will treat the patient has if he has sepsis. I will obtain blood cultures, lactic acid and initiate broad- spectrum antibiotics vancomycin and Zosyn both renally dosed. I'll continue IV fluids. I'll obtain CAT scan of the abdomen and pelvis without contrast. I will admit the patient to hospitalist service. 09/16/17 15:22 09/16/17 16:35 CT of the abdomen as read by Dr. Morgan: Bilateral pleural effusions, right greater than left, with extensive atelectasis of the lower lobes. Massive ascites Liver consistent with cirrhosis No evidence of biliary ductal dilation or acute pathology within the abdomen or pelvis. 09/16/17 17:45 I'll contact [facility] for potential transfer for further evaluation. 09/16/17 18:[address] Putnam the GI resident on-call at [facility]. She will discussed the case with her attending and return call. *DC/Admit/Observation/Transfer Diagnosis at time of Disposition: Failure to thrive in adult, Hypokalemia, Decompensated HCV cirrhosis, Ascites, Thrombocytopenia, JOSHUA (acute kidney injury) - Discharge Dispostion Condition at time of disposition: Guarded Admit: Yes - Referrals - Patient Instructions - Post Discharge Activity
[2017-09-16] MEDS ORDERED: SODIUM CHLORIDE 1,000 ML IV SCH (12:00)
[2017-09-16 12:54] LABS: BASO % 0.2 % (0-2.0); EOS % 0.2 % (0-4.5); HEMATOCRIT 23.8 % (35.4-49); HEMOGLOBIN 8.3 GM/dL (11.7-16.9); LYMPH % 6.1 % (8-40); MEAN CELL VOLUME 119.9 fl (80-96); MEAN PLT VOLUME 9.9 fl (7.5-11.1); MONO % 10.4 % (3.8-10.2); NEUT % 83.1 % (42.8-82.8); PLATELET COUNT 87 K/MM3 (134-434); RBC 1.99 M/mm3 (4.00-5.60); RDW 20.2 % (11.9-15.9); WHITE BLOOD COUNT 6.5 K/mm3 (4.0-10.0)
[2017-09-16 13:10] LABS: ANION GAP 15 (8-16); BILIRUBIN,TOTAL 14.5 mg/dL (0.2-1.0); BLOOD UREA NITROGEN 59 mg/dL (7-18); CALCIUM 7.6 mg/dL (8.5-10.1); CHLORIDE 102 mmol/L (98-107); CO2 15 mmol/L (21-32); CREATININE 4.7 mg/dL (0.7-1.3); GLUCOSE,RANDOM 80 mg/dL (74-106); SGPT/ALT 57 U/L (12-78); SODIUM 132 mmol/L (136-145); TOT PROT 7.5 g/dl (6.4-8.2)
[2017-09-16 13:11] LABS: ALK PHOS 92 U/L (45-117)
[2017-09-16 13:12] LABS: BILIRUBIN,DIRECT 10.8 mg/dL (0.0-0.2); POTASSIUM 3.2 mmol/L (3.5-5.1); SGOT/AST 127 U/L (15-37)
[2017-09-16] MEDS ORDERED: SODIUM CHLORIDE 1,000 ML IV STA (14:33)
[2017-09-16] MEDS ORDERED: AZITHROMYCIN IVPB 500 MG in DEXTROSE 5%-WATER - 250 ML IVPB ONE (14:47)
[2017-09-16] MEDS ORDERED: CEFTRIAXONE 1 GM in DEXTROSE 5%-WATER - 100 ML IVPB ONE (14:47)
[2017-09-16 14:51] LABS: PLATELET ESTIMATE DECREASED
[2017-09-16 14:52] LABS: ADD RBC MORPHOLOGY YES
[2017-09-16 14:53] LABS: ANISOCYTOSIS 2+; MACROCYTOSIS 3+
[2017-09-16] MEDS ORDERED: PIPERACILLIN/TAZOB 2.25 GM/50 ML PREMIX BAG IVPB ONE (15:11)
[2017-09-16] MEDS ORDERED: VANCOMYCIN 1 GRAM (PRE-DOCKED) 1,000 MG/250 ML BAG IVPB ONE (15:11)
[2017-09-16] MEDS ORDERED: PIPERACILLIN/TAZOB 2.25 GM 2.25 GM in DEXTROSE 5%-WATER - 50 ML IVPB ONE (15:15)
[2017-09-16] MEDS ORDERED: LACTULOSE 20 GM/30 ML UDC (FOR ORAL USE ONLY) PO ONE (17:41)
[2017-09-16] MEDS: KCL 10 MEQ IVPB 10 MEQ/100 ML INFUS.BAG IVPB SCH ×2 (19:30→21:42)
--- NOTE | 2017-09-16 19:49 | PDOC ---
*Physical Exam - Vital Signs Last Vital Signs Temp Pulse Resp BP Pulse Ox 98.1 F 88 20 107/65 99 09/16/17 18:43 09/16/17 18:43 09/16/17 18:43 09/16/17 18:43 09/16/17 18:43 ED Treatment Course - LABORATORY CBC & Chemistry Diagram: 09/16/17 12:45 09/16/17 12:45 - ADDITIONAL ORDERS Additional order review: Laboratory Results 09/16/17 09/16/17 09/16/17 17:30 12:45 12:45 Sodium Potassium Chloride Carbon Dioxide Anion Gap BUN Creatinine Creat Clearance w eGFR Random Glucose Lactic Acid 1.9 Calcium Total Bilirubin Direct Bilirubin Cancelled AST ALT Alkaline Phosphatase Ammonia 61.09 H Total Protein Albumin Lipase 09/16/17 09/16/17 12:45 12:45 Sodium 132 L Potassium 3.2 L Chloride 102 Carbon Dioxide 15 L D Anion Gap 15 BUN 59 H D Creatinine 4.7 H D Creat Clearance w eGFR 12.91 Random Glucose 80 Lactic Acid Calcium 7.6 L Total Bilirubin 14.5 H D Direct Bilirubin 10.8 H AST 127 H ALT 57 Alkaline Phosphatase 92 Ammonia Total Protein 7.5 Albumin 1.0 L Lipase 585 H 09/16/17 12:45 RBC 1.99 L MCV 119.9 H MCHC 35.0 RDW 20.2 H D MPV 9.9 D Neutrophils % 83.1 H D Lymphocytes % 6.1 L D Monocytes % 10.4 H Eosinophils % 0.2 D Basophils % 0.2 - Medications Given in the ED: ED Medications Discontinued Medications Generic Name Dose Route Start Last Admin Trade Name Freq PRN Reason Stop Dose Admin Sodium Chloride 1,000 mls @ 1,000 mls/hr 09/16/17 14:33 09/16/17 17:30 Normal Saline - IV 09/16/17 15:32 1,000 mls/hr ASDIR STA Administration Azithromycin 500 mg/ Dextrose 250 mls @ 250 mls/hr 09/16/17 14:47 09/16/17 18 :48 IVPB 09/16/17 15:46 Not Given ONCE ONE Ceftriaxone Sodium 1 gm/ 100 mls @ 200 mls/hr 09/16/17 14:47 09/16/17 18:48 Dextrose IVPB 09/16/17 15:16 Not Given ONCE ONE Piperacillin Sod/Tazobactam 50 mls @ 100 mls/hr 09/16/17 15:15 09/16/17 17:00 Sod 2.25 gm/ Dextrose IVPB 09/16/17 15:44 100 mls/hr ONCE ONE Administration Lactulose 20 gm 09/16/17 17:41 09/16/17 18:30 Cephulac (Oral Use) PO 09/16/17 17:42 20 gm ONCE ONE Administration Vancomycin HCl 1,000 mg 09/16/17 15:11 09/16/17 18:15 Vancomycin (Pre-Docked) IVPB 09/16/17 15:12 1,000 mg ONCE ONE Administration Protocol *DC/Admit/Observation/Transfer Diagnosis at time of Disposition: Failure to thrive in adult, Hypokalemia, Decompensated HCV cirrhosis, Thrombocytopenia, JOSHUA (acute kidney injury) Ascites Qualifiers: Ascites type: other type Qualified Code(s): R18.8 - Other ascites - Discharge Dispostion Disposition: TRANSFER ACUTE CARE/OTHER HOSP Condition at time of disposition: Guarded - Referrals Referrals: Emma Harmon FERRY BOAT CAPTAIN [Primary Care Provider] - - Patient Instructions - Post Discharge Activity - Transfer to Acute Care Facility Receiving Facility: [facility].
[2017-09-16 22:11] VITALS: BP 105/62; PULSE 84; TEMP 98
--- NOTE | 2017-09-19 11:41 | EKG ---
Test Reason : Blood Pressure : / mmHG Vent. Rate : 086 BPM Atrial Rate : 086 BPM P-R Int : 148 ms QRS Dur : 098 ms QT Int : 404 ms P-R-T Axes : 020 032 158 degrees QTc Int : 483 ms SINUS RHYTHM WITH MARKED SINUS ARRHYTHMIA T WAVE ABNORMALITY, CONSIDER LATERAL ISCHEMIA ABNORMAL ECG WHEN COMPARED WITH ECG OF 11-AUG-2017 21:58, NO SIGNIFICANT CHANGE WAS FOUND Confirmed by NORBERTO THOMPSON MD ([id number]) on 09/19/2017 11:41:17 AM Referred By: Confirmed By:NORBERTO THOMPSON MD
== END 2017-09-16 22:07 | disposition short-term general hospital (02) ==
LOC: JER 11:07 → UNDOADMIN 17:29 → JERBED 17:29 → JER 22:07
PROC: 3E03329 Introduction of Other Anti-infective into Peripheral Vein, Percutaneous Approach (ICD-10-PCS; principal; 2017-09-16)
PROC: 3E033GC Introduction of Other Therapeutic Substance into Peripheral Vein, Percutaneous Approach (ICD-10-PCS; 2017-09-16)
PROC: 3E03329 Introduction of Other Anti-infective into Peripheral Vein, Percutaneous Approach (ICD-10-PCS; 2017-09-16)
PROC: 3E03329 Introduction of Other Anti-infective into Peripheral Vein, Percutaneous Approach (ICD-10-PCS; 2017-09-16)
DX: R62.7 Adult failure to thrive (principal); D69.6 Thrombocytopenia, unspecified; R18.8 Other ascites; I10 Essential (primary) hypertension; B18.2 Chronic viral hepatitis C; K74.60 Unspecified cirrhosis of liver; Z21 Asymptomatic human immunodeficiency virus [HIV] infection status; E87.6 Hypokalemia; N28.89 Other specified disorders of kidney and ureter
CPT/HCPCS: 36415; 70450-TC; 71046-TC-FY; 74176-TC; 80053; 82140; 82248; 83605; 83690; 84478; 85025; 87040; 93005; 93010; 96361; 96365; 96366; 99284-25; J7030